=== PATIENT | female | born 1935 | race Caucasian/White ===

== ENCOUNTER 2018-06-03 18:38 | Emergency (ER) | payer OTHER ==
--- OUTSIDE RECORDS SUMMARY | 2018-06-03 18:40 | XMS REPORT ---
:1935 Author Organization [employer] Care Team Providers Name Role Phone De Leon, Na Provider Role Unavailable Allergies No Known Allergies Problems Problem Type Condition Code Onset Dates Condition Status Problem Chronic obstructive pulmonary J44.9 Active disease, unspecified COPD type Problem Pure hypercholesterolemia E78.00 Active Problem Overactive bladder N32.81 Active Problem Allergic rhinitis J30.9 Active Problem Vitamin D deficiency E55.9 Active Problem H/O: CVA (cerebrovascular accident) Z86.73 Active Problem Age-related osteoporosis without M81.0 Active current pathological fracture Problem Benign essential HTN I10 Active Problem Trochanteric bursitis M70.60 Active Medications No Known Medications Results No Known Results Summary Purpose eClinicalWorks Submission
--- OUTSIDE RECORDS SUMMARY | 2018-06-03 18:40 | XMS REPORT ---
:1935 Author Organization [employer] Care Team Providers Name Role Phone De Leon, Na Provider Role Unavailable Allergies, Adverse Reactions, Alerts Substance Reaction Event Type codeine Info Not Available Drug Allergy Problems Problem Type Condition Code Onset Dates Condition Status Assessment Benign essential HTN I10 Active Problem Chronic obstructive pulmonary J44.9 Active disease, unspecified COPD type Problem Pure hypercholesterolemia E78.00 Active Problem Overactive bladder N32.81 Active Problem Allergic rhinitis J30.9 Active Problem Vitamin D deficiency E55.9 Active Problem H/O: CVA (cerebrovascular accident) Z86.73 Active Problem Age-related osteoporosis without M81.0 Active current pathological fracture Problem Benign essential HTN I10 Active Problem Trochanteric bursitis M70.60 Active Assessment Vitamin D deficiency E55.9 Active Assessment Pure hypercholesterolemia E78.00 Active Assessment Chronic obstructive pulmonary J44.9 Active disease, unspecified COPD type Assessment Age-related osteoporosis without M81.0 Active current pathological fracture Medications Medication Code Code Instructions Start End Status Dosage System Date Singulair [facility] 03088895844 10 MG Orally Active 1 tablet Once a day in the evening Lasix [facility] 39939426289 40 MG Orally Active 1 tablet Once a day Losartan ND 86550524321 25 MG Orally Lucie Active 1 tablet Potassium Once a day [address] [facility] 93037358213 10 MG Orally Active 1 tablet Once a day Aspirin Adult [facility] 89026800362 81 MG Orally Active 1 tablet Low Dose Once a day Simvastatin ND 36239386547 20 MG Orally Active 1 tablet Once a day in the evening Coreg ND 95500865951 25 MG Orally Active 1 tablets twice a day Flonase ND 51512560161 50 MCG/ACT Active 2 spray in Nasally Once a each day nostril Alendronate ND 76387592513 70 MG Orally May 06, August 04, Inactive 1 tablet Sodium once weekly 2017 2017 Breo Ellipta ND 26847060417 100-25 MCG/INH May 01, Active 1 puff Inhalation Once [address] [facility] 02219749977 150 MG Orally July Active 1 tablet once a month [address] [facility] 21190837581 5 MG Orally Active 1 tablet Chloride Twice a day Results No Known Results Summary Purpose eClinicalWorks Submission
--- OUTSIDE RECORDS SUMMARY | 2018-06-03 18:40 | XMS REPORT ---
:1935 Author Organization [employer] Care Team Providers Name Role Phone De Leon, Na Provider Role Unavailable Allergies No Known Allergies Problems Problem Type Condition Code Onset Dates Condition Status Problem Age-related osteoporosis without M81.0 Active current pathological fracture Problem Trochanteric bursitis M70.60 Active Problem H/O: CVA (cerebrovascular accident) Z86.73 Active Problem Pure hypercholesterolemia E78.00 Active Problem Chronic obstructive pulmonary J44.9 Active disease, unspecified COPD type Problem Primary osteoarthritis of both hips M16.0 Active Problem Acute right hip pain M25.551 Active Problem Chronic bronchitis with productive J41.1 Active mucopurulent cough Problem Allergic rhinitis J30.9 Active Problem Benign essential HTN I10 Active Problem Vitamin D deficiency E55.9 Active Problem Overactive bladder N32.81 Active Medications No Known Medications Results No Known Results Summary Purpose eClinicalWorks Submission
--- OUTSIDE RECORDS SUMMARY | 2018-06-03 18:40 | XMS REPORT ---
[...] H/O: CVA (cerebrovascular accident) Z86.73 Active Problem Primary osteoarthritis of both hips M16.0 Active Assessment Skin lesion L98.9 Active Problem Acute right hip pain M25.551 Active Problem Chronic bronchitis with productive J41.1 Active mucopurulent cough Problem Allergic rhinitis J30.9 Active Problem Benign essential HTN I10 Active Problem Vitamin D deficiency E55.9 Active Problem Overactive bladder N32.81 Active Assessment Chronic obstructive pulmonary J44.9 Active disease, unspecified COPD type Assessment Chronic bronchitis with productive J41.1 Active mucopurulent cough Assessment Age-related osteoporosis without M81.0 Active current pathological fracture Assessment Pure hypercholesterolemia E78.00 Active Assessment Benign essential HTN I10 Active Assessment Primary osteoarthritis of both hips M16.0 Active Problem Pure hypercholesterolemia E78.00 Active Assessment Acute right hip pain M25.551 Active Problem Chronic obstructive pulmonary J44.9 Active disease, unspecified COPD type Medications Medication Code Code Instructions Start End Status Dosage System Date Date Coreg [facility] 16570475398 25 MG Orally Active 1 tablets twice a day Oxybutynin [facility] 56266870361 5 MG Orally Active 1 tablet Chloride Twice a day Flonase [facility] 65303816376 50 MCG/ACT Active 2 spray in Nasally Once a each day nostril Loratadine [facility] 11802593673 10 MG Orally Active 1 tablet Once a day Aspirin Adult [facility] 91284761413 81 MG Orally Active 1 tablet Low Dose Once a day Simvastatin [facility] 53513441415 20 MG Orally Active 1 tablet Once a day in the evening Singulair [facility] 42063020033 10 MG Orally Active 1 tablet Once a day in the evening Lasix [facility] 76860659160 40 MG Orally Active 1 tablet Once a day Breo Ellipta ND 42657119569 100-25 MCG/INH May 01, Active 1 puff Inhalation Once 2019 a day Losartan [facility] 53088942730 25 MG Orally Active 1 tablet Potassium Once a day Results No Known Results Summary Purpose eClinicalWorks Submission
--- OUTSIDE RECORDS SUMMARY | 2018-06-03 18:41 | XMS REPORT ---
:1935 Author Organization [employer] Care Team Providers Name Role Phone De Leon, Na Provider Role Unavailable Allergies, Adverse Reactions, Alerts Substance Reaction Event Type codeine Info Not Available Drug Allergy Problems Problem Type Condition Code Onset Dates Condition Status Problem Trochanteric bursitis M70.60 Active Problem Allergic rhinitis J30.9 Active Problem Benign essential HTN I10 Active Problem CKD (chronic kidney disease), stage N18.3 Active III Assessment Pure hypercholesterolemia E78.00 Active Problem Acute right hip pain M25.551 Active Assessment Age-related osteoporosis without M81.0 Active current pathological fracture Assessment Allergic rhinitis J30.9 Active Problem Acute right-sided low back pain M54.41 Active with right-sided sciatica Problem Vitamin D deficiency E55.9 Active Problem Overactive bladder N32.81 Active Problem Primary osteoarthritis of both hips M16.0 Active Problem Chronic bronchitis with productive J41.1 Active mucopurulent cough Assessment CKD (chronic kidney disease), stage N18.3 Active III Assessment Benign essential HTN I10 Active Assessment Chronic obstructive pulmonary J44.9 Active disease, unspecified COPD type Assessment Overactive bladder N32.81 Active Problem Pure hypercholesterolemia E78.00 Active Problem Chronic obstructive pulmonary J44.9 Active disease, unspecified COPD type Assessment Acute right-sided low back pain M54.41 Active with right-sided sciatica Problem Age-related osteoporosis without M81.0 Active current pathological fracture Problem H/O: CVA (cerebrovascular accident) Z86.73 Active Medications Medication Code Code Instructions Start End Status Dosage System Date Date Coreg [facility] 11409425711 25 MG Orally Active 1 tablets twice a day Lasix ND 34330443811 40 MG Orally Active 1 tablet Once a day Singulair [facility] 53635823536 10 MG Orally Active 1 tablet Once a day in the evening Flonase ND 02259510269 50 MCG/ACT Active 2 spray in Nasally Once a each day nostril Alendronate [facility] 01189281073 70 MG Orally Dec 30, Apr 29, Active 1 tablet Sodium once a week 2017 2018 Aspirin Adult [facility] 25521137877 81 MG Orally Active 1 tablet Low Dose Once a day Loratadine [facility] 02484651037 10 MG Orally Active 1 tablet Once a day Breo Ellipta [facility] 00054827796 100-25 MCG/INH May 01, Active 1 puff Inhalation Once 2019 a day Oxybutynin [facility] 74448160472 5 MG Orally Active 1 tablet Chloride Twice a day Losartan [facility] 49807393980 25 MG Orally Active 1 tablet Potassium Once a day Simvastatin [facility] 23148792677 20 MG Orally Active 1 tablet Once a day in the evening Results No Known Results Summary Purpose eClinicalWorks Submission
--- OUTSIDE RECORDS SUMMARY | 2018-06-03 18:41 | XMS REPORT ---
:1935 Author Organization [employer]Works Care Team Providers Name Role Phone De Leon, Na Provider Role Unavailable Allergies, Adverse Reactions, Alerts Substance Reaction Event Type codeine Info Not Available Drug Allergy Problems Problem Type Condition Code Onset Dates Condition Status Problem Benign essential HTN I10 Active Problem Overactive bladder N32.81 Active Problem Allergic rhinitis J30.9 Active Problem Acute right-sided low back pain M54.41 Active with right-sided sciatica Assessment Overactive bladder N32.81 Active Problem CKD (chronic kidney disease), stage N18.3 Active III Assessment Constipation, unspecified K59.00 Active constipation type Assessment CKD (chronic kidney disease), stage N18.3 Active III Problem Constipation, unspecified K59.00 Active constipation type Problem Chronic bronchitis with productive J41.1 Active mucopurulent cough Problem Vitamin D deficiency E55.9 Active Problem Acute right hip pain M25.551 Active Problem Primary osteoarthritis of both hips M16.0 Active Assessment Pure hypercholesterolemia E78.00 Active Assessment Benign essential HTN I10 Active Assessment Ingrown nail of great toe of right L60.0 Active foot Assessment Chronic obstructive pulmonary J44.9 Active disease, unspecified COPD type Problem Chronic obstructive pulmonary J44.9 Active disease, unspecified COPD type Problem Age-related osteoporosis without M81.0 Active current pathological fracture Problem H/O: CVA (cerebrovascular accident) Z86.73 Active Assessment Foul smelling urine R82.90 Active Problem Pure hypercholesterolemia E78.00 Active Problem Trochanteric bursitis M70.60 Active Medications Medication Code Code Instructions Start End Status Dosage System Date Date Losartan [facility] 53079409389 25 MG Orally Active 1 tablet Potassium Once a day Coreg [facility] 64039576177 25 MG Orally Active 1 tablets twice a day Simvastatin [facility] 39098294736 20 MG Orally Active 1 tablet Once a day in the evening Aspirin Adult [facility] 53567119312 81 MG Orally Active 1 tablet Low Dose Once a day Loratadine [facility] 52652166157 10 MG Orally Active 1 tablet Once a day Flonase [facility] 58521990944 50 MCG/ACT Active 2 spray in Nasally Once a each day nostril Lasix [facility] 90144331741 40 MG Orally Active 1 tablet Once a day Oxybutynin [facility] 02055131412 5 MG Orally Active 1 tablet Chloride Twice a day Breo Ellipta [facility] 47006211657 100-25 MCG/INH May 01, Active 1 puff Inhalation Once 2019 a day Singulair [facility] 76532889239 10 MG Orally Active 1 tablet Once a day in the evening Alendronate [facility] 40312048730 70 MG Orally Dec 30Apr 29, Active 1 tablet Sodium once a week 2017 2018 Results Name Result Date Reference Range Unit Abnormality Flag CULTURE, URINE, ROUTINE ----CULTURE, URINE, ROUTINE SEE NOTE [id number] Summary Purpose eClinicalWorks Submission
--- OUTSIDE RECORDS SUMMARY | 2018-06-03 18:41 | XMS REPORT ---
[...] pain M54.41 Active with right-sided sciatica Problem CKD (chronic kidney disease), stage N18.3 Active III Problem Constipation, unspecified K59.00 Active constipation type Problem Chronic bronchitis with productive J41.1 Active mucopurulent cough Problem Vitamin D deficiency E55.9 Active Problem Acute right hip pain M25.551 Active Problem Primary osteoarthritis of both hips M16.0 Active Problem Chronic obstructive pulmonary J44.9 Active disease, unspecified COPD type Problem Age-related osteoporosis without M81.0 Active current pathological fracture Problem H/O: CVA (cerebrovascular accident) Z86.73 Active Problem Pure hypercholesterolemia E78.00 Active Problem Trochanteric bursitis M70.60 Active Medications Medication Code System Code Instructions Start Date End Date Status Dosage Cipro [facility] [id number] 500 MG Orally May 02, May 09, Active 1 tablet every 12 hrs 2018 2018 Results No Known Results Summary Purpose eClinicalWorks Submission
[2018-06-03 19:03] LABS: Absolute Lymphocytes (CBC) 2.2 K/uL (0.7-4.9); Absolute Monocytes 0.6 K/uL (0.1-1.3); Absolute Neutrophil 6.1 K/uL (1.8-8.0); Basophils % 0.5 % (0-1.3); Eosinophils % 2.1 % (0-4.4); Hematocrit 36.5 % (36.0-45.0); Lymphocytes % 23.9 % (15.3-44.8); MPV 7.1 fL (7.6-11.3); RBC Red Blood Cell Count 3.95 M/uL (3.86-4.86)
[2018-06-03 19:06] LABS: Protime INR 0.96
[2018-06-03] MEDS ORDERED: ALTEPLASE 100 ML IV ONE (19:08)
--- NOTE | 2018-06-03 19:08 | ER ---
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 Code Stroke called from ambulance bay, pt taken straight to CT. Transition of care: patient was not received from another setting of care. An acute neurological deficit is present. The patients blood glucose was checked before arriving to the hospital and was found to be normal. 18:32 Method Of Arrival: EMS: [facility] iw 18:32 Onset of symptoms was June 03, 2018 at 17:50. Risk Assessment: Do you want to hurt iw yourself or someone else? Patient reports no desire to harm self or others. Initial Sepsis Screen: Does the patient meet any 2 criteria? No. Patient's initial sepsis screen is negative. Does the patient have a suspected source of infection? No. Patient's initial sepsis screen is negative. Care prior to arrival: IV initiated. 18 GA, in the left antecubital area, Glucose check: 92. 18:32 Acuity: KERRY 2 iw Triage Assessment: 18:35 The onset of the patients symptoms was June 03, 2018 at 17:50. iw Stroke Activation: Physician: Stroke Attending; Name: ; Notified At: ; Arrived At: Physician: Chief Stroke Resident; Name: ; Notified At: ; Arrived At: Physician: Stroke Resident; Name: ; Notified At: ; Arrived At: Physician: ED Attending; Name: Dr. Smith/MARISOL Cash; Notified At: 18:32; Arrived At: 18:32 Physician: ED Resident; Name: ; Notified At: ; Arrived At: Historical: - Allergies: 19:08 Codeine; iw - Immunization history:: Adult Immunizations. - Ebola Screening: : Patient negative for fever greater than or equal to 101.5 degrees Fahrenheit, and additional compatible Ebola Virus Disease symptoms Patient denies exposure to infectious person Patient denies travel to an Ebola-affected area in the 21 days before illness onset No symptoms or risks identified at this time. - Social history:: Smoking status: Patient/guardian denies using tobacco. Screenin:19 Abuse screen: Denies threats or abuse. Denies injuries from another. Nutritional bp screening: No deficits noted. Tuberculosis screening: No symptoms or risk factors identified. VAN Screening: Arm Drift: Severe drift. Visual Disturbance: No visual disturbance noted. Aphasia: No aphasia noted. Neglect: No neglect noted. Fall Risk No fall in past 12 months (0 pts). Secondary diagnosis (15 points) CVA, IV access (20 points). Ambulatory Aid- None/Bed Rest/Nurse Assist (0 pts). Gait- Impaired (20 pts.). Mental Status- Oriented to own ability (0 pts). Total Thompson Fall Scale indicates High Risk Score (45 or more points). Fall prevention measures have been instituted. Side Rails Up X 2 Placed Close to Nursing Station Frequent Obs/Assessments Occuring As available patient and family educated on Fall Prevention Program and Strategies. Assessment: 18:32 General: Appears in no apparent distress. well developed, Behavior is calm, iw cooperative. Pain: Denies pain. 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 Cardiovascular: Patient's skin is warm and dry. Respiratory: Respiratory effort is even, unlabored, Respiratory pattern is regular. Derm: Skin is intact. 19:00 VAN Scoring: Arm Drift: Minor drift Visual Disturbance: No visual disturbance noted. tl2 Aphasia: No aphasia noted. Neglect: No neglect noted. T-PA (Activase) Screening: Indications: Definite evidence of stroke, ischemic, embolic, or hypertensive: Yes. Treatment will start within 4.5 hours onset of symptoms: Yes. 19:02 The patient has not been NPO before screening. The patient is alert, and able to follow tl2 commands. The patient exhibits slurred or garbled speech. The patient is exhibiting difficulty speaking. The patient does not exhibit difficulty understanding words. The patient is able to swallow own secretions with no drooling or need for suction. The patient did not tolerate one teaspoon of water. Drooling, immediate coughing, gurgling, or clearing of the throat was noted. Bedside swallow screening discontinued. Patient kept NPO until cleared by Speech Therapy or Physician. The patient failed the bedside swallow screening. The patient will be kept NPO until cleared by Speech Therapy or Physician. Provider notified of bedside swallow screening results: Shailesh DAMON. 19:10 Reassessment: MARISOL Cash instructed to take pt to CT immediately after TPA bolus for head tl2 and neck angio. CT notified. Vital Signs: 18:58 Weight 54.43 kg; iw 18:58 BP 153 / 83; Pulse 57; Resp 16; Temp 97; Pulse Ox 96% ; bp 19:00 BP 147 / 66; Pulse 47; Resp 16; Pulse Ox 96% ; bp 19:30 BP 136 / 55; Pulse 53; Resp 18; Pulse Ox 96% ; tl2 19:39 BP 94 / 60; Pulse 51; Resp 18; Pulse Ox 96% on R/A; tl2 19:45 BP 120 / 62; Pulse 46; Resp 18; Pulse Ox 97% on R/A; tl2 20:15 BP 93 / 64; Pulse 53; Resp 18; Pulse Ox 95% on R/A; tl2 NIH Stroke Scale Scores: 18:55 NIHSS Score: 8 jr8 19:15 NIHSS Score: 4 tl2 19:19 NIHSS Score: 9 bp 19:50 NIHSS Score: 3 tl2 ED Course: 18:46 Patient arrived in ED. iw 18:46 Shailesh Rod[facility]guez [facility]. jr8 18:46 Milan Smith MD is Attending Physician. jr8 18:55 initiated a transfer with Olivia at the [facility] transfer center. eb 18:56 CT Stroke Brain w/o Contrast In Process Unspecified. EDMS 19:00 Inserted saline lock: 20 gauge in right antecubital area, using aseptic technique. bp Blood collected. Maintain EMS IV. Dressing intact. Good blood return noted. Site clean \T\ dry. Gauge \T\ site: 20 gauge L AC. 19:01 Triage completed. iw 19:05 Inserted saline lock: 20 gauge in right antecubital area, using aseptic technique. ea 19:11 X-ray completed. Portable x-ray completed in exam room. Patient tolerated procedure mh1 well. 19:13 Stroke CXR 1 View In Process Unspecified. EDMS 19:15 Arm band placed on right wrist. tl2 19:18 Shane Moon, RN is Primary Nurse. bp 19:19 Patient has correct armband on for positive identification. Placed in gown. Bed in low bp position. Call light in reach. Side rails up X2. 19:23 CT Head Angio In Process Unspecified. EDMS 19:23 Neck Angio In Process Unspecified. EDMS 20:45 No provider procedures requiring assistance completed. Patient transferred, IV remains tl2 in place. Administered Medications: 19:00 Drug: ACTIvase {Co-Signature: arturo (Jaylin Walsh RN).} Route: IV Thrombolytics; Rate: bp calculated rate; Infused Over: 60 mins; 20:07 Follow up: Response: No adverse reaction; Marked relief of symptoms tl2 20:07 Follow up: Response: No adverse reaction tl2 Point of Care Testing: Blood Glucose: 18:50 Blood Glucose: 97 mg/dL; iw 19:01 Blood Glucose: 104 mg/dL; tl2 Ranges: Outcome: 19:08 ER care complete, transfer ordered by jrRossy 20:45 Transferred by ground EMS to [facility], Transfer form completed. tl2 20:45 Condition: stable 20:45 Discharge instructions given to patient, family, Instructed on the need for transfer. 20:46 Patient left the ED. tl2 NIH Stroke Scale - NIH Stroke Score Date: 06/03/2018 Time: 18:55 Total Score = 8 1a. Level of Consciousness (LOC) - 0(Alert) 1b. Level of Consciousness (LOC) (Year \T\ Age) - 0(Both) 1c. LOC Commands (Open \T\ Closes Eyes/Fiber Optic Assembly Worker) - 0(Both) 2. Best Gaze (Lateral Gaze Paresis) - 0(Normal) 3. Visual Field Loss - 0(No visual loss) 4. Facial Palsy - 2(Partial paralysis) 5a. Left Arm: Motor (10-second hold) - 2(Drift, some effort against gravity) 5b. Right Arm: Motor (10-second hold) - 0(No drift) 6a. Left Leg: Motor (5-second hold - always test supine) - 1(Drift) 6b. Right Leg: Motor (5-second hold - always test supine) - 0(No drift) 7. Limb Ataxia (finger/nose \T\ heel/hinkle - test with eyes open) - 2(Present in two limbs) 8. Sensory Loss (pinprick arms/legs/face) - 0(Normal) 9. Best Language: Aphasia (description/naming/reading) - 0(No aphasia) 10. Dysarthria (speech clarity - read or repeat words) - 1(Mild to Moderate) 11. Extinction and Inattention (visual/tactile/auditory/spatial/personal) - 0(No abnormality) Initials: jr8 NIH Stroke Scale - NIH Stroke Score Date: 06/03/2018 Time: 19:15 Total Score = 4 1a. Level of Consciousness (LOC) - 0(Alert) 1b. Level of Consciousness (LOC) (Year \T\ Age) - 0(Both) 1c. LOC Commands (Open \T\ Closes Eyes/Fiber Optic Assembly Worker) - 0(Both) 2. Best Gaze (Lateral Gaze Paresis) - 0(Normal) 3. Visual Field Loss - 0(No visual loss) 4. Facial Palsy - 1(Minor Paralysis) 5a. Left Arm: Motor (10-second hold) - 1(Drift) 5b. Right Arm: Motor (10-second hold) - 0(No drift) 6a. Left Leg: Motor (5-second hold - always test supine) - 1(Drift) 6b. Right Leg: Motor (5-second hold - always test supine) - 0(No drift) 7. Limb Ataxia (finger/nose \T\ heel/hinkle - test with eyes open) - 0(Absent) 8. Sensory Loss (pinprick arms/legs/face) - 0(Normal) 9. Best Language: Aphasia (description/naming/reading) - 0(No aphasia) 10. Dysarthria (speech clarity - read or repeat words) - 1(Mild to Moderate) 11. Extinction and Inattention (visual/tactile/auditory/spatial/personal) - 0(No abnormality) Initials: tl2 NIH Stroke Scale - NIH Stroke Score Date: 06/03/2018 Time: 19:19 Total Score = 9 1a. Level of Consciousness (LOC) - 0(Alert) 1b. Level of Consciousness (LOC) (Year \T\ Age) - 0(Both) 1c. LOC Commands (Open \T\ Closes Eyes/Fiber Optic Assembly Worker) - 0(Both) 2. Best Gaze (Lateral Gaze Paresis) - 0(Normal) 3. Visual Field Loss - 0(No visual loss) 4. Facial Palsy - 2(Partial paralysis) 5a. Left Arm: Motor (10-second hold) - 2(Drift, some effort against gravity) 5b. Right Arm: Motor (10-second hold) - 0(No drift) 6a. Left Leg: Motor (5-second hold - always test supine) - 2(Drift, some effort against gravity) 6b. Right Leg: Motor (5-second hold - always test supine) - 0(No drift) 7. Limb Ataxia (finger/nose \T\ heel/hinkle - test with eyes open) - 2(Present in two limbs) 8. Sensory Loss (pinprick arms/legs/face) - 0(Normal) 9. Best Language: Aphasia (description/naming/reading) - 0(No aphasia) 10. Dysarthria (speech clarity - read or repeat words) - 1(Mild to Moderate) 11. Extinction and Inattention (visual/tactile/auditory/spatial/personal) - 0(No abnormality) Initials: bp NIH Stroke Scale - NIH Stroke Score Date: 06/03/2018 Time: 19:50 Total Score = 3 1a. Level of Consciousness (LOC) - 0(Alert) 1b. Level of Consciousness (LOC) (Year \T\ Age) - 0(Both) 1c. LOC Commands (Open \T\ Closes Eyes/Fiber Optic Assembly Worker) - 0(Both) 2. Best Gaze (Lateral Gaze Paresis) - 0(Normal) 3. Visual Field Loss - 0(No visual loss) 4. Facial Palsy - 1(Minor Paralysis) 5a. Left Arm: Motor (10-second hold) - 0(No drift) 5b. Right Arm: Motor (10-second hold) - 0(No drift) 6a. Left Leg: Motor (5-second hold - always test supine) - 1(Drift) 6b. Right Leg: Motor (5-second hold - always test supine) - 0(No drift) 7. Limb Ataxia (finger/nose \T\ heel/hinkle - test with eyes open) - 0(Absent) 8. Sensory Loss (pinprick arms/legs/face) - 0(Normal) 9. Best Language: Aphasia (description/naming/reading) - 0(No aphasia) 10. Dysarthria (speech clarity - read or repeat words) - 1(Mild to Moderate) 11. Extinction and Inattention (visual/tactile/auditory/spatial/personal) - 0(No abnormality) Initials: tl2 Signatures: Dispatcher [employer] EDNataly Arnold 1 Jenny Johnson RN RN Shailesh Rodríguez PA PA 8 Stacie Hidalgo RN RN tl2 Jaylin Walsh RN RN ea Peltier, Brian, RN RN bp Botello, Elizabeth eb Elena Antunez RN ea
--- NOTE | 2018-06-03 19:08 | EDPHYS ---
Physician Documentation [facility] Name: Shima Walters Age: 82 yrs Sex: Female : 1935 Arrival Date: 06/03/2018 Time: 18:46 Bed 7 Private MD: ED Physician Milan Smith HPI: 06/03 18:47 This 82 yrs old Female presents to ER via Unassigned with complaints of jr8 weakness . 18:47 The patient's problem is reported as a facial droop, on left, dysphasia, slurred jr8 speech, weakness, in the left upper extremity, in the left lower extremity, in the left side of face. Onset: The symptoms/episode began/occurred acutely, at 17:50. Duration: The episode is continuous. Context: occurred at home. The symptoms are alleviated by nothing. The symptoms are aggravated by standing, walking. Associated signs and symptoms: The patient has no apparent associated signs or symptoms. Severity of symptoms: At their worst the symptoms were moderate in the emergency department the symptoms are unchanged. The patient has not experienced similar symptoms in the past. The patient has not recently seen a physician. stated that had just got up from a nap. Walked to the bathroom and was fine. called for him to help her. Noticed that she was having trouble walking and could not move left side very well. Noted facial droop with slurred speech . Historical: - Allergies: 19:08 Codeine; iw - Immunization history:: Adult Immunizations. - Ebola Screening: : Patient negative for fever greater than or equal to 101.5 degrees Fahrenheit, and additional compatible Ebola Virus Disease symptoms Patient denies exposure to infectious person Patient denies travel to an Ebola-affected area in the 21 days before illness onset No symptoms or risks identified at this time. - Social history:: Smoking status: Patient/guardian denies using tobacco. ROS: 18:55 Eyes: Negative for injury, pain, redness, and discharge, ENT: Negative for injury, jr8 pain, and discharge, Neck: Negative for injury, pain, and swelling, Cardiovascular: Negative for chest pain, palpitations, and edema, Respiratory: Negative for shortness of breath, cough, wheezing, and pleuritic chest pain, Abdomen/GI: Negative for abdominal pain, nausea, vomiting, diarrhea, and constipation, Back: Negative for injury and pain, MS/Extremity: Negative for injury and deformity, Skin: Negative for injury, rash, and discoloration. 18:55 Neuro: Positive for speech changes, weakness. Exam: 18:53 Radiologist reports: Old infarct left side. No bleed, tumor, or other acute new jr8 findings 18:55 Eyes: Pupils equal round and reactive to light, extra-ocular motions intact. Lids and jr8 lashes normal. Conjunctiva and sclera are non-icteric and not injected. Cornea within normal limits. Periorbital areas with no swelling, redness, or edema. ENT: Nares patent. No nasal discharge, no septal abnormalities noted. Tympanic membranes are normal and external auditory canals are clear. Oropharynx with no redness, swelling, or masses, exudates, or evidence of obstruction, uvula midline. Mucous membranes moist. Neck: Trachea midline, no thyromegaly or masses palpated, and no cervical lymphadenopathy. Supple, full range of motion without nuchal rigidity, or vertebral point tenderness. No Meningismus. Cardiovascular: Regular rate and rhythm with a normal S1 and S2. No gallops, murmurs, or rubs. Normal PMI, no JVD. No pulse deficits. Respiratory: Lungs have equal breath sounds bilaterally, clear to auscultation and percussion. No rales, rhonchi or wheezes noted. No increased work of breathing, no retractions or nasal flaring. Abdomen/GI: Soft, non-tender, with normal bowel sounds. No distension or tympany. No guarding or rebound. No evidence of tenderness throughout. Back: No spinal tenderness. No costovertebral tenderness. Full range of motion. Skin: Warm, dry with normal turgor. Normal color with no rashes, no lesions, and no evidence of cellulitis. MS/ Extremity: Pulses equal, no cyanosis. Neurovascular intact. Full, normal range of motion. 18:55 Neuro: Orientation: to person, place, time, Mentation: able to follow commands, Memory: immediate memory is intact, remote memory is intact. recent memory is intact, Cranial nerves: CN I not tested, CN II- XII are normal as tested, visual cross are intact. extraocular movements are intact, facial droop noted on left, with forehead spared. Cerebellar function: dysmetria is noted on the left, the patient is unable to track left heel to right hinkle, Motor: moves all fours, Sensation: no obvious gross deficits, Gait: not tested. seizure activity, is not displayed by the patient, Abnormal movements: there are no abnormal movements. Vital Signs: 18:58 Weight 54.43 kg; iw 18:58 BP 153 / 83; Pulse 57; Resp 16; Temp 97; Pulse Ox 96% ; bp 19:00 BP 147 / 66; Pulse 47; Resp 16; Pulse Ox 96% ; bp 19:30 BP 136 / 55; Pulse 53; Resp 18; Pulse Ox 96% ; tl2 19:39 BP 94 / 60; Pulse 51; Resp 18; Pulse Ox 96% on R/A; tl2 19:45 BP 120 / 62; Pulse 46; Resp 18; Pulse Ox 97% on R/A; tl2 20:15 BP 93 / 64; Pulse 53; Resp 18; Pulse Ox 95% on R/A; tl2 NIH Stroke Scale Scores: 18:55 NIHSS Score: 8 jr8 19:15 NIHSS Score: 4 tl2 19:19 NIHSS Score: 9 bp 19:50 NIHSS Score: 3 tl2 MDM: 18:46 Patient medically screened. jr8 18:55 ED course: Dr. Atkinson excepted patient to neuro ICU for further care of ischemic CVA. [facility] Wants CT head/neck angio completed before leaving . ED course: Patient still with symptoms of ischemic CVA. Initiated tPA . 19:07 Data reviewed: vital signs, nurses notes, lab test result(s), EKG, radiologic studies, [facility] CT scan, plain films. Data interpreted: Pulse oximetry: on room air is 100 %. Interpretation: normal. Counseling: I had a detailed discussion with the patient and/or guardian regarding: the historical points, exam findings, and any diagnostic results supporting the discharge/admit diagnosis, lab results, radiology results, the need to transfer to another facility, for higher level of care, [facility] does not immediately have the required specialist. 20:20 ED course: Reexamined patient. Patient still with facial droop. Marked improvement to jr8 left arm . 06/03 18:47 Order name: Magnesium; Complete Time: 19:20 jr8 06/03 18:47 Order name: Troponin (emerg Dept Use Only); Complete Time: 19:20 jr8 06/03 18:47 Order name: Basic Metabolic Panel; Complete Time: 19:20 06/03 18:47 Order name: CBC with Diff; Complete Time: 19:09 06/03 18:47 Order name: Protime (+inr); Complete Time: 19:09 06/03 18:47 Order name: Ptt, Activated; Complete Time: 19:09 06/03 18:47 Order name: CT Stroke Brain w/o Contrast; Complete Time: 19:18 06/03 18:47 Order name: Stroke CXR 1 View; Complete Time: 19:29 06/03 18:47 Order name: EKG; Complete Time: 18:48 06/03 18:47 Order name: Accucheck; Complete Time: 19:10 06/03 18:47 Order name: Cardiac monitoring; Complete Time: 19:26 06/03 19:09 Order name: CT Head Angio; Complete Time: 19:44 8 06/03 19:11 Order name: Neck Angio; Complete Time: 19:42 EDMS 06/03 18:47 Order name: EKG - Nurse/Tech; Complete Time: 19:26 06/03 18:47 Order name: IV Saline Lock; Complete Time: 19:10 06/03 18:47 Order name: Labs collected and sent; Complete Time: 19:26 06/03 18:47 Order name: NPO; Complete Time: 19:10 06/03 18:47 Order name: O2 Per Protocol; Complete Time: 19:26 06/03 18:47 Order name: O2 Sat Monitoring; Complete Time: 19:10 06/03 18:47 Order name: Stroke Swallow Screen; Complete Time: 19:10 Administered Medications: 19:00 Drug: ACTIvase {Co-Signature: arturo (Jaylin Walsh RN).} Route: IV Thrombolytics; Rate: bp calculated rate; Infused Over: 60 mins; 20:07 Follow up: Response: No adverse reaction; Marked relief of symptoms tl2 20:07 Follow up: Response: No adverse reaction tl2 Point of Care Testing: Blood Glucose: 18:50 Blood Glucose: 97 mg/dL; iw 19:01 Blood Glucose: 104 mg/dL; tl2 Ranges: Critical Glucose Levels:Adult <50 mg/dl or >400 mg/dl <40 mg/dl or >180 mg/dl Disposition: 06/03/18 19:08 Transfer ordered to [facility]. Diagnosis is Cerebral infarction. - Reason for transfer: Higher level of care. - Accepting physician is Dr. Atkinson . - Condition is Fair. - Problem is new. - Symptoms are unchanged. NIH Stroke Scale - NIH Stroke Score Date: 06/03/2018 Time: 18:55 Total Score = 8 1a. Level of Consciousness (LOC) - 0(Alert) 1b. Level of Consciousness (LOC) (Year \T\ Age) - 0(Both) 1c. LOC Commands (Open \T\ Closes Eyes/Chief Human Resources Officer) - 0(Both) 2. Best Gaze (Lateral Gaze Paresis) - 0(Normal) 3. Visual Field Loss - 0(No visual loss) 4. Facial Palsy - 2(Partial paralysis) 5a. Left Arm: Motor (10-second hold) - 2(Drift, some effort against gravity) 5b. Right Arm: Motor (10-second hold) - 0(No drift) 6a. Left Leg: Motor (5-second hold - always test supine) - 1(Drift) 6b. Right Leg: Motor (5-second hold - always test supine) - 0(No drift) 7. Limb Ataxia (finger/nose \T\ heel/hinkle - test with eyes open) - 2(Present in two limbs) 8. Sensory Loss (pinprick arms/legs/face) - 0(Normal) 9. Best Language: Aphasia (description/naming/reading) - 0(No aphasia) 10. Dysarthria (speech clarity - read or repeat words) - 1(Mild to Moderate) 11. Extinction and Inattention (visual/tactile/auditory/spatial/personal) - 0(No abnormality) Initials: jr8 NIH Stroke Scale - NIH Stroke Score Date: 06/03/2018 Time: 19:15 Total Score = 4 1a. Level of Consciousness (LOC) - 0(Alert) 1b. Level of Consciousness (LOC) (Year \T\ Age) - 0(Both) 1c. LOC Commands (Open \T\ Closes Eyes/Chief Human Resources Officer) - 0(Both) 2. Best Gaze (Lateral Gaze Paresis) - 0(Normal) 3. Visual Field Loss - 0(No visual loss) 4. Facial Palsy - 1(Minor Paralysis) 5a. Left Arm: Motor (10-second hold) - 1(Drift) 5b. Right Arm: Motor (10-second hold) - 0(No drift) 6a. Left Leg: Motor (5-second hold - always test supine) - 1(Drift) 6b. Right Leg: Motor (5-second hold - always test supine) - 0(No drift) 7. Limb Ataxia (finger/nose \T\ heel/hinkle - test with eyes open) - 0(Absent) 8. Sensory Loss (pinprick arms/legs/face) - 0(Normal) 9. Best Language: Aphasia (description/naming/reading) - 0(No aphasia) 10. Dysarthria (speech clarity - read or repeat words) - 1(Mild to Moderate) 11. Extinction and Inattention (visual/tactile/auditory/spatial/personal) - 0(No abnormality) Initials: tl2 NIH Stroke Scale - NIH Stroke Score Date: 06/03/2018 Time: 19:19 Total Score = 9 1a. Level of Consciousness (LOC) - 0(Alert) 1b. Level of Consciousness (LOC) (Year \T\ Age) - 0(Both) 1c. LOC Commands (Open \T\ Closes Eyes/Chief Human Resources Officer) - 0(Both) 2. Best Gaze (Lateral Gaze Paresis) - 0(Normal) 3. Visual Field Loss - 0(No visual loss) 4. Facial Palsy - 2(Partial paralysis) 5a. Left Arm: Motor (10-second hold) - 2(Drift, some effort against gravity) 5b. Right Arm: Motor (10-second hold) - 0(No drift) 6a. Left Leg: Motor (5-second hold - always test supine) - 2(Drift, some effort against gravity) 6b. Right Leg: Motor (5-second hold - always test supine) - 0(No drift) 7. Limb Ataxia (finger/nose \T\ heel/hinkle - test with eyes open) - 2(Present in two limbs) 8. Sensory Loss (pinprick arms/legs/face) - 0(Normal) 9. Best Language: Aphasia (description/naming/reading) - 0(No aphasia) 10. Dysarthria (speech clarity - read or repeat words) - 1(Mild to Moderate) 11. Extinction and Inattention (visual/tactile/auditory/spatial/personal) - 0(No abnormality) Initials: bp NIH Stroke Scale - NIH Stroke Score Date: 06/03/2018 Time: 19:50 Total Score = 3 1a. Level of Consciousness (LOC) - 0(Alert) 1b. Level of Consciousness (LOC) (Year \T\ Age) - 0(Both) 1c. LOC Commands (Open \T\ Closes Eyes/Chief Human Resources Officer) - 0(Both) 2. Best Gaze (Lateral Gaze Paresis) - 0(Normal) 3. Visual Field Loss - 0(No visual loss) 4. Facial Palsy - 1(Minor Paralysis) 5a. Left Arm: Motor (10-second hold) - 0(No drift) 5b. Right Arm: Motor (10-second hold) - 0(No drift) 6a. Left Leg: Motor (5-second hold - always test supine) - 1(Drift) 6b. Right Leg: Motor (5-second hold - always test supine) - 0(No drift) 7. Limb Ataxia (finger/nose \T\ heel/hinkle - test with eyes open) - 0(Absent) 8. Sensory Loss (pinprick arms/legs/face) - 0(Normal) 9. Best Language: Aphasia (description/naming/reading) - 0(No aphasia) 10. Dysarthria (speech clarity - read or repeat words) - 1(Mild to Moderate) 11. Extinction and Inattention (visual/tactile/auditory/spatial/personal) - 0(No abnormality) Initials: tl2 Addendum: 06/08/2018 11:33 Co-signature as Attending Physician, Milan Smith MD I agree with the kdr assessment and plan of care. Signatures: Dispatcher [employer] EDMS Milan Smith MD MD [facility] Jenny Johnson RN RN Shailesh Rodríguez PA PA jr8 Stacie Hidalgo RN RN tl2 Shane Moon RN RN bp Jaylin Walsh RN, ea Corrections: (The following items were deleted from the chart) 06/03 20:46 19:08 06/03/2018 19:08 Transfer ordered to [facility]. tl2 Diagnosis is Cerebral infarction. Reason for transfer: Higher level of care. Accepting physician is Dr. Atkinson . Condition is Fair. Problem is new. Symptoms are unchanged. jr8
--- NOTE | 2018-06-03 19:11 | RAD REPORT ---
EXAM DESCRIPTION: CT - Ct Stroke Brain Wo Cont - 06/03/2018 6:55 pm CLINICAL HISTORY: APHASIA CVA symptomology COMPARISON: Head Brain Wo Cont dated 11/15/2015 TECHNIQUE: All CT scans are performed using dose optimization technique as appropriate and may inclu de automated exposure control or mA/KV adjustment according to patient size. FINDINGS: No intracranial hemorrhage, hydrocephalus or extra-axial fluid collection.10 mm area of di minished density seen left basal ganglia, unchangedMild generalized brain atrophy is present with mil d periventricular and deep white matter chronic microvascular ischemic changes. No midline shift. The paranasal sinuses and mastoids are clear. The calvarium is intact. IMPRESSION: No acute intracranial abnormality. If there is continued clinical concern for CVA, MR i maging of the brain would be recommended. The findings were discussed with MARISOL Bella in the ER on 06/03/2018 at 6:52 p.m. by telephone.
[2018-06-03 19:18] LABS: BUN Blood Urea Nitrogen 16 mg/dL (7-18); Bicarbonate 28 mmol/L (21-32); Glucose Level 104 mg/dL (74-106); Magnesium 2.2 mg/dL (1.8-2.4); Potassium 3.6 mmol/L (3.5-5.1); Sodium Level 142 mmol/L (136-145); Troponin (Emerg Dept Use Only) < 0.02 ng/mL (0.0-0.045)
--- NOTE | 2018-06-03 19:22 | RAD REPORT ---
EXAM DESCRIPTION: RAD - Chest Single View - 06/03/2018 7:15 pm CLINICAL HISTORY: cva Chest pain. COMPARISON: Chest Pa And Lat (2 Views) dated 12/15/2017; Chest Pa And Lat (2 Views) dated 10/11/2015; C HEST PA AND LAT 2 VIEW dated 04/02/2015; CHEST PA AND LAT 2 VIEW dated 05/02/2014 FINDINGS: Portable technique limits examination quality. The lungs are emphysematous but grossly clear. The heart is moderately enlarged in size. No displaced fractures.
[2018-06-03] MEDS ORDERED: NA CHLORIDE 0.9% 50 ML IV ONE (19:23)
--- NOTE | 2018-06-03 19:40 | RAD REPORT ---
EXAM DESCRIPTION: CT - Neck Angio - 06/03/2018 7:25 pm CLINICAL HISTORY: stroke CVA symptomology COMPARISON: <Comparisons> TECHNIQUE: CT angiography of the neck vessels was performed with MIPs. All CT scans are performed using dose optimization technique as appropriate and may include automated exposure control or mA/KV adjustment according to patient size. FINDINGS: A left aortic arch is identified with 4 vessel origin configuration of the great vessels. No significant flow abnormality is seen of the common carotid bilaterally. No significant stenosis is identified involving the cervical segments of both internal carotid arteri es. Mild atherosclerotic plaque is present in both carotid bulbs. Normal flow is seen within both vertebral arteries. The right vertebral artery appears dominant. IMPRESSION: No significant flow abnormality of the neck vessels is identified.
--- NOTE | 2018-06-03 19:42 | RAD REPORT ---
EXAM DESCRIPTION: CT - Head angio - 06/03/2018 7:23 pm CLINICAL HISTORY: CVA Weakness, CVA symptomology. COMPARISON: <Comparisons> TECHNIQUE: CT angiography of the head was performed with MIPs. All CT scans are performed using dose optimization technique as appropriate and may include automated exposure control or mA/KV adjustment according to patient size. FINDINGS: No evidence of aneurysm is detected. No flow-limiting stenosis or vascular malformation id entified. origin of the right posterior communicating artery noted, normal variant. Antegrade flow is seen in the vertebral arteries. The vertebral arteries are codominant. The visualized dural venous sinuses are patent. IMPRESSION: No significant flow abnormality is detected.
--- NOTE | 2018-06-05 10:14 | EKG ---
Test Date: 2018-06-03 Test Time: 18:57:02 Process Improvement Consultant: MEASUREMENT RESULTS: Intervals: Rate: 43 SC: QRSD: 104 QT: 518 QTc: 437 [place]: P: SC: QRS: 38 T: -61 INTERPRETIVE STATEMENTS: Junctional bradycardia Nonspecific ST and T wave abnormality Abnormal ECG Compared to ECG 09/07/2013 10:36:19 Sinus bradycardia no longer present ST (T wave) deviation still present Electronically Signed On 06-05-18 10:12:45 [employer] by Drew Sherman
== END 2018-06-03 20:46 | disposition short-term general hospital (02) ==
LOC: ER 18:38
DX: I63.9 Cerebral infarction, unspecified (principal); R29.708 NIHSS score 8; Z88.5 Allergy status to narcotic agent
CPT/HCPCS: 36415; 70450; 70496; 70498; 71045; 80048; 82962; 83735; 84484; 85025; 85610; 85730; 92977; 93005; 99285; J2997; Q9967

== ENCOUNTER 2019-10-22 14:12 | Emergency (ER) | payer OTHER ==
--- OUTSIDE RECORDS SUMMARY | 2019-10-22 14:14 | XMS REPORT | Clinical Summary ---
:1935 Author Organization [facility] Address [address] [place] [address] Care Team Providers Name Role Phone Stephy De Leon DO Primary Care Provider Allergies Active Allergy Reactions Severity Noted Date Comments Joya Other (See Comments) 06/03/2018 Chest p ain Medications Medication Sig Dispensed Refills Start Date End Date Status aspirin 81 MG chewable Take 1 tablet 90 tablet 3 06/08/2018 tablet (81 mg total) by mouth daily. atorvastatin (LIPITOR) Take 1 tablet 90 tablet 3 06/07/2018 40 MG tablet (40 mg total) by mouth nightly. carvedilol (COREG) Take 1 tablet 90 tablet 3 06/07/20182019 6.25 MG tablet (6.25 mg total) by mouth 2 (two) times daily. Active Problems Problem Noted Date Acute encephalopathy 06/05/2018 Acute ischemic stroke 06/04/2018 Received tissue plasminogen activator (t-PA) less than 24 hours prior to 06/04/2018 arrival Family History Medical History Relation Name Comments Diabetes Brother Heart disease Brother Diabetes Daughter Heart disease Mother Relation Name Status Comments Brother Daughter Mother Social History Tobacco Use Types Packs/Day Years Used Date Never Smoker Smokeless Tobacco: Never Used Alcohol Use Drinks/Week oz/Week Comments No Alcohol Habits Answer Date Recorded How often do you have a drink containing alcohol? Never 06/03/2018 How many drinks containing alcohol do you have on a typical Not asked day when you are drinking? How often do you have six or more drinks on one occasion? No t asked Sex Assigned at Date Recorded Not on file Job Start Date Occupation Industry Not on file Not on file Not on file Travel History Travel Start Travel End No recent travel history available. Last Filed Vital Signs Not on file Plan of Treatment Not on file Results Not on fileafter 10/21/2018 Insurance Payer Benefit Plan / Group Subscriber ID Type Phone A ddress [employer] ALL xxxxxxxxx Maps Contracted
--- OUTSIDE RECORDS SUMMARY | 2019-10-22 14:15 | XMS REPORT | Continuity of Care Document ---
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 [facility] of eye (disorder) Ne uro Congestive heart Active Problem 09/15/2019 Mi larisa failure (disorder) N euro Lumbar Active Problem 09/15/2019 [facility] radiculopathy Neuro (disorder) Neoplasm of Active Problem 09/15/2019 [facility] meninges Neuro (disorder) Medications Medication Details Route Status Patient Ordering Order Source Instructions Provider Date 24 HR mirabegron 0 Refill(s) Active Mis christopher 50 MG Extended 020 Neuro Release Tablet [Myrbetriq] atorvastatin 40 40 mg = 1 Active Mische r mg oral tablet tab, PO, 020 Neuro Bedtime, # 30 tab, 0 Refill(s) Hemocyte Plus 1 cap, PO, Active [facility] Daily, 0 020 Neuro Refill(s) Loratadine 10 MG 10 mg = 1 Active Misch er Oral Tablet tab, PO, 020 Neuro Daily, 0 Refill(s) meclizine 25 mg 25 mg = 1 Active Mische r oral tablet tab, PO, 020 Neuro BID, 0 Refill(s) montelukast 10 10 mg = 1 Active [facility]ischer mg oral tablet tab, PO, 020 Neuro Daily, 0 Refill(s) 24 HR mirabegron 25 mg = 1 Active Misch er 25 MG Extended tab, PO, 020 Neuro Release Tablet Daily, # 30 [Myrbetriq] tab, 5 Refill(s) tramadol 50 mg = 1 Active [facility] hydrochloride 50 tab, PO, 020 Neuro MG Oral Tablet Q6H, PRN Pain, # 40 tab, 0 Refill(s) Trelegy Ellipta = 1 Active [facility] inhalation inhalation, 020 Neuro powder PO, Daily, PRN COPD, # 1 ea, 0 Refill(s) montelukast Notes: (Same Inactive [facility] as as:Singulair [address] [place] [address] ) [place] Losartan Notes: (Same Inactive [facility] as: Cozaar) [address] [place] [address] pantoprazole Notes: Inactive [facility] Tablet 019 [facility] should not Center be chewed or crushed. (Same as: Protonix) pantoprazole 40 40 mg, PO, Active [place] mg oral enteric Daily, # 30 019 Medi jazmine coated tablet tab, 0 Center Refill(s) rivaroxaban 15 15 mg = 1 Active [place] MG Oral Tablet tab, PO, 019 Medical [Xarelto] QPM, # 30 Center tab, 3 Refill(s) sucralfate 1 g 1 gm = 1 Active [facility] oral tablet tab, PO, 019 Medical BID, # 28 Center tab, 0 Refill(s) tramadol 50 mg = 1 Active [place] hydrochloride 50 tab, PO, 019 Medica l MG Oral Tablet Q6H, PRN Center Pain Score 4-6, # 24 tab, 0 Refill(s) AMIODarone 200 200 mg = 1 Active [place] mg oral tablet tab, PO, 019 Medical BID, # 60 Center tab, 3 Refill(s) Xarelto Notes: (Same Inactive [facility] as: Xarelto) [address] [place] [address] Cefazolin Notes: (Same Inactive [facility] As: Ancef, [address] [place] [address] Kefzol) [place] MEDICATION WASTE Product Size: 1000 mg Product Wasted: ___ mg carvedilol Notes: Give No Longer [place] with food. Active 019 Medical (Same As: Center Coreg) Amiodarone Notes: (Same No Longer [place] as: Active [address] [place] [address] Cordarone) Center Hydromorphone Notes: Same No Longer [facility] [place] as Dilaudid Active [address] [place] [address] Tramadol Notes: Not No Longer [facility] to exceed Active [address] [place] [address] 400mg/day. Center (Same As: Ultram) oxybutynin Notes: (Same No Longer [place] as: Ditropan Active [address] [place] [address] XL) "Do Not Center Crush" Sucralfate Notes: May No Longer [place] interfere Active [address] [place] [address] w/enteral Center feeds - Take 1 hr before or 2 hr after antacids, dairy pdt, meals & minerals - On empty stomach. For patients unable to swallow tablet, dissolve in 10mL - 30mL of water or juice and stir before giving. (Same As: Carafate) glycopyrrolate Route: IV, Inactive [facility] (ANES) Drug form: 019 Medical INJ, ONCE, Center Stop date: 09/14/18 16:20:00 CDT neostigmine Route: IV, Inactive [facility] (ANES) Drug form: 019 Medical INJ, ONCE, Center Stop date: 09/14/18 16:20:00 CDT furosemide Route: IV, Inactive [facility] (ANES) Drug form: 019 Medical INJ, ONCE, Center Stop date: 09/14/18 16:08:00 CDT ondansetron Route: IV, Inactive [facility] (ANES) Drug form: 019 Medical INJ, ONCE, Center Stop date: 09/14/18 16:02:00 CDT Nitroglycerin Notes: (Same No Longer [place] as:Nitroquic Active [address] [place] [address] Nitrostat) "Do Not Crush" Sublingual tablet Sodium Chloride Route: IV, Inactive [place] 0.9% IV (ANES) Drug form: [facility] Medica l 95 mL + INJ, Start Center protamine (ANES) date: 50 mg 09/14/18 14:16:00 CDT, Stop date: 09/14/18 15:16:00 CDT Isuprel HCl Route: IV, Inactive [place] (ANES) 0.2 mg + Drug form: 019 Medic al INJ, Dosing Center Weight 55.9, kg, Start date: 09/14/18 14:04:00 CDT, Stop date: 09/14/18 15:04:00 CDT vancomycin Route: IV, Inactive [facility] (ANES) 1000 mg Drug form: 019 Medica l INJ, Start Center date: 09/14/18 13:47:00 CDT, Stop date: 09/14/18 14:47:00 CDT dexamethasone Route: IV, Inactive [place] (ANES) Drug form: 019 Medical INJ, ONCE, Center Stop date: 09/14/18 13:33:00 CDT norepinephrine Route: IV, Inactive [place] (ANES) Drug form: 019 Medical INJ, ONCE, Center Stop date: 09/14/18 13:18:00 CDT heparin (ANES) Route: IV, Inactive [place] Drug form: 019 Medical INJ, ONCE, Center Stop date: 09/14/18 12:57:00 CDT fentaNYL (ANES) Route: IV, Inactive [place] Drug form: 019 Medical INJ, ONCE, Center Stop date: 09/14/18 12:06:00 CDT rocuronium Route: IV, Inactive [place] (ANES) Drug form: 019 Medical INJ, ONCE, Center Stop date: 09/14/18 12:06:00 CDT propofol (ANES) Route: IV, Inactive [place] Drug form: 019 Medical INJ, ONCE, Center Stop date: 09/14/18 12:06:00 CDT lidocaine (ANES) Route: IV, Inactive [place] Drug form: 019 Medical INJ, ONCE, Center Stop date: 09/14/18 12:06:00 CDT Flumazenil Notes: (Same Inactive Thao curtis as: [address] [place] [address] [facility] [place] Naloxone Notes: Same Inactive [place] as Narcan [address] [place] [address] Ondansetron Notes: (Same Inactive [facility] as as: Zofran) 019 Medical Center MEDICATION WASTE Product Size: 4 mg Product Wasted: ___ mg Morphine Notes: (Same Inactive [facility] as:MORPhine [address] [place] [address] Sulfate) [place] Hydralazine Notes: (Same Inactive [facility] as as: [address] [place] [address] Apresoline) [place] Push over 5 minutes esmolol Notes: (Same Inactive [facility] as: [address] [place] [address] Brevibloc) [place] Labetalol 10 mg, 2 mL, Inactive [facility] Route: IVP, [address] [place] [address] Drug form: [place] INJ, Q5Min, Dosing Weight 55.909, kg, PRN Elevated BP, Start date: 09/14/18 11:53:00 CDT, Duration: 5 doses or times, Stop date: 09/15/18 12:08:00 CDT Sodium Chloride Route: IV, Inactive [place] 0.9% IV (ANES) Total [address] [place] [address] 1000 mL Volume: [place] 1,000, Start date: 09/14/18 11:20:00 CDT, Stop date: 09/14/18 12:20:00 CDT Fentanyl 25 Inactive [facility] microgram, 019 Medical Route: IV, Center ONCE, Dosing Weight 55.909, kg, Start date: 09/14/18 9:45:00 CDT, Stop date: 09/14/18 9:45:00 CDT Versed 3 mg, Route: Inactive [facility] IV, ONCE, 019 Medical Dosing Center Weight 55.909, kg, Start date: 09/14/18 9:45:00 CDT, Stop date: 09/14/18 9:45:00 CDT losartan 25 mg 25 mg = 1 [place] oral tablet tab, PO, [address] [place] [address] Daily, 0 [place] Refill(s) montelukast 10 mg, PO, Active [facility] Daily, 0 019 Medical Refill(s) [place] rivaroxaban 15 15 mg = 1 [place] Longer [place] MG Oral Tablet tab, PO, Active 019 Medical [Xarelto] QPM, 0 [place] Refill(s) oxybutynin 5 mg, PO, Active [facility] BID, 0 019 Medical Refill(s) Center carvedilol 12.5 mg, PO, Active [facility] BID, 0 019 Medical Refill(s) Center pantoprazole 40 mg, PO, No Longer [place] Daily, 0 Active 019 Medical Refill(s) Center NS 1,000 mL 1,000 mL, No Longer [facility] Rate: [address] [address] Medical ml/hr, Center Infuse over: 10 hr, Route: IV, Dosing Weight 55.909 kg, Total Volume: 1,000, Start date: 09/14/18 8:26:00 CDT, Duration: 30 day, Stop date: 10/14/18 8:25:00 CDT, 1.56, m2 Allergies, Adverse Reactions, Alerts Substance Category Reaction Severity Reaction Status Date Comments S ource type Reported codeine Assertion Vicodin Drug Active Mische r allergy Neuro Vicodin Assertion Drug Active Mische r allergy Neuro Immunizations No Data Provided for This Section Results Order Name Results Value Reference Date Interpretation Comments Kaitlyn rce Range HEMATOLOGY POC 179 09/[address] [facility] [address] [facility] Time HEMATOLOGY POC 363 09/[address] [facility] [address] [facility] Time HEMATOLOGY POC 291 09/[address] [facility] [address] [facility] Time BLOOD BANK ABO/Rh A POS 09/14 [facility] RESULTS /2018 [facility] BLOOD BANK Antibody Negative 09/14 [facility] RESULTS Scrn (09/14/18 8:30 AM) [facility] CHEM PANEL Phosphorus 2.9 2.5 - 4.5 09/14 [facility] CHEM PANEL Magnesium 2.1 1.8 - 2.4 09/14 [facility] Lvl /2018 [facility] ELECTROLYTES AGAP 10.6 10.0 - 09/14 [facility] 20.0 [facility] ELECTROLYTES eGFR 49 09/14 Result Comment: The Medical eGFR is Center calculated using the CKD-EPI formula. In most young, healthy individuals the eGFR will be >90 mL/min/1.73m2 . The eGFR declines with age. An eGFR of 60-89 may be normal in some populations, particularly the elderly, for whom the CKD-EPI formula has not been extensively validated. Use of the eGFR is not recommended in the following populations:< br/>
Trini viduals with unstable creatinine concentration s, including patients and those with serious co-morbid conditions.<b r/>
Patie nts with extremes in muscle mass or diet.

The data above are obtained from the National Kidney Disease Education Program (NKDEP) which additionally recommends that when the eGFR is used in patients with extremes of body mass index for purposes of drug dosing, the eGFR should be multiplied by the estimated BMI. ELECTROLYTES Glucose Lvl 105 70 - 99 09/14 [facility] ELECTROLYTES Creatinine 1.05 0.50 - 09/14 [facility] Lvl 1.40 [facility] ELECTROLYTES BUN 13 7 - 22 09/14 [facility]2018 [facility] ELECTROLYTES Potassium 3.6 3.5 - 5.1 09/14 [facility] Lvl [facility] ELECTROLYTES Sodium Lvl 143 135 - 145 09/14 [facility] ELECTROLYTES CO2 29 24 - 32 09/14 [facility]2018 [facility] ELECTROLYTES Chloride Lvl 107 95 - 109 09/14 [place] [facility] ELECTROLYTES Calcium Lvl 10.3 8.5 - 10.5 09/14 [place] [facility] HEMATOLOGY PTT 45.1 22.9 - 09/14 [place] 35.8 [facility] HEMATOLOGY PT 14.4 12.0 - 09/14 [facility] 14.7 [facility] HEMATOLOGY INR 1.14 0.85 - 09/14 [place] 1.17 [facility] HEMATOLOGY WBC 8.5 3.7 - 10.4 09/14 [facility] HEMATOLOGY RBC 4.05 4.20 - 09/14 [place] 5.40 [facility] HEMATOLOGY Hgb 12.4 12.0 - 09/14 [facility] 16.0 [facility] HEMATOLOGY MCHC 33.0 32.0 - 09/14 [place] 36.0 [facility] HEMATOLOGY RDW 14.3 11.5 - 09/14 [facility] 14.5 [facility] HEMATOLOGY Platelet 230 133 - 450 09/[address] HEMATOLOGY MPV 7.1 7.4 - 10.4 09/[address] HEMATOLOGY MCH 30.6 27.0 - 09/14 [place] 31.0 [facility] HEMATOLOGY Hct 37.5 36.0 - 09/14 [place] 48.0 /2018 [facility] HEMATOLOGY MCV 92.7 80.0 - 09/14 [facility] 98.0 [facility] HEMATOLOGY Neutrophils 6.1 1.5 - 8.1 09/14 [facility] # /2019 [facility] HEMATOLOGY Basophils 0.5 0.0 - 1.0 09/14 [place] /2018 [facility] HEMATOLOGY Lymphocytes 1.6 1.0 - 5.5 09/14 [facility] # /2019 [facility] HEMATOLOGY Monocytes # 0.6 0.0 - 0.8 09/14 [facility] /2019 [facility] HEMATOLOGY Eosinophils 0.2 0.0 - 0.5 09/14 [facility] # /2019 [facility] HEMATOLOGY Eosinophils 2.3 0.0 - 4.0 09/14 [facility] /2018 [facility] HEMATOLOGY Monocytes 7.5 2.0 - 12.0 09/14 /2018 [facility] HEMATOLOGY Segs 71.3 45.0 - 09/14 [facility] 75.0 [facility] HEMATOLOGY Lymphocytes 18.4 20.0 - 09/14 [facility] 40.0 [facility] Pathology Reports No Data Provided for This Section Diagnostic Reports Report Value Date Source Chest 1view DX EXAM: XR CHEST 1 VIEW 09/14/2018 [facility] edical DATE: 09/14/2018 4:59 PM CDT Cent er INDICATION: - s/p Pacemaker implant COMPARISON: Chest radiograph dated 07/13/2008 TECHNIQUE: AP chest one view FINDINGS: Interval placement of left dual lead cardiac pacemaker. Stable position of cardiac valve. Diffuse prominence in interstitial lung markings likely representing edema.Lungs are hyperinflated. Bilateral pleural effusions versus ple ural thickening.No definite pneumothorax allowing for limitations of supine exam. Cardiomediastinal silhouette is enlarged, unchan ged. Osseous structures are unchanged. IMPRESSION: 1. Interval placement of le ft dual lead cardiac pacemaker without obvious postprocedural complication allowing for limitations of supine exam. 2. Pulmonary vascular conge stion and small pleural effusions versus pleural thickening. 3. Lungs are hyperinflated, which may represent emphysema. Consultation Notes No Data Provided for This Section Discharge Summaries No Data Provided for This Section History and Physicals No Data Provided for This Section Vital Signs Vital Sign Value Date Comments Source Systolic (mm Hg) 135 09/12/2019 [facility] Micaela ro Diastolic (mm Hg) 74 09/12/2019 [facility] Ne uro Heart Rate 60 [facility] Resp[facility] Rate 16 09/12/2019 [facility] Height 152.4 cm 09/12/2019 [facility] Weight 54.545 09/12/2019 [facility] BMI Calculated 23.48 09/12/2019 [facility] Neuro Systolic (mm Hg) 136 06/27/2019 [facility] Micaela ro Diastolic (mm Hg) 70 06/27/2019 [facility] Ne uro Heart Rate 60 06/27/2019 [facility] Respitory Rate 16 06/27/2019 [facility] Neuro Height 149.86 cm 06/27/2019 [facility] Weight 54.091 06/27/2019 [facility] BMI Calculated 24.09 06/27/2019 [facility] Respitory Rate 17 09/15/2018 [facility] Respitory Rate 29 09/15/2018 [facility] Center Systolic (mm Hg) 118 09/15/2018 [facility] dical Center Diastolic (mm Hg) 56 09/15/2018 [facility] Temperature Oral (F) 97.2 F 09/15/2018 [facility] Respitory Rate 25 09/15/2018 [facility] Center Systolic (mm Hg) 99 09/15/2018 [facility] dical Center Diastolic (mm Hg) 61 [facility] Systolic (mm Hg) 108 09/15/2018 [facility] dical Center Diastolic (mm Hg) 57 09/15/2018 [facility] Temperature Oral (F) 98.7 F 09/15/2018 [facility] Temperature Oral (F) 97.2 F 09/14/2018 [facility] BMI Calculated 24.07 09/14/2018 [facility] Weight 55.909 09/14/2018 [facility] Height 152.4 cm 09/14/2018 [facility] Encounters Location Location Encounter Encounter Reason Attending ADM DC Stat us Source Details Type Number For Provider Date Date Visit [facility] [id number] Gerardo 09/14 09/15 [facility] [place] /2018 [facility] Outpatient [id number] Neil 06/26 [facility]2019 [place] [facility] [id number] Neil 06/26 06/27 [facility] [place] [facility]2019 [facility] [place] [facility] [id number] [facility]07 [facility] [place] [facility] [id number] Neil 08/07 08/07 [facility] [place] [facility]2019 [facility] [place] Out[facility] [id number] Neil 09/11 [facility] [place] [facility] [place] [facility] [id number] Neil 09/11 09/12 [facility] [place] [facility]2019 [facility] [place] Outpatient [id number] Neil 10/23 Active [facility] [place] /2020 [place] Out[facility] [id number] Neil 10/23 Active [facility] [place] /2020 [place] Procedures Procedure Code Date Perfomer Comments Source Mitral valvoplasty [id number] Lidia rice [facility] Assessment and Plan No Data Provided for This Section Plan of Care No Data Provided for This Section Social History Social History Date Source Social History TypeResponse 09/12/2019 [facility] o Smoking Status Never smoker; Exposure to Tobacco Smoke Unable to obtain; Cigarette Smoking Last 365 Days No; Reg Smoking Cessation Counseling No entered on: 09/12/19 Social History TypeResponse 09/14/2018 [facility] Smoking Status Never smoker; Exposure to Tobacco Smoke None; Cigarette Smoking Last 365 Days No; Reg Smoking Cessation Counseling No entered on: 09/14/18 Family History No Data Provided for This Section Advance Directives No Data Provided for This Section Functional Status No Data Provided for This Section
--- OUTSIDE RECORDS SUMMARY | 2019-10-22 14:16 | XMS REPORT | Summary of Care ---
:1935 Author Organization [facility] [place] Address [address] [place] [address]- Encounter HQ Sydney_erasto(FIN) [id number] Date(s): 09/12/19 - 09/12/19 [facility] [address] [place] [address]- [phone] Discharge Disposition: Home or Self Care Attending Physician: Neil Singer MD Referring Physician: Neil Singer MD Vital Signs Most recent to oldest [Reference Range]: 1 Height 152.4 cm (09/12/19 3:01 PM) Blood Pressure [90-140/60-90 mmHg] 135/74 mmHg (09/12/19 3:01 PM) Respiratory Rate [14-20 BRMIN] 16 BRMIN (09/12/19 3:01 PM) Peripheral Pulse Rate [60-100 bpm] 60 bpm (09/12/19 3:01 PM) Weight 54.545 kg (09/12/19 3:01 PM) Body Mass Index 23.48 m2 (09/12/19 3:01 PM) Problem List Condition Effective Dates Status Health Status Informant Pacemaker(Confirmed) Active CHF with unknown LVEF(Confirmed) Active Dizziness(Confirmed) Active Hyperlipemia(Confirmed) Active Lumbar radiculopathy(Confirmed) Active Ocular melanoma(Confirmed) Active Meningioma(Confirmed) Active Allergies, Adverse Reactions, Alerts Substance Reaction Severity Status codeine Vicodin Active Vicodin Active Medications No Known Medications Results No data available for this section Immunizations No data available for this section Procedures Procedure Date Related Diagnosis Body Site Status Mitral valvoplasty Completed Social History Social History Type Response Smoking Status Never smoker; Exposure to To bacco Smoke Unable to obtain; Cigarette Smoking Last 365 Days No; Reg Smoking Cessation Counseling No entered on: 09/12/19 Assessment and Plan No data available for this section
--- OUTSIDE RECORDS SUMMARY | 2019-10-22 14:18 | XMS REPORT ---
:1935 Author Organization [employer] Care Team Providers Name Role Phone De [place], Na Provider Role Unavailable Allergies No Known Allergies Problems Problem Type Condition Code Onset Dates Condition Statu s Problem Pure hypercholesterolemia E78.00 Ac tive Problem Chronic obstructive pulmonary J44.9 Active disease, unspecified COPD type Problem Age-related osteoporosis without M81.0 Active current pathological fracture Problem Trochanteric bursitis M70.60 Active Problem H/O: CVA (cerebrovascular accident) Z86.73 Active Problem Dyspnea on exertion R06.09 Active Problem Hospital discharge follow-up Z09 Active Problem Overactive bladder N32.81 Active Problem Cerebrovascular accident (CVA), I63.9 Active unspecified mechanism Problem PUD (peptic ulcer disease) K27.9 A ctive Problem Atrial fibrillation, unspecified I48.91 Active type Problem Unspecified urinary incontinence R32 Active Problem Unsteady gait R26.81 Active Problem Vitamin D deficiency E55.9 Active Problem Allergic rhinitis J30.9 Active Problem Stress incontinence (female) (male) N39.3 Active Problem Benign essential HTN I10 Active Problem History of cardiac pacemaker in Z95.0 Active situ Problem Mitral valve disease I05.9 Active Problem Recurrent falls while walking R29.6 Active Problem Anemia, unspecified type D64.9 Act harika Problem Primary osteoarthritis of both hips M16.0 Active Problem Acute right-sided low back pain M54.41 Active with right-sided sciatica Problem Acute right hip pain M25.551 Active Problem Chronic bronchitis with productive J41.1 Active mucopurulent cough Problem Status post placement of Z95.818 Act harika implantable loop recorder Problem Weakness R53.1 Active Problem CKD (chronic kidney disease), stage N18.3 Active III Problem Constipation, unspecified K59.00 Ac tive constipation type Medications No Known Medications Results No Known Results Summary Purpose [employer] Submission
--- OUTSIDE RECORDS SUMMARY | 2019-10-22 14:18 | XMS REPORT ---
:1935 Author Organization [employer] Care Team Providers Name Role Phone De Leon, Na Provider Role Unavailable Allergies, Adverse Reactions, Alerts Substance Reaction Event Type codeine Info Not Available Drug Allergy Problems Problem Type Condition Code Onset Dates Condition Statu s Assessment Anemia, unspecified type D64.9 Act harika Assessment Pure hypercholesterolemia E78.00 Ac tive Assessment Benign paroxysmal positional H81.10 Active vertigo, unspecified laterality Assessment Benign essential HTN I10 Active Problem Pure hypercholesterolemia E78.00 Ac tive Problem [...] E55.9 Active Problem Allergic rhinitis J30.9 Active Assessment Allergic rhinitis J30.9 Active Problem Stress incontinence (female) (male) N39.3 Active Problem Benign essential HTN I10 Active Assessment History of CVA (cerebrovascular Z86.73 Active accident) Problem History of cardiac pacemaker in Z95.0 Active situ Assessment History of cardiac pacemaker in Z95.0 Active situ Problem Mitral valve disease I05.9 Active Assessment Unsteady gait R26.81 Active Problem Recurrent falls while walking R29.6 Active Assessment Screening for colon cancer Z12.11 A ctive Problem Anemia, unspecified type D64.9 Act harika Assessment PUD (peptic ulcer disease) K27.9 A ctive Problem Primary osteoarthritis of both hips M16.0 Active Assessment Chronic obstructive pulmonary J44.9 Active disease, unspecified COPD type Problem Acute right-sided low back pain M54.41 Active with right-sided sciatica Assessment Overactive bladder N32.81 Active Problem Acute right hip pain M25.551 Active Assessment Atrial fibrillation, unspecified I48.91 Active type Problem Chronic bronchitis with productive J41.1 Active mucopurulent cough Assessment CKD (chronic kidney disease), stage N18.3 Active III Problem Status post placement of Z95.818 Act harika implantable loop recorder Assessment Prediabetes R73.03 Active Problem Weakness R53.1 Active Problem CKD (chronic kidney disease), stage N18.3 Active III Problem Constipation, unspecified K59.00 Ac tive constipation type Medications Medication Code Code Instructions Start End Status Dosage System Date Date Ferrous Sulfate [facility] 66123173804 325 (65 Fe) MG September 06, Acti ve 1 tablet Orally twice a 2019 day Xarelto [facility] 78023598075 15 MG Orally Active 1 table t Once a day with food Estradiol [facility] 05728197503 0.1 MG/GM Active 1/2 gm Vaginal twice weekly Meclizine HCl [facility] 96013208100 25 MG Orally Active 1 tablet twice a day prn as neede d dizziness Hemocyte Plus [facility] 96015365443 106-1 MG Orally Active 1 capsule Once a day Myrbetriq [facility] 01934769604 50 MG Orally Active 1 tab let Once a day Amiodarone HCl [facility] 92515006291 200 MG Orally Active 1 tablet Once a day Lasix ND 83236971029 40 MG Orally Active 1 table t Once a day Flonase [facility] 18344834473 50 MCG/ACT Active 2 spray i n Nasally Once a each day nostril Loratadine [facility] 47432311510 10 MG Orally Active 1 ta blet Once a day Myrbetriq [facility] 97219625433 25 MG Orally Active 1 tab let Once a day Pantoprazole ND 05816960376 40 MG Orally Active 1 tablet Sodium Once a day Atorvastatin ND 78676816754 40 MG Orally Active 1 tablet Calcium Once a day Losartan ND 63576187551 25 MG Orally Active 1 tabl et Potassium Once a day Sucralfate [facility] 24261287992 1 GM Active TAKE ONE TABLET BY MOUTH TWICE A DAY ON EMPTY STOMACH Singulair [facility] 13050308043 10 MG Orally Active 1 tab let Once a day in the evening Trelejune Ellipta [facility] 41922881801 100-62.5-25 Active 1 puff MCG/INH Inhalation Once a day Coreg [facility] 13091649827 12.5 MG Orally Active 1 tab lets twice a day Results No Known Results Summary Purpose [employer] Submission
--- OUTSIDE RECORDS SUMMARY | 2019-10-22 14:18 | XMS REPORT ---
:1935 Author Organization [employer] Care Team Providers Name Role Phone Tammie Quiroz Provider Role Unavailable Allergies, Adverse Reactions, Alerts Substance Reaction Event Type codeine Info Not Available Drug Allergy Problems Problem Type Condition Code Onset Dates Condition Statu s Assessment UTI (lower urinary tract infection) N39.0 Active Assessment Stress incontinence (female) (male) N39.3 Active Problem Pure hypercholesterolemia E78.00 Ac tive [...] Start End Status Dosage System Date Date Cefdinir [facility] 43881982824 300 MG Orally September 06September Active as d irected BID 2019 Lasix [facility] 39504161436 40 MG Orally Active 1 table t Once a day Amiodarone HCl [facility] 75701991821 200 MG Orally Active 1 tablet Once a day Sucralfate [facility] 94852424245 1 GM Active TAKE ONE TABLET BY MOUTH TWICE A DAY ON EMPTY STOMACH Myrbetriq [facility] 77326996898 25 MG Orally Active 1 tab let Once a day Trelegy Ellipta [facility] 39643685277 100-62.5-25 Active 1 puff MCG/INH Inhalation Once a day Meclizine HCl [facility] 45659956292 25 MG Orally Active 1 tablet as twice a day prn needed dizziness Xarelto [facility] 39078875491 15 MG Orally Active 1 table t Once a day with food Singulair [facility] 10098352876 10 MG Orally Active 1 tab let in Once a day the evening Myrbetriq [facility] 20021063592 50 MG Orally Active 1 tab let Once a day Loratadine [facility] 27963567299 10 MG Orally Active 1 ta blet Once a day Losartan [facility] 71134972091 25 MG Orally Active 1 tabl et Potassium Once a day Coreg [facility] 06675396909 12.5 MG Orally Active 1 tab lets twice a day Hemocyte Plus [facility] 67636765630 106-1 MG Orally Active 1 capsule Once a day Atorvastatin [facility] 35017047394 40 MG Orally Active 1 tablet Calcium Once a day Flonase [facility] 66536085295 50 MCG/ACT Active 2 spray i n Nasally Once a each day nostril Estradiol [facility] 39563447499 0.1 MG/GM Active 1/2 gm Vaginal twice weekly Pantoprazole [facility] 55589476205 40 MG Orally Active 1 tablet Sodium Once a day Results No Known Results Summary Purpose [employer]ClinicalWorks Submission
--- OUTSIDE RECORDS SUMMARY | 2019-10-22 14:18 | XMS REPORT | Continuity of Care Document ---
:1935 Author Organization [facility] t Address [address] [place] [address] Care Team Providers Name Role Phone Tameka De Leon DO Primary Care Physician Al Singer Attending Clinician Hematpour Attending Clinician JUSTIN ALVAREZ Attending Clinician Unavailable Hematpour Admitting Clinician JUSTIN ALVAREZ Admitting Clinician Unavailable Problems Condition Condition Condition Status Onset Resolution Last Treating Co mments Source Name Details Category Date Date Treatment Clinician Date I48.0 Diagnosis Active 2018-10-15 Mem oria 09-01 15:31:00 l I48.0 00:00: Frandy 00 Active 09/01/2018 [facility] CCL / EPS Diagnosis Active 2018-09-14 Memoria PVI 09-01 08:17:00 l ABLATION CCL / 00:00: Frandy W/ CARTO / EPS PVI 00 DUAL P ABLATION W/ CARTO / DUAL P Active 09/01/2018 [facility] Acute Acute Disease Active [facility] encephalop encephalop 3-03 Audrey kes - athy athy 00:00: Medical 00 Center Acute Acute Disease Active [facility] ischemic ischemic 3-02 [facility] - stroke stroke 00:00: Medical 00 [place] Received Received Disease Active [facility] tissue tissue [facility]-02 [facility] - plasminoge plasminoge 00:00: Me dical n n 00 Center activator activator (t-PA) (t-PA) less than less than 24 hours 24 hours prior to prior to arrival arrival Benign Benign Problem Active [facility] essential essential [facility] - HTN HTN Memoria l Outpati ent Clinics Chronic Chronic Problem Active [facility] obstructiv obstructiv Audrey kes - e e Memoria pulmonary pulmonary l disease, disease, Outpat i unspecifie unspecifie en t d 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 Audrey kes - sterolemia sterolemia Me moria l Outpati ent Clinics Overactive Overactive Problem Active [facility] bladder bladder [facility] Allergic Allergic Problem Active [facility] rhinitis rhinitis [facility] Vitamin D Vitamin D Problem Active [facility] deficiency deficiency Audrey kes - Memoria l [facility] Clinics H/O: CVA H/O: CVA Problem Active [facility] (cerebrova (cerebrova Audrey kes - scular scular Memoria accident) accident) l Outpati ent Clinics Age-relate Age-relate Problem Active [facility] d d [facility] - osteoporos osteoporos Me moria is without is without l current current [facility] pathologic pathologic en t al al Clinics fracture fracture Trochanter Trochanter Problem Active [facility] ic ic [facility] - bursitis bursitis Memori a l Outpati ent Clinics 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 l Outpati ent Clinics Acute Acute Problem Active [facility] right hip right hip Luke s - pain pain Memoria l Outpati ent Clinics Chronic Chronic Problem Active [facility] bronchitis bronchitis Audrey kes - with with Memoria productive productive l mucopurule mucopurule Ou tpati nt cough nt cough ent Clinics CKD CKD Problem Active [facility] (chronic (chronic [facility] - kidney kidney Memoria disease), disease), l stage III stage III Outp ati ent Clinics Acute Acute Problem Active [facility] right-side right-side Audrey kes - d low back d low back Me moria pain with pain with l right-side right-side Ou tpati d sciatica d sciatica en t Clinics Constipati Constipati Problem Active C [facility] on, on, [facility] - unspecifie unspecifie Me moria d d l constipati constipati Ou tpati on type on type ent Clinics Dyspnea on Dyspnea on Problem Active [facility] exertion exertion [facility] - [facility] Weakness Weakness Problem Active [facility] Status Status Problem Active [facility] post post [facility] - placement placement Mukul armando of of l implantabl implantabl Ou tpati e loop e loop ent recorder recorder Clinic [facility] Problem Active [facility] discharge discharge Luke s - follow-up follow-up Mukul armando l [facility] Cerebrovas Cerebrovas Problem Active [facility] cular cular [facility] - accident accident Memori a (CVA), (CVA), l unspecifie unspecifie Ou tpati d d ent mechanism mechanism Clin ics History of History of Problem Active [facility] cardiac cardiac [facility] - pacemaker pacemaker Mukul armando in situ in situ l [facility] Mitral Mitral Problem Active [facility] valve valve [facility] - disease disease Memoria [facility] Atrial Atrial Problem Active [facility] fibrillati fibrillati Audrey kes - on, on, Memoria unspecifie unspecifie l d type d type [facility] PUD PUD Problem Active [facility] (peptic (peptic [facility] - ulcer ulcer Memoria disease) disease) l [facility] Anemia, Anemia, Problem Active [facility] unspecifie unspecifie Audrey kes - d type d type Memoria [facility] ent [facility] Unsteady Unsteady Problem Active [facility] gait gait [facility] - [facility] l [facility] Recurrent Recurrent Problem Active [facility] falls falls [facility] - while while Memoria walking walking l [facility] Unspecifie Unspecifie Problem Active [facility] d urinary d urinary Luke s - incontinen incontinen Me moria ce ce l [facility] Stress Stress Problem Active [facility] incontinen incontinen Audrey kes - ce ce Memoria (female) (female) l (male) (male) [facility] Cardiac Problem Active 2019-09-15 Mukul armando pacemaker 00:57:04 l in situ Cardiac Manuel n (finding) pacemaker in situ (finding) Active Problem 09/15/2019 [facility] Dizziness Problem Active 2019-09-15 Me moria (finding) 00:57:04 l [place] Dizziness (finding) Active Problem 09/15/2019 [facility] Hyperlipid Problem Active 2019-09-15 M emoria emia 00:57:04 l (disorder) Manuel n Hyperlipid emia (disorder) Active Problem 09/15/2019 [facility] 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 09/15/2019 [facility] Congestive Problem Active 2019-09-15 M emoria heart 00:57:04 l failure [place] (disorder) Congestive heart failure (disorder) Active Problem 09/15/2019 [facility] Lumbar Problem Active 2019-09-15 Memor ia radiculopa 00:57:04 l thy Lumbar Frandy (disorder) radiculopa thy (disorder) Active Problem 09/15/2019 [facility] Neoplasm Problem Active 2019-09-15 Mem oria of 00:57:04 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) Active Problem 09/15/2019 [facility] Allergies, Adverse Reactions, Alerts Allergy Allergy Status Severity Reaction(s) Onset Inactive Treating Comm ents Source Name Type Date Date Clinician Codeine Drug Active Other (See Chest [facility] Allergy Comments) 06-03 pain [facility] codeine Adverse Active Info Not [facility] Reaction Available [facility] Clinics codeine codeine Active Azaliaoria blanche Wise Vicodin Vicodin Active Memoria l [place] Family History Family Member Diagnosis Comments Start Date Stop Date Source Natural brother Diabetes [facility] Natural brother Heart disease [facility] Natural daughter Diabetes [facility] Natural mother Heart disease [facility] Social History Social Habit Start Date Stop Date Quantity Comments Source History SDOH Alcohol [facility] Std Drinks [facility] History SDOH Alcohol [facility] Binge [facility] Sex Assigned At [facility] History SDOH Alcohol 2018-06-03 2018-06-03 1 [facility] - Frequency 00:00:00 00:00:00 Medical Center Smoking Status Start Date Stop Date Source [facility] Medic[facility] Ordered Filled Start Stop Current Ordering Indication Dosage Frequency Signature Comments Components Source Medication Medication Date Date Medication? Clinician (SIG) Name Name Cefdinir Cefdinir 2020- Yes Tammie as [facility] St 6- 06-07 [place] directed [facility] - 00:00: 00:00 Memoria 00 :00 l Outpati ent Clinics 24 HR 2019-0 Yes 0 Memoria mirabegron 3-24 Refill(s) l 50 MG 20:51: Frandy Extended 00 Release Tablet [Myrbetriq] atorvastati Yes 40 mg = 1 M emoria n 40 mg 3-24 tab, PO, l oral tablet 20:45: Bedtime, # Frandy 00 30 tab, 0 Refill(s) Hemocyte 0 Yes 1 cap, PO, Mem oria Plus 3-24 Daily, 0 l 20:45: Refill(s) [place] 00 Loratadine Yes 10 mg = 1 Me moria 10 MG Oral 3-24 tab, PO, l Tablet 20:45: Daily, 0 [place] 00 Refill(s) meclizine Yes 25 mg = 1 Mem oria 25 mg oral 3-24 tab, PO, l tablet 20:45: BID, 0 Frandy 00 Refill(s) montelukast Yes 10 mg = 1 M emoria 10 mg oral 3-24 tab, PO, l tablet 20:45: Daily, 0 Frandy 00 Refill(s) 24 HR 2019- Yes 25 mg = 1 Memoria mirabegron 3-24 tab, PO, l 25 MG 20:45: Daily, # [place] Extended 00 30 tab, 5 Release Refill(s) Tablet [Myrbetriq] tramadol Yes 50 mg = 1 Mukul armando hydrochlori 3-24 tab, PO, l de 50 MG 20:45: Q6H, PRN Dai nn Oral Tablet 00 Pain, # 40 tab, 0 Refill(s) Trelegy Yes = 1 Memoria Ellipta 3-24 inhalation l inhalation 20:45: , PO, Manuel n powder 00 Daily, PRN COPD, # 1 ea, 0 Refill(s) Meclizine Meclizine 2018-04 Yes Tammie [address] [facility] HCl HCl 1-05 [place] as needed [facility] - 00:00: Memoria 00 l Outpati ent Clinics Myrbetriq Myrbetriq 2018-04 2020- No Tammie [address] [facility] 1-05 05-03 Gabriella [facility] - 00:00: 00:00 Memoria 00 :00 l Outpati ent Clinics Amiodarone Amiodarone Yes Tammie [address] [facility] HCl HCl 7-10 Gabriella [facility] - 00:00: Memoria 00 l Outpati ent Clinics Hemocyte Hemocyte Yes Tammie [address] [facility] Plus Plus 7-10 Gabriella [facility] - 00:00: Memoria 00 l Outpati ent Clinics Pantoprazol Pantoprazol Yes Tammie [address] [facility] e Sodium e Sodium 7-10 [place] Alessia es - 00:00: Memoria 00 l Outpati ent Clinics Atorvastati Atorvastati Yes Tammie [address] [facility] n Calcium n Calcium 7-10 [place] L ukes - 00:00: Memoria 00 l Outpati ent Clinics Xarelto Xarelto Yes Tammie [address] 7-10 Gabriella with food [facility] - 00:00: Memoria l Outpati ent Clinics montelukast No Notes: Mukul armando 6-13 (Same l 14:00: as:Singula Frandy 00 ir) Losartan No Notes: Memoria 6-13 (Same as: l 14:00: Cozaar) [place] 00 pantoprazol No Notes: Mukul armando e 6-13 Tablet l 12:30: should not Frandy 00 be chewed or crushed. (Same as: Protonix) pantoprazol Yes 40 mg, PO, Memoria e 40 mg 6-13 Daily, # l oral 12:09: 30 tab, 0 [place] enteric 00 Refill(s) coated tablet rivaroxaban Yes 15 mg = 1 M emoria 15 MG Oral 6-13 tab, PO, l Tablet 12:09: QPM, # 30 Manuel n [Xarelto] 00 tab, 3 Refill(s) sucralfate Yes 1 gm = 1 Mem oria 1 g oral 6-13 tab, PO, l tablet 12:09: BID, # 28 Manuel n 00 tab, 0 Refill(s) tramadol Yes 50 mg = 1 Mukul armando hydrochlori 6-13 tab, PO, l de 50 MG 12:09: Q6H, PRN Dai nn Oral Tablet 00 Pain Score 4-6, # 24 tab, 0 Refill(s) AMIODarone Yes 200 mg = 1 M emoria 200 mg oral 6-13 tab, PO, l tablet 12:09: BID, # 60 Manuel n 00 tab, 3 Refill(s) Xarelto No Notes: Memoria 6-13 (Same as: l 12:08: Xarelto) Cefazolin No Notes: Memori a 6-13 (Same As: l 05:00: Ancef, Kefzol) MEDICATION WASTE Product Size: 1000 mg Product Wasted: ___ mg carvedilol No Notes: Memor ia 6-13 Give with l 02:00: food. (Same As: Coreg) Amiodarone No Notes: Memor ia - (Same as: l 02:00: Cordarone) Hydromorpho No Notes: Mukul armando ne - Same as l 22:23: Dilaudid Tramadol No Notes: Not Mem oria 6-12 to exceed l 22:23: 400mg/day. (Same As: Ultram) oxybutynin No Notes: Memor ia -12 (Same as: l 22:00: Ditropan XL) "Do Not Crush" Sucralfate No Notes: August emoria -12 interfere l 22:00: w/enteral feeds - Take 1 hr before or 2 hr after antacids, dairy pdt, meals & minerals - On empty stomach. For patients unable to swallow tablet, dissolve in 10mL - 30mL of water or juice and stir before giving. (Same As: Carafate) glycopyrrol No Route: IV, Memoria ate (ANES) 09-14 Drug form: l 21:20: INJ, ONCE, Stop date: 09/14/18 16:20:00 CDT neostigmine No Route: IV, Memoria (ANES) 12 Drug form: l 21:20: INJ, ONCE, Stop date: 09/14/18 16:20:00 CDT furosemide No Route: IV, M emoria (ANES) 09-14 Drug form: l 21:08: INJ, ONCE, Stop date: 09/14/18 16:08:00 CDT ondansetron No Route: IV, Memoria (ANES) 09-14 Drug form: l 21:02: INJ, ONCE, Stop date: 09/14/18 16:02:00 CDT Nitroglycer No Notes: Mukul armando in 09-14 (Same l 19:33: as:Nitroqu ick, Nitrostat) "Do Not Crush" Sublingual tablet Sodium No Route: IV, Memor ia Chloride 09-14 Drug form: l 0.9% IV 19:16: INJ, Start Herm geo (ANES) 95 00 date: mL + 09/14/18 protamine 14:16:00 (ANES) 50 CDT, Stop mg date: 09/14/18 15:16:00 CDT Isuprel HCl No Route: IV, Memoria (ANES) 0.2 09-14 Drug form: l mg + 19:04: INJ, Dosing Weight 55.9, kg, Start date: 09/14/18 14:04:00 CDT, Stop date: 09/14/18 15:04:00 CDT vancomycin No Route: IV, M emoria (ANES) 1000 09-14 Drug form: l mg 18:47: INJ, Start Frandy 00 date: 09/14/18 13:47:00 CDT, Stop date: 09/14/18 14:47:00 CDT dexamethaso No Route: IV, Memoria ne (ANES) 09-14 Drug form: l 18:33: INJ, ONCE, Stop date: 09/14/18 13:33:00 CDT norepinephr No Route: IV, Memoria ine (ANES) 09-14 Drug form: l 18:18: INJ, ONCE, Stop date: 09/14/18 13:18:00 CDT heparin No Route: IV, Mukul armando (ANES) 6-12 Drug form: l 17:57: INJ, ONCE, Stop date: 09/14/18 12:57:00 CDT fentaNYL 2019-0 No Route: IV, Mem oria (ANES) 6-12 Drug form: l 17:06: INJ, ONCE, [place] 00 Stop date: 09/14/18 12:06:00 CDT rocuronium 2018-0 No Route: IV, M emoria (ANES) 6-12 Drug form: l 17:06: INJ, ONCE, Stop date: 09/14/18 12:06:00 CDT propofol 2019-0 No Route: IV, Mem oria (ANES) 6-12 Drug form: l 17:06: INJ, ONCE, Stop date: 09/14/18 12:06:00 CDT lidocaine 2018-0 No Route: IV, Me moria (ANES) 6-12 Drug form: l 17:06: INJ, ONCE, Stop date: 09/14/18 12:06:00 CDT Flumazenil 2018-0 No Notes: Memor ia 6-12 (Same as: l 16:53: Romazicon) Naloxone 2018- No Notes: Memoria 6-12 Same as l 16:53: Narcan Ondansetron No Notes: Mukul armando 6-12 (Same as: l 16:53: Zofran) MEDICATION WASTE Product Size: 4 mg Product Wasted: ___ mg Morphine 2018- No Notes: Memoria 6-12 (Same l 16:53: as:MORPhin e Sulfate) Hydralazine No Notes: Mukul armando 6-12 (Same as: l 16:53: Apresoline ) Push over 5 minutes esmolol 2018- No Notes: Memoria 6-12 (Same as: l 16:53: Brevibloc) Labetalol No 10 mg, 2 Mukul armando 6-12 mL, Route: l 16:53: IVP, Drug form: INJ, Q5Min, Dosing Weight 55.909, kg, PRN Elevated BP, Start date: 09/14/18 11:53:00 CDT, Duration: 5 doses or times, Stop date: 09/15/18 12:08:00 CDT Sodium 2019-0 No Route: IV, Memor ia Chloride 6-12 Total l 0.9% IV 16:20: Volume: Frandy (ANES) 1000 00 1,000, mL Start date: 09/14/18 11:20:00 CDT, Stop date: 09/14/18 12:20:00 CDT Fentanyl 2019-0 No 25 Memoria 6-12 microgram, l 14:45: Route: IV, ONCE, Dosing Weight 55.909, kg, Start date: 09/14/18 9:45:00 CDT, Stop date: 09/14/18 9:45:00 CDT Versed 2019-0 No 3 mg, Memoria 6-12 Route: IV, l 14:45: ONCE, Dosing Weight 55.909, kg, Start date: 09/14/18 9:45:00 CDT, Stop date: 09/14/18 9:45:00 CDT losartan 25 2019-0 Yes 25 mg = 1 M emoria mg oral 6-12 tab, PO, l tablet 13:44: Daily, 0 Refill(s) montelukast 2019-0 Yes 10 mg, PO, Memoria 6-12 Daily, 0 l 13:44: Refill(s) rivaroxaban 2019-0 No 15 mg = 1 M emoria 15 MG Oral 6-12 tab, PO, l Tablet 13:44: QPM, 0 [Xarelto] 00 Refill(s) oxybutynin 2019-0 Yes 5 mg, PO, Me moria 6-12 BID, 0 l 13:44: Refill(s) carvedilol 2019-0 Yes 12.5 mg, Mem oria 6-12 PO, BID, 0 l 13:44: Refill(s) pantoprazol 2018-0 No 40 mg, PO, Memoria e 6-12 Daily, 0 l 13:44: Refill(s) NS 1,000 mL 2019-0 No 1,000 mL, M emoria 6-12 Rate: 100 l 13:26: ml/hr, Frandy 00 Infuse over: 10 hr, Route: IV, Dosing Weight 55.909 kg, Total Volume: 1,000, Start date: 09/14/18 8:26:00 CDT, Duration: 30 day, Stop date: 10/14/18 8:25:00 CDT, 1.56, m2 aspirin 81 2019- No 81mg QD Take [address] [facility] MG chewable 06-08-05 tablet (81 L ukes - tablet 00:00: 23:59 mg total) Medic al 00 :00 by mouth Center daily. atorvastati 2019- No 40mg QD Take [address] [facility] n (LIPITOR) 06-07-04 tablet (40 L ukes - 40 MG 00:00: 23:59 mg total) Medica l tablet 00 :00 by mouth Center nightly. carvedilol 2019- No 6.25mg Q.5D Take [address] (COREG) 3-04 tablet [facility] - 6.25 MG 00:00: 23:59 (6.25 mg Medic al tablet 00 :00 total) by Center mouth 2 (two) times daily. Trelegy Trelegy 2020- No Tammie [address] [facility] Ellipta Ellipta 2 05-03 Gabriella Luke s - 00:00: 00:00 Memoria 00 :00 l [facility] Lasix Lasix Yes Tammie [address] [facility] Gabriella [facility]oria l Outpat[facility] ent Clinics Flonase Flonase Yes Tammie [address] [facility] Gabriella each [facility] - nostril Memoria l [facility] Losartan Losartan Yes Tammie [address] Potassium Potassium Gabriella L ukes - Memoria l Outpati ent Clinics Singulair Singulair Yes Tammie [address] [facility] Gabriella in the [facility] - evening Memoria l [facility] Coreg Coreg Yes Tammie [address] [facility] [place] [facility] - [facility] Sucralfate Sucralfate Yes Tammie TAKE ONE [facility] [place] TABLET BY [facility]ukes - MOUTH Memoria TWICE A l DAY ON [facility] EMPTY ent STOMACH Clinics Myrbetriq Myrbetriq Yes Tammie [address] [facility] Gabriella [facility] Estradiol Estradiol Yes Tammie 1/2 gm [facility] Loratadine Loratadine Yes Tammie 1 tablet [facility] Vital Signs Vital Name Observation Time Observation Value Comments Source Systolic (mm Hg) 2019-09-12 20:01:00 Mukul rial [place] Diastolic (mm Hg) 2019-09-12 20:01:00 Mem orial [place] Heart Rate 2019-09-12 20:01:00 [facility] Frandy Respitory Rate 2019-09-12 20:01:00 Memori al [place] Height 2019-09-12 20:01:00 152.4 cm [facility] [place] Weight 2019-09-12 20:01:00 [facility] [place] BMI Calculated 2019-09-12 20:01:00 Memori al [place] Systolic (mm Hg) 2019-06-27 20:30:00 Mukul rial [place] Diastolic (mm Hg) 2019-06-27 20:30:00 Mem orial [place] Heart Rate 2019-06-27 20:30:00 Memorial [place] Respitory Rate 2019-06-27 20:30:00 Memori al [place] Height 2019-06-27 20:30:00 149.86 cm Memorial Frandy Weight 2019-06-27 20:30:00 [facility] [place] BMI Calculated 2019-06-27 20:30:00 Memori al [place] Respitory Rate 2018-09-15 13:00:00 Memori al [place] Respitory Rate 2018-09-15 11:30:00 Memori al [place] Systolic (mm Hg) 2018-09-15 11:30:00 Mukul rial [place] Diastolic (mm Hg) 2018-09-15 11:30:00 Mem orial [place] Temperature Oral (F) 2018-09-15 11:30:00 97.2 F [facility] [place] Respitory Rate 2018-09-15 09:43:00 Memori al [place] Systolic (mm Hg) 2018-09-15 09:15:00 Mukul rial [place] Diastolic (mm Hg) 2018-09-15 09:15:00 Mem orial [place] Systolic (mm Hg) 2018-09-15 06:30:00 Mukul rial [place] Diastolic (mm Hg) 2018-09-15 06:30:00 Mem orial [place] Temperature Oral (F) 2018-09-15 01:45:00 98.7 F [facility] [place] Temperature Oral (F) 2018-09-14 14:00:00 97.2 F [facility] [place]andy BMI Calculated 2018-09-14 13:25:00 Av salas [place] Weight 2018-09-14 13:25:00 [facility] Fr[place] Height 2018-09-14 13:25:00 152.4 cm [facility] Procedure Date / Time Performed Performing Clinician Sourc e Mitral valvoplasty [facility] Encounters Start End Encounter Admission Attending Care Care Encounter Source Date/Time Date/Time Type Type Clinicians Facility Department ID 2019-10-03 2019-10-03 [facility] [id number] [address] 08:13:00 08:13:[address] [employer] [facility] 2019-09-24 2019-09-24 [facility] [id number] 01:13:00 01:13:[address] [facility] 2019-09-12 2019-09-12 Outpatient BYRON SingerSCHKATLIN [id number] 14:45:00 23:59:59 Neil 02 Al 2019-09-07 2019-09-07 [facility] [id number] [address] 13:30:00 13:30:00 t Specialty/U Audrey kes - Specialty rology Memori a /Urology Clinic l Clinic Outpati ent Clinics 2019-09-07 2019-09-07 [facility] [id number] 10:20:00 10:20:[address] [address] [facility] Outpati ent Clinics 2019-08-08 2019-08-08 Outpatient BYRON SingerSCHKATLIN [id number] 15:00:00 15:00:00 Neil 01 Al 2019-07-07 2019-07-07 [facility] [id number] [address] 14:00:00 14:00:00 t Specialty/U Audrey kes - Specialty rology Memori a /Urology Clinic l Clinic Outpati ent Clinics 2019-06-27 2019-06-27 Outpatient [facility] [id number] 15:00:00 23:59:59 Neil 00 Al 2019-06-02 2019-06-02 [facility] [id number] 09:00:00 09:00:00 t Specialty/U Audrey kes - Specialty rology [facility] a /Urology Clinic l Clinic Outpati ent Clinics 2019-05-29 2019-05-29 [facility] [id number] 09:00:00 09:00:00 t [employer] [facility] Medicine l Medicine Outpati ent Clinics 2019-05-19 2019-05-19 [facility] [id number] 03:30:00 03:30:00 t [employer] [facility] l Medicine Outpati ent Clinics 2019-05-15 2019-05-15 [facility] [id number] [facility] 10:48:00 10:48:00 t [employer] [facility] l Medicine Outpati ent Clinics 2019-05-15 2019-05-15 [facility] [id number] 10:20:00 10:20:00 t [employer] [facility] l Medicine Outpati ent Clinics 2019-05-15 2019-05-15 [facility] [id number] 09:05:00 09:05:00 t [employer] [facility] l Medicine Outpati ent Clinics 2019-05-04 2019-05-04 [facility] [id number] 13:03:00 13:03:00 t [employer] [facility] Medicine Outpati ent Clinics 2019-05-02 2019-05-02 [facility] [id number] [facility] 14:40:00 14:40:00 t [employer] [facility] Medicine Outpati ent Clinics 2019-03-21 2019-03-21 [facility] [id number] 09:40:00 09:40:00 t [employer] [facility] l Medicine Outpati ent Clinics 2019-02-08 2019-02-08 [facility] [id number] 16:31:00 16:31:00 [address] [employer] [place] [address] [address] [address] Luke s - Drive [facility] Medicine Outpati ent Clinics 2019-02-07 2019-02-07 [facility] [id number] 15:00:00 15:00:00 [place] [address] Luke s - Drive [facility] Medicine Outpati ent Clinics 2018-10-17 2018-10-17 [facility] [id number] [address] 17:09:00 17:09:00 [place] [address] Luke s - Drive [facility] Medicine Outpati ent Clinics 2018-10-12 2018-10-12 [facility] [id number] 09:00:00 09:00:00 [place] [employer] LuSWYF s - Drive [facility] Medicine Outpati ent Clinics 2018-09-21 2018-09-21 [facility] [id number] 08:40:00 08:40:00 [place] [employer] LuSWYF s - Drive [facility] Medicine Outpati ent Clinics 2018-09-14 2018-09-15 Outpatient Hematpour, [facility] [id number] 08:05:00 09:20:00 Ezekielashdereckr 2018-09-14 2018-09-14 Outpatient [facility] [id number] [facility] 08:05:00 08:05:00 2018-06-22 2018-06-22 [facility] [id number] 11:00:00 11:00:00 [place] [employer] LuSWYF s - Drive [facility] Medicine Outpati ent Clinics 2018-06-02 2018-06-02 [facility] [id number] 15:15:00 15:15:00 [address] [place] [address] Luke s - Drive [facility] [facility] 2018-04-27 2018-04-27 [facility] [id number] [facility] [address] 16:21:00 16:21:00 [place] [address] LuSWYF s - Drive [facility] 2018-03-24 2018-03-24 [facility] [id number] 14:45:00 14:45:00 [place] [address] Luke s - Drive [facility] 2017-12-30 2017-12-30 [facility] [id number] 15:15:00 15:15:00 [place] [facility] Luke s - Drive [facility] 2017-12-16 2017-12-16 [facility] [id number] [address] 08:22:00 08:22:00 [place] [facility] Luke s - Drive [facility] 2017-09-21 2017-09-21 [facility] [id number] 14:45:00 14:45:00 [place] [employer] s - Drive [facility] 2017-08-10 2017-08-10 [facility] [id number] 15:46:00 15:46:00 t Narr8 s - Drive [facility] 2017-07-05 2017-07-05 [facility] [id number] 15:30:00 15:30:00 t Narr8 s - Drive [facility] Results Test Description Test Time Test Comments Results Result Comments Source HEMATOLOGY 2018-09-14 19:49:00 Test Item Value Reference Range Interpretation Comme nts POC Activated Clotting Time (test code = POC Activated Clotting Eliseo e) 179 s [id number] 18:16:00 Test Item Value Reference Range Interpretation Comments POC Activated Clotting Time (test code 363 s = POC Activated Clotting Time) [facility] [id number] 17:52:00 Test Item Value Reference Range Interpretation Comments POC Activated Clotting Time (test code 291 s = POC Activated Clotting Time) [facility] [employer]ricsBLOOD BANK [id number] 13:30:00Negative (09/14/18 8:30 AM) [facility] HermannCHEM [id number] 13:30:002.9[facility] HermannCHEM PANEL 2018-09-14 13:30:002.1[facility] AhjxdgxWCMUDAMLHIMR4613-02-13 13:30:0010.6 [facility] CichdapUAWCTQAKSFJF2496-69-53 13:30:0049[facility] HermannELECTROLYTES 2018-09-14 13:30:21487Ucsvnitj CkavziyCQEPCZHVCVHX4772-27-79 13:30:001.05 [facility] VyheijlZWQXYJLJCKNQ0656-17-47 13:30:0013[facility] HermannELECTROLYTES 2018-09-14 13:30:003.6[facility] KjlapuuWXQIRQUDKXVO3626-52-66 13:30:35592Ifhaslea GhcajwcAJLVONWOOMWK7479-83-62 13:30:0029[facility] GkovrufVYSRNIGPABVW4174-47-51 13:30:16606Kbwmqdeh RkquepbWDYPRAOZULMN4947-54-61 13:30:0010.3[facility] Frandy XUBFHLSRME6068-74-60 13:30:00 Test Item Value Reference Range Interpretation Comments PTT (test code = PTT) 45.1 s 22.9-35.8 [facility] HgjnphpBNTCAKSHFU7241-51-85 13:30:00 Test Item Value Reference Range Interpretation Comments PT (test code = PT) 14.4 s 12.0-14.7 [facility] SboipimELGBQOAVDJ9095-26-58 13:30:00 Test Item Value Reference Range Interpretation Comments INR (test code = INR) 1.14 1 0.85-1.17 [facility] KqbsvinFREORLKAKT1562-83-61 13:30:008.5[facility] HermannHEMATOLOGY 2018-09-14 13:30:004.05[facility] RkncidwCNEYZLVNIU9069-34-58 13:30:0012.4[facility] LrzldirVJGBIDHNMN2467-20-07 13:30:0033.0[facility] HossfvjMRUPMCNJMO7861-53-47 13:30:0014.3[facility] RihitloZQSNPXOMUG0636-11-12 13:30:49432Sriaypwq Frandy LPJQMGJTGO4417-45-11 13:30:007.1[facility] FtrrszyXCGFQGLIWV7887-23-40 13:30:00 Test Item Value Reference Range Interpretation Comments MCH (test code = MCH) 30.6 pg 27.0-31.0 [facility] XxlgreeXJOURGBXNN7420-95-25 13:30:0037.5[facility] HermannHEMATOLOGY 2018-09-14 13:30:0092.7[facility] SdzwnzaEZUJKKIPNA7913-95-26 13:30:006.1[facility] BebqyopMVVHYEPNLK6875-17-61 13:30:000.5[facility] NemdytmRGTICDIBZC1570-73-93 13:30:001.6[facility] OznsdqzLYGUWXPTOF4686-25-96 13:30:000.6[facility] Fr[facility] TRKFBZCDZQ4743-85-85 13:30:000.2[facility] VuslgrpJKNDLAPLCD0553-37-68 13:30:002.3 [facility] TtwbbvvGYBSOVDDUE7122-81-62 13:30:007.5[facility] HermannHEMATOLOGY 2018-09-14 13:30:0071.3[facility] BetilflMFBCUCOTIB1864-27-74 13:30:0018.4[facility] HermannBASIC METABOLIC [id number] 04:45:00 Test Item Value Reference Range Interpretation Comments SODIUM (BEAKER) 139 meq/L 136-145 (test code = 381) POTASSIUM (BEAKER) 4.3 meq/L 3.5-5.1 (test code = 379) CHLORIDE (BEAKER) 109 meq/L 98-107 H (test code = 382) CO2 (BEAKER) (test 24 meq/L 22-29 code = 355) BLOOD UREA NITROGEN 14 mg/dL 7-21 (BEAKER) (test code = 354) CREATININE (BEAKER) 0.69 mg/dL 0.57-1.25 (test code = 358) GLUCOSE RANDOM 103 mg/dL 70-105 (BEAKER) (test code = 652) CALCIUM (BEAKER) 9.7 mg/dL 8.4-10.2 (test code = 697) EGFR (BEAKER) (test 81 mL/min/1.73 ESTIMA JONNIE GFR IS code = 1092) sq m NOT ACCURATE CREATININE CLEARANCE IN PREDICTING GLOMERULAR FILTRATION RATE . ESTIMATED GFR I S NOT APPLICABLE FOR DIALYSIS PATIEN TS. CBC W/PLT COUNT & AUTO [id number] 04:20:00 Test Item Value Reference Range Interpretation Comments WHITE BLOOD CELL COUNT (BEAKER) 10.1 K/ L 3.5-10.5 (test code = 775) RED BLOOD CELL COUNT (BEAKER) 3.80 M/ L 3.93-5.22 L (test code = 761) HEMOGLOBIN (BEAKER) (test code = 11.7 GM/DL 11.2-15.7 410) HEMATOCRIT (BEAKER) (test code = 36.2 % 34.1-44.9 411) MEAN CORPUSCULAR VOLUME (BEAKER) 95.3 fL 79.4-94.8 H (test code = 753) MEAN CORPUSCULAR HEMOGLOBIN 30.8 pg 25.6-32.2 (BEAKER) (test code = 751) MEAN CORPUSCULAR HEMOGLOBIN CONC 32.3 GM/DL 32.2-35.5 (BEAKER) (test code = 752) RED CELL DISTRIBUTION WIDTH 13.5 % 11.7-14.4 (BEAKER) (test code = 412) PLATELET COUNT (BEAKER) (test 178 K/CU MM 150-450 code = 756) MEAN PLATELET VOLUME (BEAKER) 8.9 fL 9.4-12.3 L (test code = 754) NUCLEATED RED BLOOD CELLS 0 /100 WBC 0-0 (BEAKER) (test code = 413) NEUTROPHILS RELATIVE PERCENT 68 % (BEAKER) (test code = 429) LYMPHOCYTES RELATIVE PERCENT 21 % (BEAKER) (test code = 430) MONOCYTES RELATIVE PERCENT 8 % (BEAKER) (test code = 431) EOSINOPHILS RELATIVE PERCENT 2 % (BEAKER) (test code = 432) BASOPHILS RELATIVE PERCENT 0 % (BEAKER) (test code = 437) NEUTROPHILS ABSOLUTE COUNT 6.85 K/ L 1.56-6.13 H (BEAKER) (test code = 670) LYMPHOCYTES ABSOLUTE COUNT 2.09 K/ L 1.18-3.74 (BEAKER) (test code = 414) MONOCYTES ABSOLUTE COUNT (BEAKER) 0.83 K/ L 0.24-0.36 H (test code = 415) EOSINOPHILS ABSOLUTE COUNT 0.22 K/ L 0.04-0.36 (BEAKER) (test code = 416) BASOPHILS ABSOLUTE COUNT (BEAKER) 0.04 K/ L 0.01-0.08 (test code = 417) IMMATURE GRANULOCYTES-RELATIVE 0 % 0-1 PERCENT (BEAKER) (test code = 2801) BASIC METABOLIC [id number] 04:22:00 Test Item Value Reference Range Interpretation Comments SODIUM (BEAKER) 141 meq/L 136-145 (test code = 381) POTASSIUM (BEAKER) 4.0 meq/L 3.5-5.1 (test code = 379) CHLORIDE (BEAKER) 110 meq/L 98-107 H (test code = 382) CO2 (BEAKER) (test 25 meq/L 22-29 code = 355) BLOOD UREA NITROGEN 13 mg/dL 7-21 (BEAKER) (test code = 354) CREATININE (BEAKER) 0.78 mg/dL 0.57-1.25 (test code = 358) GLUCOSE RANDOM 105 mg/dL 70-105 (BEAKER) (test code = 652) CALCIUM (BEAKER) 9.8 mg/dL 8.4-10.2 (test code = 697) EGFR (BEAKER) (test 71 mL/min/1.73 ESTIMA JONNIE GFR IS code = 1092) sq m NOT ACCURATE CREATININE CLEARANCE IN PREDICTING GLOMERULAR FILTRATION RATE . ESTIMATED GFR I S NOT APPLICABLE FOR DIALYSIS PATIEN TS. CBC W/PLT COUNT & AUTO [id number] 04:04:00 Test Item Value Reference Range Interpretation Comments WHITE BLOOD CELL COUNT (BEAKER) 9.2 K/ L 3.5-10.5 (test code = 775) RED BLOOD CELL COUNT (BEAKER) 3.58 M/ L 3.93-5.22 L (test code = 761) HEMOGLOBIN (BEAKER) (test code = 11.1 GM/DL 11.2-15.7 L 410) HEMATOCRIT (BEAKER) (test code = 34.1 % 34.1-44.9 411) MEAN CORPUSCULAR VOLUME (BEAKER) 95.3 fL 79.4-94.8 H (test code = 753) MEAN CORPUSCULAR HEMOGLOBIN 31.0 pg 25.6-32.2 (BEAKER) (test code = 751) MEAN CORPUSCULAR HEMOGLOBIN CONC 32.6 GM/DL 32.2-35.5 (BEAKER) (test code = 752) RED CELL DISTRIBUTION WIDTH 13.5 % 11.7-14.4 (BEAKER) (test code = 412) PLATELET COUNT (BEAKER) (test 173 K/CU MM 150-450 code = 756) MEAN PLATELET VOLUME (BEAKER) 8.9 fL 9.4-12.3 L (test code = 754) NUCLEATED RED BLOOD CELLS 0 /100 WBC 0-0 (BEAKER) (test code = 413) NEUTROPHILS RELATIVE PERCENT 65 % (BEAKER) (test code = 429) LYMPHOCYTES RELATIVE PERCENT 24 % (BEAKER) (test code = 430) MONOCYTES RELATIVE PERCENT 8 % (BEAKER) (test code = 431) EOSINOPHILS RELATIVE PERCENT 2 % (BEAKER) (test code = 432) BASOPHILS RELATIVE PERCENT 1 % (BEAKER) (test code = 437) NEUTROPHILS ABSOLUTE COUNT 6.03 K/ L 1.56-6.13 (BEAKER) (test code = 670) LYMPHOCYTES ABSOLUTE COUNT 2.22 K/ L 1.18-3.74 (BEAKER) (test code = 414) MONOCYTES ABSOLUTE COUNT (BEAKER) 0.71 K/ L 0.24-0.36 H (test code = 415) EOSINOPHILS ABSOLUTE COUNT 0.18 K/ L 0.04-0.36 (BEAKER) (test code = 416) BASOPHILS ABSOLUTE COUNT (BEAKER) 0.05 K/ L 0.01-0.08 (test code = 417) IMMATURE GRANULOCYTES-RELATIVE 0 % 0-1 PERCENT (BEAKER) (test code = 2801) BASIC METABOLIC [id number] 05:13:00 Test Item Value Reference Range Interpretation Comments SODIUM (BEAKER) 140 meq/L 136-145 (test code = 381) POTASSIUM (BEAKER) 4.0 meq/L 3.5-5.1 (test code = 379) CHLORIDE (BEAKER) 111 meq/L 98-107 H (test code = 382) CO2 (BEAKER) (test 24 meq/L 22-29 code = 355) BLOOD UREA NITROGEN 12 mg/dL 7-21 (BEAKER) (test code = 354) CREATININE (BEAKER) 0.77 mg/dL 0.57-1.25 (test code = 358) GLUCOSE RANDOM 99 mg/dL 70-105 (BEAKER) (test code = 652) CALCIUM (BEAKER) 9.5 mg/dL 8.4-10.2 (test code = 697) EGFR (BEAKER) (test 72 mL/min/1.73 ESTIMA JONNIE GFR IS code = 1092) sq m NOT ACCURATE CREATININE CLEARANCE IN PREDICTING GLOMERULAR FILTRATION RATE . ESTIMATED GFR I S NOT APPLICABLE FOR DIALYSIS PATIEN TS. CBC W/PLT COUNT & AUTO [id number] 04:51:00 Test Item Value Reference Range Interpretation Comments WHITE BLOOD CELL COUNT (BEAKER) 9.1 K/ L 3.5-10.5 (test code = 775) RED BLOOD CELL COUNT (BEAKER) 3.71 M/ L 3.93-5.22 L (test code = 761) HEMOGLOBIN (BEAKER) (test code = 11.3 GM/DL 11.2-15.7 410) HEMATOCRIT (BEAKER) (test code = 35.7 % 34.1-44.9 411) MEAN CORPUSCULAR VOLUME (BEAKER) 96.2 fL 79.4-94.8 H (test code = 753) MEAN CORPUSCULAR HEMOGLOBIN 30.5 pg 25.6-32.2 (BEAKER) (test code = 751) MEAN CORPUSCULAR HEMOGLOBIN CONC 31.7 GM/DL 32.2-35.5 L (BEAKER) (test code = 752) RED CELL DISTRIBUTION WIDTH 13.6 % 11.7-14.4 (BEAKER) (test code = 412) PLATELET COUNT (BEAKER) (test 178 K/CU MM 150-450 code = 756) MEAN PLATELET VOLUME (BEAKER) 9.0 fL 9.4-12.3 L (test code = 754) NUCLEATED RED BLOOD CELLS 0 /100 WBC 0-0 (BEAKER) (test code = 413) NEUTROPHILS RELATIVE PERCENT 66 % (BEAKER) (test code = 429) LYMPHOCYTES RELATIVE PERCENT 24 % (BEAKER) (test code = 430) MONOCYTES RELATIVE PERCENT 8 % (BEAKER) (test code = 431) EOSINOPHILS RELATIVE PERCENT 2 % (BEAKER) (test code = 432) BASOPHILS RELATIVE PERCENT 1 % (BEAKER) (test code = 437) NEUTROPHILS ABSOLUTE COUNT 5.94 K/ L 1.56-6.13 (BEAKER) (test code = 670) LYMPHOCYTES ABSOLUTE COUNT 2.19 K/ L 1.18-3.74 (BEAKER) (test code = 414) MONOCYTES ABSOLUTE COUNT (BEAKER) 0.68 K/ L 0.24-0.36 H (test code = 415) EOSINOPHILS ABSOLUTE COUNT 0.17 K/ L 0.04-0.36 (BEAKER) (test code = 416) BASOPHILS ABSOLUTE COUNT (BEAKER) 0.05 K/ L 0.01-0.08 (test code = 417) IMMATURE GRANULOCYTES-RELATIVE 0 % 0-1 PERCENT (BEAKER) (test code = 2801) CT, BRAIN, WITHOUT [id number] 20:44:00FINAL REPORT CT, BRAIN, WITHOUT CONTRAST CLINICAL INDICATION: Focal neuro deficit, new, fixed or worsening, <6 hours COMPARISON: None TECHNIQUE: Noncontrast axial CT imagingof the brain and skull. DOSE REDUCTION: Dose modulation, iterative reconstruction, and/or weight-based adjustment of the mA/kV was utilized to reduce the radiation dose to as low as reasonably achievable. FINDINGS:No intracranial hemorrhage, midline shift or mass effect. Midline structures are normally developed. Mild chronic microvascular ischemic changes of the periventricular and subcortical white matter are present. No hydrocephalus. Orbits are within normal limits. Prior left lens surgery. Radi ally configurated hypoattenuating device along the left globe, possibly silicone implant, is noted. No obstructive paranasal sinus disease. Atherosclerotic calcification of the intracranial internal carotid and vertebral arteries. IMPRESSION: No intracranial hemorrhage status post TPA administrationat outside institution. No obvious large territorial ischemic insult by CT (although MRI would be better suited for this evaluation). Signed: Roney Rowley Verified Date/Time: 06/04/2018 20:44:09 Reading Location: [address] Neuro Reading Room RAD, CHEST, 1 VIEW, NON [id number] 17:27:00Reason for exam:->pre-MRIShould this be performed at the bedside?->YesFINAL REPORT Clinical History: Pre-MRI Comparison Study: None Findings: The cardiac silhouette is enlarged. There has been valve replacement. The pulmonary parenchyma demonstrates atelectasis or consolidation of the lung bases with costophrenic angle blunting. The pleural spaces are clear. No significant bony or soft tissue abnormalities are seen. Impression: Cardiomegaly. Bibasilar atelectasis or consolidation. Signed: Lester Santizo MDReport Verified Date/Time: 06/04/2018 17:27:33 Reading Location: [facility] B1 C013Y CT Body Reading Room HEMOGLOBIN [id number] 10:53:00 Test Item Value Reference Range Interpretation Comments HEMOGLOBIN A1C (BEAKER) (test code = 6.0 % 4.3-6.1 368) VITAMIN B12 AND [id number] 07:40:00 Test Item Value Reference Range Interpretation Comments VITAMIN B12 (BEAKER) (test code = 813 pg/mL 213-816 774) FOLATE (BEAKER) (test code = 362) 9.9 ng/mL >=7.0 [id number] 03:01:00 Test Item Value Reference Range Interpretation Comments POTASSIUM (BEAKER) (test code = 3.5 meq/L 3.5-5.1 379) Check Serum Potassium level 2 hours after oral potassium replacement completed or 30 min after intravenous potassium replacement.LIPID [id number] 03:01:00 Test Item Value Reference Range Interpretation Comments TRIGLYCERIDES (BEAKER) (test code = 103 mg/dL 540) CHOLESTEROL (BEAKER) (test code = 157 mg/dL 631) HDL CHOLESTEROL (BEAKER) (test code 43 mg/dL = 976) LDL CHOLESTEROL CALCULATED (BEAKER) 93 mg/dL (test code = 633) Triglyceride Reference Range: Low Risk <150 Borderline 150-199 High Risk 200-499 Very High Risk >=500Cholesterol Reference Range: Low Risk <200 Borderline 200-239 High Risk >240HDL Cholesterol Reference Range: Low Risk >=60 High Risk <40LDL Cholesterol Reference Range: Optimal <100 Near Optimal 100-129 Borderline 130-159 High 160-189 Very High >=190 Check Serum Potassium level 2 hours after oral potassium replacement completed or 30 min after intravenous potassium replacement.Check Serum Potassium level 2 hours after oral potassium replacement completed or 30 min after intravenous potassium replacement.Check Serum Potassium level 2 hours after oral potassium replacement completed or 30 min after intravenous potassium replacement.Check Serum Potassium level 2 hours after oral potassium replacement completed or 30 min after intravenous potassium replacement.Check Serum Potassium level 2 hours after oral potassium replacement completed or 30 min after intravenous potassium replacement.[id number] 03:01:00 Test Item Value Reference Range Interpretation Comments MAGNESIUM (BEAKER) (test code = 1.9 mg/dL 1.6-2.6 627) Check Serum Potassium level 2 hours after oral potassium replacement completed or 30 min after intravenous potassium replacement.COMPREHENSIVE METABOLIC PANEL 2018-06-04 03:01:00 Test Item Value Reference Range Interpretation Comments TOTAL PROTEIN 7.2 gm/dL 6.0-8.3 (BEAKER) (test code = 770) ALBUMIN (BEAKER) 3.6 g/dL 3.5-5.0 (test code = 1145) ALKALINE PHOSPHATASE 47 U/L 40-150 (BEAKER) (test code = 346) BILIRUBIN TOTAL 0.4 mg/dL 0.2-1.2 (BEAKER) (test code = 377) SODIUM (BEAKER) (test 139 meq/L 136-145 code = 381) POTASSIUM (BEAKER) 3.5 meq/L 3.5-5.1 (test code = 379) CHLORIDE (BEAKER) 105 meq/L 98-107 (test code = 382) CO2 (BEAKER) (test 24 meq/L 22-29 code = 355) BLOOD UREA NITROGEN 16 mg/dL 7-21 (BEAKER) (test code = 354) CREATININE (BEAKER) 0.96 mg/dL 0.57-1.25 (test code = 358) GLUCOSE RANDOM 118 mg/dL 70-105 H (BEAKER) (test code = 652) CALCIUM (BEAKER) 9.8 mg/dL 8.4-10.2 (test code = 697) AST (SGOT) (BEAKER) 25 U/L 5-34 (test code = 353) ALT (SGPT) (BEAKER) 23 U/L 6-55 (test code = 347) EGFR (BEAKER) (test 56 mL/min/1.73 ESTIMA JONNIE GFR IS code = 1092) sq m NOT ACCURATE CREATININE CLEARANCE IN PREDICTING GLOMERULAR FILTRATION RATE . ESTIMATED GFR I S NOT APPLICABLE FOR DIALYSIS PATIEN TS. Check Serum Potassium level 2 hours after oral potassium replacement completed or 30 min after intravenous potassium replacement.TSH/FREE T4 IF INDICATED 2018-06-04 00:57:00 Test Item Value Reference Range Interpretation Comments THYROID STIMULATING HORMONE 1.93 uIU/mL 0.35-4.94 (BEAKER) (test code = 772) CBC W/PLT COUNT & AUTO [id number] 00:10:00 Test Item Value Reference Range Interpretation Comments WHITE BLOOD CELL COUNT (BEAKER) 9.7 K/ L 3.5-10.5 (test code = 775) RED BLOOD CELL COUNT (BEAKER) 3.86 M/ L 3.93-5.22 L (test code = 761) HEMOGLOBIN (BEAKER) (test code = 11.9 GM/DL 11.2-15.7 410) HEMATOCRIT (BEAKER) (test code = 37.0 % 34.1-44.9 411) MEAN CORPUSCULAR VOLUME (BEAKER) 95.9 fL 79.4-94.8 H (test code = 753) MEAN CORPUSCULAR HEMOGLOBIN 30.8 pg 25.6-32.2 (BEAKER) (test code = 751) MEAN CORPUSCULAR HEMOGLOBIN CONC 32.2 GM/DL 32.2-35.5 (BEAKER) (test code = 752) RED CELL DISTRIBUTION WIDTH 13.4 % 11.7-14.4 (BEAKER) (test code = 412) PLATELET COUNT (BEAKER) (test 177 K/CU MM 150-450 code = 756) MEAN PLATELET VOLUME (BEAKER) 8.9 fL 9.4-12.3 L (test code = 754) NUCLEATED RED BLOOD CELLS 0 /100 WBC 0-0 (BEAKER) (test code = 413) NEUTROPHILS RELATIVE PERCENT 72 % (BEAKER) (test code = 429) LYMPHOCYTES RELATIVE PERCENT 19 % (BEAKER) (test code = 430) MONOCYTES RELATIVE PERCENT 7 % (BEAKER) (test code = 431) EOSINOPHILS RELATIVE PERCENT 1 % (BEAKER) (test code = 432) BASOPHILS RELATIVE PERCENT 0 % (BEAKER) (test code = 437) NEUTROPHILS ABSOLUTE COUNT 7.02 K/ L 1.56-6.13 H (BEAKER) (test code = 670) LYMPHOCYTES ABSOLUTE COUNT 1.84 K/ L 1.18-3.74 (BEAKER) (test code = 414) MONOCYTES ABSOLUTE COUNT (BEAKER) 0.66 K/ L 0.24-0.36 H (test code = 415) EOSINOPHILS ABSOLUTE COUNT 0.11 K/ L 0.04-0.36 (BEAKER) (test code = 416) BASOPHILS ABSOLUTE COUNT (BEAKER) 0.04 K/ L 0.01-0.08 (test code = 417) IMMATURE GRANULOCYTES-RELATIVE 0 % 0-1 PERCENT ([employer]) (test code = 2801)
[2019-10-22 15:24] LABS: Absolute Lymphocytes (CBC) 1.2 K/uL (0.7-4.9); Basophils % 0.9 % (0-1.3); Hematocrit 35.1 % (36.0-45.0); Lymphocytes % 20.3 % (15.3-44.8); MPV 7.2 fL (7.6-11.3); RBC Red Blood Cell Count 3.97 M/uL (3.86-4.86)
[2019-10-22] MEDS ORDERED: LIDOCAINE JELLY 2%- 5 ML TUBE ONE (15:25)
[2019-10-22] MEDS ORDERED: NA CHLORIDE 0.9% 500 ML ONE (15:25)
[2019-10-22 15:45] LABS: ALT/SGPT 20 U/L (12-78); AST/SGOT 18 U/L (15-37); Alkaline Phosphatase 56 U/L (45-117); BUN Blood Urea Nitrogen 16 mg/dL (7-18); Bicarbonate 26 mmol/L (21-32); Bilirubin Direct 0.1 mg/dL (0-0.2); Bilirubin Total 0.3 mg/dL (0.2-1.0); Glucose Level 124 mg/dL (74-106); Magnesium 2.2 mg/dL (1.8-2.4); NT PRO-BNP 708 pg/mL (<450); Potassium 4.1 mmol/L (3.5-5.1); Protein, Total 7.4 g/dL (6.4-8.2); Sodium Level 138 mmol/L (136-145); Troponin (Emerg Dept Use Only) < 0.02 ng/mL (0.0-0.045)
--- NOTE | 2019-10-22 16:29 | RAD REPORT ---
EXAM DESCRIPTION: - CP - 10/22/2019 4:20 pm CLINICAL HISTORY: multiple falls;Dizziness Headache, drowsiness COMPARISON: Neck Angio dated 06/03/2018 TECHNIQUE: Real-time sonographic evaluation of both carotid systems was performed. Doppler interroga tion was performed with waveform tracing bilaterally. FINDINGS: Normal high resistance waveforms are noted in both external carotid arteries. The common c arotid arteries and internal carotid arteries show normal low resistance waveforms. Mild hard plaque is seen in both carotid bulbs. Peak systolic and end diastolic velocity values and t he ICA/CCA ratios are in the non-hemodynamically significant range. Antegrade flow seen in both vertebral arteries. IMPRESSION: Mild hard plaquing seen in both carotid bulbs. No evidence of a hemodynamically significant stenosis.
--- NOTE | 2019-10-22 17:08 | RAD REPORT ---
EXAM DESCRIPTION: CT - Head C Spine Cap Janette Pruett - 10/22/2019 4:52 pm CLINICAL HISTORY: Trauma, head and neck injury. Chest, abdomen and pelvis pain. left awilda pain;Pain;Swelling COMPARISON: No comparisons TECHNIQUE: CT head without contrast. CT cervical spine without contrast with coronal and sagittal reformatted images. CT chest, abdomen and pelvis with IV contrast (approximately 100 mL nonionic IV contrast) with butler l and sagittal reformatted images of the spine. All CT scans are performed using dose optimization technique as appropriate and may include automated exposure control or mA/KV adjustment according to patient size. FINDINGS: CT HEAD WITHOUT CONTRAST: No intracranial hemorrhage, hydrocephalus or extra-axial fluid collection. Mild generalized brain atr ophy is present with mild periventricular and deep white matter chronic microvascular ischemic change s. No areas of brain edema or midline shift. The paranasal sinuses and mastoids are clear. The calvarium is intact. CT CERVICAL SPINE WITHOUT CONTRAST: No fracture or subluxation. 4 mm degenerative anterolisthesis of C2 on 3 is present. 3 mm degenerativ e retrolisthesis of C4 on 5. 4 mm degenerative anterolisthesis is seen of C7 on T1. Multilevel disc t hinning is present with posterior osteophyte. The prevertebral soft tissues are normal in thickness. CT CHEST, ABDOMEN, PELVIS WITH CONTRAST: Linear atelectasis is present in both posterior lung bases.No pneumothorax or pericardial/pleural flu id. No displaced rib fracture seen. Significant cardiomegaly is evident with pacer device present. No evidence of intra-abdominal visceral injury, free fluid or free air. No concerning pelvic findings. Moderate lumbar degenerative changes. IMPRESSION: Negative for acute traumatic findings. Multilevel cervical spine degenerative change.
[2019-10-22] MEDS ORDERED: MECLIZINE HCL 12.5 MG TAB ONE (17:09)
--- NOTE | 2019-10-22 17:37 | RAD REPORT ---
EXAM DESCRIPTION: RAD - Chest Single View - 10/22/2019 5:19 pm CLINICAL HISTORY: Pain;Blunt chest trauma Chest pain. COMPARISON: Chest Single View dated 06/03/2018; Chest Pa And Lat (2 Views) dated 12/15/2017; Chest Pa A nd Lat (2 Views) dated 10/11/2015; CHEST PA AND LAT 2 VIEW dated 04/02/2015 FINDINGS: Portable technique limits examination quality. Emphysematous changes are present throughout the lungs. The bones are diffusely osteopenic. The heart is moderately enlarged in size with multilead pacer device present. No displaced fractures.
--- NOTE | 2019-10-22 17:38 | ER ---
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 Coronavirus screen: Patient denies shortness of breath or difficulty breathing. Patient denies measured and/or subjective temperature greater than 100.4F prior to today's visit. Patient denies travel on a cruise ship or to a country the [facility] currently lists as an affected area. Patient denies contact with known and/or suspected case of COVID-19. Proceed with normal triage. Ebola Screen: No symptoms or risks identified at this time. Initial Sepsis Screen: Does the patient meet any 2 criteria? No. Patient's initial sepsis screen is negative. Does the patient have a suspected source of infection? No. Patient's initial sepsis screen is negative. Risk Assessment: Do you want to hurt yourself or someone else? Patient reports no desire to harm self or others. Onset of symptoms was October 22, 2019. 14:49 Method Of Arrival: Ambulatory ph 14:49 Acuity: KERRY 3 ph Historical: - Allergies: 14:53 Codeine; ph - Immunization history:: Last tetanus immunization: up to date. - Social history:: Smoking status: Patient denies any tobacco usage or history of. - Family history:: not pertinent. Screenin:22 Abuse screen: Denies threats or abuse. Nutritional screening: No deficits noted. ll1 Tuberculosis screening: No symptoms or risk factors identified. Fall Risk Fall in past 12 months (25 points). IV access (20 points). Ambulatory Aid- None/Bed Rest/Nurse Assist (0 pts). Gait- Impaired (20 pts.). Total Thompson Fall Scale indicates High Risk Score (45 or more points). Fall prevention measures have been instituted. Side Rails Up X 2 Frequent Obs/Assessments Occuring As available patient and family educated on Fall Prevention Program and Strategies. Assessment: 15:15 Reassessment: Patient appears in no apparent distress at this time. No changes from ll1 previously documented assessment. Patient and/or family updated on plan of care and expected duration. Pain level reassessed. Patient is alert, oriented x 3, equal unlabored respirations, skin warm/dry/pink. 16:21 General: Appears in no apparent distress. Behavior is calm, cooperative. Pain: ll1 Complains of pain in right arm Quality of pain is described as burning, Pain began 2 hours ago. Neuro: No deficits noted. Cardiovascular: No deficits noted. Respiratory: No deficits noted. Musculoskeletal: Reports pain in bilateral wrists and shoulders. Injury Description: Bruise 2 falls. 17:20 Reassessment: Patient appears in no apparent distress at this time. No changes from ll1 previously documented assessment. Patient and/or family updated on plan of care and expected duration. Pain level reassessed. Patient is alert, oriented x 3, equal unlabored respirations, skin warm/dry/pink. 18:07 Reassessment: Patient appears in no apparent distress at this time. No changes from ll1 previously documented assessment. Patient and/or family updated on plan of care and expected duration. Pain level reassessed. Patient is alert, oriented x 3, equal unlabored respirations, skin warm/dry/pink. Vital Signs: 14:49 BP 146 / 67; Pulse 60; Resp 18; Temp 97.9; Pulse Ox 99% on R/A; Weight 51.71 kg; Height ph 5 ft. 4 in. (162.56 cm); Pain 10/10; 15:45 BP 126 / 79; Pulse 60; Resp 21; Pulse Ox 98% on R/A; vc 16:45 BP 143 / 66; Pulse 60; Resp 18; Pulse Ox 100% ; ll1 17:59 BP 145 / 71; Pulse 60; Resp 17; Pulse Ox 99% ; Pain 0/10; ll1 14:49 Body Mass Index 19.57 (51.71 kg, 162.56 cm) ph ED Course: 14:15 Patient arrived in ED. bp1 14:45 Pop Issa MD is Attending Physician. [place] 14:53 Triage completed. ph 14:55 Kristan Woodard, RN is Primary Nurse. ll1 15:15 Inserted saline lock: 22 gauge in left antecubital area, using aseptic technique. Blood ll1 collected. 16:18 Wound care: to skin tear R FA located on right arm was cleaned with Hibiclens, dressed ll1 with Kerlix, non stick dressing, Patient tolerated well. 16:20 US Carotid Artery Bilateral In Process Unspecified. EDMS 16:22 Patient has correct armband on for positive identification. Bed in low position. Call ll1 light in reach. Side rails up X 1. 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 Pulse ox on. NIBP on. 16:53 CT Traumagram (Head C Spine CAP W Con) In Process Unspecified. EDMS 17:19 XRAY Chest (1 view) In Process Unspecified. EDMS 17:32 Shoulder Left (2 View) XRAY In Process Unspecified. EDMS 17:36 Rashaad Polk MD is Referral Physician. [place] 17:36 Drew Sherman MD is Referral Physician. [place] 17:58 IV discontinued, intact, bleeding controlled, No redness/swelling at site. Pressure ll1 dressing applied. 18:07 No provider procedures requiring assistance completed. ll1 18:07 Arm band placed on. ll1 Administered Medications: 15:18 Drug: NS 0.9% 1000 ml Route: IV; Rate: 125 ml/hr; Site: left antecubital; ll1 17:56 Follow up: Response: No adverse reaction; RASS: Alert and Calm (0); IV Status: ll1 Completed infusion; IV Intake: 300ml 16:56 Drug: Neosporin Ointment 1 application Route: Topical; Site: right forearm; ll1 17:57 Follow up: Response: No adverse reaction; RASS: Alert and Calm (0) ll1 17:24 Drug: Meclizine 25 mg Route: PO; ll1 17:57 Follow up: Response: No adverse reaction; RASS: Alert and Calm (0) ll1 17:45 Drug: Rocephin 1 grams Route: IV; Rate: per protocol; Site: left antecubital; ll1 17:57 Follow up: Response: No adverse reaction; RASS: Alert and Calm (0); IV Status: ll1 Completed infusion; IV Intake: 20ml Intake: 17:56 IV: 300ml; Total: 300ml. ll1 17:57 IV: 20ml; Total: 320ml. ll1 Outcome: 17:38 Discharge ordered by . [place] 18:06 Patient left the ED. [facility] 18:08 Discharged to home ambulatory. [facility] 18:08 Condition: stable 18:08 Discharge instructions given to patient, Instructed on discharge instructions, follow up and referral plans. medication usage, Demonstrated understanding of instructions, follow-up care, medications, Prescriptions given X 2. Signatures: Dispatcher [employer] EDPop Sarmiento MD MD cha Hall, Patricia, RN RN Rachel Tatum RN RN vc Lewis, Lynsay, RN RN 1 Ondina Anaya
--- NOTE | 2019-10-22 17:38 | EDPHYS ---
Physician Documentation [facility] Name: Shima Walters Age: 84 yrs Sex: Female : 1935 Arrival Date: 10/22/2019 Time: 14:15 Bed 16 Private MD: ED Physician Pop Issa HPI: 10/21 15:04 This 84 yrs old Female presents to ER via Ambulatory with complaints of Arm [place] Injury, Fall Injury, Fell as well. 15:04 This 84 yrs old Female presents to ER via Ambulatory with complaints of Arm [place] Injury, Fall Injury, Fell as well. 15:04 The patient or guardian complains of decreased range of motion, pain, that is acute. [place] The complaints affect the dorsal aspect of right forearm and palmar aspect of right forearm. Historical: - Allergies: 14:53 Codeine; ph - Immunization history:: Last tetanus immunization: up to date. - Social history:: Smoking status: Patient denies any tobacco usage or history of. - Family history:: not pertinent. ROS: 15:04 Constitutional: Negative for fever, chills, and weight loss, Eyes: Negative for injury, [place] pain, redness, and discharge, ENT: Negative for injury, pain, and discharge, Neck: Negative for injury, pain, and swelling, Cardiovascular: Negative for chest pain, palpitations, and edema, Respiratory: Negative for shortness of breath, cough, wheezing, and pleuritic chest pain, Abdomen/GI: Negative for abdominal pain, nausea, vomiting, diarrhea, and constipation, Back: Negative for injury and pain, : Negative for injury, bleeding, discharge, and swelling, Skin: Negative for injury, rash, and discoloration, Neuro: Negative for headache, weakness, numbness, tingling, and seizure, Psych: Negative for depression, anxiety, suicide ideation, homicidal ideation, and hallucinations, Allergy/Immunology: Negative for hives, rash, and allergies, Endocrine: Negative for neck swelling, polydipsia, polyuria, polyphagia, and marked weight changes, Hematologic/Lymphatic: Negative for swollen nodes, abnormal bleeding, and unusual bruising. 15:04 MS/extremity: Positive for contusion, decreased range of motion, pain, of the dorsal aspect of right forearm and palmar aspect of right forearm. Exam: 15:05 Constitutional: This is a well developed, well nourished patient who is awake, alert, [place] and in no acute distress. Head/Face: Normocephalic, atraumatic. Eyes: Pupils equal round and reactive to light, extra-ocular motions intact. Lids and lashes normal. Conjunctiva and sclera are non-icteric and not injected. Cornea within normal limits. Periorbital areas with no swelling, redness, or edema. ENT: Nares patent. No nasal discharge, no septal abnormalities noted. Tympanic membranes are normal and external auditory canals are clear. Oropharynx with no redness, swelling, or masses, exudates, or evidence of obstruction, uvula midline. Mucous membranes moist. Neck: Trachea midline, no thyromegaly or masses palpated, and no cervical lymphadenopathy. Supple, full range of motion without nuchal rigidity, or vertebral point tenderness. No Meningismus. Chest/axilla: Normal chest wall appearance and motion. Nontender with no deformity. No lesions are appreciated. Cardiovascular: Regular rate and rhythm with a normal S1 and S2. No gallops, murmurs, or rubs. Normal PMI, no JVD. No pulse deficits. Respiratory: Lungs have equal breath sounds bilaterally, clear to auscultation and percussion. No rales, rhonchi or wheezes noted. No increased work of breathing, no retractions or nasal flaring. Abdomen/GI: Soft, non-tender, with normal bowel sounds. No distension or tympany. No guarding or rebound. No evidence of tenderness throughout. Back: No spinal tenderness. No costovertebral tenderness. Full range of motion. Female : Normal external genitalia. Skin: Warm, dry with normal turgor. Normal color with no rashes, no lesions, and no evidence of cellulitis. Neuro: Awake and alert, GCS 15, oriented to person, place, time, and situation. Cranial nerves II-XII grossly intact. Motor strength 5/5 in all extremities. Sensory grossly intact. Cerebellar exam normal. Normal gait. Psych: Awake, alert, with orientation to person, place and time. Behavior, mood, and affect are within normal limits. 15:05 Chest/axilla: Inspection: normal, no acute changes, Palpation: tenderness, that is mild, of the anterior aspect of left upper chest, left lateral posterior chest, left lateral anterior chest and left breast, Axilla: are normal, Breasts: are normal, symmetrical shape, no mass(es), no nipple discharge, no rash. 15:05 Musculoskeletal/extremity: Extremities: noted in the dorsal aspect of right forearm and palmar aspect of right forearm: decreased ROM, pain. 16:51 ECG was reviewed by the Attending Physician. [facility] Vital Signs: 14:49 BP 146 / 67; Pulse 60; Resp 18; Temp 97.9; Pulse Ox 99% on R/A; Weight 51.71 kg; Height ph 5 ft. 4 in. (162.56 cm); Pain 10/10; 15:45 BP 126 / 79; Pulse 60; Resp 21; Pulse Ox 98% on R/A; vc 16:45 BP 143 / 66; Pulse 60; Resp 18; Pulse Ox 100% ; ll1 17:59 BP 145 / 71; Pulse 60; Resp 17; Pulse Ox 99% ; Pain 0/10; ll1 14:49 Body Mass Index 19.57 (51.71 kg, 162.56 cm) ph MDM: 14:45 Patient medically screened. [facility] 15:07 Data reviewed: vital signs, nurses notes, lab test result(s), EKG, radiologic studies, [facility] CT scan, doppler, plain films. Data interpreted: gambling monitor: rate is 60 beats/min, Pulse oximetry: on room air is 99 %. Test interpretation: by ED physician or midlevel provider: ECG, plain radiologic studies. Counseling: I had a detailed discussion with the patient and/or guardian regarding: the historical points, exam findings, and any diagnostic results supporting the discharge/admit diagnosis, the presence of at least one elevated blood pressure reading (>120/80) during this emergency department visit, lab results, radiology results, the need for outpatient follow up. 10/21 15:03 Order name: Basic Metabolic Panel; Complete Time: 16:42 [facility] 10/21 15:03 Order name: CBC with Diff; Complete Time: 16:42 [facility] 10/21 15:03 Order name: LFT's; Complete Time: 16:42 [facility] 10/21 15:03 Order name: Magnesium; Complete Time: 16:42 [facility] 10/21 15:03 Order name: NT PRO-BNP; Complete Time: 16:42 [facility] 10/21 15:03 Order name: Troponin (emerg Dept Use Only); Complete Time: 16:42 [facility] 10/21 15:03 Order name: XRAY Chest (1 view) [facility] 10/21 15:03 Order name: CT Traumagram (Head C Spine CAP W Con); Complete Time: 17:18 [facility] 10/21 15:03 Order name: US Carotid Artery Bilateral; Complete Time: 16:42 [facility] 10/21 17:17 Order name: Shoulder Left (2 View) XRAY [facility] 10/21 17:33 Order name: Urine Dipstick--Ancillary (enter results) or 10/21 17:35 Order name: Urine Culture [facility] 10/21 15:03 Order name: EKG; Complete Time: 15:04 [facility] 10/21 15:03 Order name: Cardiac monitoring; Complete Time: 15:53 [facility] 10/21 15:03 Order name: EKG - Nurse/Tech; Complete Time: 15:53 [facility] 10/21 15:03 Order name: IV Saline Lock; Complete Time: 15:19 [facility] 10/21 15:03 Order name: Labs collected and sent; Complete Time: 15:18 [facility] 10/21 15:03 Order name: O2 Per Protocol; Complete Time: 15:18 [facility] 10/21 15:03 Order name: O2 Sat Monitoring; Complete Time: 15:18 [facility] 10/21 15:03 Order name: Urine Dipstick-Ancillary (obtain specimen); Complete Time: 17:57 [facility] EC:51 Rate is 60 beats/min. Rhythm is regular. QRS Jachin is Normal. CO interval is normal. QRS [place] interval is normal. QT interval is normal. No Q waves. T waves are Normal. No ST changes noted. Administered Medications: 15:18 Drug: NS 0.9% 1000 ml Route: IV; Rate: 125 ml/hr; Site: left antecubital; 1 17:56 Follow up: Response: No adverse reaction; RASS: Alert and Calm (0); IV Status: ll1 Completed infusion; IV Intake: 300ml 16:56 Drug: Neosporin Ointment 1 application Route: Topical; Site: right forearm; 1 17:57 Follow up: Response: No adverse reaction; RASS: Alert and Calm (0) 1 17:24 Drug: Meclizine 25 mg Route: PO; ll1 17:57 Follow up: Response: No adverse reaction; RASS: Alert and Calm (0) ll1 17:45 Drug: Rocephin 1 grams Route: IV; Rate: per protocol; Site: left antecubital; ll1 17:57 Follow up: Response: No adverse reaction; RASS: Alert and Calm (0); IV Status: ll1 Completed infusion; IV Intake: 20ml Disposition: 10/22/19 17:38 Discharged to Home. Impression: Repeated falls, Contusion of right forearm - small skin tear, Contusion of front wall of thorax, Contusion of left back wall of thorax, Dizziness and giddiness, Vertiginous syndromes in diseases classified elsewhere, unspecified ear, Urinary tract infection, site not specified. - Condition is Stable. - Discharge Instructions: Benign Positional Vertigo, Dizziness, Fall Prevention in the Home, Urinary Tract Infection, Adult, Vertigo, Urinary Tract Infection, Adult, Zcir-yt-Fccw, Fall Prevention in the Home, Mpdc-[id number], Vertigo, Beel-wg-Zacv, Dizziness, Sxsw-sg-Oagy. - Prescriptions for Meclizine 25 mg Oral Tablet - take 1 tablet by ORAL route every 8 hours As needed; 30 tablet. cefdinir 300 mg Oral capsule - take 1 capsule by ORAL route every 12 hours; 14 capsule. - Medication Reconciliation Form, Thank You Letter, Antibiotic Education, Prescription Opioid Use form. - Follow up: Private Physician; When: 2 - 3 days; Reason: Recheck today's complaints, Continuance of care, Re-evaluation by your physician. Follow up: Rashaad Polk MD; When: 2 - 3 days; Reason: Recheck today's complaints, Continuance of care, Re-evaluation by your physician. Follow up: Drew Sherman MD; When: 2 - 3 days; Reason: Recheck today's complaints, Re-evaluation by your physician. - Problem is new. - Symptoms have improved. Signatures: Dispatcher [employer] EDIL Pop Issa MD MD cha Hall, Patricia RN RN Kristan Woodard RN RN ll1 Corrections: (The following items were deleted from the chart) 17:19 15:04 Forearm Right+RAD.RAD.BRZ ordered. [facility] 17:38 17:38 10/22/2019 17:38 Discharged to Home. Impression: Repeated falls; Contusion of [place] right forearm - small skin tear; Contusion of front wall of thorax; Contusion of left back wall of thorax; Dizziness and giddiness; Vertiginous syndromes in diseases classified elsewhere, unspecified ear. Condition is Stable. Discharge Instructions: Benign Positional Vertigo, Dizziness, Fall Prevention in the Home, Vertigo, Fall Prevention in the Home, Bzrs-cd-Fhmf, Vertigo, Kxqw-zb-Ouvg, Dizziness, Eidv-gt-Tuph. Prescriptions for Meclizine 25 mg Oral Tablet - take 1 tablet by ORAL route every 8 hours As needed; 30 tablet. and Forms are Medication Reconciliation Form, Thank You Letter, Antibiotic Education, Prescription Opioid Use. Follow up: Private Physician; When: 2 - 3 days; Reason: Recheck today's complaints, Continuance of care, Re-evaluation by your physician. Follow up: Rashaad Polk; When: 2 - 3 days; Reason: Recheck today's complaints, Continuance of care, Re-evaluation by your physician. Follow up: Drew Sherman; When: 2 - 3 days; Reason: Recheck today's complaints, Re-evaluation by your physician. Problem is new. Symptoms have improved. [facility] 18:06 17:38 10/22/2019 17:38 Discharged to Home. Impression: Repeated falls; Contusion of ll1 right forearm - small skin tear; Contusion of front wall of thorax; Contusion of left back wall of thorax; Dizziness and giddiness; Vertiginous syndromes in diseases classified elsewhere, unspecified ear; Urinary tract infection, site not specified. Condition is Stable. Discharge Instructions: Benign Positional Vertigo, Dizziness, Fall Prevention in the Home, Vertigo, Fall Prevention in the Home, Qzvc-kn-Ftat, Vertigo, Shyu-cw-Avyn, Dizziness, Ncha-ex-Lngg. Prescriptions for Meclizine 25 mg Oral Tablet - take 1 tablet by ORAL route every 8 hours As needed; 30 tablet. and Forms are Medication Reconciliation Form, Thank You Letter, Antibiotic Education, Prescription Opioid Use. Follow up: Private Physician; When: 2 - 3 days; Reason: Recheck today's complaints, Continuance of care, Re-evaluation by your physician. Follow up: Rashaad Polk; When: 2 - 3 days; Reason: Recheck today's complaints, Continuance of care, Re-evaluation by your physician. Follow up: Drew Sherman; When: 2 - 3 days; Reason: Recheck today's complaints, Re-evaluation by your physician. Problem is new. Symptoms have improved. [place]
--- NOTE | 2019-10-22 17:39 | RAD REPORT ---
EXAM DESCRIPTION: RAD - Shoulder Left 2 View - 10/22/2019 5:32 pm CLINICAL HISTORY: PAIN Fall, pain COMPARISON: No comparisons FINDINGS: Diffuse osteopenia is seen. Mild AC joint degenerative changes are evident. No displaced f racture seen.
[2019-10-22 17:41] LABS: Urine Blood NEGATIVE (NEG); Urine Glucose NEGATIVE (NEG); Urine Protein NEGATIVE (NEG); Urine Specific Gravity 1.015 (1.005-1.030); Urine pH 6.5 (5.0-7.0)
[2019-10-22] MEDS ORDERED: CEFTRIAXONE/SWI 1gm 1 GM/10 ML SYR ONE (17:53)
[2019-10-22 18:48] VITALS: TEMP 97.9
[2019-10-22 18:52] VITALS: BP 145/71; O2SAT 99
== END 2019-10-22 18:06 | disposition home or self-care (01) ==
LOC: ER 14:12
DX: S51.811A Laceration without foreign body of right forearm, initial encounter (principal); S20.212A Contusion of left front wall of thorax, initial encounter; S20.222A Contusion of left back wall of thorax, initial encounter; N39.0 Urinary tract infection, site not specified; R29.6 Repeated falls; R42 Dizziness and giddiness; H82.9 Vertiginous syndromes in diseases classified elsewhere, unspecified ear; Z88.5 Allergy status to narcotic agent
CPT/HCPCS: 96361; 93005; 87088; 85025; 87086; 80048; 36415; 83735; 80076; 81003; 84484; 83880; 70450; 72125; 71260; 74177; 71045; 73030; 93880; 96374; 99285; Q9967; J8597; J0696; J7040

== ENCOUNTER 2020-09-26 14:04 | Observation (INO) | payer OTHER ==
--- OUTSIDE RECORDS SUMMARY | 2020-09-26 14:08 | XMS REPORT | Continuity of Care Document ---
:1935 Author Organization [facility] t Address [address] [place] [address] Care Team Providers Name Role Phone Tameka [...] l I48.0 00:00: Frandy 00 Active 09/01/2018 [facility] CCL / EPS Diagnosis Active 2018-09-14 Memoria PVI 09-01 08:17:00 l ABLATION CCL / 00:00: Frandy W/ CARTO / EPS PVI 00 DUAL P ABLATION W/ CARTO / DUAL P Active 09/01/2018 [facility] Acute Acute Disease Active [facility] encephal[facility] encephalop 3-03 Audrey kes - athy athy 00:00: Medical 00 Phil Campbell Acute Acute Disease Active [facility] ischemic ischemic [facility]-02 [facility] stroke stroke 00:00: Medical 00 Phil Campbell Received Received Disease [facility] plasminoge plasminoge 00:00: Me dical n n 00 Center activator activator (t-PA) (t-PA) less than less than 24 hours 24 hours prior to prior to arrival arrival Cardiac Problem Active 2019-12-30 Mukul armando 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 Cardiac Manuel n (finding) pacemaker in situ (finding) Active Problem 12/30/2019 [facility] Dizziness Problem Active 2019-12-30 Me moria (finding) 21:16:57 l [place] Dizziness (finding) Active Problem 12/30/2019 [facility] Hyperlipid Problem Active 2019-12-30 M emoria emia 21:16:57 l (disorder) Manuel n Hyperlipid emia (disorder) Active Problem 12/30/2019 [facility] Malignant Problem Active 2019-12-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:16: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 Fr[place] (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/2019 [facility] Congestive Problem Active 2019-12-30 M emoria heart 21:16:57 l failure [place] (disorder) Congestive heart failure (disorder) Active Problem 12/30/2019 [facility] Lumbar Problem Active 2019-12-30 Memor ia radiculopa 21:16:57 l thy Lumbar [place]andy (disorder) radiculopa thy (disorder) Active Problem 12/30/2019 [facility] 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) Active Problem 12/30/2019 [facility] Syncope Problem Active 2019-12-30 Mukul armando (disorder) 21:16:57 l Syncope [place] (disorder) Active Problem 12/30/2019 [facility] Allergies, Adverse Reactions, Alerts Allergy Allergy Status Severity Reaction(s) Onset Inactive Treating Comm ents Source Name Type Date Date Clinician Codeine Drug Active Other (See 2019-0 Chest [facility] Center codeine codeine Active [facility]oria [facility] [place] Vicodin Vicodin Active [facility] [place] codeine Adverse Active Info Not [facility] Reaction Available [facility] Family History Family Member Diagnosis Comments Start Date Stop Date Source Natural brother [facility] Natural brother [facility] Natural daughter Diabetes [facility] Natural mother Heart disease [facility] Social History Social Habit Start Date Stop Date Quantity Comments Source History [facility] Alcohol Std Drinks [facility] B[facility] Medical Dianna ter Sex Assigned At [facility] History SDOH 2018-06-03 2018-06-03 1 [facility] - Alcohol Frequency 00:00:00 00:00:00 [facility] Tobacco use and 2018-06-03 2018-06-03 Never used [facility] - exposure 00:00:00 00:00:00 [facility] Alcohol intake 2018-06-03 2018-06-03 Current [facility] es - 00:00:00 00:00:00 non-drinker of Medical Ce nter alcohol (finding) Smoking Status Start Date Stop Date Source Never smoker [facility] Medications Ordered Filled Start Stop Current Ordering Indication Dosage Frequency Signature Comments Components Source Medication Medication Date Date Medication? Clinician (SIG) Name Name Cetirizine Cetirizine 2019-0 Yes Na De Leon 1 tablet [facility] HCl HCl 9-04 [facility]: [facility] 00 l Outpat[facility] ent Clinics 24 HR 2020-0 Yes 0 Memoria mirabegron 3-24 Refill(s) l 50 MG 20:51: Frandy Extended 00 Release Tablet [Myrbetriq] atorvastati 2019-0 Yes 40 mg = 1 M emoria n 40 mg 3-24 tab, PO, l oral tablet 20:45: Bedtime, # Frandy 00 30 tab, 0 Refill(s) Hemocyte 2020-0 Yes 1 cap, PO, Mem oria Plus 3-24 Daily, 0 l 20:45: Refill(s) [place] 00 Loratadine 2020-0 Yes 10 mg = 1 Me moria 10 MG Oral 3-24 tab, PO, l Tablet 20:45: Daily, 0 [place] 00 Refill(s) meclizine 2020-0 Yes 25 mg = 1 Mem oria 25 mg oral 3-24 tab, PO, l tablet 20:45: BID, 0 [place] 00 Refill(s) montelukast 2020-0 Yes 10 mg = 1 M emoria 10 mg oral 3-24 tab, PO, l tablet 20:45: Daily, 0 [place] 00 Refill(s) 24 HR Yes 25 mg = 1 Memoria mirabegron 3-24 tab, PO, l 25 MG 20:45: Daily, # Frandy Extended 00 30 tab, 5 Release Refill(s) [...] PRN COPD, # 1 ea, 0 Refill(s) Xarelto Xarelto Yes Na De Leon [address] [facility] 7-10 with food [facility] - 00:00: [facility]oria 00 l Outpati [facility] No Notes: Mukul armando 6-13 (Same l 14:00: as:Singula [place] 00 ir) Losartan No Notes: Memoria 6-13 (Same as: l 14:00: Cozaar) [place] 00 pantoprazol No Notes: Mukul armando e 6-13 Tablet l 12:30: should not Frandy 00 be chewed or crushed. (Same as: Protonix) pantoprazol Yes 40 mg, PO, Memoria e 40 mg 6-13 Daily, # l oral 12:09: 30 tab, 0 Frandy enteric 00 Refill(s) coated tablet rivaroxaban Yes [...] As: Coreg) Amiodarone No Notes: Memor ia 6- (Same as: l 02:00: Cordarone) Hydromorpho No Notes: Mukul armando ne - Same as l 22:23: Dilaudid Tramadol No Notes: Not Mem oria - to exceed l 22:23: 400mg/day. (Same As: Ultram) oxybutynin No Notes: Memor ia 6-12 (Same as: l 22:00: Ditropan XL) "Do [...] Drug form: l mg 18:47: INJ, Start date: 09/14/18 13:47:00 CDT, Stop date: 09/14/18 14:47:00 CDT dexamethaso No Route: IV, Memoria ne (ANES) 09-14 Drug form: l 18:33: INJ, ONCE, Stop date: 09/14/18 13:33:00 CDT norepinephr No Route: IV, Memoria ine (ANES) 09-14 Drug form: l 18:18: INJ, ONCE, Stop date: 09/14/18 13:18:00 CDT heparin No Route: IV, Mukul armando (ANES) 09-14 Drug form: l 17:57: INJ, ONCE, Stop date: 09/14/18 12:57:00 CDT fentaNYL 2019-0 No Route: IV, Mem oria (ANES) 6-12 Drug form: l 17:06: INJ, ONCE, Stop date: 09/14/18 12:06:00 CDT rocuronium 2018-0 [...] 6-12 (Same as: l 16:53: Brevibloc) Labetalol 0 No 10 mg, 2 Mukul armando 6-12 [...] CDT, Stop date: 09/14/18 9:45:00 CDT Versed 2018-0 No 3 mg, Memoria 6-12 Route: IV, [...] PO, BID, 0 l 13:44: Refill(s) pantoprazol 2019-0 No 40 mg, PO, Memoria e 6-12 Daily, 0 l 13:44: Refill(s) NS 1,000 mL 2019-0 No 1,000 mL, M emoria 6-12 Rate: 100 l 13:26: ml/hr, Infuse over: 10 hr, Route: IV, Dosing Weight 55.909 kg, Total Volume: 1,000, Start date: 09/14/18 8:26:00 CDT, Duration: 30 day, Stop date: 10/14/18 8:25:00 CDT, 1.56, m2 Loratadine Loratadine Yes Na De Leon [address] [facility] Atorvastati Atorvastati Yes Na De Leon [address] [facility] n Calcium n Calcium [facility] Meclizine Meclizine Yes Na De Leon [address] [facility] HCl HCl as needed [facility] Losartan Losartan Yes Na De Leon [address] [facility] Potassium Potassium [facility] Estradiol Estradiol Yes Na De Loen 1/[address] [facility] Myrbetriq Myrbetriq Yes Na De Leon [address] [facility] Ferrous Ferrous Yes Na De Leon [address] Sulfate Sulfate [facility] Singulair Singulair Yes Na De Leon [address] [facility] in the [facility] evening [facility] Amiodarone Amiodarone Yes Na De Leon [address] [facility] HCl HCl [facility] Coreg Coreg Yes Na De Leon 1 tablets [facility] Trelegy Trelegy Yes Na De Leon [address] [facility] Ellipta Ellipta [facility] Hemocyte Hemocyte Yes Na De Leon [address] [facility] Plus Plus [facility] Lasix Lasix Yes Na De Leon [address] [facility] Sucralfate Sucralfate Yes Na De Leon TAKE ONE [facility] TABLET BY [facility] - MOUTH Memoria TWICE A l DAY [facility] Myrbetriq Myrbetriq Yes Na De Leon [address] [facility] Flonase Flonase Yes Na De Leon [address] [facility] each [facility] Pantoprazol Pantoprazol Yes Na De Leon [address] [facility] [facility] e Sodium e Sodium [facility] Vital Signs Vital Name Observation Time Observation Value Comments Source Systolic (mm Hg) 2019-11-16 14:27:00 Mukul rial [place] Diastolic (mm Hg) 2019-11-16 14:27:00 Mem orial [place] Heart Rate 2019-11-16 14:27:00 [facility] [place] Respitory Rate 2019-11-16 14:27:00 Memori al [place] Height 2019-11-16 14:27:00 152.4 cm [facility] [place] Weight 2019-11-16 14:27:00 [facility] [place] BMI Calculated 2019-11-16 14:27:00 Memori al [place] Systolic (mm Hg) 2019-09-12 20:01:00 Mukul rial [place] Diastolic (mm Hg) 2019-09-12 20:01:00 Mem orial [place] Heart Rate 2019-09-12 20:01:00 [facility] [place] Respitory Rate 2019-09-12 20:01:00 Memori al [place] Height 2019-09-12 20:01:00 152.4 cm [facility] [place] Weight 2019-09-12 20:01:00 [facility] [place] BMI Calculated 2019-09-12 20:01:00 Memori al [place] Systolic (mm Hg) 2019-06-27 20:30:00 Mukul rial [place] Diastolic (mm Hg) 2019-06-27 20:30:00 Mem orial [place] Heart Rate 2019-06-27 20:30:00 [facility] [place] Respitory Rate 2019-06-27 20:30:00 Memori al [place] Height 2019-06-27 20:30:00 149.86 cm [facility] [place] Weight 2019-06-27 20:30:00 [facility] [place] BMI Calculated 2019-06-27 20:30:00 Memori al [place] Respitory Rate 2018-09-15 13:00:00 Memori al [place] Respitory Rate 2018-09-15 11:30:00 Memori al [place] Systolic (mm Hg) 2018-09-15 11:30:00 Mukul rial [place] Diastolic (mm Hg) 2018-09-15 11:30:00 Mem orial [place] Temperature Oral (F) 2018-09-15 11:30:00 97.2 F [facility] [place] Respitory Rate 2018-09-15 09:43:00 Memori al [place] Systolic (mm Hg) 2018-09-15 09:15:00 Mukul rial [place] Diastolic (mm Hg) 2018-09-15 09:15:00 Mem orial [place] Systolic (mm Hg) 2018-09-15 06:30:00 Mukul rial [place] Diastolic (mm Hg) 2018-09-15 06:30:00 Mem orial [place] Temperature Oral (F) 2018-09-15 01:45:00 98.7 F [facility] [place] Temperature Oral (F) 2018-09-14 14:00:00 97.2 F [facility] BMI Calculated 2018-09-14 13:25:[facility] [place] Weight 2018-09-14 13:25:00 [facility] Height 2018-09-14 13:25:00 152.4 cm [facility] Procedures Procedure Date / Time Performed Performing Clinician Sour e Mitral valvoplasty [facility] Plan of Care Planned Activity Planned Date Details Comments Source Future Scheduled 2020-12-[address] [facility] 00:00:00 (Season Ended) [code = Medic al Center INFLUENZA VACCINE (Season Ended)] Future Scheduled 2020-04-[address] [facility] Test 00:00:00 (12+) [code = Medical Center DEPRESSION SCREENING (12+)] Future Scheduled 2019-04-[address] [facility] 00:00:00 WELLNESS (YEAR 2 or Medical Center FIRST YEAR if no IPPE) [code = MEDICARE ANNUAL WELLNESS (YEAR 2 or FIRST YEAR if no IPPE)] Future Scheduled 2000-06-23 PNEUMOCOCCAL 65+ YRS [facility] 00:00:00 (1 of 1 - Medical Center [id number] PCV13) [code = PNEUMOCOCCAL 65+ YRS (1 of 1 - [id number] PCV13)] Future Scheduled 1985-06-23 SHINGLES VACCINES ([address] [facility] Test 00:00:00 of 2) [code = SHINGLES Medic al Center VACCINES (1 of 2)] Future Scheduled 1954-06-23 DTAP/TDAP/TD [facility]ACCINES [facility]:00 (1 - Tdap) [code = Medical C enter DTAP/TDAP/TD VACCINES (1 - Tdap)] Future Scheduled 1947 COVID-19 VACCINE (1) [facility] Test 00:[facility]:00 [code = COVID-[address] VACCINE (1)] Encounters Start End Encounter Admission Attending Care Care Encounter Source Date/Time Date/Time Type Type Clinicians Facility Department ID 2020-09-23 2020-09-23 Outpatient [facility] [id number] [facility] 2020-09-18 2020-09-18 [facility] [id number] [facility] 2020-07-30 2020-07-30 [facility] [id number] [facility] 2020-04-30 2020-04-30 Out[facility] [id number] [facility] 2020-04-12 2020-04-12 Out[facility] [id number] [facility] 2020-01-29 2020-01-29 Out[facility] [id number] [facility] 2020-01-01 2020-01-01 Out[facility] [id number] [facility] 2019-12-28 2019-12-28 [id number] 09:15:00 09:15:00 Neil Melendez 2019-12-08 2019-12-08 [facility] [id number] [facility] 10:40:00 10:40:00 [employer] - [employer] [facility] Medicine Outpati ent Clinics 2019-12-07 2019-12-07 [facility] [id number] [facility] 17:09:00 17:09:00 t [employer] [facility] Medicine Outpati ent Clinics 2019-11-24 2019-11-24 Outpatient Lucrecia RUFUSMISCHER MISCHER [id number] 13:00:00 23:59:59 Neil 07 Al 2019-11-16 2019-11-16 Outpatient Nellliu NIYAHSCHER MISCHER [id number] 09:15:00 23:59:59 Neil 05 Al 2019-11-09 2019-11-10 Outpatient MHMISCHER MHMISCHER [id number] 14:37:54 23:59:59 2019-11-03 2019-11-03 [facility] [id number] 11:20:00 11:20:00 t [employer] [facility] Outpati ent [facility] 2019-10-24 2019-10-24 Outpatient NIYAH SingerSCHER MISCHER [id number] 14:30:00 14:30:00 Neil 04 [facility] 2019-10-24 2019-10-24 Outpatient NIYAH SingerSCHER MISCHER [id number] 14:30:00 14:30:00 Neil 03 [facility] 2019-10-03 2019-10-03 [facility] [id number] 08:13:00 08:13:00 t [employer] [facility] Outpat[facility] ent Clinics 2019-09-24 2019-09-24 [facility] [id number] [facility] 01:13:00 01:13:00 t [employer] [facility] Outpati ent [facility] 2019-09-12 2019-09-12 Outpatient NIYAH SingerSCHKATLIN MISCHER [id number] 14:45:00 23:59:59 Neil 02 [facility] 2019-09-07 2019-09-07 [facility] [id number] 13:30:00 13:30:00 t Specialty/U Audrey kes - Specialty rology [facility] a /Urology Clinic l Clinic Outpati ent Clinics 2019-09-07 2019-09-07 [facility] [id number] 10:20:00 10:20:00 t [employer] [facility] Outpati ent Clinics 2019-08-08 2019-08-08 Outpatient NIYAH SingerSCHKATLIN MISCHER [id number] 15:00:00 15:00:00 Neil 01 Al 2019-07-07 2019-07-07 [facility] [id number] 14:00:00 14:00:00 t Specialty/U Audrey kes - Specialty rology Memori a /Urology Clinic l Clinic Outpati ent Clinics 2019-06-27 2019-06-27 Outpatient [facility]ATLIN MISCHER [id number] 15:00:00 23:59:59 Neil Al 2019-06-02 2019-06-02 [facility] [id number] 09:00:00 09:00:00 t Specialty/U Audrey kes - [facility] Outpat[facility] ent Clinics 2019-05-29 2019-05-29 [facility] [id number] [facility] 09:00:00 09:00:00 t [employer] [facility] l Medicine Outpati ent Clinics 2019-05-19 2019-05-19 [facility] [id number] 03:30:00 03:30:00 t [employer] s - [employer] [facility] l Medicine Outpati ent Clinics 2019-05-15 2019-05-15 [facility] [id number] 10:48:00 10:48:00 t [employer] s - [employer] [facility] l Medicine Outpati ent Clinics 2019-05-15 2019-05-15 [facility] [id number] 10:20:00 10:20:00 t [employer] s - [employer] [facility] l Medicine Outpati ent Clinics 2019-05-15 2019-05-15 [facility] [id number] [facility] 09:05:00 09:05:00 t [employer] s - [employer] [facility] l Medicine Outpati ent Clinics 2019-05-04 2019-05-04 [facility] [id number] 13:03:00 13:03:00 t [employer] s - [employer] [facility] Medicine l Medicine Outpati ent Clinics 2019-05-02 2019-05-02 [facility] [id number] 14:40:00 14:40:[address] Luke s - Drive [facility] Medicine Outpati ent Clinics 2019-03-21 2019-03-21 [facility] [id number] 09:40:00 09:40:[address] Luke s - Drive [facility] Medicine Outpati ent Clinics 2019-02-08 2019-02-08 [facility] [id number] [facility] 16:31:00 16:31:00 t Gypsy [employer]psy [employer] Luke s - Drive [facility] Medicine Outpati ent Clinics 2019-02-07 2019-02-07 [facility] [id number] [facility] 15:00:00 15:00:00 t Gypsy Gypsy [employer] s - Drive [facility] Medicine Outpati ent Clinics 2018-10-17 2018-10-17 [facility] [id number] [facility] 17:09:00 17:09:00 t Gypsy Gypsy [employer] LuBiOxyDyn s - Drive [facility] Medicine Outpati ent Clinics 2018-10-12 2018-10-12 [facility] [id number] 09:00:00 09:00:00 t Gypsy Gypsy [employer] LuBiOxyDyn s - Drive [facility] Medicine Outpati ent Clinics 2018-09-21 2018-09-21 [facility] [id number] 08:40:00 08:40:00 t Gypsy Gypsy [employer] LuBiOxyDyn s - Drive [facility] Medicine Outpati ent Clinics 2018-09-14 2018-09-15 Outpatient Hematpour, [facility] [id number] 08:05:00 09:20:00 Khashayar 2018-09-14 2018-09-14 Outpatient [facility] CAR [id number] [facility] 08:05:00 08:05:00 2018-06-22 2018-06-22 [facility] [id number] [facility] 11:00:00 11:00:00 t Gypsy Gypsy [employer] LuBiOxyDyn s - Drive [facility] Medicine Outpati ent Clinics 2018-06-02 2018-06-02 [facility] [id number] 15:15:00 15:15:00 t Gypsy HEMINGWAY s - Drive [facility] Medicine Outpati ent Clinics 2018-04-27 2018-04-27 [facility] [id number] [facility] 16:21:00 16:21:00 t Gypsy HEMINGWAY s - Drive [facility] Medicine Outpati ent Clinics 2018-03-24 2018-03-24 [facility] [id number] [facility] 14:45:00 14:45:00 t Gypsy HEMINGWAY s - Drive [facility] Medicine Outpati ent Clinics 2017-12-30 2017-12-30 [facility] [id number] [facility] 15:15:00 15:15:00 t Gypsy HEMINGWAY s - [employer] [facility] Medicine Outpati ent Clinics 2017-12-16 2017-12-16 [facility] [id number] 08:22:00 08:22:00 t [employer] s - [employer] [facility] Medicine Outpati ent Clinics 2017-09-21 2017-09-21 [facility] [id number] [facility] 14:45:00 14:45:00 t [employer] s - [employer] [facility] Medicine Outpati ent Clinics 2017-08-10 2017-08-10 [facility] [id number] 15:46:00 15:46:00 t [employer] s - [employer] [facility] Medicine Outpati ent Clinics 2017-07-05 2017-07-05 [facility] [id number] [facility] 15:30:00 15:30:00 t [employer] s - Drive [facility] Medicine Outpati ent Clinics Results Test Description Test Time Test Comments Results Result Comments Source HEMATOLOGY 2018-09-14 19:49:00 Test Item Value Reference Range Interpretation Comme nts POC Activated Clotting Time (test code = POC Activated Clotting Eliseo e) 179 s [id number] 18:16:00 Test Item Value Reference Range Interpretation Comments POC Activated Clotting Time (test code 363 s = POC Activated Clotting Time) [facility]eville[facility]rihciaCPXNJTYDMX9929-49-80 17:52:00 Test Item Value Reference Range Interpretation Comments POC Activated Clotting Time (test code 291 s = POC Activated Clotting Time) [facility] YjrhossDCVTFDXWDCYS1411-81-63 13:30:63896Xcabnmdd HermannELECTROLYTES 2018-09-14 13:30:001.05[facility] VxolaasUWSHUKTBYOBS3077-37-08 13:30:0013[facility] ZdeovikGHEWHJRCLJXC4936-35-53 13:30:003.6[facility] EacvovjHPNBFUDVKEIX6880-37-85 13:30:49169Zoedryam VzdwiepJVKQVPBEMVIN5967-40-73 13:30:0029[facility] [place] [id number] 13:30:42375Xmlfcjyn RckwwflYIAQZOIBNSLA8935-58-51 13:30:0010.3[facility] [id number] 13:30:00 Test Item Value Reference Range Interpretation Comments PTT (test code = PTT) 45.1 s 22.9-35.8 [facility] [id number] 13:30:00 Test Item Value Reference Range Interpretation Comments PT (test code = PT) 14.4 s 12.0-14.7 [facility] OutebibGLZPRABSVM5497-23-92 13:30:00 Test Item Value Reference Range Interpretation Comments INR (test code = INR) 1.14 1 0.85-1.17 [facility] VsvudgdWJEJXOONAH3210-54-12 13:30:008.5[facility] HermannHEMATOLOGY 2018-09-14 13:30:004.05[facility] EodvipzWYPAUECZPF2049-76-22 13:30:0012.4[facility] UknthesXJBECKEYEX8132-63-38 13:30:0033.0[facility] AvhulnwQYIPLTOMUU8262-63-73 13:30:0014.3[facility] XhvtqogKDMRRGIQMC4764-91-16 13:30:22882Azdbkjgg [place] IFPLGWYIQY1490-46-86 13:30:007.1[facility] QgdqmicCLDBSBSEPA4897-80-21 13:30:00 Test Item Value Reference Range Interpretation Comments MCH (test code = MCH) 30.6 pg 27.0-31.0 [facility] NfufctmXHKSSFHPXB8581-18-98 13:30:0037.5[facility] HermannHEMATOLOGY 2018-09-14 13:30:0092.7[facility] WswtkltALWEJBFSIE4121-42-10 13:30:006.1[facility] TmgtfqqMQTZUEZFBA5288-13-47 13:30:000.5[facility] HilprbtWJATQVIDOR5912-93-22 13:30:001.6[facility] VzxvireJYMHGWSRXH8716-20-77 13:30:000.6[facility] [place] OYVSQWEOSC2030-55-70 13:30:000.2[facility] GlfemnoGOAIOORQTV9852-02-47 13:30:002.3 [facility] KuguehyJUILDCBUZG8804-38-21 13:30:007.5[facility] HermannHEMATOLOGY 2018-09-14 13:30:0071.3[facility] FaupmnzZAGVFOWJNR4430-49-63 13:30:0018.4[facility] HermannBLOOD BANK [id number] 13:30:00Negative (09/14/18 8:30 AM)[facility] HermannCHEM [id number] 13:30:002.9[facility] HermannCHEM [id number] 13:30:002.1[facility] FoowmwiTFRHIBOTOHRS2784-18-81 13:30:0010.6[facility]andy [id number] 13:30:0049[facility] HermannBASIC METABOLIC [id number] 04:45:00 Test Item Value Reference Range Interpretation [...] PATIEN TS. CBC W/PLT COUNT & AUTO [id number] 04:20:00 Test Item Value Reference Range Interpretation [...] (BEAKER) (test code = 2801) BASIC METABOLIC [id number] 04:22:00 Test Item Value Reference Range Interpretation [...] PATIEN TS. CBC W/PLT COUNT & AUTO [id number] 04:04:00 Test Item Value Reference Range Interpretation [...] (BEAKER) (test code = 2801) BASIC METABOLIC [id number] 05:13:00 Test Item Value Reference Range Interpretation [...] PATIEN TS. CBC W/PLT COUNT & AUTO [id number] 04:51:00 Test Item Value Reference Range Interpretation [...] (test code = 2801) CT, BRAIN, WITHOUT [id number] 20:44:00FINAL REPORT CT, BRAIN, WITHOUT CONTRAST CLINICAL [...] suited for this evaluation). Signed: Roney Rowley MDReport Verified Date/Time: 06/04/2018 20:44:09 Reading Location: [address] Neuro Reading Room RAD, CHEST, 1 VIEW, NON [id number] 17:27:00Reason for exam:->pre-MRIShould this be performed at [...] MDReport Verified Date/Time: 06/04/2018 17:27:33 Reading Location: [facility] C013Y CT Body Reading Room HEMOGLOBIN [id number] 10:53:00 Test Item Value Reference Range Interpretation Comments HEMOGLOBIN A1C (BEAKER) (test code = 6.0 % 4.3-6.1 368) VITAMIN B12 AND [id number] 07:40:00 Test Item Value Reference Range Interpretation Comments VITAMIN B12 (BEAKER) (test code = 813 pg/mL 213-816 774) FOLATE (BEAKER) (test code = 362) 9.9 ng/mL >=7.0 COMPREHENSIVE METABOLIC [id number] 03:01:00 Test Item Value Reference Range Interpretation [...] completed or 30 min after intravenous potassium replacement.[id number] 03:01:00 Test Item Value Reference Range Interpretation Comments POTASSIUM (BEAKER) (test code = 3.5 meq/L 3.5-5.1 379) Check Serum Potassium level 2 hours after oral potassium replacement completed or 30 min after intravenous potassium replacement.LIPID [id number] 03:01:00 Test Item Value Reference Range Interpretation [...] completed or 30 min after intravenous potassium replacement.[id number] 03:01:00 Test Item Value Reference Range Interpretation Comments MAGNESIUM (BEAKER) (test code = 1.9 mg/dL 1.6-2.6 627) Check Serum Potassium level 2 hours after oral potassium replacement completed or 30 min after intravenous potassium replacement.TSH/FREE T4 IF INDICATED 2018-06-04 00:57:00 Test Item Value Reference Range Interpretation Comments THYROID STIMULATING HORMONE 1.93 uIU/mL 0.35-4.94 (BEAKER) (test code = 772) CBC W/PLT COUNT & AUTO [id number] 00:10:00 Test Item Value Reference Range Interpretation [...] % 0-1 PERCENT (BEAKER) (test code = 4187)
[2020-09-26 14:43] LABS: Absolute Lymphocytes (CBC) 1.7 K/uL (0.7-4.9); Basophils % 0.9 % (0-1.3); Hematocrit 35.1 % (36.0-45.0); Lymphocytes % 23.3 % (15.3-44.8); MPV 7.7 fL (7.6-11.3); RBC Red Blood Cell Count 3.95 M/uL (3.86-4.86)
[2020-09-26 14:47] LABS: Protime INR 1.83
--- NOTE | 2020-09-26 14:50 | RAD REPORT ---
EXAM DESCRIPTION: CT - Ct Stroke Brain Wo Cont - 09/26/2020 2:38 pm CLINICAL HISTORY: MENTAL STATUS CHANGE COMPARISON: Head Brain W/Wo Con dated 08/17/2019 TECHNIQUE: Axial 5 millimeter thick images of the head were obtained without IV contrast. All CT scans are performed using dose optimization technique as appropriate and may include automated exposure control or mA/KV adjustment according to patient size. FINDINGS: No intracranial hemorrhage, mass, or cerebral edema. No acute cortical based infarction co nfirmed. Patient has mild to moderate atrophy changes are present with ventricles in proportion. [employer] [place] ischemic changes are present in each cerebral hemisphere most prominent in the left basal ganglia and frontal horn periventricular white matter region. Findings are not clearly different from compar sera. Dense arterial tree and physiologic calcifications are present. Rounded calcifications are pres ent in the anterior aspect third ventricle. Development of a colloid cyst is possible but this is not seen as an acute finding. No extra-axial fluid collections. Cisse matter-white matter differentiatio n is preserved. No globe or orbital content abnormality. Small sub centimeter calcification along the inner table of the right frontal bone could be a small calcified meningioma. This is not a clinically significant fi nding and show no change. Visualized portions of the mastoid air cells, paranasal sinuses, and orbits are unremarkable. Findings telephoned to Shailesh Rodríguez 1445 hours. IMPRESSION: No hemorrhage or acute intracranial finding identifiable. Above detailed findings are not significantly different from August 2019.
[2020-09-26 15:00] LABS: BUN Blood Urea Nitrogen 10 mg/dL (7-18); Bicarbonate 26 mmol/L (21-32); Glucose Level 79 mg/dL (74-106); Magnesium 2.3 mg/dL (1.8-2.4); Potassium 3.7 mmol/L (3.5-5.1); Sodium Level 142 mmol/L (136-145); Troponin (Emerg Dept Use Only) < 0.02 ng/mL (0.0-0.045)
[2020-09-26] MEDS ORDERED: ASPIRIN 81 MG CHEWABLE TABLET ONE (15:19)
[2020-09-26] MEDS ORDERED: FOLIC ACID 5 MG/ML VIAL ONE (15:19)
--- NOTE | 2020-09-26 16:05 | EDPHYS ---
Physician Documentation [facility] Name: Shima Walters Age: 85 yrs Sex: Female : 1935 Arrival Date: 09/26/2020 Time: 14:05 Bed 2 Private MD: ED Physician Luz Lezama HPI: 09/26 14:03 This 85 yrs old Female presents to ER via EMS with complaints of Slurred jr8 Speech, S/S of Possible Stroke. 14:03 The patient presents to the emergency department with a speech or higher order brain jr8 function problem, aphasia, that is moderate. Onset: The symptoms/episode began/occurred acutely, today, 30 minutes prior to arrival. Associated signs and symptoms: Pertinent positives: paresthesias, left arm. Severity of symptoms: At their worst the symptoms were moderate in the emergency department the symptoms have improved mildly. Patient's baseline: Neuro: alert and fully oriented, Motor: no deficits, Ambulation: walks without assistance, Speech: normal. Current symptoms: dysphasia. The patient has not experienced similar symptoms in the past. The patient has not recently seen a physician. 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 Stated that she had sudden onset of tingling in left arm followed shortly after by expressive aphasia. Family called EMS at that time to have patient evaluated. Patient no longer with arm complaints but still presenting with aphasia . Historical: - Allergies: 14:18 Codeine; sv - PMHx: 14:18 CVA; sv - Immunization history:: Adult Immunizations up to date. - Social history:: Smoking status: Patient denies any tobacco usage or history of. ROS: 14:03 Eyes: Negative for injury, pain, redness, and discharge, ENT: Negative for injury, jr8 pain, and discharge, Neck: Negative for injury, pain, and swelling, Cardiovascular: Negative for chest pain, palpitations, and edema, Respiratory: Negative for shortness of breath, cough, wheezing, and pleuritic chest pain, Abdomen/GI: Negative for abdominal pain, nausea, vomiting, diarrhea, and constipation, Back: Negative for injury and pain, MS/Extremity: Negative for injury and deformity, Skin: Negative for injury, rash, and discoloration. 14:03 Neuro: Positive for speech changes, tingling. Exam: 14:03 Constitutional: This is a well developed, well nourished patient who is awake, alert, jr8 and in no acute distress. Eyes: Pupils equal round and reactive to light, extra-ocular motions intact. Lids and lashes normal. Conjunctiva and sclera are non-icteric and not injected. Cornea within normal limits. Periorbital areas with no swelling, redness, or edema. ENT: Nares patent. No nasal discharge, no septal abnormalities noted. Tympanic membranes are normal and external auditory canals are clear. Oropharynx with no redness, swelling, or masses, exudates, or evidence of obstruction, uvula midline. Mucous membranes moist. Neck: Trachea midline, no thyromegaly or masses palpated, and no cervical lymphadenopathy. Supple, full range of motion without nuchal rigidity, or vertebral point tenderness. No Meningismus. Cardiovascular: Regular rate and rhythm with a normal S1 and S2. No gallops, murmurs, or rubs. Normal PMI, no JVD. No pulse deficits. Respiratory: Lungs have equal breath sounds bilaterally, clear to auscultation and percussion. No rales, rhonchi or wheezes noted. No increased work of breathing, no retractions or nasal flaring. Abdomen/GI: Soft, non-tender, with normal bowel sounds. No distension or tympany. No guarding or rebound. No evidence of tenderness throughout. Back: No spinal tenderness. No costovertebral tenderness. Full range of motion. Skin: Warm, dry with normal turgor. Normal color with no rashes, no lesions, and no evidence of cellulitis. MS/ Extremity: Pulses equal, no cyanosis. Neurovascular intact. Full, normal range of motion. 14:03 Neuro: Orientation: to person, place, time \T\ situation. Mentation: is normal, Memory: is normal, immediate memory is intact, recent memory is intact, remote memory is intact, Cranial nerves: CN I not tested, CN II- XII are normal as tested, visual cross are intact. extraocular movements are intact, Facial palsy and sensory deficits are absent. Nystagmus is absent. Speech is dysarthric, Tongue strength is normal, Cerebellar function: normal finger to nose testing, heel to hinkle testing is normal, Motor: moves all fours, Sensation: no obvious gross deficits, seizure activity, is not displayed by the patient, Abnormal movements: there are no abnormal movements. Vital Signs: 14:36 BP 127 / 112; Pulse 109; Resp 15; Temp 97.5; Pulse Ox 98% ; Pain 0/10; sv 15:00 BP 118 / 83; Pulse 106; Resp 24; Pulse Ox 100% ; sv 15:42 BP 118 / 83; Pulse 105; Resp 17; Pulse Ox 98% on R/A; hb 16:30 BP 127 / 88; Pulse 102; Resp 17; Pulse Ox 98% ; sv 18:22 BP 130 / 89; Pulse 103; Resp 22; Pulse Ox 100% ; hb NIH Stroke Scale Scores: 14:03 NIHSS Score: 1 jr8 14:06 NIHSS Score: 1 sv MDM: 14:07 Patient medically screened. 8 16:01 Data reviewed: vital signs, nurses notes, lab test result(s), EKG, radiologic studies, jr8 CT scan, plain films. Data interpreted: Pulse oximetry: on room air is 98 %. Interpretation: normal. Counseling: I had a detailed discussion with the patient and/or guardian regarding: the historical points, exam findings, and any diagnostic results supporting the discharge/admit diagnosis, lab results, radiology results, the need for further work-up and treatment in the hospital. ED course: Patient on xarelto and with improvement of symptoms. tPA Not indicated with Dr. Singer agrees with. Will admit patient to hospital for TIA work up as now patient has complete resolution of symptoms . 09/26 14:21 Order name: Troponin (emerg Dept Use Only); Complete Time: 16:05 09/26 14:21 Order name: Magnesium; Complete Time: 16:05 hb 09/26 14:21 Order name: Basic Metabolic Panel; Complete Time: 16:05 hb 09/26 14:21 Order name: CBC with Diff; Complete Time: 14:51 hb 09/26 14:21 Order name: Protime (+inr); Complete Time: 14:51 hb 09/26 14:21 Order name: Ptt, Activated; Complete Time: 14:51 hb 09/26 14:21 Order name: CT Stroke Brain w/o Contrast; Complete Time: 14:56 hb 09/26 14:21 Order name: Stroke CXR 1 View; Complete Time: 16:38 hb 09/26 14:21 Order name: EKG; Complete Time: 14:21 hb 09/26 14:42 Order name: Glucose, Ancillary Testing; Complete Time: 14:48 EDMS 09/26 16:47 Order name: CONS Physician Consult EDMS 09/26 17:45 Order name: Diet Regular; Complete Time: 17:45 sv 09/26 14:21 Order name: Accucheck; Complete Time: 14:33 hb 09/26 14:21 Order name: Cardiac monitoring; Complete Time: 14:33 hb 09/26 14:21 Order name: EKG - Nurse/Tech; Complete Time: 16:52 hb 09/26 14:21 Order name: IV Saline Lock; Complete Time: 14:33 hb 09/26 14:21 Order name: Labs collected and sent; Complete Time: 14:33 hb 09/26 14:21 Order name: NPO; Complete Time: 14:33 hb 09/26 14:21 Order name: O2 Per Protocol; Complete Time: 14:33 hb 09/26 14:21 Order name: O2 Sat Monitoring; Complete Time: 14:33 hb 09/26 14:21 Order name: Stroke Swallow Screen; Complete Time: 15:04 hb Administered Medications: 15:06 Drug: Aspirin 81 mg Route: PO; hb 16:52 Follow up: Response: No adverse reaction hb 15:06 Drug: foLIC Acid 1 mg Route: IVPB; Site: left antecubital; hb 15:07 Follow up: Response: No adverse reaction; IV Status: Completed infusion; IV Intake: sv 0.4ml 16:52 Follow up: Response: No adverse reaction hb Disposition: 09/26/20 16:04 Hospitalization ordered by Tushar López for Observation. Preliminary diagnosis is Transient cerebral ischemic attack, unspecified. - Bed requested for Telemetry/MedSurg (observation). - Status is Observation. sv - Condition is Stable. - Problem is new. - Symptoms are resolved. NIH Stroke Scale - NIH Stroke Score Date: 09/26/2020 Time: 14:03 Total Score = 1 1a. Level of Consciousness (LOC) - 0(Alert) 1b. Level of Consciousness (LOC) (Year \T\ Age) - 0(Both) 1c. LOC Commands (Open \T\ Closes Eyes/Operations Systems Specialist) - 0(Both) 2. Best Gaze (Lateral Gaze Paresis) - 0(Normal) 3. Visual Field Loss - 0(No visual loss) 4. Facial Palsy - 0(Normal) 5a. Left Arm: Motor (10-second hold) - 0(No drift) 5b. Right Arm: Motor (10-second hold) - 0(No drift) 6a. Left Leg: Motor (5-second hold - always test supine) - 0(No drift) 6b. Right Leg: Motor (5-second hold - always test supine) - 0(No drift) 7. Limb Ataxia (finger/nose \T\ heel/hinkle - test with eyes open) - 0(Absent) 8. Sensory Loss (pinprick arms/legs/face) - 0(Normal) 9. Best Language: Aphasia (description/naming/reading) - 1(Mild to moderate aphasia) 10. Dysarthria (speech clarity - read or repeat words) - 0(Normal) 11. Extinction and Inattention (visual/tactile/auditory/spatial/personal) - 0(No abnormality) Initials: jr8 NIH Stroke Scale - NIH Stroke Score Date: 09/26/2020 Time: 14:06 Total Score = 1 1a. Level of Consciousness (LOC) - 0(Alert) 1b. Level of Consciousness (LOC) (Year \T\ Age) - 0(Both) 1c. LOC Commands (Open \T\ Closes Eyes/Operations Systems Specialist) - 0(Both) 2. Best Gaze (Lateral Gaze Paresis) - 0(Normal) 3. Visual Field Loss - 0(No visual loss) 4. Facial Palsy - 0(Normal) 5a. Left Arm: Motor (10-second hold) - 0(No drift) 5b. Right Arm: Motor (10-second hold) - 0(No drift) 6a. Left Leg: Motor (5-second hold - always test supine) - 0(No drift) 6b. Right Leg: Motor (5-second hold - always test supine) - 0(No drift) 7. Limb Ataxia (finger/nose \T\ heel/hinkle - test with eyes open) - 0(Absent) 8. Sensory Loss (pinprick arms/legs/face) - 0(Normal) 9. Best Language: Aphasia (description/naming/reading) - 1(Mild to moderate aphasia) 10. Dysarthria (speech clarity - read or repeat words) - 0(Normal) 11. Extinction and Inattention (visual/tactile/auditory/spatial/personal) - 0(No abnormality) Initials: sv Signatures: Dispatcher [employer] Veda Dodd RN RN sv Roszak, Josh, PA PA jr8 Juju Quiñonez RN RN Sheela Zhao Corrections: (The following items were deleted from the chart) 17:58 16:04 Hospitalization Ordered by Tushar López MD for Observation. Preliminary eb diagnosis is Transient cerebral ischemic attack, unspecified. Bed requested for Telemetry/MedSurg (observation). Status is Observation. Condition is Stable. Problem is new. Symptoms are resolved. jr8 18:53 17:58 09/26/2020 16:04 Hospitalization Ordered by Tushar López MD for sv Observation. Preliminary diagnosis is Transient cerebral ischemic attack, unspecified. Bed requested for Telemetry/MedSurg (observation). Status is Observation. Condition is Stable. Problem is new. Symptoms are resolved. eb
--- NOTE | 2020-09-26 16:05 | ER ---
Nurse's Notes [facility] Name: Shima Walters Age: 85 yrs Sex: Female : 1935 Arrival Date: 09/26/2020 Time: 14:05 Bed 2 Private MD: Diagnosis: Transient cerebral ischemic attack, unspecified Presentation: 09/26 14:03 Chief complaint: EMS states: pt called for generalized weakness and slurred speech that sv started 30 mins ago. Pt was getting ready to go to the store. EMS reports that her speech improved en route. Vitals WNL [id number]. Coronavirus screen: Client denies travel out of the [place] in the last 14 days. At this time, the client does not indicate any symptoms associated with coronavirus-19. Ebola Screen: No symptoms or risks identified at this time. Risk Assessment: Do you want to hurt yourself or someone else? Patient reports no desire to harm self or others. Onset of symptoms was September 26, 2020 at 13:30. 14:03 Method Of Arrival: EMS: [facility] sv 14:06 Acuity: KERRY 2 sv 14:36 Initial Sepsis Screen: Does the patient meet any 2 criteria? HR > 90 bpm. No. Patient's sv initial sepsis screen is negative. Does the patient have a suspected source of infection? No. Patient's initial sepsis screen is negative. Triage Assessment: 14:03 General: Appears in no apparent distress. comfortable, slender, well groomed, well sv developed, well nourished, Behavior is calm, cooperative, appropriate for age. Pain: Denies pain. Neuro: Level of Consciousness is awake, alert, obeys commands, Oriented to person, place, time, situation, Criminal Defense Lawyer are equal bilaterally Moves all extremities. Full function Speech is slurred, with expressive aphasia noted, Facial symmetry appears normal, Facial symmetry: tongue is midline, Denies weakness blurred vision dizziness, paresthesias numbness headache. Cardiovascular: Patient's skin is warm and dry. Rhythm is atrial pacer Chest pain is denied. Respiratory: Airway is patent Respiratory effort is even, unlabored, Respiratory pattern is regular, symmetrical. Derm: Skin is intact, Skin is pink, warm \T\ dry. Musculoskeletal: Range of motion: intact in all extremities. Historical: - Allergies: 14:18 Codeine; sv - PMHx: 14:18 CVA; sv - Immunization history:: Adult Immunizations up to date. - Social history:: Smoking status: Patient denies any tobacco usage or history of. Screenin:06 VAN Screening: Arm Drift: Patient shows no arm weakness. Patient is VAN negative. sv 14:18 Abuse screen: Denies threats or abuse. Denies injuries from another. Nutritional sv screening: No deficits noted. Tuberculosis screening: No symptoms or risk factors identified. Fall Risk None identified. Assessment: 15:03 Reassessment: Patient appears in no apparent distress at this time. No changes from sv previously documented assessment. Patient and/or family updated on plan of care and expected duration. Pain level reassessed. Patient is alert, oriented x 3, equal unlabored respirations, skin warm/dry/pink. 15:42 Reassessment: Patient appears in no apparent distress at this time. Patient and/or hb family updated on plan of care and expected duration. Pain level reassessed. Patient is alert, oriented x 3, equal unlabored respirations, skin warm/dry/pink. 17:00 Reassessment: Patient appears in no apparent distress at this time. Patient and/or sv family updated on plan of care and expected duration. Pain level reassessed. Patient is alert, oriented x 3, equal unlabored respirations, skin warm/dry/pink. 17:47 Reassessment: Patient appears in no apparent distress at this time. Patient and/or sv family updated on plan of care and expected duration. Pain level reassessed. Patient is alert, oriented x 3, equal unlabored respirations, skin warm/dry/pink. 18:22 Reassessment: Patient appears in no apparent distress at this time. Patient and/or hb family updated on plan of care and expected duration. Pain level reassessed. Patient is alert, oriented x 3, equal unlabored respirations, skin warm/dry/pink. Vital Signs: 14:36 BP 127 / 112; Pulse 109; Resp 15; Temp 97.5; Pulse Ox 98% ; Pain 0/10; sv 15:00 BP 118 / 83; Pulse 106; Resp 24; Pulse Ox 100% ; sv 15:42 BP 118 / 83; Pulse 105; Resp 17; Pulse Ox 98% on R/A; hb 16:30 BP 127 / 88; Pulse 102; Resp 17; Pulse Ox 98% ; sv 18:22 BP 130 / 89; Pulse 103; Resp 22; Pulse Ox 100% ; hb NIH Stroke Scale Scores: 14:03 NIHSS Score: 1 jr8 14:06 NIHSS Score: 1 sv ED Course: 14:05 Patient arrived in ED. sv 14:05 Veda Willson RN is Primary Nurse. sv 14:06 Triage completed. sv 14:06 Arm band placed on. sv 14:06 Patient has correct armband on for positive identification. Bed in low position. Call sv light in reach. Side rails up X2. laboratory monitor on. Pulse ox on. NIBP on. Door closed. Head of bed elevated. 14:07 Shailesh Rodríguez PA is PHCP. jr8 14:07 Luz Lezama MD is Attending Physician. jr8 14:[address] via stretcher. sv 14:25 Inserted saline lock: 20 gauge in right wrist, using aseptic technique. Blood sv collected. Flushed right with 5 ml normal saline. 14:39 CT Stroke Brain w/o Contrast In Process Unspecified. EDMS 15:01 X-ray(s) taken. sv 15:32 Stroke CXR 1 View In Process Unspecified. EDMS 16:03 Tushar López MD is Hospitalizing Provider. jr8 17:10 Awaiting bed assignment. sv 18:39 No provider procedures requiring assistance completed. Patient admitted, IV remains in sv place. intact. Administered Medications: 15:06 Drug: Aspirin 81 mg Route: PO; hb 16:52 Follow up: Response: No adverse reaction hb 15:06 Drug: foLIC Acid 1 mg Route: IVPB; Site: left antecubital; hb 15:07 Follow up: Response: No adverse reaction; IV Status: Completed infusion; IV Intake: sv 0.4ml 16:52 Follow up: Response: No adverse reaction hb Intake: 15:07 IV: 0ml; Total: 0ml. sv Outcome: 16:04 Decision to Hospitalize by Provider. jr8 18:39 Admitted to Tele family with patient, via wheelchair, room 208, with chart, Report sv called to Aldo SUNG 18:39 Condition: stable 18:39 Condition: improved 18:39 Instructed on the need for admit. 18:53 Patient left the ED. sv NIH Stroke Scale - NIH Stroke Score Date: 09/26/2020 Time: 14:03 Total Score = 1 1a. Level of Consciousness (LOC) - 0(Alert) 1b. Level of Consciousness (LOC) (Year \T\ Age) - 0(Both) 1c. LOC Commands (Open \T\ Closes Eyes/Vp Transportation) - 0(Both) 2. Best Gaze (Lateral Gaze Paresis) - 0(Normal) 3. Visual Field Loss - 0(No visual loss) 4. Facial Palsy - 0(Normal) 5a. Left Arm: Motor (10-second hold) - 0(No drift) 5b. Right Arm: Motor (10-second hold) - 0(No drift) 6a. Left Leg: Motor (5-second hold - always test supine) - 0(No drift) 6b. Right Leg: Motor (5-second hold - always test supine) - 0(No drift) 7. Limb Ataxia (finger/nose \T\ heel/hinkle - test with eyes open) - 0(Absent) 8. Sensory Loss (pinprick arms/legs/face) - 0(Normal) 9. Best Language: Aphasia (description/naming/reading) - 1(Mild to moderate aphasia) 10. Dysarthria (speech clarity - read or repeat words) - 0(Normal) 11. Extinction and Inattention (visual/tactile/auditory/spatial/personal) - 0(No abnormality) Initials: jr8 NIH Stroke Scale - NIH Stroke Score Date: 09/26/2020 Time: 14:06 Total Score = 1 1a. Level of Consciousness (LOC) - 0(Alert) 1b. Level of Consciousness (LOC) (Year \T\ Age) - 0(Both) 1c. LOC Commands (Open \T\ Closes Eyes/Vp Transportation) - 0(Both) 2. Best Gaze (Lateral Gaze Paresis) - 0(Normal) 3. Visual Field Loss - 0(No visual loss) 4. Facial Palsy - 0(Normal) 5a. Left Arm: Motor (10-second hold) - 0(No drift) 5b. Right Arm: Motor (10-second hold) - 0(No drift) 6a. Left Leg: Motor (5-second hold - always test supine) - 0(No drift) 6b. Right Leg: Motor (5-second hold - always test supine) - 0(No drift) 7. Limb Ataxia (finger/nose \T\ heel/hinkle - test with eyes open) - 0(Absent) 8. Sensory Loss (pinprick arms/legs/face) - 0(Normal) 9. Best Language: Aphasia (description/naming/reading) - 1(Mild to moderate aphasia) 10. Dysarthria (speech clarity - read or repeat words) - 0(Normal) 11. Extinction and Inattention (visual/tactile/auditory/spatial/personal) - 0(No abnormality) Initials: sv Signatures: Dispatcher [employer] Veda Dodd, RN RN Shailesh Sherwood PA PA jr8 Juju Quiñonez RN RN
--- NOTE | 2020-09-26 16:32 | RAD REPORT ---
EXAM DESCRIPTION: RAD - Chest Single View - 09/26/2020 3:32 pm CLINICAL HISTORY: cvano weakness slurred speech, Stroke protocol chest film COMPARISON: Portable October 2019 TECHNIQUE: AP portable chest image was obtained 09/26/2020 3:32 pm . FINDINGS: No peripheral mass consolidation. Interstitial pattern is prominent but matches comparison . Significant cardiomegaly is present without matching vascular engorgement. Pacemaker is in place. N o measurable pleural effusion and no pneumothorax. No acute bony abnormality seen. No acute aortic fi ndings suspected. IMPRESSION: Cardiomegaly without other findings of significant failure or volume overload. Chronic interstitial lung pattern matching comparison.
--- NOTE | 2020-09-26 16:51 | P.HP ---
Certification for Inpatient Patient admitted to: Observation With expected LOS: <2 Midnights Practitioner: I am a practitioner with admitting privileges, knowledge of patient current condition, hospital course, and medical plan of care. 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 Presents to ED due to stroke like symptoms that began ~1 hour prior to arrival. Patient was walking when she developed R arm numbness/weakness, then subsequently developed expressive aphasia. Arm paresthesia/weakness resolved on arrival to ED and aphasia resolved ~30min-1hour after arrival. Patient was on xarelto and did not receive tPA. CT brain was negative for acute process. BP was WNL and stable, HR: 90-105. Patient denies any recent illness, no chest pain, no SOB, no abd pain, no change in bowel/bladder habits, no palpitations. She did report ~1 week of "wavy squigglies" in her R eye. She has seen "2 eye doctors" in the last week due to this, and is scheduled to see someone in [place]. Otherwise has been in her usual state of health. Bloodwork was otherwise unremarkable. ED provider discussed the case with her neurologist, Dr. Singer. Patient to be observed overnight. 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 moist/pink, EOMI, Sclerae nonicteric Neck: Supple, 2+ carotid pulse no bruit Respiratory: Clear to auscultation bilaterally, Normal air movement Cardiovascular: No edema, Regular rate/rhythm, Normal S1 S2 Gastrointestinal: Soft and benign, Non-distended, No tenderness Musculoskeletal: No erythema, No tenderness Integumentary: No rashes, No breakdown Neurological: Normal speech, Normal strength at 5/5 x4 extr, Cranial nerves 3-12 intact (L eye blindness), Normal affect - Studies Laboratory Data (last 24 hrs) 09/26/20 14:30: PT 21.2 H, INR 1.83, APTT 37.0 H 09/26/20 14:30: WBC 7.30, Hgb 11.8 L, Hct 35.1 L, Plt Count 203 09/26/20 14:30: Sodium 142, Potassium 3.7, BUN 10, Creatinine 0.76, Glucose 79, Magnesium 2.3 Assessment and Plan - Advance Directives Does patient have a Living Will: No Does patient have a Durable POA for Healthcare: No Physician Review Additional Text: Problem List TIA - expressive aphasia, right arm numbness/weakness AFib on Xarelto History of multiple TIAs 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 Singer was consulted, recommended continuing home xarelto tonight -patient's to being observed, will tend to have an MRI obtained -echocardiogram ordered -patient reports having recent workup a few months ago, will review records -monitor vitals, neuro checks -PT consulted VTE: home xarelto Code: full Dispo: anticipate dc home tomorrow Time Spent Managing Pts Care (In Minutes): 60
[2020-09-26] MEDS ORDERED: NA CHLORIDE 0.9% 100 ML ONE (18:41)
[2020-09-26] MEDS ORDERED: CEFTRIAXONE/SWI 1gm 2 GM/20 ML SYR ONE (18:41)
[2020-09-26] MEDS ORDERED: NA CHLORIDE 0.9% 1,000 ML IV SCH (19:17)
[2020-09-26 20:13] VITALS: O2SAT 96
[2020-09-26] MEDS ORDERED: RIVAROXABAN 20 MG TABLET PO SCH (20:30)
[2020-09-26 20:49] VITALS: BMI 20.4
[2020-09-26] MEDS ORDERED: ATORVASTATIN 20 MG TAB PO SCH (21:00)
[2020-09-26 21:40] LABS: T4,Total 7.8 ug/dL (4.8-13.9); Thyroid Stimulating Hormone 1.96 uIU/mL (0.360-3.740)
[2020-09-27 06:47] LABS: Absolute Lymphocytes (CBC) 1.5 K/uL (0.7-4.9); Basophils % 0.7 % (0-1.3); Lymphocytes % 22.6 % (15.3-44.8); MPV 7.5 fL (7.6-11.3); RBC Red Blood Cell Count 3.59 M/uL (3.86-4.86)
[2020-09-27 06:59] LABS: Albumin 2.9 g/dL (3.4-5.0); Bilirubin Total 0.4 mg/dL (0.2-1.0); Phosphorus 3.2 mg/dL (2.5-4.9); Potassium 3.8 mmol/L (3.5-5.1); Protein, Total 6.4 g/dL (6.4-8.2)
[2020-09-27] MEDS ORDERED: RIVAROXABAN 20 MG TABLET PO SCH (08:00)
[2020-09-27] MEDS ORDERED: ASPIRIN 81 MG CHEWABLE TABLET PO SCH (09:00)
[2020-09-27] MEDS ORDERED: POTASSIUM CL SA 10 MEQ TAB PO ONE (09:00)
[2020-09-27] MEDS ORDERED: ATORVASTATIN 20 MG TAB PO SCH (09:00)
[2020-09-27 15:06] LABS: Urine Appearance CLEAR (Clear); Urine Bilirubin NEGATIVE (Negative); Urine Blood NEGATIVE (Negative); Urine Color YELLOW (Yellow); Urine Glucose NEGATIVE (Negative); Urine Protein NEGATIVE (Negative); Urine Urobilinogen 0.2 mg/dL (0.2-1.0)
[2020-09-27 15:31] LABS: Urine Microscopic Reflex ORDER UMIC
[2020-09-27 15:36] LABS: Urine Bacteria <20 /HPF (<20); Urine RBC NONE SEEN /HPF (NONE SEEN)
--- NOTE | 2020-09-27 15:58 | EKG ---
Test Date: 2020-09-26 Test Time: 18:25:38 Telephone Recorder: RENE MEASUREMENT RESULTS: Intervals: Rate: 103 IN: QRSD: 172 QT: 416 QTc: 544 [place]: P: IN: QRS: -80 T: 88 INTERPRETIVE STATEMENTS: Electronic ventricular pacemaker Compared to ECG 10/22/2019 15:38:12 Atrial-paced complex(es) or rhythm no longer present Intraventricular conduction delay no longer present ST (T wave) deviation no longer present Electronically Signed On 09-27-20 15:56:07 CDT by Drew Sherman
[2020-09-27 18:36] VITALS: BP 143/87; TEMP 98.7
--- NOTE | 2020-09-27 19:35 | P.DS ---
Admission Date: 09/26/20 Discharge Date: 09/27/20 Disposition: ROUTINE DISCHARGE Discharge Condition: GOOD Reason for Admission: TIA Consultations: Neurology Dr. Singer Procedures: Chest x-ray FINDINGS: No peripheral mass consolidation. Interstitial pattern is prominent but matches comparison. Significant cardiomegaly is present without matching vascular engorgement. Pacemaker is in place. No measurable pleural effusion and no pneumothorax. No acute bony abnormality seen. No acute aortic findings suspected. IMPRESSION: Cardiomegaly without other findings of significant failure or volume overload. Chronic interstitial lung pattern matching comparison. CT brain without FINDINGS: No intracranial hemorrhage, mass, or cerebral edema. No acute cortical based infarction confirmed. Patient has mild to moderate atrophy changes are present with ventricles in proportion. Chronic ischemic changes are present in each cerebral hemisphere most prominent in the left basal ganglia and frontal horn periventricular white matter region. Findings are not clearly different from comparison. Dense arterial tree and physiologic calcifications are present. Rounded calcifications are present in the anterior aspect third ventricle. Development of a colloid cyst is possible but this is not seen as an acute finding. No extra-axial fluid collections. Cisse matter-white matter differentiation is preserved. No globe or orbital content abnormality. Small sub centimeter calcification along the inner table of the right frontal bone could be a small calcified meningioma. This is not a clinically significant finding and show no change. Visualized portions of the mastoid air cells, paranasal sinuses, and orbits are unremarkable. Findings telephoned to Shailesh Rodríguez 1445 hours. IMPRESSION: No hemorrhage or acute intracranial finding identifiable. Above detailed findings are not significantly different from August 2019. 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 Presents to ED due to stroke like symptoms that began ~1 hour prior to arrival. Patient was walking when she developed R arm numbness/weakness, then subsequently developed expressive aphasia. Arm paresthesia/weakness resolved on arrival to ED and aphasia resolved ~30min-1hour after arrival. Patient was on xarelto and did not receive tPA. CT brain was negative for acute process. BP was WNL and stable, HR: 90-105. Patient denies any recent illness, no chest pain, no SOB, no abd pain, no change in bowel/bladder habits, no palpitations. She did report ~1 week of "wavy squigglies" in her R eye. She has seen "2 eye doctors" in the last week due to this, and is scheduled to see someone in [place]. Otherwise has been in her usual state of health. Bloodwork was otherwise unremarkable. ED provider discussed the case with her neurologist, Dr. Singer. Patient to be observed overnight. Hospital Course: Patient was admitted under observation and monitor closely. Patient's symptoms had resolved prior to arrival and have not returned, patient neurological intact at this time. Unable to obtain MRI due to pacemaker status. CT brain without any acute findings, labs unremarkable, vital signs stable. Patient was seen by neurology, recommend continuing Xarelto, statin therapy with addition of folic acid and aspirin. Patient need to follow up with neurology on outpatient basis. Vital Signs/Physical Exam: Temp Pulse Resp BP Pulse Ox 98.7 F 106 H 18 143/87 H 97 09/27/20 16:00 09/27/20 16:00 09/27/20 16:00 09/27/20 16:00 09/27/20 16:00 General: Alert, In no apparent distress, Oriented x3 HEENT: Atraumatic, PERRLA, EOMI Neck: Supple, JVD not distended Respiratory: Clear to auscultation bilaterally, Normal air movement Cardiovascular: Regular rate/rhythm, Normal S1 S2 Gastrointestinal: Normal bowel sounds, No tenderness Musculoskeletal: No tenderness Integumentary: No rashes Neurological: Normal speech, Normal tone, Normal affect Lymphatics: No axilla or inguinal lymphadenopathy Laboratory Data at Discharge: WBC 6.50 K/uL (4.3-10.9) 09/27/20 06:25 Hgb 10.9 g/dL (12.0-15.0) L 09/27/20 06:25 Hct 32.0 % (36.0-45.0) L 09/27/20 06:25 Plt Count 196 K/uL (152-406) 09/27/20 06:25 PT 21.2 SECONDS (9.5-12.5) H 09/26/20 14:30 INR 1.83 09/26/20 14:30 APTT 37.0 SECONDS (24.3-36.9) H 09/26/20 14:30 Sodium 142 mmol/L (136-145) 09/27/20 06:25 Potassium 3.8 mmol/L (3.5-5.1) 09/27/20 06:25 BUN 11 mg/dL (7-18) 09/27/20 06:25 Creatinine 0.66 mg/dL (0.55-1.3) 09/27/20 06:25 Glucose 97 mg/dL (74-106) 09/27/20 06:25 Phosphorus 3.2 mg/dL (2.5-4.9) 09/27/20 06:25 Magnesium 2.0 mg/dL (1.8-2.4) 09/27/20 06:25 Total Bilirubin 0.4 mg/dL (0.2-1.0) 09/27/20 06:25 AST 17 U/L (15-37) 09/27/20 06:25 ALT 21 U/L (12-78) 09/27/20 06:25 Alkaline Phosphatase 54 U/L (45-117) 09/27/20 06:25 Triglycerides 56 mg/dL (<150) 09/27/20 06:25 Cholesterol 103 mg/dL (<200) 09/27/20 06:25 HDL Cholesterol 50 mg/dL (40-60) 09/27/20 06:25 Cholesterol/HDL Ratio 2.06 09/27/20 06:25 Home Medications: Atorvastatin Calcium 1 tab PO BREAKFAST 09/26/20 Rivaroxaban [Xarelto] 1 tab PO BREAKFAST 09/26/20 Aspirin 81 mg PO DAILY 30 Days #30 tab.chew 09/27/20 Folic Acid 1 mg PO DAILY 30 Days #30 tablet 09/27/20 New Medications: Aspirin 81 mg PO DAILY 30 Days #30 tab.chew Folic Acid 1 mg PO DAILY 30 Days #30 tablet Physician Discharge Instructions: You were diagnosed with a TIA, we were not able to perform an MRI due to the fact that she has a pacemaker. Your seen by neurology who recommend the addition of folic acid and aspirin in addition to Xarelto and statin. You need to follow up with her primary care doctor and neurology on outpatient basis, return to the emergency department with new or worsening symptoms. Diet: Regular Activity: Ad álvaro Followup: Drew Sherman MD [ACTIVE - CAN ADMIT] - 1-2 Weeks Neil Singer MD [ACTIVE - CAN ADMIT] - 1-2 Weeks OOT,OOT [Primary Care Provider] - Time spent managing pt's care (in minutes): 30
--- NOTE | 2020-09-27 22:22 | CON ---
Date of Consultation: 09/27/2020 Reason: TIA. History: An 85-year-old lady whom I have not actually seen in about 9 months. We saw her last year when she had a TIA like episode involving the left arm. 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 Because they gave her a shot in the eye, they did not stop the Xarelto. She has a scleral blood to confirm the shot in the eye story and they said she had to see another doctor in [place] to be che re that she does not have melanoma in the right eye and if she does, she is going to have real proble ms because that eye will need to be enucleated and she is actually fairly independent. 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 She noted right arm paresthesias and clumsiness and she dropped her purse and she could not pick it back up. She could n ot hold it. She went to the office in the apartment complex where she lives and then she was unable to speak properly. She was taken to the Emergency Department and after about a half an hour in the E R, the entire episode began to clear up. Not a tPA candidate because she is chronically on Xarelto. Given aspirin. CT scan of the brain, no hemorrhage. She has a known meningioma, right frontal; jeanette e round calcifications in the anterior part of the third ventricle, not really related to this proble m; chronic ischemic change; atrophy; atherosclerosis intracranially. She had an echo today, but the results are pending. Laboratory Data: LDL 42. She is on intensive statin therapy chronically. Hemoglobin 10.9. Creatin ine 0.66. She is back to baseline currently. Consultation was requested. Past Medical History: Atrial fibrillation on Xarelto, pacemaker placement, ocular melanoma, prior TI As, prior mitral valve replacement. Allergies: CODEINE. Social History: She lives alone, still drives and is independent with activities of daily living. Family History: Noncontributory. Review of Systems: As alluded to. Thirteen point system review was otherwise normal/unremarkable. Physical Examination: Vital Signs: On exam, 98.7, 106, 18, 143/87. General: Pleasant lady, sitting in bed, in no distress. Awake, alert, oriented to time, person, zaina ce, and situation. HEENT: Pupils reactive. Ocular motion full. Small full. Facial strength and sensation normal. T ongue protrudes evenly. Soft palate elevates symmetrically bilaterally. Neurologic: Extremity strength full. Sensation intact. Reflexes 1/4, symmetric. Toes are downgoin g. Cerebellar exam demonstrates no ataxia. Gait is normal. Impression: Transient ischemic attack. Stroke score currently 0. Plan: She wants to go home. I do not know that waiting on the echo report is going to change the pl an. She is on systemic anticoagulation. Likewise, she had a carotid checked in 2019, no stenosis an d again has no bruit on exam. We can obtain that as an outpatient. 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 Perhaps changing th e Xa inhibitor to Pradaxa might be a prudent plan. I informed the patient to notify the ophthalmolog ist of the addition of aspirin if they plan to do any additional invasive ocular procedures. She can follow up with me in the office in 1-2 weeks. Thank you for the consult. DEBBIE/JAVON Voice ID: [id number] Report ID: [id number]
[2020-09-28] MEDS ORDERED: ASPIRIN EC 81 MG TAB PO SCH (09:00)
--- NOTE | 2020-09-30 09:13 | ECHO ---
HEIGHT: 5 ft 1 in WEIGHT: 108 lb 1 oz DATE OF STUDY: 09/27/[address]: Tushar López MD 2-DIMENSIONAL: YES M.MODE: YES DOPPLER: YES COLOR FLOW: YES TDS: NO PORTABLE: NO DEFINITY: NO BUBBLE STUDY: NO DIAGNOSIS: TRANSIENT ISCHEMIC ATTACK, HISTORY OF MITRAL VALVE REPLACEMENT CARDIAC HISTORY: CATHERIZATION: YES SURGERY: YES PROSTHETIC VALVE: YES PACEMAKER: YES MEASUREMENTS (cm) DIASTOLIC (NORMALS) SYSTOLIC (NORMALS) IVSd 1.0 (0.6-1.2) LA Diam 4.1 (1.9-4.0) LVEF 30% LVIDd 5.3 (3.5-5.7) LVIDs 4.6 (2.0-3.5) %FS 14% LVPWd 1.0 (0.6-1.2) Ao Diam 3.2 (2.0-3.7) 2 DIMENSIONAL ASSESSMENT: RIGHT ATRIUM: NORMAL LEFT ATRIUM: DILATED RIGHT VENTRICLE: NORMAL LEFT VENTRICLE: NORMAL SIZE TRICUSPID VALVE: NORMAL MITRAL VALVE: MITRAL STENOSIS PULMONIC VALVE: NORMAL AORTIC VALVE: AORTIC STENOSIS PERICARDIAL EFFUSION: NONE AORTIC ROOT: NORMAL LEFT VENTRICULAR WALL MOTION: SEVERE GLOBAL HYPOKINESIS. DOPPLER/COLOR FLOW: MILD AORTIC STENOSIS. AORTIC VALVE AREA 2.0 CENTIMETERS SQUARED. MILD TRICUSPID REGURGITATION. MILD MITRAL STENOSIS. MITRAL VALVE AREA 2.0 CENTIMETERS SQUARED. COMMENTS: MILD AORTIC STENOSIS. MILD MITRAL STENOSIS. SEVERE GLOBAL HYPOKINESIS. MILD TRICUSPID REGURGITATION. NO EFFUSION. TECHNOLOGIST: Caden GALVAN
== END 2020-09-27 21:06 | disposition home or self-care (01) ==
LOC: ER 14:04 → ERHOLD 16:47 → 2ND 18:39
PROVIDERS: ADMIT Hospitalist; ATTEND Hospitalist
DX: G45.9 Transient cerebral ischemic attack, unspecified (principal); Z79.01 Long term (current) use of anticoagulants; D32.0 Benign neoplasm of cerebral meninges; I48.91 Unspecified atrial fibrillation; Z95.0 Presence of cardiac pacemaker; Z86.73 Personal history of transient ischemic attack (TIA), and cerebral infarction without residual deficits; Z95.2 Presence of prosthetic heart valve; Z85.840 Personal history of malignant neoplasm of eye; H54.62 Unqualified visual loss, left eye, normal vision right eye
CPT/HCPCS: 93005; 93306; 87088; 85025 ×2; 87086; 80048; 36415; 83735 ×2; 84100; 85610; 80061; 82947; 85730; 84436; 84443; 84484; 80053; 70450; 71045; 97161; 94760 ×2; J0696; J7030; 70544; 70549; 81003; 81015; A9577; G0378

== ENCOUNTER 2020-10-21 07:39 | Observation (INO) | payer OTHER ==
--- OUTSIDE RECORDS SUMMARY | 2020-10-21 07:42 | XMS REPORT | Continuity of Care Document ---
:1935 Author Organization [facility] t Address [address] [place] [address] Care Team Providers Name Role Phone [phone] Primary Care Physician Unavailable SYSTEM, NOT IN Attending Clinician Unavailable Al Singer Attending Clinician Hematpour Attending Clinician JUSTIN ALVAREZ Attending Clinician Unavailable Hematpour Admitting Clinician JUSTIN ALVAREZ Admitting Clinician Unavailable Problems Condition Condition Condition Status Onset Resolution Last Treating Co mments Source Name Details Category Date Date Treatment Clinician Date I48.0 Diagnosis Active 2018-10-15 Mem oria 09-01 15:31:00 l I48.0 00:00: [place] 00 Active 09/01/2018 [facility] CCL / EPS Diagnosis Active 2018-09-14 Memoria PVI 09-01 08:17:00 l ABLATION CCL / 00:00: [place] W/ CARTO / EPS PVI 00 DUAL P ABLATION W/ CARTO / DUAL P Active 09/01/2018 [facility] Acute Acute Disease Active [facility] encephalop encephalop 3-03 Audrey kes - athy athy 00:00: Medical 00 [place] Acute Acute Disease Active [facility] ischemic ischemic 3-02 [facility] stroke stroke 00:00: Medical 00 [place] Received Received Disease [facility] tissue [facility]02 [facility] plasminoge plasminoge 00:00: Me dical n n 00 Center activator activator (t-PA) (t-PA) less than less than 24 hours 24 hours prior to prior to arrival arrival Cardiac Problem Active 2020-10-04 Mukul armando 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 Cardiac Manuel n (finding) pacemaker in situ (finding) Active Problem 10/04/2020 [facility] Congestive Problem Active 2020-10-04 M emoria heart 01:56:57 l failure Frandy (disorder) Congestive heart failure (disorder) Active Problem 10/04/2020 [facility] Dizziness Problem Active 2020-10-04 Me moria (finding) 01:56:57 l [place] Dizziness (finding) Active Problem 10/04/2020 [facility] Hyperlipid Problem Active 2020-10-04 M emoria emia 01:56:57 l (disorder) Manuel n Hyperlipid emia (disorder) Active Problem 10/04/2020 [facility] Lumbar Problem Active 2020-10-04 Memor ia radiculopa 01:56:57 l thy Lumbar [place] (disorder) radiculopa thy (disorder) Active Problem 10/04/2020 [facility] 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 Frandy (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 Problem 10/04/2020 [facility] 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) Active Problem 10/04/2020 [facility] Syncope Problem Active 2020-10-04 Mukul armando (disorder) 01:56:57 l Syncope [place]andy (disorder) Active Problem 10/04/2020 [facility] Allergies, Adverse Reactions, Alerts Allergy Allergy Status Severity Reaction(s) Onset Inactive Treating Comm ents Source Name Type Date Date Clinician Codeine Drug Active Other (See 2019-0 Chest [facility]03 [facility] Center codeine codeine Active Memoria l [place] Vicodin Vicodin Active Memoria l [place] codeine Adverse Active Info Not [facility] Reaction Available [facility] Family History Family Member Diagnosis Comments Start Date Stop Date Source Natural brother Diabetes [facility] Natural brother Heart disease [facility] Natural daughter Diabetes [facility] Natural mother Heart disease [facility] Social History Social Habit Start Date Stop Date Quantity Comments Source [facility] Binge Medical Dianna ter Sex Assigned At [facility] History SDOH 2018-06-03 2018-06-03 1 [facility] [place] - Alcohol Frequency 00:00:00 [facility]00 [facility] Tobacco use and 2018-06-03 2018-06-03 Never used [facility] - exposure 00:00:00 00:[facility]:00 [facility] Alcohol intake 2018-06-03 2018-06-03 Current [facility] - 00:00:00 00:00:00 non-drinker of Medical Ce nter alcohol (finding) Smoking Status Start Date Stop Date Source Social History [facility] Medications Ordered Filled Start Stop Current Ordering Indication Dosage Frequency Signature Comments Components Source Medication Medication Date Date Medication? Clinician (SIG) Name Name Cetirizine Cetirizine 2019-0 Yes Na De Leon 1 [facility] HCl HCl 9-04 [facility] Clinics 24 HR 2019-0 [...] Plus 3-24 Daily, 0 l 20:45: Refill(s) [place] 00 Loratadine 2020-0 Yes 10 mg = 1 Me moria 10 MG Oral 3-24 tab, PO, l Tablet 20:45: Daily, 0 [place] 00 Refill(s) meclizine 2020-0 Yes 25 mg = 1 Mem oria 25 mg oral 3-24 tab, PO, l tablet 20:45: BID, 0 [place] 00 Refill(s) montelukast 2020-0 Yes 10 mg = 1 M emoria 10 mg oral 3-24 tab, PO, l tablet 20:45: Daily, 0 [place] 00 Refill(s) 24 HR Yes 25 mg = 1 Memoria mirabegron 3-24 tab, PO, l 25 MG 20:45: Daily, # [place] Extended 00 30 tab, 5 Release Refill(s) [...] food [facility] - 00:[facility]: [facility] l [facility] No Notes: Mukul armando 6-13 (Same l 14:00: as:Singula [place] 00 ir) Losartan No Notes: Memoria 6-13 (Same as: l 14:00: Cozaar) [place] 00 pantoprazol No Notes: Mukul armando e [...] Not Crush" Sucralfate No Notes: August emoria 6-12 interfere l 22:00: w/enteral feeds - Take [...] 6-12 Drug form: l 17:06: INJ, ONCE, [place] 00 Stop date: 09/14/18 12:06:00 CDT rocuronium 2018-0 No Route: IV, M emoria (ANES) 6-12 Drug form: l 17:06: INJ, ONCE, Stop date: 09/14/18 12:06:00 CDT propofol 2018-0 No Route: IV, Mem oria (ANES) 6-12 Drug form: l 17:06: INJ, ONCE, Stop date: 09/14/18 12:06:00 CDT lidocaine 2018-0 No Route: IV, Me moria (ANES) 612 Drug form: l 17:06: INJ, ONCE, Stop date: 09/14/18 12:06:00 CDT Flumazenil 2018- No Notes: Memor ia 6-12 (Same as: l 16:53: Romazicon) Naloxone No Notes: Memoria 6-12 Same as l 16:53: Narcan Ondansetron No Notes: Mukul armando 6-12 (Same as: l 16:53: Zofran) MEDICATION WASTE Product Size: 4 mg Product Wasted: ___ mg Morphine No Notes: Memoria 6-12 (Same l 16:53: as:MORPhin e Sulfate) Hydralazine No Notes: Mukul armando 6-12 (Same as: l 16:53: Apresoline ) Push over 5 minutes esmolol No Notes: Memoria 6-12 (Same as: l [...] 6-12 BID, 0 l 13:44: Refill(s) carvedilol 2018-0 Yes 12.5 mg, Mem oria 6-12 PO, [...] Stop date: 10/14/18 8:25:00 CDT, 1.56, m2 Pantoprazol Pantoprazol Yes Na De Leon [address] [facility] Sodium e Sodium [facility] Loratadine Loratadine Yes Na De Leon [address] [facility] Atorvastati Atorvastati Yes Na De Leon [address] [facility] n Calcium n Calcium [facility] Meclizine Meclizine Yes Na De Leon [address] [facility] HCl HCl as needed [facility] Losartan Losartan Yes Na De Leon [address] [facility] Potassium Potassium [facility] Estradiol Estradiol Yes Na De Leon 1/[address] Myrbetriq Myrbetriq Yes Na De Leon [address] [facility] Ferrous Ferrous Yes Na De Leon [address] [facility] Sulfate Sulfate [facility] Singulair Singulair Yes Na De Leon [address] [facility] in the [facility] Amiodarone Amiodarone Yes Na De Leon [address] [facility] HCl HCl [facility] Coreg Coreg Yes Na De Leon 1 [facility] Trelegy Trelegy Yes Na De Leon [address] [facility] Ellipta Ellipta [facility] Hemocyte Hemocyte Yes Na De Leon [address] [facility] Plus Plus [facility] Lasix Lasix Yes Na De Leon [address] [facility] Sucralfate Sucralfate Yes Na De Leon TAKE ONE [facility] TABLET BY [facility] - MOUTH Memoria TWICE A l DAY [facility] ST[facility] Clinics Myrbetriq Myrbetriq Yes Na De Leon [address] [facility] Flonase Flonase Yes Na De Leon [address] [facility] each [facility] nostril [facility] Vital Signs Vital Name Observation Time Observation Value Comments Source Systolic (mm Hg) 2019-11-16 14:27:00 Mukul rial [place] Diastolic (mm Hg) 2019-11-16 14:27:00 Mem orial [place] Heart Rate 2019-11-16 14:27:00 [facility] [place] Respitory Rate 2019-11-16 14:27:00 Memori al [place] Height 2019-11-16 14:27:00 152.4 cm [facility] [place] Weight 2019-11-16 14:27:00 [facility] [place] BMI Calculated 2019-11-16 14:27:00 Memori al [place] Systolic (mm Hg) 2019-09-12 20:01:00 Mukul rial [place] Diastolic (mm Hg) 2019-09-12 20:01:00 Mem orial [place] Heart Rate 2019-09-12 20:01:00 [facility] [place] Respitory Rate 2019-09-12 20:01:00 Memori al [place] Height 2019-09-12 20:01:00 152.4 cm [facility] [place] Weight 2019-09-12 20:01:00 [facility] [place] BMI Calculated 2019-09-12 20:01:00 Memori al [place] Systolic (mm Hg) 2019-06-27 20:30:00 Mukul rial [place] Diastolic (mm Hg) 2019-06-27 20:30:00 Mem orial [place] Heart Rate 2019-06-27 20:30:00 [facility] [place] Respitory Rate 2019-06-27 20:30:00 Memori al [place] Height 2019-06-27 20:30:00 149.86 cm [facility] [place] Weight 2019-06-27 20:30:00 [facility] [place] BMI Calculated 2019-06-27 20:30:00 Memori al [place] Respitory Rate 2018-09-15 13:00:00 Memori al [place] Respitory Rate 2018-09-15 11:30:00 Memori al [place] Systolic (mm Hg) 2018-09-15 11:30:00 Mukul rial [place] Diastolic (mm Hg) 2018-09-15 11:30:00 Mem orial [place] Temperature Oral (F) 2018-09-15 11:30:00 97.2 F [facility] [place] Respitory Rate 2018-09-15 09:43:00 Memori al [place] Systolic (mm Hg) 2018-09-15 09:15:00 Mukul rial [place] Diastolic (mm Hg) 2018-09-15 09:15:00 Mem orial [place] Systolic (mm Hg) 2018-09-15 06:30:00 Mukul rial [place] Diastolic (mm Hg) 2018-09-15 06:30:00 Mem orial [place] Temperature Oral (F) 2018-09-15 01:45:00 98.7 F [facility] [place] Temperature Oral (F) 2018-09-14 14:00:00 97.2 F [facility] [place] BMI Calculated 2018-09-14 13:25:00 Memonfore al [place] Weight 2018-09-14 13:25:00 [facility] [place] Height 2018-09-14 13:25:00 152.4 cm [facility] Procedures Procedure Date / Time Performed Performing Clinician Sourc e Mitral valvoplasty [facility] Herm geo Plan of Care Planned Activity Planned Date [...] 00:00:00 (1 of 1 - [facility] [id number] PCV13) [code = PNEUMOCOCCAL 65+ YRS (1 of 1 - [id number] PCV13)] Future Scheduled 1985-06-23 SHINGLES VACCINES (1 [...] Date/Time Type Type Clinicians Facility Department ID 2020-10-[address] [id number] 14:10:15 [facility] 2020-10-11 2020-10-11 Outpatient [facility] [id number] [facility] 2020-10-02 2020-10-02 Outpatient [facility] [id number] [facility] 2020-09-30 2020-10-01 Outpatient MHMISCHER MHMISCHER [id number] 17:31:13 23:59:59 01 2020-09-23 2020-09-23 Outpatient [facility] [id number] [facility] 2020-09-18 2020-09-18 Outpatient [facility] [id number] [facility] 2020-07-30 2020-07-30 Outpatient [facility] [id number] [facility] 2020-04-30 2020-04-30 Outpatient [facility] [id number] [facility] 2020-04-12 2020-04-12 Outpatient STLMLC [facility] [id number] [facility] 2020-01-29 2020-01-29 Outpatient STLMLC STLMLC [id number] [facility] 2020-01-01 2020-01-01 Outpatient [facility]LMLC [facility] [id number] [facility]00 [facility] Outpat[facility] ent Clinics 2019-12-28 2019-12-28 Outpatient Lucrecia MHMISCHER MHMISCHER [id number] 09:15:00 09:15:00 Neil 06 [facility] 2019-12-08 2019-12-08 [facility] [id number] [facility] 10:40:00 10:40:00 [place] [facility] 2019-12-07 2019-12-07 [facility] [id number] [facility] 17:09:00 17:09:00 [place] [facility] 2019-11-24 2019-11-24 Outpatient Lucrecia MHMISCHER MHMISCHER [id number] 13:00:00 23:59:59 Neil 07 [facility] 2019-11-16 2019-11-16 Outpatient Lucrecia MHMISCHER MHMISCHER [id number] 09:15:00 23:59:59 Neil 05 [facility] 2019-11-09 2019-11-10 Outpatient MHMISCHER MHMISCHER [id number] 14:37:54 23:59:59 00 2019-11-03 2019-11-03 [facility] [id number] [facility] 11:20:00 11:20:00 [place] [facility] 2019-10-24 2019-10-24 Outpatient Lucrecia MHMISCHER MHMISCHER [id number] 14:30:00 14:30:00 Neil 04 [facility] 2019-10-24 2019-10-24 Outpatient Lucrecia, MHMISCHER MHMISCHER [id number] 14:30:00 14:30:00 Neil 03 [facility] 2019-10-03 2019-10-03 [facility] [id number] [facility] 08:13:00 08:13:00 [place] [facility] 2019-09-24 2019-09-24 [facility] [id number] [facility] 01:13:00 01:13:00 [place] [facility] 2019-09-12 2019-09-12 Outpatient Lucrecia WANDASCHKATLIN MISCHER [id number] 14:45:00 23:59:59 Neil 02 [facility] 2019-09-07 2019-09-07 [facility] [id number] [facility] 13:30:00 13:30:00 t Specialty/U Audrey kes - Specialty rology Memori a /Urology Clinic l Clinic Outpati ent Clinics 2019-09-07 2019-09-07 [facility] [id number] [address] 10:20:00 10:20:00 [place] [facility] Clin[facility] 2019-08-08 2019-08-08 Outpatient NIYAH SingerSCHER MISCHER [id number] 15:00:00 15:00:00 Neil 01 [facility] 2019-07-07 2019-07-07 [facility] [id number] [facility] 14:00:00 14:00:00 t Specialty/U Audrey kes - Specialty rology Memori a /Urology Clinic l Clinic Outpati ent Clinics 2019-06-27 2019-06-27 [facility] [id number] 15:00:00 23:59:59 Neil 00 [facility] 2019-06-02 2019-06-02 [facility] [id number] [facility] 09:00:00 09:00:00 t Specialty/U Audrey kes - Specialty rology Memori a /Urology Clinic l Clinic Outpati ent Clinics 2019-05-29 2019-05-29 [facility] [id number] [facility] 09:00:00 09:00:00 [place] [facility] Out[facility] Clinics 2019-05-19 2019-05-19 [facility] [id number] [facility] 03:30:00 03:30:00 [place] [facility] Outpati ent Clinics 2019-05-15 2019-05-15 [facility] [id number] [facility] 10:48:00 10:48:00 [place] - [facility] l Medicine Outpati ent Clinics 2019-05-15 2019-05-15 [facility] [id number] 10:20:00 10:20:00 [place] - [facility] Medicine l Medicine Outpati ent Clinics 2019-05-15 2019-05-15 [facility] [id number] 09:05:00 09:05:00 [place] - Drive [facility] l Medicine Outpati ent Clinics 2019-05-04 2019-05-04 [facility] [id number] [facility] 13:03:00 13:03:00 [place] - [facility] Medicine l Medicine Outpati ent Clinics 2019-05-02 2019-05-02 [facility] [id number] 14:40:00 14:40:00 [place] - [facility] Medicine l Medicine Outpati ent Clinics 2019-03-21 2019-03-21 [facility] [id number] 09:40:00 09:40:00 [place] - [facility] Medicine l Medicine Outpati ent Clinics 2019-02-08 2019-02-08 [facility] [id number] [facility] 16:31:00 16:31:00 [place] - [facility] l Medicine Outpati ent Clinics 2019-02-07 2019-02-07 [facility] [id number] [facility] 15:00:00 15:00:00 [place] [facility] Medicine Outpati ent Clinics 2018-10-17 2018-10-17 [facility] [id number] [facility] 17:09:00 17:09:00 [place] - [facility] Medicine l Medicine Outpati ent Clinics 2018-10-12 2018-10-12 [facility] [id number] [address] 09:00:00 09:00:00 [place] - [facility] Medicine l Medicine Outpati ent Clinics 2018-09-21 2018-09-21 [facility] [id number] [facility] 08:40:00 08:40:00 [place] [facility] Medicine Outpati ent Clinics 2018-09-14 2018-09-15 Outpatient Hematpour, [facility] [id number] 08:05:00 09:20:00 Gerardo 2018-09-14 2018-09-[address] [id number] 08:05:00 08:05:00 2018-06-22 2018-06-22 [facility] [id number] [address] 11:00:00 11:00:00 [place] [facility] Medicine Outpati ent Clinics 2018-06-02 2018-06-02 [facility] [id number] 15:15:00 15:15:00 [place] [facility] Medicine Outpati ent Clinics 2018-04-27 2018-04-27 [facility] [id number] [address] 16:21:00 16:21:00 [place] [facility] Medicine Outpati ent Clinics 2018-03-24 2018-03-24 [facility] [id number] 14:45:00 14:45:00 [place] [facility] Medicine Outpati ent Clinics 2017-12-30 2017-12-30 [facility] [id number] 15:15:00 15:15:00 [place] [facility] Medicine Outpati ent Clinics 2017-12-16 2017-12-16 [facility] [id number] 08:22:00 08:22:00 [place] [facility] Medicine Outpati ent Clinics 2017-09-21 2017-09-21 [facility] [id number] [address] 14:45:00 14:45:00 [place] [facility] Medicine Outpati ent Clinics 2017-08-10 2017-08-10 [facility] [id number] [facility] 15:46:00 15:46:00 [place] [address] [facility] Medicine Outpati ent Clinics 2017-07-05 2017-07-05 [facility] [id number] 15:30:00 15:30:00 [place] [facility] Results Test Description Test Time Test Comments Results Result Comments Source HEMATOLOGY 2018-09-14 19:49:00 Test Item Value Reference Range Interpretation Comme nts POC Activated Clotting Time (test code = POC Activated Clotting Eliseo e) 179 s [facility]NtniqvlCSSFXVQKBD1750-75-01 18:16:00 Test Item Value Reference Range Interpretation Comments POC Activated Clotting Time (test code 363 s = POC Activated Clotting Time) [facility] ArlingtonVodqyybJSASREBATB1788-03-67 17:52:00 Test Item Value Reference Range Interpretation Comments POC Activated Clotting Time (test code 291 s = POC Activated Clotting Time) [facility] ArlingtonOrmpeqeUCNHRKLQRWRF0972-13-04 13:30:0049[facility]ann[facility]LECTROLYTES 2018-09-14 13:30:83101Dgrlkvuq OvybyqjUDEJESDUSKDN0026-48-60 13:30:001.05 [facility] PqmezdgMQSVOSNZQTZW8317-54-23 13:30:0013[facility] HermannELECTROLYTES 2018-09-14 13:30:003.6[facility] KpmtpkeXLOWDBQKLXTG2221-34-23 13:30:50626Vvynkxpg AnecahfHZKJSVOOTEWH2080-22-14 13:30:0029[facility] ZwtkjczDBKYQYFGJZEV7295-29-60 13:30:26296Ttvvcnvi KenienrTCKRZZIAZJNN4142-27-50 13:30:0010.3[facility] [place] KUBNJBIYBC6062-00-16 13:30:00 Test Item Value Reference Range Interpretation Comments PTT (test code = PTT) 45.1 s 22.9-35.8 [facility] ArlingtonUsxnocuKYVRHEXVBY7466-71-28 13:30:00 Test Item Value Reference Range Interpretation Comments PT (test code = PT) 14.4 s 12.0-14.7 [facility] ArlingtonLgfrpznQWBLNPOELL0929-33-44 13:30:00 Test Item Value Reference Range Interpretation Comments INR (test code = INR) 1.14 1 0.85-1.17 [facility] ArlingtonPwdxwpdSOWQFAJQIQ9067-58-80 13:30:008.5[facility]annHEMATOLOGY 2018-09-14 13:30:004.05[facility] FruihnoDPLXGVVRDK5943-87-99 13:30:0012.4[facility] PgotkbyPQDCGHBDTC2830-14-25 13:30:0033.0[facility] YkeantbVRDXDNUMEC9801-99-84 13:30:0014.3[facility] YpyaeqzVEJANCUZQL5034-95-29 13:30:12217Jfcjviqs [place] EVKOKVUCZX6495-63-88 13:30:007.1[facility] FosqssiQQJQHAFMMX1198-67-36 13:30:00 Test Item Value Reference Range Interpretation Comments MCH (test code = MCH) 30.6 pg 27.0-31.0 Memorial TcdsjgtDRXKOGQFFV4889-32-50 13:30:0037.5[facility] HermannHEMATOLOGY 2018-09-14 13:30:0092.7[facility] UhpjqwxIUBQEZCIIZ7594-43-69 13:30:006.1[facility] NjsauczCPHMBDLQKJ4825-57-92 13:30:000.5[facility] HopdmbxNEXKIWAENE0020-08-13 13:30:001.6[facility] NsgjkjcPKYJNZRCZE1317-76-04 13:30:000.6[facility] [place] GTTPDKKWAX6475-64-53 13:30:000.2[facility] XrbwabbQFOIOMRCPX5818-26-04 13:30:002.3 [facility] NyrwgfvWYTFGROXSV8186-93-21 13:30:007.5[facility] HermannHEMATOLOGY 2018-09-14 13:30:0071.3[facility] GxrnninQNDWGTQBML3276-41-09 13:30:0018.4[facility] HermannBLOOD BANK KUZTHVK8475-85-35 13:30:00Negative (09/14/18 8:30 AM)[facility] HermannCHEM YBBHX1493-30-10 13:30:002.9[facility] HermannCHEM OAUUX7144-70-54 13:30:002.1[facility] CuthnmdDYNBXCIKVFJS2033-09-12 13:30:0010.6[facility] [place] BASIC METABOLIC [id number] 04:45:00 Test Item Value Reference Range Interpretation [...] PATIEN TS. CBC W/PLT COUNT & AUTO [id number] 04:20:00 Test Item Value Reference Range Interpretation [...] (BEAKER) (test code = 2801) BASIC METABOLIC [id number] 04:22:00 Test Item Value Reference Range Interpretation [...] PATIEN TS. CBC W/PLT COUNT & AUTO [id number] 04:04:00 Test Item Value Reference Range Interpretation [...] (BEAKER) (test code = 2801) BASIC METABOLIC [id number] 05:13:00 Test Item Value Reference Range Interpretation [...] PATIEN TS. CBC W/PLT COUNT & AUTO [id number] 04:51:00 Test Item Value Reference Range Interpretation [...] (test code = 2801) CT, BRAIN, WITHOUT [id number] 20:44:00FINAL REPORT CT, BRAIN, WITHOUT CONTRAST CLINICAL [...] better suited for this evaluation). Signed: Roney Rowleyort Verified Date/Time: 06/04/2018 20:44:09 Reading Location: [facility] C013V Neuro Reading Room RAD, CHEST, 1 VIEW, NON [id number] 17:27:00Reason for exam:->pre-MRIShould this be performed at [...] Cardiomegaly. Bibasilar atelectasis or consolidation. Signed: Lester Santizoort Verified Date/Time: 06/04/2018 17:27:33 Reading Location: [facility] C013Y CT Body Reading Room HEMOGLOBIN [id number] 10:53:00 Test Item Value Reference Range Interpretation Comments HEMOGLOBIN A1C (BEAKER) (test code = 6.0 % 4.3-6.1 368) VITAMIN B12 AND [id number] 07:40:00 Test Item Value Reference Range Interpretation Comments VITAMIN B12 (BEAKER) (test code = 813 pg/mL 213-816 774) FOLATE (BEAKER) (test code = 362) 9.9 ng/mL >=7.0 COMPREHENSIVE METABOLIC [id number] 03:01:00 Test Item Value Reference Range Interpretation [...] completed or 30 min after intravenous potassium replacement.[id number] 03:01:00 Test Item Value Reference Range Interpretation Comments POTASSIUM (BEAKER) (test code = 3.5 meq/L 3.5-5.1 379) Check Serum Potassium level 2 hours after oral potassium replacement completed or 30 min after intravenous potassium replacement.LIPID [id number] 03:01:00 Test Item Value Reference Range Interpretation [...] completed or 30 min after intravenous potassium replacement.[id number] 03:01:00 Test Item Value Reference Range Interpretation Comments MAGNESIUM (BEAKER) (test code = 1.9 mg/dL 1.6-2.6 627) Check Serum Potassium level 2 hours after oral potassium replacement completed or 30 min after intravenous potassium replacement.TSH/FREE T4 IF INDICATED 2018-06-04 00:57:00 Test Item Value Reference Range Interpretation Comments THYROID STIMULATING HORMONE 1.93 uIU/mL 0.35-4.94 (BEAKER) (test code = 772) CBC W/PLT COUNT & AUTO [id number] 00:10:00 Test Item Value Reference Range Interpretation [...] % 0-1 PERCENT (BEAKER) (test code = 1227)
[2020-10-21 08:19] LABS: Absolute Lymphocytes (CBC) 1.2 K/uL (0.7-4.9); Basophils % 0.8 % (0-1.3); Hematocrit 29.6 % (36.0-45.0); Lymphocytes % 15.3 % (15.3-44.8); MPV 7.4 fL (7.6-11.3); RBC Red Blood Cell Count 3.38 M/uL (3.86-4.86)
[2020-10-21 08:30] LABS: Protime INR 1.15
--- NOTE | 2020-10-21 08:33 | RAD REPORT ---
EXAM DESCRIPTION: RAD - Chest Single View - 10/21/2020 8:19 am CLINICAL HISTORY: SOB COMPARISON: Chest Single View dated 09/26/2020; Chest Single View dated 10/22/2019; Chest Single View dated 06/03/2018; Chest Pa And Lat (2 Views) dated 12/15/2017 FINDINGS: No evidence of edema or pneumonia. Cardiomegaly. Pacemaker.No acute osseous abnormality. N o significant pleural effusions or pneumothorax. IMPRESSION: No acute cardiopulmonary disease.
[2020-10-21 08:41] LABS: Albumin 3.1 g/dL (3.4-5.0); Bilirubin Direct 0.2 mg/dL (0-0.2); Bilirubin Total 0.5 mg/dL (0.2-1.0); Potassium 3.7 mmol/L (3.5-5.1); Protein, Total 7.2 g/dL (6.4-8.2); Troponin (Emerg Dept Use Only) 0.02 ng/mL (0.0-0.045)
--- NOTE | 2020-10-21 09:34 | RAD REPORT ---
EXAM DESCRIPTION: CT - Chest For Pe Angio - 10/21/2020 9:25 am CLINICAL HISTORY: Cough;SOB COMPARISON: No comparisons FINDINGS: Chest Wall: Left upper chest wall pacemaker. No axillary lymphadenopathy. Lungs: Interlobular septal thickening bilateral ground-glass opacities. There are some more ill-defin ed consolidative opacities in the lower lungs, right greater than left. Pleura: Small bilateral effusions. Mediastinum/matt: No pathologic lymphadenopathy. Pulmonary arteries/Aorta: No filling defect identified. No aortic aneurysm. Marked enlargement of the main pulmonary artery. Heart: No significant pericardial effusion. Cardiomegaly. Coronary artery calcifications. Mitral robin lar calcifications. Upper abdomen: Reflux of contrast into the hepatic veins. Partially imaged diverticulosis. Bones: No acute abnormality. IMPRESSION: Negative for pulmonary embolism. Pulmonary edema as well as findings suggesting right he art failure. Difficult to entirely exclude pneumonia/ pneumonitis at the lung bases, particularly on the right side.
--- NOTE | 2020-10-21 10:12 | EDPHYS ---
Physician Documentation [facility] Name: Shima Walters Age: 85 yrs Sex: Female : 1935 Arrival Date: 10/21/2020 Time: 07:47 Bed 2 Private MD: Stephy De Leon ED Physician Milan Smith HPI: 10/21 08:15 This 85 yrs old Female presents to ER via EMS with complaints of Shortness Of kdr Breath. 08:15 The patient has shortness of breath at rest, with light activity, while talking. Onset: kdr The symptoms/episode began/occurred gradually, 2 week(s) ago. Duration: The symptoms are continuous, and are steadily getting worse. The patient's shortness of breath is aggravated by exertion, supine position. Associated signs and symptoms: The patient has no apparent associated signs or symptoms. Severity of symptoms: At their worst the symptoms were mild moderate just prior to arrival, in the emergency department the symptoms are unchanged. The patient has not experienced similar symptoms in the past. 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 States she gets extremely SOB. Historical: - Allergies: 07:50 Codeine; jl7 - Home Meds: 10:11 atorvastatin 40 mg oral tab [Active]; Xarelto 15 mg oral tab [Active]; aspirin 81 mg jl7 oral TbEC [Active]; losartan 25 mg oral tab [Active]; - PMHx: 07:50 CVA; jl7 - PSHx: 07:50 mitral valve repair; jl7 - Immunization history:: Adult Immunizations up to date, Client reports receiving the 2nd dose of the Covid vaccine. - Social history:: Smoking status: Patient denies any tobacco usage or history of. ROS: 08:15 Constitutional: Negative for fever, chills, and weight loss, Eyes: Negative for injury, kdr pain, redness, and discharge, ENT: Negative for injury, pain, and discharge, Neck: Negative for injury, pain, and swelling, Cardiovascular: Negative for chest pain, palpitations, and edema, Abdomen/GI: Negative for abdominal pain, nausea, vomiting, diarrhea, and constipation, Back: Negative for injury and pain, : Negative for injury, bleeding, discharge, and swelling, MS/Extremity: Negative for injury and deformity, Skin: Negative for injury, rash, and discoloration, Neuro: Negative for headache, weakness, numbness, tingling, and seizure activity. Psych: Negative for depression, anxiety, suicide ideation, homicidal ideation, and hallucinations, Allergy/Immunology: Negative for hives, rash, and allergies, Endocrine: Negative for neck swelling, polydipsia, polyuria, polyphagia, and marked weight changes, Hematologic/Lymphatic: Negative for swollen nodes, abnormal bleeding, and unusual bruising. 08:15 Respiratory: Positive for cough, with no reported sputum, dyspnea on exertion, shortness of breath, at rest. Negative for hemoptysis, orthopnea, pleurisy, wheezing. Exam: 08:15 Constitutional: This is a well developed, well nourished patient who is awake, alert, kdr and in no acute distress. Head/Face: Normocephalic, atraumatic. Eyes: Pupils equal round and reactive to light, extra-ocular motions intact. Lids and lashes normal. Conjunctiva and sclera are non-icteric and not injected. Cornea within normal limits. Periorbital areas with no swelling, redness, or edema. Neck: Trachea midline, no thyromegaly or masses palpated, and no cervical lymphadenopathy. Supple, full range of motion without nuchal rigidity, or vertebral point tenderness. No Meningismus. Chest/axilla: Normal chest wall appearance and motion. Nontender with no deformity. No lesions are appreciated. Cardiovascular: Regular rate and rhythm with a normal S1 and S2. No gallops, murmurs, or rubs. Normal PMI, no JVD. No pulse deficits. Abdomen/GI: Soft, non-tender, with normal bowel sounds. No distension or tympany. No guarding or rebound. No evidence of tenderness throughout. Back: No spinal tenderness. No costovertebral tenderness. Full range of motion. Skin: Warm, dry with normal turgor. Normal color with no rashes, no lesions, and no evidence of cellulitis. MS/ Extremity: Pulses equal, no cyanosis. Neurovascular intact. Full, normal range of motion. Neuro: Awake and alert, GCS 15, oriented to person, place, time, and situation. Cranial nerves II-XII grossly intact. Motor strength 5/5 in all extremities. Sensory grossly intact. Cerebellar exam normal. Normal gait. Psych: Awake, alert, with orientation to person, place and time. Behavior, mood, and affect are within normal limits. 08:15 Respiratory: the patient does not display signs of respiratory distress, Respirations: normal, Breath sounds: rales, that are mild, are located in both bases, rhonchi, that are mild, are scattered, stridor, is not appreciated. 10:18 ECG was reviewed by the Attending Physician. kdr Vital Signs: 07:50 BP 142 / 93; Pulse 107; Resp 22; Temp 97.3; Pulse Ox 97% on R/A; Weight 53.52 kg (R); jl7 Height 5 ft. 1 in. (154.94 cm); Pain 0/10; 08:11 BP 139 / 73; Pulse 108; Resp 23; Pulse Ox 97% ; 7 09:00 BP 115 / 88; Pulse 105; Resp 19; Pulse Ox 95% ; 7 10:00 BP 128 / 97; Pulse 92; Resp 19; Pulse Ox 97% ; jl7 11:00 BP 121 / 91; Pulse 95; Resp 21; Pulse Ox 96% ; 7 13:26 BP 111 / 88; Pulse 97; Resp 19; Pulse Ox 98% ; 7 07:50 Body Mass Index 22.30 (53.52 kg, 154.94 cm) 7 MDM: 10:11 Patient medically screened. kdr 10:12 Data reviewed: vital signs, nurses notes, lab test result(s), radiologic studies. kdr Counseling: I had a detailed discussion with the patient and/or guardian regarding: the historical points, exam findings, and any diagnostic results supporting the discharge/admit diagnosis, lab results, radiology results, the need for further work-up and treatment in the hospital. 10/21 07:52 Order name: Basic Metabolic Panel; Complete Time: 08:49 kdr 10/21 07:52 Order name: CBC with Diff; Complete Time: 08:49 kdr 10/21 07:52 Order name: LFT's; Complete Time: 08:49 kdr 10/21 07:52 Order name: Magnesium; Complete Time: 08:49 kdr 10/21 07:52 Order name: NT PRO-BNP; Complete Time: 08:49 [facility] 10/21 07:52 Order name: PT-INR; Complete Time: 08:49 [facility] 10/21 07:52 Order name: Troponin (emerg Dept Use Only); Complete Time: 08:49 [facility] 10/21 07:52 Order name: XRAY Chest (1 view); Complete Time: 08:49 [facility] 10/21 08:14 Order name: D-Dimer; Complete Time: 10:02 [facility] 10/21 08:37 Order name: COVID-19 : Document "Date of Symptom Onset" if Symptomatic. jd3 10/21 08:50 Order name: CT Chest For PE Angio; Complete Time: 09:41 kdr 10/21 10:30 Order name: SARS-COV-2 RT PCR EDMS 10/21 07:52 Order name: EKG; Complete Time: 07:53 kdr 10/21 07:52 Order name: Cardiac monitoring; Complete Time: 08:10 [facility] 10/21 07:52 Order name: EKG - Nurse/Tech; Complete Time: 08:10 [facility] 10/21 07:52 Order name: IV Saline Lock; Complete Time: 08:10 [facility] 10/21 07:52 Order name: Labs collected and sent; Complete Time: 08:10 [facility] 10/21 07:52 Order name: O2 Per Protocol; Complete Time: 08:10 [facility] 10/21 07:52 Order name: O2 Sat Monitoring; Complete Time: 08:10 [facility] 10/21 12:35 Order name: Diet Heart Healthy; Complete Time: 12:35 mh5 EC:18 Rate is 106 beats/min. Rhythm is regular, Sinus tachycardia with No ectopy. QRS [place] is kdr Normal. CT interval is normal. QRS interval is normal. QT interval is normal. Clinical impression: NSR w/ Non-specific ST/T Changes and Sinus tachycardia. Administered Medications: 09:55 Drug: Lasix (furosemide) 40 mg Route: IVP; Site: right forearm; jl7 13:26 Follow up: Response: No adverse reaction jl7 13:03 Drug: Losartan 25 mg Route: PO; jl7 13:26 Follow up: Response: No adverse reaction jl7 13:04 Drug: Atorvastatin 40 mg Route: PO; jl7 13:26 Follow up: Response: No adverse reaction jl7 13:04 Drug: Xarelto (rivaroxaban) 15 mg Route: PO; jl7 13:26 Follow up: Response: No adverse reaction jl7 Disposition Summary: 10/21/20 10:11 Hospitalization Ordered Hospitalization Status: Observation kdr Provider: Enrrique Beth Location: Telemetry/MedSurg (observation) kdr Condition: Fair kdr Problem: an ongoing problem kdr Symptoms: are unchanged kdr Bed/Room Type: Standard kdr Room Assignment: 205(10/21/20 13:05) dw Diagnosis - Congestive heart failure kdr Forms: - Medication Reconciliation Form kdr - SBAR form kdr Signatures: Dispatcher [employer] Shy Dobbins RN RN dw Milan Smith MD MD kdr Gisel Cuenca RN RN jl7 Corrections: (The following items were deleted from the chart) 07:52 07:50 PSHx: mitral stuart repair; jl7 jl7 10:11 07:50 Home Meds: atorvastatin oral; jl7 jl7 10:11 07:50 Home Meds: Xarelto oral; jl7 jl7 10:11 07:50 Home Meds: Aspirin Oral; jl7 jl7 10:11 07:50 Home Meds: losartan oral; jl7 jl7 13:05 10:11 kdr dw
--- NOTE | 2020-10-21 10:12 | ER ---
Nurse's Notes [facility] Name: Shima Walters Age: 85 yrs Sex: Female : 1935 Arrival Date: 10/21/2020 Time: 07:47 Bed 2 Private MD: Stephy De Leon Diagnosis: Congestive heart failure Presentation: 10/21 07:47 Chief complaint: EMS states: Toned out for shortness of breath x 2 weeks, pt had a CVA jl7 2 weeks ago and since then when she lays down she feels like she can't breathe. Coronavirus screen: Client denies travel out of the [place] in the last 14 days. shortness of breath, Client presents with at least one sign or symptom that may indicate coronavirus-19. Standard/surgical mask placed on the client. Provider contacted for isolation considerations. Ebola Screen: No symptoms or risks identified at this time. Initial Sepsis Screen: Does the patient meet any 2 criteria? No. Patient's initial sepsis screen is negative. Does the patient have a suspected source of infection? No. Patient's initial sepsis screen is negative. Risk Assessment: Do you want to hurt yourself or someone else? Patient reports no desire to harm self or others. Onset of symptoms was October 07, 2020. Care prior to arrival: None. Transition of care: patient was not received from another setting of care. 07:47 Method Of Arrival: EMS: [facility] jl7 07:47 Acuity: KERRY 3 jl7 Triage Assessment: 07:50 General: Appears in no apparent distress. uncomfortable, Behavior is calm, cooperative, jl7 appropriate for age. Pain: Denies pain. Neuro: Level of Consciousness is awake, alert, obeys commands, Oriented to person, place, time, situation. Cardiovascular: Denies chest pain, diaphoresis, Patient's skin is warm and dry. Chest pain is denied. Respiratory: Reports shortness of breath at rest Airway is patent Respiratory effort is even, unlabored, Respiratory pattern is symmetrical, tachypnea Onset: The symptoms/episode began/occurred x 2 weeks, the patient has mild shortness of breath. Derm: Skin is pink, warm \\T\\ dry. Historical: - Allergies: 07:50 Codeine; jl7 - Home Meds: 10:11 atorvastatin 40 mg oral tab [Active]; Xarelto 15 mg oral tab [Active]; aspirin 81 mg jl7 oral TbEC [Active]; losartan 25 mg oral tab [Active]; - PMHx: 07:50 CVA; jl7 - PSHx: 07:50 mitral valve repair; jl7 - Immunization history:: Adult Immunizations up to date, Client reports receiving the 2nd dose of the Covid vaccine. - Social history:: Smoking status: Patient denies any tobacco usage or history of. Screenin:55 Abuse screen: Denies threats or abuse. Denies injuries from another. Nutritional jl7 screening: No deficits noted. Tuberculosis screening: No symptoms or risk factors identified. Fall Risk IV access (20 points). Total Thompson Fall Scale indicates No Risk (0-24 pts). Assessment: 07:55 Reassessment: Family at bedside. jl7 08:10 Reassessment: Bracelets removed and given to [id number], Afshan Cartwright. jl7 08:11 Reassessment: Dr. Smith at bedside. General:. jl7 09:00 Reassessment: Patient appears in no apparent distress at this time. No changes from jl7 previously documented assessment. Patient and/or family updated on plan of care and expected duration. Pain level reassessed. Patient is alert, oriented x 3, equal unlabored respirations, skin warm/dry/pink. 10:00 Reassessment: Patient appears in no apparent distress at this time. No changes from jl7 previously documented assessment. Patient and/or family updated on plan of care and expected duration. Pain level reassessed. Patient is alert, oriented x 3, equal unlabored respirations, skin warm/dry/pink. 11:00 Reassessment: Patient appears in no apparent distress at this time. No changes from jl7 previously documented assessment. Patient and/or family updated on plan of care and expected duration. Pain level reassessed. Patient is alert, oriented x 3, equal unlabored respirations, skin warm/dry/pink. 13:00 Reassessment: Patient appears in no apparent distress at this time. No changes from jl7 previously documented assessment. Patient and/or family updated on plan of care and expected duration. Pain level reassessed. Patient is alert, oriented x 3, equal unlabored respirations, skin warm/dry/pink. Vital Signs: 07:50 BP 142 / 93; Pulse 107; Resp 22; Temp 97.3; Pulse Ox 97% on R/A; Weight 53.52 kg (R); jl7 Height 5 ft. 1 in. (154.94 cm); Pain 0/10; 08:11 BP 139 / 73; Pulse 108; Resp 23; Pulse Ox 97% ; jl7 09:00 BP 115 / 88; Pulse 105; Resp 19; Pulse Ox 95% ; jl7 10:00 BP 128 / 97; Pulse 92; Resp 19; Pulse Ox 97% ; jl7 11:00 BP 121 / 91; Pulse 95; Resp 21; Pulse Ox 96% ; jl7 13:26 BP 111 / 88; Pulse 97; Resp 19; Pulse Ox 98% ; jl7 07:50 Body Mass Index 22.30 (53.52 kg, 154.94 cm) jl7 ED Course: 07:47 Patient arrived in ED. jl7 07:50 Milan Smith MD is Attending Physician. kdr 07:50 Triage completed. jl7 07:50 Arm band placed on right wrist. jl7 07:55 Patient has correct armband on for positive identification. Placed in gown. Bed in low jl7 position. Call light in reach. Side rails up X 1. metal bonding assembler on. Pulse ox on. NIBP on. Warm blanket given. 08:10 Gisel Cuenca, PINEDA is Primary Nurse. jl7 08:11 Initial lab(s) drawn, by me, sent to lab. EKG done, by ED staff, reviewed by Milan Smith MD. Inserted saline lock: 20 gauge in right forearm, using aseptic technique. Blood collected. 08:19 XRAY Chest (1 view) In Process Unspecified. EDMS 08:33 Stephy De Leon MD is Private Physician. am2 09:19 COVID-19 : Document "Date of Symptom Onset" if Symptomatic. Sent. 5 09:19 COVID swab sent to lab. mh5 09:25 CT Chest For PE Angio In Process Unspecified. EDMS 10:07 Enrrique Beth is Hospitalizing Provider. kdr 13:26 No provider procedures requiring assistance completed. Patient admitted, IV remains in jl7 place. intact, No redness/swelling at site. Administered Medications: 09:55 Drug: Lasix (furosemide) 40 mg Route: IVP; Site: right forearm; jl7 13:26 Follow up: Response: No adverse reaction jl7 13:03 Drug: Losartan 25 mg Route: PO; jl7 13:26 Follow up: Response: No adverse reaction jl7 13:04 Drug: Atorvastatin 40 mg Route: PO; jl7 13: Follow up: Response: No adverse reaction jl7 13:04 Drug: Xarelto (rivaroxaban) 15 mg Route: PO; jl7 13:26 Follow up: Response: No adverse reaction jl7 Outcome: 10:11 Decision to Hospitalize by Provider. kdr 13:36 Admitted to Tele accompanied by tech, via wheelchair, room 205, with chart, Report jl7 called to PINEDA Griffin 13:36 Condition: stable 13:36 Discharge instructions given to patient, Instructed on the need for admit, Demonstrated understanding of instructions. 13:58 Patient left the ED. jl7 Signatures: Dispatcher [employer] EDMS Milan Smith MD MD kdr Martinez, Maria Gisel Juan RN RN [email or web address] Alvina Bird 2 Corrections: (The following items were deleted from the chart) 07:52 07:50 PSHx: mitral stuart repair; jl7 jl7 10:11 07:50 Home Meds: atorvastatin oral; jl7 jl7 10:11 07:50 Home Meds: Xarelto oral; jl7 jl7 10:11 07:50 Home Meds: Aspirin Oral; jl7 jl7 10:11 07:50 Home Meds: losartan oral; jl7 jl7
[2020-10-21] MEDS ORDERED: FUROSEMIDE 40 MG/4 ML VIAL ONE (10:16)
[2020-10-21] MEDS ORDERED: LOSARTAN POTASSIUM 50 MG TABLET PO ONE (11:00)
[2020-10-21] MEDS ORDERED: RIVAROXABAN 15 MG TABLET PO ONE (11:00)
[2020-10-21] MEDS ORDERED: ATORVASTATIN 40 MG TAB PO ONE (11:00)
--- NOTE | 2020-10-21 12:29 | P.HP ---
Certification for Inpatient Patient admitted to: Observation With expected LOS: <2 Midnights Patient will require the following post-hospital care: None Practitioner: I am a practitioner with admitting privileges, knowledge of patient current condition, hospital course, and medical plan of care. Services: Services provided to patient in accordance with Admission requirements found in Title 42 Section 412.3 of the Code of Federal Regulations Patient History Date of Service: 10/21/20 Primary Care Provider: Dr. 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 She states that she has been experiencing worsening shortness of breath ever since her last hospitalization 2 weeks ago. SOB is worse with lying down and with activity. Denies any chest pain, leg swelling, fever, chills, nausea. She reports she does not take any diuretics. Negative troponin BNP 5465 CXR: No evidence of edema or pneumonia. Cardiomegaly. Pacemaker.No acute osseous abnormality. No significant pleural effusions or pneumothorax. IMPRESSION: No acute cardiopulmonary disease. CTA: IMPRESSION: Negative for pulmonary embolism. Pulmonary edema as well as findings suggesting right heart failure. Difficult to entirely exclude pneumonia/ pneumonitis at the lung bases, particularly on the right side. 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 moist/pink, EOMI Neck: Supple Respiratory: Crackles/rales (bilateral) Cardiovascular: No edema, Normal S1 S2 Capillary refill: <2 Seconds Gastrointestinal: Normal bowel sounds, No tenderness, No masses, No guarding Musculoskeletal: No clubbing, No swelling Integumentary: No breakdown, No erythema Neurological: Normal speech, Normal tone, Normal affect Lymphatics: No axilla or inguinal lymphadenopathy - Studies Laboratory Data (last 24 hrs) 10/21/20 08:08: PT 13.2 H, INR 1.15 10/21/20 08:08: WBC 7.80, Hgb 10.0 L, Hct 29.6 L, Plt Count 231 10/21/20 08:08: Sodium 137, Potassium 3.7, BUN 12, Creatinine 0.67, Glucose 121 H, Magnesium 2.0, Total Bilirubin 0.5, AST 21, ALT 26, Alkaline Phosphatase 66 Assessment and Plan - Plan impression: dypsnea likely secondary to acute CHF exacerbation h/o multiple TIAs afib, on xarelto plan: -continue IV lasix 40 mg BID -echo on 09/27/20 shows EF 30% -fluid restriction -monitor intake and outtake -daily weights -hemoglobin has been trending down, will work up anemia -iron, ferritin, TIBC, vit B12 ordered -CT could not exclude pneumonia/pneumonitis. Will continue to monitor VTE: xarelto code: full dispo: anticipate d/c home in 24h Discharge Plan: Home Plan to discharge in: 24 Hours - Advance Directives Does patient have a Living Will: No Does patient have a Durable POA for Healthcare: No - Code Status/Comfort Care Code Status Assessed: Yes (full) Time Spent Managing Pts Care (In Minutes): 55
[2020-10-21] MEDS ORDERED: ONDANSETRON 4 MG/2 ML VIAL IV PRN (13:29)
[2020-10-21] MEDS ORDERED: ACETAMINOPHEN 500 MG TAB PO PRN (13:29)
[2020-10-21 14:08] VITALS: BMI 20.8
[2020-10-21 16:23] LABS: Urine Appearance CLEAR (Clear); Urine Bilirubin NEGATIVE (Negative); Urine Blood NEGATIVE (Negative); Urine Color YELLOW (Yellow); Urine Glucose NEGATIVE (Negative); Urine Protein NEGATIVE (Negative); Urine Urobilinogen 0.2 mg/dL (0.2-1.0)
[2020-10-21 16:26] LABS: Urine Microscopic Reflex ORDER UMIC
[2020-10-21 17:01] LABS: Urine Bacteria <20 /HPF (<20); Urine RBC <5 /HPF (NONE SEEN)
[2020-10-21] MEDS: FUROSEMIDE 40 MG/4 ML VIAL IV SCH (20:59)
[2020-10-21] MEDS ORDERED: POTASSIUM CL SA 10 MEQ TAB PO ONE (21:00)
[2020-10-22 04:29] LABS: Absolute Lymphocytes (CBC) 1.5 K/uL (0.7-4.9); Basophils % 0.7 % (0-1.3); Hematocrit 33.3 % (36.0-45.0); Lymphocytes % 19.2 % (15.3-44.8); MPV 7.2 fL (7.6-11.3); RBC Red Blood Cell Count 3.79 M/uL (3.86-4.86)
[2020-10-22 05:01] LABS: Ferritin 27.2 ng/mL (8-388); Potassium 3.4 mmol/L (3.5-5.1)
[2020-10-22] MEDS ORDERED: POTASSIUM CL SA 10 MEQ TAB PO ONE (06:00)
--- NOTE | 2020-10-22 07:29 | EKG ---
Test Date: 2020-10-21 Test Time: 08:04:05 Exhibits Curator: MARTA MEASUREMENT RESULTS: Intervals: Rate: 106 VA: 208 QRSD: 114 QT: 352 QTc: 467 Secor: P: VA: 208 QRS: 50 T: -43 INTERPRETIVE STATEMENTS: Sinus tachycardia ST & T wave abnormality, consider inferolateral ischemia Abnormal ECG Compared to ECG 09/26/2020 18:25:38 ST (T wave) deviation now present Possible ischemia now present Ventricular-paced complex(es) or rhythm no longer present Electronically Signed On 10-22-20 07:27:55 CDT by Drew Sherman
[2020-10-22] MEDS: FUROSEMIDE 40 MG/4 ML VIAL IV SCH (08:15)
[2020-10-22 08:24] VITALS: BP 117/67; TEMP 97.1
[2020-10-22 09:30] VITALS: O2SAT 95
--- NOTE | 2020-10-22 09:53 | P.DS ---
Admission Date: 10/21/20 Discharge Date: 10/22/20 Primary Care Provider: Dr. De Leon Disposition: ROUTINE DISCHARGE Discharge Condition: GOOD Reason for Admission: shortness of breath Procedures: CXR (10/21): No acute cardiopulmonary disease. Cardiomegaly noted. Pacemaker noted. CTA chest (10/21): Negative for PE. Pulmonary edema as well as finding suggesting right heart failure. Marked enlargement of the main pulmonary artery. Small bilateral pleural effusions. 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 Associated with orthopnea and dyspnea on exertion. Denies any chest pain, leg swelling, fever, chills, nausea. She reports she does not take any diuretics. Denies any CHF history. Hospital Course: Review of her echocardiogram obtained approximately 2 weeks ago revealed EF of 30%, global hypokinesis. Patient had significant improvement of her symptoms with IV diuresis. She was discharged home with 20 mg p.o. Lasix daily. She was advised to follow-up with PCP in 3 to 5 days Follow-up with her computer network and systems engineer in ~2 weeks. Vital Signs/Physical Exam: Temp Pulse Resp BP Pulse Ox 97.1 F 101 H 18 117/67 95 10/22/20 08:00 10/22/20 08:00 10/22/20 08:00 10/22/20 08:00 10/22/20 08:00 General: Alert, In no apparent distress, Oriented x3 HEENT: Sclerae nonicteric Neck: Supple Respiratory: Clear to auscultation bilaterally, Diminished Cardiovascular: No edema, Regular rate/rhythm, Normal S1 S2 Gastrointestinal: Soft and benign, Non-distended, No tenderness Musculoskeletal: No erythema, No tenderness Integumentary: No rashes Neurological: Normal speech, Normal affect Laboratory Data at Discharge: WBC 8.10 K/uL (4.3-10.9) 10/22/20 03:42 Hgb 11.3 g/dL (12.0-15.0) L 10/22/20 03:42 Hct 33.3 % (36.0-45.0) L 10/22/20 03:42 Plt Count 265 K/uL (152-406) 10/22/20 03:42 PT 13.2 SECONDS (9.5-12.5) H 10/21/20 08:08 INR 1.15 10/21/20 08:08 Sodium 138 mmol/L (136-145) 10/22/20 03:42 Potassium 3.4 mmol/L (3.5-5.1) L 10/22/20 03:42 BUN 13 mg/dL (7-18) 10/22/20 03:42 Creatinine 0.78 mg/dL (0.55-1.3) 10/22/20 03:42 Glucose 121 mg/dL (74-106) H 10/22/20 03:42 Magnesium 2.0 mg/dL (1.8-2.4) 10/21/20 08:08 Total Bilirubin 0.5 mg/dL (0.2-1.0) 10/21/20 08:08 AST 21 U/L (15-37) 10/21/20 08:08 ALT 26 U/L (12-78) 10/21/20 08:08 Alkaline Phosphatase 66 U/L (45-117) 10/21/20 08:08 Home Medications: Atorvastatin Calcium 1 tab PO BREAKFAST 09/26/20 Rivaroxaban [Xarelto] 1 tab PO BREAKFAST 09/26/20 Aspirin 81 mg PO DAILY 30 Days #30 tab.chew 09/27/20 Folic Acid 1 mg PO DAILY 30 Days #30 tablet 09/27/20 Losartan Potassium [Cozaar] 25 mg PO DAILY 10/21/20 Furosemide [Lasix] 20 mg PO DAILY 30 Days #30 tablet 10/22/20 New Medications: Furosemide [Lasix] 20 mg PO DAILY 30 Days #30 tablet Physician Discharge Instructions: You were found to have acute congestive heart failure. Your ejection fraction was noted to be 30% on your echocardiogram last week. Resume home medications as previously scheduled. Furosemide 20mg daily has been added to your medications to help keep the fluid off. Follow up with Dr. Sherman in 1-2 weeks. Follow up with your PCP in 3-5 days. Diet: AHA Activity: Ad álvaro Followup: Drew Sherman MD [ACTIVE - CAN ADMIT] - Stephy De Leon DO [Primary Care Provider] - Time spent managing pt's care (in minutes): 40
--- NOTE | 2020-10-22 11:48 | EKG ---
Test Date: 2020-10-21 Test Time: 13:31:28 Pulley Worker: MARTA MEASUREMENT RESULTS: Intervals: Rate: 99 MD: 224 QRSD: 172 QT: 436 QTc: 559 [place]: P: MD: 224 QRS: -82 T: 91 INTERPRETIVE STATEMENTS: Electronic ventricular pacemaker Compared to ECG 10/21/2020 08:04:05 Sinus tachycardia no longer present ST (T wave) deviation no longer present Possible ischemia no longer present Electronically Signed On 10-22-20 11:47:09 CDT by Drew Sherman
--- NOTE | 2020-10-22 11:48 | EKG ---
Test Date: 2020-10-21 Test Time: 13:32:02 Log Check Scaler: MARTA MEASUREMENT RESULTS: Intervals: Rate: 99 [place]: QRSD: 168 QT: 438 QTc: 562 [place]: P: [place]: QRS: -79 T: 91 INTERPRETIVE STATEMENTS: Electronic ventricular pacemaker Compared to ECG 10/21/2020 13:31:28 No significant changes Electronically Signed On 10-22-20 11:47:06 CDT by Drew Sherman
== END 2020-10-22 10:55 | disposition home or self-care (01) ==
LOC: ER 07:39 → ERHOLD 11:39 → 2ND 13:37
PROVIDERS: ADMIT Internal Medicine; ATTEND Hospitalist
DX: I50.9 Heart failure, unspecified (principal); R09.02 Hypoxemia; H54.62 Unqualified visual loss, left eye, normal vision right eye; Z95.2 Presence of prosthetic heart valve; Z79.01 Long term (current) use of anticoagulants; Z79.82 Long term (current) use of aspirin; Z95.0 Presence of cardiac pacemaker; Z86.73 Personal history of transient ischemic attack (TIA), and cerebral infarction without residual deficits; Z85.820 Personal history of malignant melanoma of skin; Z20.822 Contact with and (suspected) exposure to COVID-19; Z82.49 Family history of ischemic heart disease and other diseases of the circulatory system
CPT/HCPCS: 93005 ×3; 85025 ×2; 80048 ×2; 36415; 83735; 85610; 85379; 80076; 84484; 82728; 82607; 83540; 83880; 84466; 71275; 71045; 96374; 99285; U0003; Q9967; J1940 ×3; G0378 ×3; 81003; 81015

== ENCOUNTER 2020-12-01 13:58 | Emergency (ER) | payer OTHER ==
--- OUTSIDE RECORDS SUMMARY | 2020-12-01 14:02 | XMS REPORT | Continuity of Care Document ---
:1935 Author Organization [facility] t Address [address] [place] [address] Care Team Providers Name Role Phone [phone] Primary Care Physician Unavailable SYSTEM, NOT IN Attending Clinician Unavailable Al Singer Attending Clinician Hematpour Attending Clinician JUSTIN ALVAREZ Attending Clinician Unavailable Hematpour Admitting Clinician JUSTIN ALVAREZ Admitting Clinician Unavailable Problems Condition Condition Condition Status Onset Resolution Last Treating Co mments Source Name Details Category Date Date Treatment Clinician Date I48.0 Diagnosis Active 2018-10-15 Mem oria 09-01 15:31:00 l I48.0 00:00: Hathorne 00 Active 09/01/2018 [facility] CCL / EPS Diagnosis Active 2018-09-14 Memoria PVI 09-01 08:17:00 l ABLATION CCL / 00:00: Frandy W/ CARTO / EPS PVI 00 DUAL P ABLATION W/ CARTO / DUAL P Active 09/01/2018 [facility] Acute Acute Disease Active [facility] encephalop encephalop 3-03 Audrey kes - athy athy 00:00: Medical 00 [facility] Acute Acute Disease Active [facility] ischemic ischemic 3-02 [facility] stroke stroke 00:00: Medical 00 [facility] Received Received Disease [facility] tissue [facility]02 [facility] plasminoge plasminoge 00:00: Me dical n n 00 Center activator activator (t-PA) (t-PA) less than less than 24 hours 24 hours prior to prior to arrival arrival Cardiac Problem Active 2020-11-17 Mukul armando 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:28:06 l in situ Cardiac Manuel n (finding) pacemaker in situ (finding) Active Problem 11/17/2020 [facility] Congestive Problem Active 2020-11-17 M emoria heart 21:28:06 l failure Hathorne (disorder) Congestive heart failure (disorder) Active Problem 11/17/2020 [facility] Dizziness Problem Active 2020-11-17 Me moria (finding) 21:28:06 l [place] Dizziness (finding) Active Problem 11/17/2020 [facility] Hyperlipid Problem Active 2020-11-17 M emoria emia 21:28:06 l (disorder) Manuel n Hyperlipid emia (disorder) Active Problem 11/17/2020 [facility] Lumbar Problem Active 2020-11-17 Memor ia radiculopa 21:28:06 l thy Lumbar Frandy (disorder) radiculopa thy (disorder) Active Problem 11/17/2020 [facility] 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 Problem 11/17/2020 [facility] 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) Active Problem 11/17/2020 [facility] Syncope Problem Active 2020-11-17 Mukul armando (disorder) 21:28:06 l Syncope Hathorne (disorder) Active Problem 11/17/2020 [facility] Allergies, Adverse Reactions, Alerts Allergy Allergy Status Severity Reaction(s) Onset Inactive Treating Comm ents Source Name Type Date Date Clinician Codeine Drug Active Other (See 2019-0 Chest [facility]03 [facility] Center codeine codeine Active Memoria l [place] Vicodin Vicodin Active Memoria l [place] codeine Adverse Active Info Not [facility] Reaction Available [facility] Family History Family Member Diagnosis Comments Start Date Stop Date Source Natural brother Diabetes [facility] Natural brother Heart disease [facility] Natural daughter [facility] Natural mother Heart disease [facility] Social History Social Habit Start Date Stop Date Quantity Comments Source [facility] Dian[facility] Sex Assigned At [facility] Tobacco use and 2018-06-03 2018-06-03 Never used [facility] - exposure 00:00:00 00:00:00 [facility] Alcohol intake 2018-06-03 2018-06-03 [facility]00 non-drinker of Medical Ce nter alcohol (finding) History [facility] 2018-06-03 2018-06-03 1 [facility]meet - Alcohol Frequency 00:00:00 00:00:00 [facility] Smoking Status Start Date Stop Date Source Social History [facility] Medications Ordered Filled Start Stop Current Ordering Indication Dosage Frequency Signature Comments Components Source Medication Medication Date Date Medication? Clinician (SIG) Name Name Cetirizine Cetirizine 2019-0 Yes Na De Leon 1 tablet [facility] HCl HCl 9-04 [facility] - 00:00: Memoria [...] tab, PO, l Tablet 20:45: Daily, 0 Frandy 00 Refill(s) meclizine 2020-0 Yes 25 mg = 1 Mem oria 25 mg oral 3-24 tab, PO, l tablet 20:45: BID, 0 Frandy 00 Refill(s) montelukast 2020-0 Yes 10 mg = 1 M emoria 10 mg oral 3-24 tab, PO, l tablet 20:45: Daily, 0 [place] 00 Refill(s) 24 HR Yes 25 mg = 1 Memoria mirabegron 3-24 tab, PO, l 25 MG 20:45: Daily, # [place] Extended 00 30 tab, 5 Release Refill(s) [...] food [facility]: [facility] No Notes: Mukul armando 6-13 (Same l 14:00: as:Singula Frandy 00 ir) Losartan No Notes: Memoria 6-13 (Same as: l 14:00: Cozaar) Frandy 00 pantoprazol No Notes: Mukul armando e 6-13 Tablet l 12:30: should not [place] 00 be chewed or crushed. (Same as: Protonix) pantoprazol Yes 40 mg, PO, Memoria e 40 mg 6-13 Daily, # l oral 12:09: 30 tab, 0 [place]orne enteric 00 Refill(s) coated tablet rivaroxaban Yes [...] 6-12 Drug form: l 17:06: INJ, ONCE, Frandy 00 Stop date: 09/14/18 12:06:00 CDT rocuronium [...] emoria 6-12 Rate: 100 l 13:26: ml/hr, [place]athorne 00 Infuse over: 10 hr, Route: IV, Dosing Weight 55.909 kg, Total Volume: 1,000, Start date: 09/14/18 8:26:00 CDT, Duration: 30 day, Stop date: 10/14/18 8:25:00 CDT, 1.56, m2 Pantoprazol Pantoprazol Yes Na De Leon [address] [facility] Sodium e Sodium [facility] Loratadine Loratadine Yes Na De Leon [address] [facility] Atorvastati Atorvastati Yes Na De Leon [address] [facility] n Calcium n Calcium [facility] Meclizine Meclizine Yes Na De Leon [address] [facility] HCl HCl as needed [facility] Losartan Losartan Yes Na De Leon [address] [facility] Potassium Potassium [facility] Estradiol Estradiol Yes Na De Leon 1/[address] [facility] Myrbetriq Myrbetriq Yes Na De Leon [address] [facility] Ferrous Ferrous Yes Na De Leon [address] Sulfate Sulfate [facility] Singulair Singulair Yes Na De Leon [address] [facility] in the [facility] Amiodarone Amiodarone Yes Na De Leon [address] [facility] HCl HCl [facility] Coreg Coreg Yes Na De Leon 1 tablets [facility] Trelegy Trelegy Yes Na De Leon [address] [facility] Ellipta Ellipta [facility] Hemocyte Hemocyte Yes Na De Leon [address] [facility] Plus Plus [facility] Lasix Lasix Yes Na De Leon [address] [facility] Sucralfate Sucralfate Yes Na De Leon TAKE ONE [facility] TABLET BY [facility] - MOUTH Memoria TWICE A l DAY [facility] Myrbetriq Myrbetriq Yes Na De Leon [address] [facility] [facility] Flonase Flonase Yes Na De Leon [address] [facility] each [facility] nostril [facility] Vital Signs Vital Name Observation Time Observation Value Comments Source Systolic (mm Hg) 2019-11-16 14:27:00 Mukul rial [place] Diastolic (mm Hg) 2019-11-16 14:27:00 Mem orial Frandy Heart Rate 2019-11-16 14:27:00 Memorial Frandy Respitory Rate 2019-11-16 14:27:00 Memori al [place] Height 2019-11-16 14:27:00 152.4 cm [facility] [place] Weight 2019-11-16 14:27:00 Memorial Frandy BMI Calculated 2019-11-16 14:27:00 Memori al Frandy Systolic (mm Hg) 2019-09-12 20:01:00 Mukul rial [place] Diastolic (mm Hg) 2019-09-12 20:01:00 Mem orial [place] Heart Rate 2019-09-12 20:01:00 Memorial [place] Respitory Rate 2019-09-12 20:01:00 Memori al Frandy Height 2019-09-12 20:01:00 152.4 cm [facility] [place] Weight 2019-09-12 20:01:00 [facility] [place] BMI Calculated 2019-09-12 20:01:00 Memori al Frandy Systolic (mm Hg) 2019-06-27 20:30:00 Mukul rial Frandy Diastolic (mm Hg) 2019-06-27 20:30:00 Mem orial [place] Heart Rate 2019-06-27 20:30:00 Memorial Frandy Respitory Rate 2019-06-27 20:30:00 Memori al [place] Height 2019-06-27 20:30:00 149.86 cm Memorial [place] Weight 2019-06-27 20:30:00 Memorial [place] BMI Calculated 2019-06-27 20:30:00 Memori al Frandy Respitory Rate 2018-09-15 13:00:00 Memori al Frandy Respitory Rate 2018-09-15 11:30:00 Memori al [place]orne Systolic (mm Hg) 2018-09-15 11:30:00 Mukul rial Frandy Diastolic (mm Hg) 2018-09-15 11:30:00 Mem orial [place] Temperature Oral (F) 2018-09-15 11:30:00 97.2 F [facility] [place] Respitory Rate 2018-09-15 09:43:00 Memori al Frandy Systolic (mm Hg) 2018-09-15 09:15:00 Mukul rial Frandy Diastolic (mm Hg) 2018-09-15 09:15:00 Mem orial Frandy Systolic (mm Hg) 2018-09-15 06:30:00 Mukul rial Hathorne Diastolic (mm Hg) 2018-09-15 06:30:00 Mem orial [place] Temperature Oral (F) 2018-09-15 01:45:00 98.7 F Memorial [place] Temperature Oral (F) 2018-09-14 14:00:00 97.2 F Memorial Frandy BMI Calculated 2018-09-14 13:25:00 Memonofre al [place] Weight 2018-09-14 13:25:00 Memorial Frandy Height 2018-09-14 13:25:00 152.4 cm [facility] Procedures Procedure Date / Time Performed Performing Clinician Sourc e Mitral valvoplasty [facility] Herm geo Plan of Care Planned [...] 00:00:00 (1 of 1 - Medical Center [id number] PCV13) [code = PNEUMOCOCCAL 65+ YRS (1 of 1 - [id number] PCV13)] Future Scheduled 1985-06-23 SHINGLES VACCINES (1 [...] Clinicians Facility Department ID 2020-10-16 Outpatient SYSTEM, [facility] SARAH [id number] 14:10:15 PROVIDER Parish o n 2020-11-22 2020-11-22 Outpatient [facility] [id number] [facility] 2020-11-20 2020-11-20 Out[facility] [id number] [facility] 2020-11-20 2020-11-20 Out[facility] [id number] [facility] 2020-11-15 2020-11-15 Ambulatory nullFlavo MNA [id number] Memoria 14:45:00 14:45:00 Pre-Reg r Neurology 08 l Kennethbrian Borjasann 2020-11-15 2020-11-15 Outpatient MHIE RUFUSIE [id number] Memoria 09:45:00 09:45:00 08 l Frandy 2020-11-15 2020-11-15 Outpatient BYRON SingerMISCHKATLIN [id number] 09:45:00 09:45:00 Neil Melendez 2020-10-29 2020-10-29 Outpatient [facility] [id number] [facility] 2020-10-28 2020-10-28 Outpatient [facility] [id number] [facility] 2020-10-23 2020-10-23 Outpatient [facility] [id number] [facility] 2020-10-11 2020-10-11 Outpatient [facility] [id number] [facility] 2020-09-30 2020-10-02 Outside nullFlavo MNA [id number] Memoria 22:31:13 04:59:59 Medical r Neurology 01 l Records Lui Wise 2020-10-02 2020-10-02 Outpatient [facility] [id number] [facility] 2020-09-30 2020-10-01 Outpatient MHMISCHER MHMISCHER [id number] 17:31:13 23:59:59 01 2020-09-23 2020-09-23 Outpatient [facility] [id number] [facility] 2020-09-18 2020-09-18 Outpatient [facility] [id number] [facility] 2020-07-30 2020-07-30 Outpatient [facility] [id number] [facility] 2020-04-30 2020-04-30 Outpatient [facility] [id number] [facility] 2020-04-12 2020-04-12 Outpatient [facility] [id number] [facility] 2020-01-29 2020-01-29 Outpatient [facility] [id number] [facility] 2020-01-01 2020-01-01 Outpatient [facility] [id number] [facility] 2019-12-28 2019-12-28 Ambulatory nullFlavo MNA [id number] Memoria 14:15:00 14:15:00 Pre-Reg r Neurology 06 l Kenneth Frandy 2019-12-28 2019-12-28 Outpatient MHIE MHIE [id number] Memoria 09:15:00 09:15:00 06 l Hathorne 2019-12-28 2019-12-28 Outpatient BYRON Singer MISCHER [id number] 09:15:00 09:15:00 Neil 06 Al 2019-12-08 2019-12-08 [facility] [id number] [facility] 10:40:00 10:40:[address] [facility] 2019-12-07 2019-12-07 [facility] [id number] [facility] 17:09:00 17:09:[address] [facility] 2019-11-24 2019-11-25 Outpatient nullFlavo MNA [id number] Memoria 18:00:00 04:59:59 r Neurology 07 l Kenneth Hathorne 2019-11-24 2019-11-24 Outpatient BYRON Singer MISCHER [id number] 13:00:00 23:59:59 Neil 07 Al 2019-11-24 2019-11-24 Outpatient MHIE MHIE [id number] Memoria 13:00:00 13:00:00 07 l Frandy 2019-11-16 2019-11-17 Outpatient nullFlavo MNA [id number] [facility] 14:15:00 04:59:59 r Neurology 05 l Lui Frandy 2019-11-16 2019-11-16 Outpatient BYRON Singer MISCHER [id number] 09:15:00 23:59:59 Neil 05 Al 2019-11-16 2019-11-16 Outpatient MHIE MHIE [id number] Memoria 09:15:00 09:15:00 05 l Hathorne 2019-11-09 2019-11-11 Outside nullFlavo MNA [id number] Memoria 19:37:54 04:59:59 Medical r Neurology 00 l Records Kennethbrian Borjasann 2019-11-09 2019-11-10 Outpatient MHMISCHER MHMISCHER [id number] 14:37:54 23:59:59 2019-11-03 2019-11-03 [facility] [id number] [facility] 11:20:00 11:20:00 [employer] [facility] 2019-10-24 2019-10-24 Ambulatory nullFlavo MNA [id number] Memoria 19:30:00 19:30:00 Pre-Reg r Neurology 03 l Lui Hathorne 2019-10-24 2019-10-24 Ambulatory nullFlavo MNA [id number] Mem[facility] 19:30:00 19:30:00 Pre-Reg r Neurology 04 l Lui Hathorne 2019-10-24 2019-10-24 Outpatient MHIE MHIE [id number] Memoria 14:30:00 14:30:00 04 l Hathorne 2019-10-24 2019-10-24 Outpatient MHIE MHIE [id number] Memoria 14:30:00 14:30:00 03 blanche Hathorne 2019-10-24 2019-10-24 Outpatient Lucrecia MHMISCHER MHMISCHER [id number] 14:30:00 14:30:00 Neil 04 [facility] 2019-10-24 2019-10-24 Outpatient Lucrecia MHMISCHER MHMISCHER [id number] 14:30:00 14:30:00 Neil 03 [facility] 2019-10-03 2019-10-03 [facility] [id number] [facility] 08:13:00 08:13:00 [employer] [facility] 2019-09-24 2019-09-24 [facility] [id number] [facility] 01:13:00 01:13:00 [facility] [employer] [facility] 2019-09-12 2019-09-13 Outpatient nullFlavo MNA [id number] Memoria 19:45:00 04:59:59 r Neurology 02 l Lui Hathorne 2019-09-12 2019-09-12 Outpatient Lucrecia MHMISCHER MHMISCHER [id number] 14:45:00 23:59:59 Neil 02 [facility] 2019-09-12 2019-09-12 Outpatient MHIE MHIE [id number] Memoria 14:45:00 14:45:00 02 l [place]athorne 2019-09-07 2019-09-07 [facility] [id number] [facility] 13:30:00 13:30:00 t Specialty/U Audrey kes - Specialty rology Memori a /Urology Clinic l Clinic Outpati ent Clinics 2019-09-07 2019-09-07 [facility] [id number] [facility] 10:20:00 10:20:00 t [employer] [facility] Outpati ent [facility] 2019-08-08 2019-08-08 Ambulatory nullFlavo MNA [id number] Memoria 20:00:00 20:00:00 [facility]Reg [facility] 2019-08-[facility] 2019-08-08 Outpatient MHIE MHIE [id number] Memoria 15:00:00 15:00:00 01 l Hathorne 2019-08-08 2019-08-08 Outpatient RUFUS SingerMISCHER MHMISCHER [id number] 15:00:00 15:00:00 Neil 01 Al 2019-07-07 2019-07-07 [facility] [id number] 14:00:00 14:00:00 t Specialty/U Audrey kes - Specialty rology Memori a /Urology Clinic l Clinic Outpati ent Clinics 2019-06-27 2019-06-28 Outpatient nullFlavo MNA [id number] Memoria 20:00:00 04:59:59 r Neurology 00 l Kenneth Hathorne 2019-06-27 2019-06-27 Outpatient RUFUS SingerMISCHER MHMISCHER [id number] 15:00:00 23:59:59 Neil 00 [facility] 2019-06-27 2019-06-27 Outpatient MHIE MHIE [id number] Memoria 15:00:00 15:00:00 00 l Hathorne 2019-06-02 2019-06-02 [facility] [id number] [facility] 09:00:00 09:00:00 t Specialty/U Audrey kes - Specialty rology Memori a /Urology Clinic l Clinic Outpati ent Clinics 2019-05-29 2019-05-29 [facility] [id number] 09:00:00 09:00:00 t [employer] [facility] Medicine Outpati ent Clinics 2019-05-19 2019-05-19 [facility] [id number] 03:30:00 03:30:00 t Wideman Swank s - [employer] [facility] Medicine l Medicine Outpati ent Clinics 2019-05-15 2019-05-15 [facility] [id number] 10:48:00 10:48:00 t Wideman Swank s [employer] [facility] Medicine l Medicine Outpati ent Clinics 2019-05-15 2019-05-15 [facility] [id number] 10:20:00 10:20:00 t Wideman Swank s [employer] [facility] Medicine l Medicine Outpati ent Clinics 2019-05-15 2019-05-15 [facility] [id number] [address] 09:05:00 09:05:00 t Wideman Swank s [employer] [facility] Medicine l Medicine Outpati ent Clinics 2019-05-04 2019-05-04 [facility] [id number] 13:03:00 13:03:00 t Wideman Swank s [employer] [facility] Medicine l Medicine Outpati ent Clinics 2019-05-02 2019-05-02 [facility] [id number] [facility] 14:40:00 14:40:00 t [employer] [facility] Medicine l Medicine Outpati ent Clinics 2019-03-21 2019-03-21 [facility] [id number] 09:40:00 09:40:00 t [employer] [facility] Medicine l Medicine Outpati ent Clinics 2019-02-08 2019-02-08 [facility] [id number] 16:31:00 16:31:00 t Wideman Swank s [employer] [facility] Medicine l Medicine Outpati ent Clinics 2019-02-07 2019-02-07 [facility] [id number] 15:00:00 15:00:00 t Wideman Swank s [employer] [facility] Medicine l Medicine Outpati ent Clinics 2018-10-17 2018-10-17 [facility] [id number] 17:09:00 17:09:00 t Wideman Swank s [employer] [facility] Medicine Outpati ent Clinics 2018-10-12 2018-10-12 [facility] [id number] 09:00:00 09:00:00 t Wideman Wideman [employer] Luke s - Drive [facility] Medicine Outpati ent Clinics 2018-09-21 2018-09-21 [facility] [id number] 08:40:00 08:40:00 t Wideman Swank s - Drive [facility] Medicine Outpati ent Clinics 2018-09-14 2018-09-15 Bedded [facility] [id number] [facility] 13:05:00 14:20:[address] 2018-09-14 2018-09-15 Outpatient Hematpour, [facility] [id number] 08:05:00 09:20:00 Ezekielashayakrystal 2018-09-14 2018-09-14 Outpatient [facility] CAR [id number] [facility] 08:05:00 08:05:00 2018-06-22 2018-06-22 [facility] [id number] 11:00:00 11:00:00 t Wideman Swank s - Drive [facility] Medicine Outpati ent Clinics 2018-06-02 2018-06-02 [facility] [id number] 15:15:00 15:15:00 t Wideman Swank s - Drive [facility] Medicine Outpati ent Clinics 2018-04-27 2018-04-27 [facility] [id number] 16:21:00 16:21:00 t Wideman [employer] s - Drive [facility] Medicine Outpati ent Clinics 2018-03-24 2018-03-24 [facility] [id number] 14:45:00 14:45:00 t Wideman [employer] s - Drive [facility] Medicine Outpati ent Clinics 2017-12-30 2017-12-30 [facility] [id number] [facility] 15:15:00 15:15:00 t Wideman Wideman [employer] s - Drive [facility] Medicine Outpati ent Clinics 2017-12-16 2017-12-16 [facility] [id number] 08:22:00 08:22:00 t [employer] [facility] Outpati ent Clinics 2017-09-21 2017-09-21 [facility] [id number] [facility] 14:45:00 14:45:00 t [employer] [facility] Outpati ent Clinics 2017-08-10 2017-08-10 [facility] [id number] 15:46:00 15:46:00 t [employer] s [facility] Outpati ent Clinics 2017-07-05 2017-07-05 [facility] [id number] [facility] 15:30:00 15:30:00 t [employer] [facility] Results Test Description Test Time Test Comments Results Result Comments Source HEMATOLOGY 2018-09-14 19:49:00 Test Item Value Reference Range Interpretation Comme nts POC Activated Clotting Time (test code = POC Activated Clotting Eliseo e) 179 s [id number] 18:16:00 Test Item Value Reference Range Interpretation Comments POC Activated Clotting Time (test code 363 s = POC Activated Clotting Time) [facility] [id number] 17:52:00 Test Item Value Reference Range Interpretation Comments POC Activated Clotting Time (test code 291 s = POC Activated Clotting Time) [facility] ResourcesannCHEM [id number] 13:30:002.1[facility] HermannELECTROLYTES 2018-09-14 13:30:0010.6[facility] [id number] 13:30:0049[facility] TsywznuMTHSEHSHZBJR1951-21-02 13:30:02916Rdxvpiqy ZvvooqyICIJLXASJZPL5941-97-32 13:30:001.05[facility] [id number] 13:30:0013[facility] Frandy [id number] 13:30:003.6[facility]orial XwgvpzlKGYTRXYRRJLV1044-71-58 13:30:83096Kxqyxetg EarlhtcIQEKIUWCGTAH4796-00-17 13:30:0029[facility] Hathorne [id number] 13:30:79936Bjyjxili ZohadxlKVTEUZFHLKLA2214-29-66 13:30:0010.3[facility] [id number] 13:30:00 Test Item Value Reference Range Interpretation Comments PTT (test code = PTT) 45.1 s 22.9-35.8 [facility] [id number] 13:30:00 Test Item Value Reference Range Interpretation Comments PT (test code = PT) 14.4 s 12.0-14.7 Memorial [id number] 13:30:00 Test Item Value Reference Range Interpretation Comments INR (test code = INR) 1.14 1 0.85-1.17 [facility] MvbpktcCFPYRRHJMU2834-00-54 13:30:008.5[facility] HermannHEMATOLOGY 2018-09-14 13:30:004.05[facility] [id number] 13:30:0012.4[facility] OotmwqdHFNJHTBMFM1850-30-81 13:30:0033.0[facility] DlofgllNFAGQXOGJQ0328-74-18 13:30:0014.3[facility] CzcjqebXHZPQNLJHK0034-68-07 13:30:67132Yzbajdbk Frandy LQNFCHZZWH1601-21-16 13:30:007.1[facility] [id number] 13:30:00 Test Item Value Reference Range Interpretation Comments MCH (test code = MCH) 30.6 pg 27.0-31.0 Memorial IblgnniHYGOQPKGYR3704-26-43 13:30:0037.5[facility] HermannHEMATOLOGY 2018-09-14 13:30:0092.7[facility] [id number] 13:30:006.1[facility] [id number] 13:30:000.5[facility] QhhyjhhTVZXYJKJNH7109-07-06 13:30:001.6[facility] TznxajqXHCHWZVJIN7039-28-16 13:30:000.6[facility] Frandy [id number] 13:30:000.2[facility] [id number] 13:30:002.3 [facility] [id number] 13:30:007.5[facility] HermannHEMATOLOGY 2018-09-14 13:30:0071.3[facility] [id number] 13:30:[address] HospitalBLO[facility] [id number] 13:30:00Negative (09/14/18 8:30 AM)[facility] HermannCHEM [id number] 13:30:002.9[facility] CenterBASIC METABOLIC PANEL 2018-06-07 04:45:00 Test Item Value Reference Range Interpretation [...] PATIEN TS. CBC W/PLT COUNT & AUTO [id number] 04:20:00 Test Item Value Reference Range Interpretation [...] (BEAKER) (test code = 2801) BASIC METABOLIC [id number] 04:22:00 Test Item Value Reference Range Interpretation [...] PATIEN TS. CBC W/PLT COUNT & AUTO [id number] 04:04:00 Test Item Value Reference Range Interpretation [...] (BEAKER) (test code = 2801) BASIC METABOLIC [id number] 05:13:00 Test Item Value Reference Range Interpretation [...] PATIEN TS. CBC W/PLT COUNT & AUTO [id number] 04:51:00 Test Item Value Reference Range Interpretation [...] (test code = 2801) CT, BRAIN, WITHOUT [id number] 20:44:00FINAL REPORT CT, BRAIN, WITHOUT CONTRAST CLINICAL [...] Rowley Verified Date/Time: 06/04/2018 20:44:09 Reading Location: [address] Neuro Reading Room RAD, CHEST, 1 VIEW, NON [id number] 17:27:00Reason for exam:->pre-MRIShould this be performed at [...] Santizoort Verified Date/Time: 06/04/2018 17:27:33 Reading Location: [address] Body Reading Room HEMOGLOBIN [id number] 10:53:00 Test Item Value Reference Range Interpretation Comments HEMOGLOBIN A1C (BEAKER) (test code = 6.0 % 4.3-6.1 368) VITAMIN B12 AND [id number] 07:40:00 Test Item Value Reference Range Interpretation Comments VITAMIN B12 (BEAKER) (test code = 813 pg/mL 213-816 774) FOLATE (BEAKER) (test code = 362) 9.9 ng/mL >=7.0 COMPREHENSIVE METABOLIC [id number] 03:01:00 Test Item Value Reference Range Interpretation [...] completed or 30 min after intravenous potassium replacement.[id number] 03:01:00 Test Item Value Reference Range Interpretation Comments POTASSIUM (BEAKER) (test code = 3.5 meq/L 3.5-5.1 379) Check Serum Potassium level 2 hours after oral potassium replacement completed or 30 min after intravenous potassium replacement.LIPID [id number] 03:01:00 Test Item Value Reference Range Interpretation [...] completed or 30 min after intravenous potassium replacement.[id number] 03:01:00 Test Item Value Reference Range Interpretation Comments MAGNESIUM (BEAKER) (test code = 1.9 mg/dL 1.6-2.6 627) Check Serum Potassium level 2 hours after oral potassium replacement completed or 30 min after intravenous potassium replacement.TSH/FREE T4 IF INDICATED 2018-06-04 00:57:00 Test Item Value Reference Range Interpretation Comments THYROID STIMULATING HORMONE 1.93 uIU/mL 0.35-4.94 (BEAKER) (test code = 772) CBC W/PLT COUNT & AUTO [id number] 00:10:00 Test Item Value Reference Range Interpretation [...]
[2020-12-01 14:45] LABS: Protime INR 2.28
[2020-12-01 14:46] LABS: Absolute Lymphocytes (CBC) 1.4 K/uL (0.7-4.9); Basophils % 0.7 % (0-1.3); Hematocrit 31.7 % (36.0-45.0); Lymphocytes % 20.4 % (15.3-44.8); MPV 7.6 fL (7.6-11.3); RBC Red Blood Cell Count 3.62 M/uL (3.86-4.86)
[2020-12-01 14:58] LABS: Urine Blood Trace-intact (Negative); Urine Glucose Negative (Negative); Urine Protein Negative (Negative)
[2020-12-01] MEDS ORDERED: FUROSEMIDE 40 MG/4 ML VIAL ONE (15:07)
[2020-12-01 15:14] LABS: ALT/SGPT 28 U/L (12-78); AST/SGOT 23 U/L (15-37); Albumin 3.1 g/dL (3.4-5.0); Alkaline Phosphatase 68 U/L (45-117); BUN Blood Urea Nitrogen 17 mg/dL (7-18); Bicarbonate 29 mmol/L (21-32); Bilirubin Direct 0.2 mg/dL (0-0.2); Bilirubin Total 0.4 mg/dL (0.2-1.0); Glucose Level 153 mg/dL (74-106); NT PRO-BNP 4536 pg/mL (<450); Potassium 3.2 mmol/L (3.5-5.1); Protein, Total 7.6 g/dL (6.4-8.2); Sodium Level 140 mmol/L (136-145); Troponin (Emerg Dept Use Only) < 0.02 ng/mL (0.0-0.045)
--- NOTE | 2020-12-01 15:25 | RAD REPORT ---
EXAM DESCRIPTION: Alessandro Single View12/01/2020 3:13 pm CLINICAL HISTORY: Chest pain COMPARISON: October 2020 FINDINGS: Mild bilateral pulmonary opacities. Heart is moderately have markedly enlarged. Pacemaker leads in place. Small pleural effusions IMPRESSION: Mild CHF
[2020-12-01] MEDS ORDERED: POTASSIUM CL SA 10 MEQ TAB PO ONE (16:02)
[2020-12-01] MEDS ORDERED: METOPROLOL TARTRATE 5 MG/5 ML INJ IV ONE (16:02)
--- NOTE | 2020-12-01 16:15 | ER ---
Nurse's Notes [facility] Name: Shima Walters Age: 85 yrs Sex: Female : 1935 Arrival Date: 12/01/2020 Time: 13:59 Bed 16 Private MD: Diagnosis: Acute pulmonary edema;Acute on chronic combined systolic (congestive) and diastolic (congestive) heart failure Presentation: 12/01 13:59 Chief complaint: EMS states: pt called EMS for weakness and SOB. pt seems to be in no tr6 distress. Per EMS pt "has underlying paced rhythym". Coronavirus screen: At this time, unable to obtain information related to travel outside the [place] Ebola Screen: No symptoms or risks identified at this time. Initial Sepsis Screen: Does the patient meet any 2 criteria? No. Patient's initial sepsis screen is negative. Does the patient have a suspected source of infection? No. Patient's initial sepsis screen is negative. Risk Assessment: Do you want to hurt yourself or someone else? Patient reports no desire to harm self or others. Onset of symptoms is unknown. 13:59 Method Of Arrival: EMS: [facility] tr6 13:59 Acuity: KERRY 3 tr6 Triage Assessment: 13:59 General: Appears in no apparent distress. Behavior is calm, cooperative, appropriate tr6 for age. Pain: Denies pain. EENT: No deficits noted. Neuro: No deficits noted. Cardiovascular: Parent/caregiver reports patient has had since Pacemaker. Respiratory: Reports shortness of breath. GI: No deficits noted. : No deficits noted. Derm: No deficits noted. Musculoskeletal: No deficits noted. 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 - Social history:: Smoking status: unknown . - Family history:: not pertinent. Screenin:21 Abuse screen: Denies threats or abuse. Nutritional screening: No deficits noted. vg1 Tuberculosis screening: No symptoms or risk factors identified. Fall Risk No fall in past 12 months (0 pts). No secondary diagnosis (0 pts). IV access (20 points). Ambulatory Aid- None/Bed Rest/Nurse Assist (0 pts). Gait- Normal/Bed Rest/Wheelchair (0 pts) Mental Status- Oriented to own ability (0 pts). Total Thompson Fall Scale indicates No Risk (0-24 pts). Assessment: 14:18 General: Appears in no apparent distress. comfortable, Behavior is calm, cooperative. vg1 Pain: Denies pain. Neuro: Level of Consciousness is awake, alert, obeys commands, Oriented to person, place, time, situation. Cardiovascular: Patient's skin is warm and dry. Rhythm is A-V sequential pacer. Respiratory:. Respiratory: Reports shortness of breath at rest on exertion Airway is patent Respiratory effort is even, unlabored, Breath sounds are coarse in right posterior lower lobe. GI: No signs and/or symptoms were reported involving the gastrointestinal system. : No signs and/or symptoms were reported regarding the genitourinary system. EENT: No signs and/or symptoms were reported regarding the EENT system. Derm: Skin is pink, warm \\T\\ dry. Musculoskeletal: Circulation, motion, and sensation intact. 15:17 Reassessment: Patient appears in no apparent distress at this time. No changes from vg1 previously documented assessment. Patient and/or family updated on plan of care and expected duration. Pain level reassessed. Patient is alert, oriented x 3, equal unlabored respirations, skin warm/dry/pink. 15:40 Reassessment: Patient appears in no apparent distress at this time. Patient is alert, vg1 oriented x 3, equal unlabored respirations, skin warm/dry/pink. received VO from Dr Lezama to administer 10 mEq of Potassium chloride PO x1. 16:30 Reassessment: Patient appears in no apparent distress at this time. Patient and/or vg1 family updated on plan of care and expected duration. Pain level reassessed. Patient is alert, oriented x 3, equal unlabored respirations, skin warm/dry/pink. Patient denies pain at this time. 16:56 Reassessment: Received VO from Dr Larry to administer 0.5 of Digoxin IVP x1. vg1 17:30 Reassessment: Patient appears in no apparent distress at this time. Patient and/or vg1 family updated on plan of care and expected duration. Pain level reassessed. Patient is alert, oriented x 3, equal unlabored respirations, skin warm/dry/pink. 18:45 Reassessment: Patient appears in no apparent distress at this time. Patient and/or vg1 family updated on plan of care and expected duration. Pain level reassessed. Patient is alert, oriented x 3, equal unlabored respirations, skin warm/dry/pink. Patient denies pain at this time. Vital Signs: 13:59 BP 122 / 78; Pulse 119; Resp 20; Temp 98.5(O); Pulse Ox 96% on R/A; tr6 15:10 BP 111 / 77; Pulse 118; Resp 26; Pulse Ox 99% on 2 lpm NC; vg1 15:55 BP 107 / 82; Pulse 110; Resp 22; Pulse Ox 100% ; vg1 16:00 BP 114 / 89; Pulse 110; Resp 22; Pulse Ox 100% on 2 lpm NC; vg1 16:26 Weight 48.99 kg; Height 5 ft. 0 in. (152.40 cm); vg1 16:30 BP 111 / 95; Pulse 110; Resp 22; Pulse Ox 99% on 2 lpm NC; vg1 17:00 BP 102 / 76; Pulse 112; Resp 28; Pulse Ox 98% on R/A; vg1 17:06 Pulse 113; vg1 17:30 BP 110 / 80; Pulse 109; Resp 26; Pulse Ox 98% on R/A; vg1 18:00 BP 118 / 80; Pulse 104; Resp 22; Pulse Ox 97% on R/A; vg1 18:40 BP 120 / 82; Pulse 104; Resp 22; Pulse Ox 98% on R/A; vg1 19:00 BP 120 / 82; Pulse 100; Resp 18; Pulse Ox 100% on R/A; lh3 21:00 BP 101 / 83; Pulse 107; Resp 18; Pulse Ox 96% on R/A; lh3 23:17 BP 104 / 79; Pulse 107; Resp 18; Pulse Ox 94% on R/A; lh3 16:26 Body Mass Index 21.09 (48.99 kg, 152.40 cm) 1 ED Course: 13:59 Patient arrived in ED. ds1 13:59 Erin Laird, RN is Primary Nurse. tr6 14:00 EKG done, by ED staff, reviewed by Luz Lezama MD. 3 14:03 Primary Nurse role handed off by Erin Laird, PINEDA vg1 14:03 Naima Alvarenga, RN is Primary Nurse. vg1 14:06 Triage completed. tr6 14:08 Luz Lezama MD is Attending Physician. ma2 14:21 Patient has correct armband on for positive identification. Bed in low position. Call vg1 light in reach. Side rails up X2. 14:21 Arm band placed on. vg1 14:22 Initial lab(s) drawn, by md, sent to lab. Inserted saline lock: 20 gauge in left 3 antecubital area, using aseptic technique. Blood collected. 14:38 COVID swab sent to lab. vg1 15:12 XRAY Chest (1 view) In Process Unspecified. EDMS 16:14 Luz Larry MD is Hospitalizing Provider. ma2 20:58 Urine Dipstick-Ancillary Sent. lh3 23:15 IV discontinued, bleeding controlled. lh3 Administered Medications: 14:55 Drug: Lasix (furosemide) 40 mg Route: IVP; Site: left antecubital; vg1 17:06 Follow up: Response: No adverse reaction vg1 15:42 Drug: Potassium Chloride 10 mEq Route: PO; vg1 17:06 Follow up: Response: No adverse reaction vg1 15:45 Drug: Metoprolol 5 mg Route: IVP; Site: left antecubital; vg1 17:06 Follow up: Pulse 113 bpm; Response: No adverse reaction vg1 17:11 Drug: Digoxin 0.5 mg Route: IVP; Site: left antecubital; vg1 18:43 Follow up: Response: No adverse reaction vg1 17:30 Drug: Potassium Effervescent Tablet 50 mEq Route: PO; vg1 18:44 Follow up: Response: No adverse reaction vg1 18:43 Drug: Lasix (furosemide) 20 mg Route: IVP; Site: left antecubital; vg1 20:58 Follow up: Response: No adverse reaction 3 Outcome: 16:14 Decision to Hospitalize by Provider. ma2 23:01 Discharged to home Patient discharged to home by Dr Larry. [facility] with instructions given to patient. Prescriptions sent electronically to pharmacy. [employer] called to transport patient home. 23:15 Condition: stable 3 23:15 Discharge instructions given to patient, family, Instructed on discharge instructions, follow up and referral plans. medication usage, Demonstrated understanding of instructions, follow-up care, medications, Prescriptions given X 2. 23:19 Patient left the ED. 3 Signatures: Dispatcher [employer] EDMS Nataly Rose RN RN Niki Dwyer 1 Annalee Bennett 3 Luz Lezama MD MD ma2 Naima Alvarenga RN RN vg1 Erin Laird RN RN tr6 Pat Chavis RN RN 3 Corrections: (The following items were deleted from the chart) 17:39 15:40 Reassessment: received VO from Dr Lezama to administer 10 mEq of Potassium vg1 chloride PO x1 vg1
--- NOTE | 2020-12-01 16:15 | EDPHYS ---
Physician Documentation [facility] Name: Shima Walters Age: 85 yrs Sex: Female : 1935 Arrival Date: 12/01/2020 Time: 13:59 Bed 16 Private MD: ED Physician Luz Lezama HPI: 12/01 16:11 This 85 yrs old Female presents to ER via EMS with complaints of Shortness Of ma2 Breath. 16:11 The patient has shortness of breath at rest. Onset: The symptoms/episode began/occurred ma2 gradually, 1 day(s) ago. Associated signs and symptoms: Pertinent positives: non-productive cough, shortness of breath, Pertinent negatives: diaphoresis, hemoptysis. Severity of symptoms: At their worst the symptoms were mild in the emergency department the symptoms are unchanged. The patient has experienced a previous episode. 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 - Social history:: Smoking status: unknown . - Family history:: not pertinent. ROS: 16:11 Constitutional: Negative for fever, chills, and weight loss. ma2 16:11 All other systems are negative. Exam: 16:11 Constitutional: This is a well developed, well nourished patient who is awake, alert, ma2 and in no acute distress. Head/Face: Normocephalic, atraumatic. Eyes: Pupils equal round and reactive to light, extra-ocular motions intact. Lids and lashes normal. Conjunctiva and sclera are non-icteric and not injected. Cornea within normal limits. Periorbital areas with no swelling, redness, or edema. ENT: Nares patent. No nasal discharge, no septal abnormalities noted. Tympanic membranes are normal and external auditory canals are clear. Oropharynx with no redness, swelling, or masses, exudates, or evidence of obstruction, uvula midline. Mucous membranes moist. Neck: Trachea midline, no thyromegaly or masses palpated, and no cervical lymphadenopathy. Supple, full range of motion without nuchal rigidity, or vertebral point tenderness. No Meningismus. Chest/axilla: Normal chest wall appearance and motion. Nontender with no deformity. No lesions are appreciated. Cardiovascular: tachycardia and Regular rhythm with a normal S1 and S2. No gallops, murmurs, or rubs. Normal PMI, no JVD. No pulse deficits. Abdomen/GI: Soft, non-tender, with normal bowel sounds. No distension or tympany. No guarding or rebound. No evidence of tenderness throughout. Back: No spinal tenderness. No costovertebral tenderness. Full range of motion. Skin: Warm, dry with normal turgor. Normal color with no rashes, no lesions, and no evidence of cellulitis. MS/ Extremity: Pulses equal, no cyanosis. Neurovascular intact. Full, normal range of motion. Neuro: Awake and alert, GCS 15, oriented to person, place, time, and situation. Cranial nerves II-XII grossly intact. Motor strength 5/5 in all extremities. Sensory grossly intact. Cerebellar exam normal. Normal gait. 16:11 Respiratory: moderate respiratory distress is noted, Respirations: labored breathing, Breath sounds: rales, that are moderate, are heard in the left upper lobe and left lower lobe, Respiratory rate: 25 Vital Signs: 13:59 BP 122 / 78; Pulse 119; Resp 20; Temp 98.5(O); Pulse Ox 96% on R/A; tr6 15:10 BP 111 / 77; Pulse 118; Resp 26; Pulse Ox 99% on 2 lpm NC; vg1 15:55 BP 107 / 82; Pulse 110; Resp 22; Pulse Ox 100% ; vg1 16:00 BP 114 / 89; Pulse 110; Resp 22; Pulse Ox 100% on 2 lpm NC; vg1 16:26 Weight 48.99 kg; Height 5 ft. 0 in. (152.40 cm); vg1 16:30 BP 111 / 95; Pulse 110; Resp 22; Pulse Ox 99% on 2 lpm NC; vg1 17:00 BP 102 / 76; Pulse 112; Resp 28; Pulse Ox 98% on R/A; vg1 17:06 Pulse 113; vg1 17:30 BP 110 / 80; Pulse 109; Resp 26; Pulse Ox 98% on R/A; vg1 18:00 BP 118 / 80; Pulse 104; Resp 22; Pulse Ox 97% on R/A; vg1 18:40 BP 120 / 82; Pulse 104; Resp 22; Pulse Ox 98% on R/A; vg1 19:00 BP 120 / 82; Pulse 100; Resp 18; Pulse Ox 100% on R/A; lh3 21:00 BP 101 / 83; Pulse 107; Resp 18; Pulse Ox 96% on R/A; lh3 23:17 BP 104 / 79; Pulse 107; Resp 18; Pulse Ox 94% on R/A; lh3 16:26 Body Mass Index 21.09 (48.99 kg, 152.40 cm) vg1 MDM: 14:08 Patient medically screened. ma2 16:11 Differential diagnosis: Anemia Bronchitis CHF exacerbation, pneumonia, reactive airway ma2 disease. Data reviewed: vital signs, nurses notes. Counseling: I had a detailed discussion with the patient and/or guardian regarding: the historical points, exam findings, and any diagnostic results supporting the discharge/admit diagnosis, the presence of at least one elevated blood pressure reading (>120/80) during this emergency department visit, the need for outpatient follow up. Response to treatment: the patient's symptoms have markedly improved after treatment. 12/01 14:05 Order name: Basic Metabolic Panel; Complete Time: 15:28 ss 12/01 14:05 Order name: CBC with Diff; Complete Time: 15:12/01 14:05 Order name: LFT's; Complete Time: 15:12/01 14:05 Order name: Magnesium; Complete Time: 15:28 12/01 14:05 Order name: NT PRO-BNP; Complete Time: 15:28 ss 12/01 14:05 Order name: PT-INR; Complete Time: 15:28 12/01 14:05 Order name: Troponin (emerg Dept Use Only); Complete Time: 15:28 12/01 14:05 Order name: XRAY Chest (1 view); Complete Time: 15:28 ss 12/01 14:59 Order name: Urine Dipstick-Ancillary; Complete Time: 15:28 EDMS 12/01 15:12 Order name: Urine Dipstick-Ancillary EDMS 12/01 16:08 Order name: SARS-COV-2 RT PCR; Complete Time: 16:10 EDMS 12/01 14:05 Order name: EKG; Complete Time: 14:06 ss 12/01 14:05 Order name: Cardiac monitoring; Complete Time: 14:22 ss 12/01 14:05 Order name: EKG - Nurse/Tech; Complete Time: 14:12 ss 12/01 14:05 Order name: IV Saline Lock; Complete Time: 14:22 ss 12/01 14:05 Order name: Labs collected and sent; Complete Time: 14:22 ss 12/01 14:05 Order name: O2 Per Protocol; Complete Time: 14:22 ss 12/01 14:05 Order name: O2 Sat Monitoring; Complete Time: 14:22 ss 12/01 14:09 Order name: Urine Dipstick-Ancillary (obtain specimen); Complete Time: 14:55 ma2 Administered Medications: 14:55 Drug: Lasix (furosemide) 40 mg Route: IVP; Site: left antecubital; vg1 17:06 Follow up: Response: No adverse reaction vg1 15:42 Drug: Potassium Chloride 10 mEq Route: PO; vg1 17:06 Follow up: Response: No adverse reaction vg1 15:45 Drug: Metoprolol 5 mg Route: IVP; Site: left antecubital; vg1 17:06 Follow up: Pulse 113 bpm; Response: No adverse reaction vg1 17:11 Drug: Digoxin 0.5 mg Route: IVP; Site: left antecubital; vg1 18:43 Follow up: Response: No adverse reaction vg1 17:30 Drug: Potassium Effervescent Tablet 50 mEq Route: PO; vg1 18:44 Follow up: Response: No adverse reaction vg1 18:43 Drug: Lasix (furosemide) 20 mg Route: IVP; Site: left antecubital; vg1 20:58 Follow up: Response: No adverse reaction lh3 Disposition Summary: 12/01/20 16:14 Hospitalization Ordered Hospitalization Status: Observation ma2 Provider: Luz Larry Location: Telemetry/MedSurg (Inpatient) ma2 Condition: Stable ma2 Problem: new ma2 Symptoms: are unchanged ma2 Bed/Room Type: Standard fl2 Room Assignment: ma2 Diagnosis - Acute pulmonary edema ma2 - Acute on chronic combined systolic (congestive) and diastolic (congestive) heart ma2 failure Forms: - Medication Reconciliation Form ma2 - SBAR form ma2 Signatures: Dispatcher [employer] EDJenna Mejia RN RN ss Luz Lezama MD MD ma2 Naima Alvarenga RN RN 1 Erin Laird RN RN tr6 Pat Chavis RN 3 Corrections: (The following items were deleted from the chart) 15:12 14:09 CORONAVIRUS+[email or web address].BRZ ordered. EDMS EDMS
[2020-12-01] MEDS ORDERED: DIGOXIN 0.25 MG/ML AMP IV ONE (16:22)
[2020-12-01] MEDS ORDERED: DIGOXIN 0.25 MG/ML AMP ONE (17:25)
[2020-12-01] MEDS ORDERED: POTASSIUM 25 MEQ EFFERV TAB ONE (17:46)
[2020-12-01] MEDS ORDERED: FUROSEMIDE 20 MG/ 2ML VIAL ONE (18:51)
[2020-12-01 22:29] VITALS: BP 130/80; TEMP 98
--- NOTE | 2020-12-01 22:29 | P.SSS ---
Patient History Date of Service: 12/01/20 Reason for admission: Shortness of breath History of Present Illness: Patient is an 85-year-old female who came to the hospital with a little shortness of breath. Patient was found have acute CHF exacerbation. Patient has some mild pulmonary edema and was given diuretics. She was able to urinate quite a bit. She clinically is feeling better. She is satting 100% on room air. She is not really short of breath on ambulation. Her heart rate was e levated and we wellness coach some medication to get her heart rate down. Will also start her on Aldactone along with her Lasix. She will need to follow-up with Dr. Sherman. Will go ahead and Consult him, and we will arrange for discharge today with outpatient follow-up. 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 -: s/p Mitral valve replacement (~>20yrs ago) -: multiple TIAs -: CHF with cardiomyopathy-EF=30% -: Mitral valve replacement Psychosocial/ Personal History: lives at home by herself - Family History Father -: Heart disease Mother -: Heart disease - Social History Smoking Status: Former smoker Alcohol use: No CD- Drugs: No Caffeine use: No Review of Systems 10-point ROS is otherwise unremarkable Physical Examination - Vital Signs Temperature: 98 F Blood Pressure: 130/80 Pulse: 88 Respirations: 18 Pulse Ox (%): 96 - Physical Exam General: Alert, In no apparent distress HEENT: Atraumatic, PERRLA, Mucous membr. moist/pink, EOMI, Sclerae nonicteric Neck: Supple, 2+ carotid pulse no bruit, No LAD, Without JVD or thyroid abnormality Respiratory: Clear to auscultation bilaterally, Normal air movement Cardiovascular: Regular rate/rhythm, Normal S1 S2, Systolic murmur Gastrointestinal: Normal bowel sounds, Soft and benign, Non-distended, No tenderness Musculoskeletal: No clubbing, No swelling, No tenderness Integumentary: No rashes Neurological: Normal gait, Normal speech, Normal strength at 5/5 x4 extr, Normal tone, Normal affect Lymphatics: No axilla or inguinal lymphadenopathy - Studies Laboratory Data (last 24 hrs) 12/01/20 14:22: PT 26.4 H, INR 2.28 12/01/20 14:22: WBC 6.80, Hgb 10.4 L, Hct 31.7 L, Plt Count 217 12/01/20 14:22: Sodium 140, Potassium 3.2 L, BUN 17, Creatinine 0.99, Glucose 153 H, Magnesium 2.0, Total Bilirubin 0.4, AST 23, ALT 28, Alkaline Phosphatase 68 - Diagnosis (Problem(s)) (1) Acute CHF (congestive heart failure) Status: Acute (2) Cardiomyopathy Status: Acute (3) Cardiac LV ejection fraction 30-35% Status: Acute (4) Tachycardia Status: Acute Treatment Summary: Patient was given beta-guillermo therapy along with digoxin and diuretics. Patient had his potassium replaced. At this time, patient stable for discharge home. - Disposition Disposition: ROUTINE DISCHARGE Condition: GOOD Prescriptions: Spironolactone [Aldactone] 25 mg PO DAILY #30 tab carvediloL [Coreg] 6.25 mg PO BID #60 tab Followup: OOT,OOT [Primary Care Provider] - Diet: Low sodium (Heart healthy) Activity: Fall precautions Critical Care: No Time Spent Managing Pts Care (In Minutes): 45
[2020-12-01 23:41] VITALS: O2SAT 94
== END 2020-12-01 22:21 | disposition home or self-care (01) ==
LOC: ER 13:58
DX: I50.21 Acute systolic (congestive) heart failure (principal); R00.0 Tachycardia, unspecified; I42.9 Cardiomyopathy, unspecified; J81.0 Acute pulmonary edema; I48.91 Unspecified atrial fibrillation; Z79.01 Long term (current) use of anticoagulants; Z79.82 Long term (current) use of aspirin; Z88.5 Allergy status to narcotic agent; Z86.73 Personal history of transient ischemic attack (TIA), and cerebral infarction without residual deficits; Z82.49 Family history of ischemic heart disease and other diseases of the circulatory system; Z95.2 Presence of prosthetic heart valve; Z20.822 Contact with and (suspected) exposure to COVID-19
CPT/HCPCS: 93005; 85025; 80048; 36415; 83735; 85610; 80076; 81003; 84484; 83880; 71045; 96375; 96374; 99285; U0003; J1940 ×2; J1160

== ENCOUNTER 2021-01-17 11:11 | Emergency (ER) | payer OTHER ==
--- NOTE | 2021-01-17 12:14 | RAD REPORT ---
EXAM DESCRIPTION: CT - Ct Stroke Brain Wo Cont - 01/17/2021 12:03 pm CLINICAL HISTORY: TIA COMPARISON: September 2020 TECHNIQUE: Computed axial tomography of the head was obtained. All CT scans are performed using dose optimization technique as appropriate and may include automated exposure control or mA/KV adjustment according to patient size. FINDINGS: An intracranial bleed is not seen . The ventricles are normal in caliber. No extra-axial fluid collection is noted. . Small old thalamus lacunar infarct suspected Extra-axial lesions along the right cerebral convexity are unchanged. Calcification is noted. These m ay represent meningiomas. No surrounding edema Fluid within the sinuses/ mastoids is not seen. Chronic sphenoid sinusitis IMPRESSION: No acute intracranial abnormality is seen. If patient's symptoms persist MRI of the bra in would be recommended. Yasmine of the emergency room was notified at 12:07 p.m. January 17, 2021
[2021-01-17 12:21] LABS: Absolute Lymphocytes (CBC) 1.4 K/uL (0.7-4.9); Basophils % 0.7 % (0-1.3); Hematocrit 36.9 % (36.0-45.0); Lymphocytes % 21.3 % (15.3-44.8); MPV 8.3 fL (7.6-11.3); RBC Red Blood Cell Count 4.27 M/uL (3.86-4.86)
[2021-01-17 12:24] LABS: Protime INR 1.19
[2021-01-17 12:36] LABS: Potassium 2.7 mmol/L (3.5-5.1)
--- NOTE | 2021-01-17 13:56 | RAD REPORT ---
EXAM DESCRIPTION: RAD - Chest Single View - 01/17/2021 1:37 pm CLINICAL HISTORY: PAIN COMPARISON: Chest Single View dated 12/01/2020; Chest Single View dated 10/21/2020; Chest Single View dated 09/26/2020; Chest Single View dated 10/22/2019 FINDINGS: Lines: None. Lungs: No evidence of edema or pneumonia. Pleural: No significant pleural effusions or pneumothorax. Cardiac: Cardiomegaly. Pacemaker. Bones: No acute fractures. Other: IMPRESSION: No acute cardiopulmonary disease.
[2021-01-17] MEDS ORDERED: POTASSIUM CL SA 10 MEQ TAB PO ONE (14:30)
[2021-01-17] MEDS ORDERED: KCL 20 MEQ/100 mL IVPB 20 MEQ/100 ML BAG IV ONE (14:31)
[2021-01-17] MEDS ORDERED: NA CHLORIDE 0.9% 100 ML ONE (14:31)
--- NOTE | 2021-01-17 15:07 | ER ---
Nurse's Notes [facility] Name: Shima Walters Age: 85 yrs Sex: Female : 1935 Arrival Date: 01/17/2021 Time: 11:14 Bed 15 Private MD: Diagnosis: Hypokalemia;Weakness Presentation: 01/17 11:28 Chief complaint: EMS states: left arm and left hand numbness, rule out TIA. ns 200c oh givne, bp low on scene. 20G to left AC. Pt states numbness disappear after a min. thinks her BP was low as she feels much better. Coronavirus screen: Vaccine status: Patient reports receiving the 2nd dose of the covid vaccine. Ebola Screen: No symptoms or risks identified at this time. Initial Sepsis Screen: Does the patient meet any 2 criteria? No. Patient's initial sepsis screen is negative. Does the patient have a suspected source of infection? No. Patient's initial sepsis screen is negative. Risk Assessment: Do you want to hurt yourself or someone else? Patient reports no desire to harm self or others. Onset of symptoms was January 17, 2021 at 11:00. 11:28 Method Of Arrival: EMS: [facility] oh 11:28 Acuity: KERRY 2 oh Triage Assessment: 11:34 Neuro: Reports numbness in left arm since around 11, lasting around 1 min EMS also oh reports low BP at scene. Historical: - Allergies: 11:33 Codeine; oh - PMHx: 11:33 CVA; oh - PSHx: 11:33 mitral valve repair; oh - Immunization history:: Adult Immunizations up to date. - Social history:: Smoking status: unknown. Screenin:36 Abuse screen: Denies threats or abuse. Nutritional screening: No deficits noted. oh Tuberculosis screening: No symptoms or risk factors identified. Fall Risk None identified. Assessment: 11:35 Neuro: Reports numbness to left arm, resolve within a min, thinks her bp was low. pt oh showing no symptoms now. requesting to leave. advice pt she has to be seen by MD first. Vital Signs: 11:28 BP 108 / 52; Pulse 72; Resp 18; Temp 98.1(O); Pulse Ox 97% on R/A; Weight 53.52 kg; oh Height 5 ft. 0 in. (152.40 cm); 15:17 BP 125 / 86; Pulse 60; Resp 16; Pulse Ox 98% on R/A; mt 11:28 Body Mass Index 23.05 (53.52 kg, 152.40 cm) oh NIH Stroke Scale Scores: 17:47 NIHSS Score: 0 kb ED Course: 11:14 Patient arrived in ED. eb 11:28 Lucien Isabel, RN is Primary Nurse. oh 11:32 Triage completed. oh 11:35 Arm band placed on right wrist. oh 11:38 Bed in low position. Call light in reach. Side rails up X2. oh 11:40 Yasmine Forman FNP-C is [facility]. kb 11:40 Milan Smith MD is Attending Physician. kb 12:03 CT Stroke Brain w/o Contrast In Process Unspecified. EDMS 12:30 EKG done, by ED staff, reviewed by Yasmine MATTHEWS. em1 12:36 Notified Nurse Practitioner and/or Physician Ore Smelter of a critical lab result(s), oh potassium 2.7 as per lab. 13:36 Stroke CXR 1 View In Process Unspecified. EDMS 15:50 IV discontinued, bleeding controlled, Pressure dressing applied. oh Administered Medications: 14:05 Drug: Potassium Chloride 40 mEq Route: PO; oh 14:28 Drug: Potassium Chloride 20 mEq Route: IV; Rate: calculated rate; Site: left oh antecubital; Outcome: 15:07 Discharge ordered by MD. kb 15:50 Discharged to home oh 15:50 Condition: stable 15:50 Discharge instructions given to patient. 15:51 Patient left the ED. oh NIH Stroke Scale - NIH Stroke Score Date: 01/17/2021 Time: 17:47 Total Score = 0 1a. Level of Consciousness (LOC) - 0(Alert) 1b. Level of Consciousness (LOC) (Month \T\ Age) - 0(Both) 1c. LOC Commands (Open \T\ Closes Eyes/Motor Vehicle Assembler) - 0(Both) 2. Best Gaze (Lateral Gaze Paresis) - 0(Normal) 3. Visual Field Loss - 0(No visual loss) 4. Facial Palsy - 0(Normal) 5a. Left Arm: Motor (10-second hold) - 0(No drift) 5b. Right Arm: Motor (10-second hold) - 0(No drift) 6a. Left Leg: Motor (5-second hold - always test supine) - 0(No drift) 6b. Right Leg: Motor (5-second hold - always test supine) - 0(No drift) 7. Limb Ataxia (finger/nose \T\ heel/hinkle - test with eyes open) - 0(Absent) 8. Sensory Loss (pinprick arms/legs/face) - 0(Normal) 9. Best Language: Aphasia (description/naming/reading) - 0(No aphasia) 10. Dysarthria (speech clarity - read or repeat words) - 0(Normal) 11. Extinction and Inattention (visual/tactile/auditory/spatial/personal) - 0(No abnormality) Initials: kb Signatures: Dispatcher [employer] Yasmine Squires, BUY BOAT OPERATOR-C BUY BOAT OPERATOR-Jerry Hinojosa Moriah mt Botello, Elizabeth eb Harriott, Lucien, RN RN oh
--- NOTE | 2021-01-17 15:07 | EDPHYS ---
Physician Documentation [facility] Name: Shima Walters Age: 85 yrs Sex: Female : 1935 Arrival Date: 01/17/2021 Time: 11:14 Bed 15 Private MD: ED Physician Milan Smith HPI: 01/17 17:47 This 85 yrs old Female presents to ER via EMS with complaints of left arm kb numbness. 17:47 The patient presents to the emergency department with paresthesias of the left upper kb extremity, that is moderate. Onset: The symptoms/episode began/occurred just prior to arrival. Context: occurred at a parking lot, occurred while the patient was walking. Associated signs and symptoms: Pertinent positives: paresthesias, Pertinent negatives: altered mental status, chills, dizziness, fever, headache, nausea, neck stiffness, seizure, syncope, near-syncope, blurred vision, double vision, visual field changes, loss of vision, weakness. Severity of symptoms: At their worst the symptoms were moderate in the emergency department the symptoms have resolved. Patient's baseline: Neuro: alert and fully oriented, Motor: no deficits, Ambulation: walks without assistance, Speech: normal, The patient has a previous history of TIA. Current symptoms: Currently, the patient is not experiencing any symptoms, the patient feels back to baseline, no decreased level of consciousness, no confusion, no dysphasia, no headache, no paralysis, no visual changes. The patient has experienced similar episodes in the past. The patient has not recently seen a physician. Pt reports she was walking to the car at [facility] and her left arm went numb and was tingling. States someone called 911 and they brought her in. Reports symptom resolved prior to arrival. Denies any other symptoms. States "I can just go home now.". Historical: - Allergies: 11:33 Codeine; oh - PMHx: 11:33 CVA; oh - PSHx: 11:33 mitral valve repair; oh - Immunization history:: Adult Immunizations up to date. - Social history:: Smoking status: unknown. ROS: 17:47 Constitutional: Negative for fever, chills, and weight loss. kb 17:47 Neuro: Positive for numbness, tingling, of the left arm. 17:47 All other systems are negative. Exam: 17:47 Constitutional: This is a well developed, well nourished patient who is awake, alert, kb and in no acute distress. Head/Face: Normocephalic, atraumatic. ENT: Moist Mucous membranes Chest/axilla: Normal chest wall appearance and motion. Cardiovascular: Regular rate and rhythm with a normal S1 and S2. No gallops, murmurs, or rubs. No pulse deficits. Respiratory: Respirations even and unlabored. No increased work of breathing, no retractions or nasal flaring. Abdomen/GI: Soft, non-tender. No distention Skin: Warm, dry with normal turgor. Normal color. MS/ Extremity: Pulses equal, no cyanosis. Neurovascular intact. Full, normal range of motion. Neuro: Awake and alert, GCS 15, oriented to person, place, time, and situation. Moves all extremities. Normal gait. Psych: Awake, alert, with orientation to person, place and time. Behavior, mood, and affect are within normal limits. Vital Signs: 11:28 BP 108 / 52; Pulse 72; Resp 18; Temp 98.1(O); Pulse Ox 97% on R/A; Weight 53.52 kg; oh Height 5 ft. 0 in. (152.40 cm); 15:17 BP 125 / 86; Pulse 60; Resp 16; Pulse Ox 98% on R/A; mt 11:28 Body Mass Index 23.05 (53.52 kg, 152.40 cm) oh NIH Stroke Scale Scores: 17:47 NIHSS Score: 0 kb MDM: 11:40 Patient medically screened. kb 17:49 Data reviewed: vital signs, nurses notes. Data interpreted: Pulse oximetry: on room air kb is 98 %. Interpretation: normal. Counseling: I had a detailed discussion with the patient and/or guardian regarding: the historical points, exam findings, and any diagnostic results supporting the discharge/admit diagnosis, lab results, radiology results, the need for outpatient follow up, a family practitioner, to return to the emergency department if symptoms worsen or persist or if there are any questions or concerns that arise at home. ED course: Pt wants to go home. Discussed importance of follow up with neurologist. .Verbal understanding received. Dr Smith consulted on case and agrees with outpatient follow up. Pt still asymptomatic at this time. . 01/17 11:42 Order name: Basic Metabolic Panel kb 01/17 11:42 Order name: CBC with Diff kb 01/17 11:42 Order name: Protime (+inr) kb 01/17 11:42 Order name: Ptt, Activated kb 01/17 11:43 Order name: Basic Metabolic Panel; Complete Time: 12:39 EDMS 01/17 11:43 Order name: CBC with Automated Diff; Complete Time: 12:39 EDMS 01/17 11:42 Order name: CT Stroke Brain w/o Contrast; Complete Time: 12:14 kb 01/17 11:42 Order name: Stroke CXR 1 View; Complete Time: 14:01 kb 01/17 11:43 Order name: Protime (+INR); Complete Time: 12:40 EDMS 01/17 11:43 Order name: PTT, Activated Partial Thromb; Complete Time: 12:40 EDMS 01/17 12:20 Order name: Glucose, Ancillary Testing; Complete Time: 12:23 EDMS 01/17 11:42 Order name: EKG; Complete Time: 11:43 kb 01/17 11:42 Order name: Accucheck; Complete Time: 12:10 kb 01/17 11:42 Order name: Cardiac monitoring; Complete Time: 12:10 kb 01/17 11:42 Order name: EKG - Nurse/Tech; Complete Time: 12:29 kb 01/17 11:42 Order name: IV Saline Lock; Complete Time: 12:11 kb 01/17 11:42 Order name: Labs collected and sent; Complete Time: 12:11 kb 01/17 11:42 Order name: NPO; Complete Time: 12:11 kb 01/17 11:42 Order name: O2 Per Protocol; Complete Time: 12:11 kb 01/17 11:42 Order name: O2 Sat Monitoring; Complete Time: 12:11 kb 01/17 11:42 Order name: Stroke Swallow Screen; Complete Time: 12:11 kb Administered Medications: 14:05 Drug: Potassium Chloride 40 mEq Route: PO; oh 14:28 Drug: Potassium Chloride 20 mEq Route: IV; Rate: calculated rate; Site: left oh antecubital; Disposition: 01/18 12:54 Co-signature as Attending Physician, Milan Smith MD I agree with the assessment and kdr plan of care. Disposition Summary: 01/17/21 15:07 Discharge Ordered Location: Home kb Condition: Stable kb Diagnosis - Hypokalemia kb - Weakness kb Followup: kb - With: Emergency Department - When: As needed - Reason: Worsening of condition Followup: kb - With: Private Physician - When: 2 - 3 days - Reason: Recheck today's complaints, Continuance of care, Re-evaluation by your physician Discharge Instructions: - Discharge Summary Sheet kb - Transient Ischemic Attack, [id number] kb - Hypokalemia kb Forms: - Medication Reconciliation Form kb - Thank You Letter kb - Antibiotic Education kb - Prescription Opioid Use kb NIH Stroke Scale - NIH Stroke Score Date: 01/17/2021 Time: 17:47 Total Score = 0 1a. Level of Consciousness (LOC) - 0(Alert) 1b. Level of Consciousness (LOC) (Month \\T\\ Age) - 0(Both) 1c. LOC Commands (Open \\T\\ Closes Eyes/Honing Machine Try Out Setter) - 0(Both) 2. Best Gaze (Lateral Gaze Paresis) - 0(Normal) 3. Visual Field Loss - 0(No visual loss) 4. Facial Palsy - 0(Normal) 5a. Left Arm: Motor (10-second hold) - 0(No drift) 5b. Right Arm: Motor (10-second hold) - 0(No drift) 6a. Left Leg: Motor (5-second hold - always test supine) - 0(No drift) 6b. Right Leg: Motor (5-second hold - always test supine) - 0(No drift) 7. Limb Ataxia (finger/nose \\T\\ heel/hinkle - test with eyes open) - 0(Absent) 8. Sensory Loss (pinprick arms/legs/face) - 0(Normal) 9. Best Language: Aphasia (description/naming/reading) - 0(No aphasia) 10. Dysarthria (speech clarity - read or repeat words) - 0(Normal) 11. Extinction and Inattention (visual/tactile/auditory/spatial/personal) - 0(No abnormality) Initials: kb Signatures: Dispatcher [employer] EDYasmine Pichardo, REYMUNDO-C LOCATION DIRECTOR-Milan Greenfield MD MD kdr Harriott, Oneka, RN RN oh Corrections: (The following items were deleted from the chart) 01/17 12:54 11:58 Brain Wo Cont+MRI.RAD.BRZ ordered. EDMS EDMS
[2021-01-17] MEDS ORDERED: NA CHLORIDE 0.9% 250 ML ONE (15:18)
[2021-01-17 16:00] VITALS: TEMP 98.1
[2021-01-17 16:01] VITALS: BP 125/86; O2SAT 98
--- NOTE | 2021-01-18 11:45 | EKG ---
Test Date: 2021-01-17 Test Time: 12:26:37 Mining Support Worker: GRISELDA MEASUREMENT RESULTS: Intervals: Rate: 69 OR: QRSD: 150 QT: 440 QTc: 471 [place]: P: OR: QRS: 133 T: 0 INTERPRETIVE STATEMENTS: Demand pacemaker, interpretation is based on intrinsic rhythm Wide QRS rhythm with premature ventricular complexes or fusion complexes Right bundle branch block Lateral infarct, age undetermined T wave abnormality, consider inferior ischemia Abnormal ECG Compared to ECG 12/01/2020 13:57:09 Uncertain supraventricular rhythm now present Fusion complex(es) now present Right bundle-branch block now present Myocardial infarct finding now present T-wave abnormality now present Possible ischemia now present Electronically Signed On 01-18-21 11:44:20 CDT by Drew Sherman
== END 2021-01-17 15:51 | disposition home or self-care (01) ==
LOC: ER 11:11
DX: E87.6 Hypokalemia (principal); R53.1 Weakness; Z86.73 Personal history of transient ischemic attack (TIA), and cerebral infarction without residual deficits; Z88.5 Allergy status to narcotic agent
CPT/HCPCS: 93005; 85025; 80048; 36415; 85610; 82947; 85730; 70450; 71045; 96374; 99284; J3480; J7050

== ENCOUNTER 2021-01-20 09:31 | Observation (INO) | payer OTHER ==
[2021-01-20 10:58] LABS: Protime INR 1.29
[2021-01-20 10:59] LABS: Absolute Lymphocytes (CBC) 1.2 K/uL (0.7-4.9); Basophils % 0.5 % (0-1.3); Hematocrit 36.9 % (36.0-45.0); Lymphocytes % 19.1 % (15.3-44.8); MPV 8.2 fL (7.6-11.3); RBC Red Blood Cell Count 4.27 M/uL (3.86-4.86)
[2021-01-20 11:04] LABS: Albumin 2.8 g/dL (3.4-5.0); Bilirubin Direct 0.2 mg/dL (0-0.2); Bilirubin Total 0.6 mg/dL (0.2-1.0); Magnesium 1.7 mg/dL (1.8-2.4); Troponin (Emerg Dept Use Only) 0.02 ng/mL (0.0-0.045)
[2021-01-20 11:07] LABS: Potassium 2.8 mmol/L (3.5-5.1)
--- NOTE | 2021-01-20 11:29 | RAD REPORT ---
EXAM DESCRIPTION: CT - Head Brain Wo Cont - 01/20/2021 10:35 am CLINICAL HISTORY: CONFUSED COMPARISON: Ct Stroke Brain Wo Cont dated 01/17/2021; Ct Stroke Brain Wo Cont dated 09/26/2020 TECHNIQUE: All CT scans are performed using dose optimization technique as appropriate and may inclu de automated exposure control or mA/KV adjustment according to patient size. FINDINGS: New acute infarct in the left parietal lobe. Remote cerebellar infarcts. No acute intracra nial hemorrhage. Chronic small vessel ischemic changes. Remote left basal ganglia lacunar infarct. No mass effect or midline shift. No hydrocephalus. Air-fluid level in the sphenoid sinuses. No mastoid effusion. The calvarium is intact. IMPRESSION: Acute left parietal lobe infarct that is new from 01/17/2021.
--- NOTE | 2021-01-20 11:37 | RAD REPORT ---
EXAM DESCRIPTION: RAD - Chest Single View - 01/20/2021 10:52 am CLINICAL HISTORY: DYSPNEA COMPARISON: Chest Single View dated 01/17/2021; Chest Single View dated 12/01/2020; Chest Single View dated 10/21/2020; Chest Single View dated 09/26/2020; Chest For Pe Angio dated 10/21/2020 FINDINGS: Lines: Pacemaker. Lungs: No evidence of edema or pneumonia. Pleural: No significant pleural effusions or pneumothorax. Cardiac: Cardiomegaly. Mitral annuloplasty. Bones: No acute fractures. Other: IMPRESSION: No acute cardiopulmonary disease.
--- NOTE | 2021-01-20 11:42 | EDPHYS ---
Physician Documentation [facility] Name: Shima Walters Age: 85 yrs Sex: Female : 1935 Arrival Date: 01/20/2021 Time: 09:39 Bed 19 Private MD: ED Physician María Wilkerson HPI: 01/20 11:43 This 85 yrs old Female presents to ER via EMS with complaints of S/S of jr8 Possible Stroke. 11:43 The patient's problem is reported as dysphasia, expressive aphasia. Onset: The jr8 symptoms/episode began/occurred acutely, yesterday. Duration: This was a single incident. Context: occurred at home. The symptoms are alleviated by nothing. The symptoms are aggravated by nothing. Associated signs and symptoms: Pertinent positives: Tremor. Severity of symptoms: At their worst the symptoms were moderate in the emergency department the symptoms are unchanged. It is unknown whether or not the patient has had similar symptoms in the past. The patient has been recently seen by a physician:. This is an 85-year-old female who presented to the emergency room via EMS after her brother called EMS because she had a resting tremor. Patient arrived to the emergency room alert and oriented to person place time and event. Patient complains of tremor. Historical: - Immunization history:: Adult Immunizations up to date, Client reports receiving the 2nd dose of the Covid vaccine. - Social history:: Smoking status: Patient denies any tobacco usage or history of. ROS: 11:43 Eyes: Negative for injury, pain, redness, and discharge, ENT: Negative for injury, jr8 pain, and discharge, Neck: Negative for injury, pain, and swelling, Cardiovascular: Negative for chest pain, palpitations, and edema, Respiratory: Negative for shortness of breath, cough, wheezing, and pleuritic chest pain, Abdomen/GI: Negative for abdominal pain, nausea, vomiting, diarrhea, and constipation, Back: Negative for injury and pain, MS/Extremity: Negative for injury and deformity, Skin: Negative for injury, rash, and discoloration. 11:43 Neuro: Positive for tremor. Exam: 11:43 Radiologist reports: Acute parietal infarction jr8 11:43 Eyes: Pupils equal round and reactive to light, extra-ocular motions intact. Lids and lashes normal. Conjunctiva and sclera are non-icteric and not injected. Cornea within normal limits. Periorbital areas with no swelling, redness, or edema. ENT: Nares patent. No nasal discharge, no septal abnormalities noted. Tympanic membranes are normal and external auditory canals are clear. Oropharynx with no redness, swelling, or masses, exudates, or evidence of obstruction, uvula midline. Mucous membranes moist. Neck: Trachea midline, no thyromegaly or masses palpated, and no cervical lymphadenopathy. Supple, full range of motion without nuchal rigidity, or vertebral point tenderness. No Meningismus. Cardiovascular: Regular rate and rhythm with a normal S1 and S2. No gallops, murmurs, or rubs. Normal PMI, no JVD. No pulse deficits. Respiratory: Lungs have equal breath sounds bilaterally, clear to auscultation and percussion. No rales, rhonchi or wheezes noted. No increased work of breathing, no retractions or nasal flaring. Abdomen/GI: Soft, non-tender, with normal bowel sounds. No distension or tympany. No guarding or rebound. No evidence of tenderness throughout. Back: No spinal tenderness. No costovertebral tenderness. Full range of motion. Skin: Warm, dry with normal turgor. Normal color with no rashes, no lesions, and no evidence of cellulitis. MS/ Extremity: Pulses equal, no cyanosis. Neurovascular intact. Full, normal range of motion. 11:43 Neuro: Orientation: to person, place, time \T\ situation. Mentation: is normal, Memory: is normal, immediate memory is intact, recent memory is intact, remote memory is intact, Cranial nerves: CN I not tested, CN II- XII are normal as tested, visual cross are intact. extraocular movements are intact, Facial palsy and sensory deficits are absent. Nystagmus is absent. Speech is clear and appropriate. Tongue strength is normal, Cerebellar function: dysmetria is noted on the right, Motor: moves all fours, Sensation: no obvious gross deficits, seizure activity, is not displayed by the patient, Abnormal movements: resting tremor, is located in the right arm. Vital Signs: 09:44 BP 115 / 69; Pulse 68; Resp 15; Temp 98.3(T); Pulse Ox 98% ; Weight 49.9 kg; Height 5 ch5 ft. (152.40 cm); Pain 0/10; 09:52 BP 117 / 72; Pulse 70; Resp 18; Pulse Ox 97% on R/A; Pain 0/10; ch5 12:07 BP 145 / 79; Pulse 71; Resp 18; Pulse Ox 99% ; Pain 0/10; ch5 14:43 BP 127 / 74; Pulse 61; Resp 20; Pulse Ox 97% on R/A; ch5 09:44 Body Mass Index 21.48 (49.90 kg, 152.40 cm) ch5 NIH Stroke Scale Scores: 11:00 NIHSS Score: 0 ch5 11:43 NIHSS Score: 2 jr8 14:43 NIHSS Score: 0 ch5 MDM: 09:43 Patient medically screened. jr8 11:43 Data reviewed: vital signs, nurses notes, lab test result(s), EKG, radiologic studies, [facility] CT scan, plain films. Data interpreted: Pulse oximetry: on room air is 97 %. Interpretation: normal. Counseling: I had a detailed discussion with the patient and/or guardian regarding: the historical points, exam findings, and any diagnostic results supporting the discharge/admit diagnosis, lab results, radiology results, the need for further work-up and treatment in the hospital. 01/20 09:49 Order name: Basic Metabolic Panel [facility] 01/20 09:49 Order name: CBC with Diff; Complete Time: 11:03 [facility] 01/20 09:49 Order name: LFT's; Complete Time: 11:09 [facility] 01/20 09:49 Order name: Magnesium; Complete Time: 11:09 [facility] 01/20 09:49 Order name: NT PRO-BNP; Complete Time: 11:09 [facility] 01/20 09:49 Order name: PT-INR; Complete Time: 11:09 [facility] 01/20 09:49 Order name: Troponin (emerg Dept Use Only); Complete Time: 11:09 [facility] 01/20 09:49 Order name: Basic Metabolic Panel; Complete Time: 11:09 [facility] 01/20 11:42 Order name: Urine Microscopic Only [facility] 01/20 12:20 Order name: Basic Metabolic Panel [facility] 01/20 12:20 Order name: Basic Metabolic Panel [facility] 01/20 12:20 Order name: Comprehensive Metabolic Panel [facility] 01/20 12:20 Order name: Comprehensive Metabolic Panel [facility] 01/20 12:20 Order name: Lipid Profile EDMS 01/20 12:20 Order name: Lipid Profile EDMS 01/20 12:20 Order name: Magnesium EDMS 01/20 12:20 Order name: Magnesium EDMS 01/20 12:20 Order name: Phosphorus EDMS 01/20 12:20 Order name: Phosphorus EDMS 01/20 12:21 Order name: Protime (+INR) EDMS 01/20 12:21 Order name: Protime (+INR) EDMS 01/20 12:21 Order name: Protime (+INR) EDMS 01/20 12:21 Order name: Protime (+INR) EDMS 01/20 12:21 Order name: Protime (+INR) EDMS 01/20 12:21 Order name: Protime (+INR) EDMS 01/20 12:21 Order name: PTT, Activated Partial Thromb EDMS 01/20 12:21 Order name: PTT, Activated Partial Thromb EDMS 01/20 12:21 Order name: PTT, Activated Partial Thromb EDMS 01/20 12:21 Order name: PTT, Activated Partial Thromb EDMS 01/20 09:49 Order name: XRAY Chest (1 view); Complete Time: 11:42 01/20 09:49 Order name: EKG; Complete Time: 09:50 01/20 09:49 Order name: Cardiac monitoring; Complete Time: 10:13 01/20 09:49 Order name: EKG - Nurse/Tech; Complete Time: 11:43 01/20 09:49 Order name: IV Saline Lock; Complete Time: 10:13 01/20 09:49 Order name: Labs collected and sent; Complete Time: 10:13 01/20 09:49 Order name: O2 Per Protocol; Complete Time: 10:13 01/20 10:09 Order name: CT Head Brain wo Cont; Complete Time: 11:42 01/20 12:20 Order name: NPO EDMS 01/20 12:21 Order name: Physical Therapy Consult EDMS 01/20 12:21 Order name: NPO EDMS 01/20 12:21 Order name: NPO EDMS 01/20 12:21 Order name: Echo with Doppler EDMS 01/20 12:21 Order name: EKG Electrocardiogram EDMS 01/20 12:21 Order name: PTT, Activated Partial Thromb EDMS 01/20 12:21 Order name: PTT, Activated Partial Thromb EDMS 01/20 12:21 Order name: T4,Total EDMS 01/20 12:21 Order name: T4,Total EDMS 01/20 12:21 Order name: Thyroid Stimulating Hormone EDMS 01/20 12:21 Order name: Thyroid Stimulating Hormone EDMS 01/20 12:21 Order name: Speech Therapy Consult EDMS 01/20 12:21 Order name: Stroke Protocol EDMS 01/20 12:28 Order name: SARS-COV-2 RT PCR; Complete Time: 13:33 EDMS 01/20 12:57 Order name: Diet Regular; Complete Time: 12:57 ch5 01/20 15:25 Order name: Urine Dipstick-Ancillary EDMS 01/20 09:49 Order name: O2 Sat Monitoring; Complete Time: 10:13 jr8 01/20 11:42 Order name: Urine Dipstick-Ancillary (obtain specimen); Complete Time: 15:25 jr8 Administered Medications: 11:42 Drug: Potassium Chloride 40 mEq Route: PO; ch5 13:27 Follow up: Response: No adverse reaction ch5 12:05 Drug: Aspirin Chewable Tablet 81 mg Route: PO; ch5 13:25 Follow up: Response: No adverse reaction ch5 12:05 Drug: PlaVIX (clopidogrel) 75 mg Route: PO; ch5 13:27 Follow up: Response: No adverse reaction ch5 12:05 Drug: Atorvastatin 40 mg Route: PO; ch5 13:27 Follow up: Response: No adverse reaction ch5 12:06 Drug: Potassium Chloride 20 mEq Route: IV; Rate: calculated rate; Site: right ch5 antecubital; 15:24 Follow up: IV Status: Completed infusion ch5 12:06 Drug: Magnesium Sulfate 2 grams Route: IVPB; Infused Over: 2 hrs; Site: right ch5 antecubital; 13:25 Follow up: IV Status: Completed infusion ch5 15:00 Drug: foLIC Acid 1 mg Route: IVPB; Site: right antecubital; ch5 15:10 Follow up: IV Status: Completed infusion ch5 Disposition: 01/21 14:27 Co-signature as Attending Physician, María Wilkerson MD I agree with the assessment and sp3 plan of care. Disposition Summary: 01/20/21 11:41 Hospitalization Ordered Hospitalization Status: Inpatient Admission jr8 Provider: Luz Larry Location: Telemetry/MedSurg (Inpatient) jr8 Condition: Stable jr8 Problem: new jr8 Symptoms: are unchanged jr8 Bed/Room Type: Standard jr8 Room Assignment: 422(01/20/21 13:51) bd Diagnosis - Altered mental status, unspecified jr8 - Hypokalemia jr8 - Cerebral infarction, unspecified jr8 Forms: - Medication Reconciliation Form jr8 - SBAR form jr8 NIH Stroke Scale - NIH Stroke Score Date: 01/20/2021 Time: 11:00 Total Score = 0 1a. Level of Consciousness (LOC) - 0(Alert) 1b. Level of Consciousness (LOC) (Month \T\ Age) - 0(Both) 1c. LOC Commands (Open \T\ Closes Eyes/Apple Sorter) - 0(Both) 2. Best Gaze (Lateral Gaze Paresis) - 0(Normal) 3. Visual Field Loss - 0(No visual loss) 4. Facial Palsy - 0(Normal) 5a. Left Arm: Motor (10-second hold) - 0(No drift) 5b. Right Arm: Motor (10-second hold) - 0(No drift) 6a. Left Leg: Motor (5-second hold - always test supine) - 0(No drift) 6b. Right Leg: Motor (5-second hold - always test supine) - 0(No drift) 7. Limb Ataxia (finger/nose \T\ heel/hinkle - test with eyes open) - 0(Absent) 8. Sensory Loss (pinprick arms/legs/face) - 0(Normal) 9. Best Language: Aphasia (description/naming/reading) - 0(No aphasia) 10. Dysarthria (speech clarity - read or repeat words) - 0(Normal) 11. Extinction and Inattention (visual/tactile/auditory/spatial/personal) - 0(No abnormality) Initials: ch5 NIH Stroke Scale - NIH Stroke Score Date: 01/20/2021 Time: 11:43 Total Score = 2 1a. Level of Consciousness (LOC) - 0(Alert) 1b. Level of Consciousness (LOC) (Month \T\ Age) - 1(One) 1c. LOC Commands (Open \T\ Closes Eyes/Apple Sorter) - 0(Both) 2. Best Gaze (Lateral Gaze Paresis) - 0(Normal) 3. Visual Field Loss - 0(No visual loss) 4. Facial Palsy - 0(Normal) 5a. Left Arm: Motor (10-second hold) - 0(No drift) 5b. Right Arm: Motor (10-second hold) - 0(No drift) 6a. Left Leg: Motor (5-second hold - always test supine) - 0(No drift) 6b. Right Leg: Motor (5-second hold - always test supine) - 0(No drift) 7. Limb Ataxia (finger/nose \T\ heel/hinkle - test with eyes open) - 1(Present in one limb) 8. Sensory Loss (pinprick arms/legs/face) - 0(Normal) 9. Best Language: Aphasia (description/naming/reading) - 0(No aphasia) 10. Dysarthria (speech clarity - read or repeat words) - 0(Normal) 11. Extinction and Inattention (visual/tactile/auditory/spatial/personal) - 0(No abnormality) Initials: jr8 NIH Stroke Scale - NIH Stroke Score Date: 01/20/2021 Time: 14:43 Total Score = 0 1a. Level of Consciousness (LOC) - 0(Alert) 1b. Level of Consciousness (LOC) (Month \T\ Age) - 0(Both) 1c. LOC Commands (Open \T\ Closes Eyes/Apple Sorter) - 0(Both) 2. Best Gaze (Lateral Gaze Paresis) - 0(Normal) 3. Visual Field Loss - 0(No visual loss) 4. Facial Palsy - 0(Normal) 5a. Left Arm: Motor (10-second hold) - 0(No drift) 5b. Right Arm: Motor (10-second hold) - 0(No drift) 6a. Left Leg: Motor (5-second hold - always test supine) - 0(No drift) 6b. Right Leg: Motor (5-second hold - always test supine) - 0(No drift) 7. Limb Ataxia (finger/nose \T\ heel/hinkle - test with eyes open) - 0(Absent) 8. Sensory Loss (pinprick arms/legs/face) - 0(Normal) 9. Best Language: Aphasia (description/naming/reading) - 0(No aphasia) 10. Dysarthria (speech clarity - read or repeat words) - 0(Normal) 11. Extinction and Inattention (visual/tactile/auditory/spatial/personal) - 0(No abnormality) Initials: 5 Signatures: Dispatcher [employer] EDMS Venecia Ramos Josh, PA PA jr8 María Wilkerson MD MD sp3 Franklin Nava RN RN 5 Corrections: (The following items were deleted from the chart) 01/20 09:53 09:52 PMHx: CVA; [place] [id number] 09:53 09:52 PSHx: mitral valve repair; [place] [id number] 12:29 11:21 CORONAVIRUS+[email or web address] ordered. EDMS EDMS 13:51 11:41 jr8 laurie
--- NOTE | 2021-01-20 11:42 | ER ---
Nurse's Notes [facility] [place] Name: Shima Walters Age: 85 yrs Sex: Female : 1935 Arrival Date: 01/20/2021 Time: 09:39 Bed 19 Private MD: Diagnosis: Altered mental status, unspecified;Hypokalemia;Cerebral infarction, unspecified Presentation: 01/20 09:44 Chief complaint: EMS states: Sudden onset of tremors in hand. Seen here for confusion 2 ch5 days ago. Coronavirus screen: Vaccine status: Patient reports receiving the 2nd dose of the covid vaccine. Client denies travel out of the [place] in the last 14 days. Ebola Screen: Patient negative for fever greater than or equal to 101.5 degrees Fahrenheit, and additional compatible Ebola Virus Disease symptoms Patient denies exposure to infectious person. Patient denies travel to an Ebola-affected area in the 21 days before illness onset. Risk Assessment: Do you want to hurt yourself or someone else? Patient reports no desire to harm self or others. Onset of symptoms was January 20, 2021 at 08:30. 09:44 Method Of Arrival: EMS: [facility] 5 09:44 Acuity: KERRY 2 ch5 Historical: - Immunization history:: Adult Immunizations up to date, Client reports receiving the 2nd dose of the Covid vaccine. - Social history:: Smoking status: Patient denies any tobacco usage or history of. Screenin:52 Abuse screen: Denies threats or abuse. Denies injuries from another. Nutritional ch5 screening: No deficits noted. Tuberculosis screening: No symptoms or risk factors identified. Fall Risk None identified. Assessment: 09:48 VAN Scoring: Arm Drift: Patients demonstrates NO arm weakness. Patient is VAN Negative. ch5 Visual Disturbance: No visual disturbance noted. Aphasia: Neglect: No neglect noted. Pain: Denies pain. 14:26 Patient has been NPO before screening. The patient is alert, and able to follow ch5 commands. The patient does not exhibit slurred or garbled speech. The patient is not exhibiting difficulty speaking. The patient does not exhibit difficulty understanding words. The patient is able to swallow own secretions with no drooling or need for suction. Patient tolerated one teaspoon of water. No drooling, immediate coughing, gurgling, or clearing of the throat was noted. The patient tolerated 90mL of water. No drooling, immediate coughing, gurgling, or clearing of the throat was noted. The patient passed the bedside swallow screening. Oral medications may be given as ordered. Contact Physician for further diet orders. 14:32 Reassessment: " I feel weak" but No deficits noted.. 5 Vital Signs: 09:44 BP 115 / 69; Pulse 68; Resp 15; Temp 98.3(T); Pulse Ox 98% ; Weight 49.9 kg; Height 5 ch5 ft. (152.40 cm); Pain 0/10; 09:52 BP 117 / 72; Pulse 70; Resp 18; Pulse Ox 97% on R/A; Pain 0/10; ch5 12:07 BP 145 / 79; Pulse 71; Resp 18; Pulse Ox 99% ; Pain 0/10; ch5 14:43 BP 127 / 74; Pulse 61; Resp 20; Pulse Ox 97% on R/A; ch5 09:44 Body Mass Index 21.48 (49.90 kg, 152.40 cm) 5 Vitals: 14:43 Cardiac Rhythm Assessment Regular Paced Other at 60 b/min. 5 NIH Stroke Scale Scores: 11:00 NIHSS Score: 0 ch5 11:43 NIHSS Score: 2 jr8 14:43 NIHSS Score: 0 5 ED Course: 09:39 Patient arrived in ED. ds1 09:42 Shailesh Rodríguez PA is PHCP. jr8 09:42 María Wilkerson MD is Attending Physician. jr8 09:44 Franklin Nava, PINEDA is Primary Nurse. ch5 09:48 Triage completed. ch5 09:52 Patient has correct armband on for positive identification. Bed in low position. Call [facility] light in reach. Side rails up X2. 10:13 Basic Metabolic Panel Sent. ch5 10:13 Troponin (emerg Dept Use Only) Sent. ch5 10:13 PT-INR Sent. ch5 10:13 NT PRO-BNP Sent. ch5 10:14 Magnesium Sent. ch5 10:14 LFT's Sent. ch5 10:14 CBC with Diff Sent. ch5 10:34 CT Head Brain wo Cont In Process Unspecified. EDMS 10:52 XRAY Chest (1 view) In Process Unspecified. EDMS 11:41 Luz Larry MD is Hospitalizing Provider. jr8 Administered Medications: 11:42 Drug: Potassium Chloride 40 mEq Route: PO; ch5 13:27 Follow up: Response: No adverse reaction ch5 12:05 Drug: Aspirin Chewable Tablet 81 mg Route: PO; ch5 13:25 Follow up: Response: No adverse reaction ch5 12:05 Drug: PlaVIX (clopidogrel) 75 mg Route: PO; ch5 13:27 Follow up: Response: No adverse reaction ch5 12:05 Drug: Atorvastatin 40 mg Route: PO; ch5 13:27 Follow up: Response: No adverse reaction ch5 12:06 Drug: Potassium Chloride 20 mEq Route: IV; Rate: calculated rate; Site: right ch5 antecubital; 15:24 Follow up: IV Status: Completed infusion ch5 12:06 Drug: Magnesium Sulfate 2 grams Route: IVPB; Infused Over: 2 hrs; Site: right ch5 antecubital; 13:25 Follow up: IV Status: Completed infusion ch5 15:00 Drug: foLIC Acid 1 mg Route: IVPB; Site: right antecubital; ch5 15:10 Follow up: IV Status: Completed infusion ch5 Outcome: 11:41 Decision to Hospitalize by Provider. jr8 15:23 Admitted to Med/surg 5 15:23 Condition: stable 15:23 Instructed on the need for admit. 15:25 Patient left the ED. 5 NIH Stroke Scale - NIH Stroke Score Date: 01/20/2021 Time: 11:00 Total Score = 0 1a. Level of Consciousness (LOC) - 0(Alert) 1b. Level of Consciousness (LOC) (Month \\T\\ Age) - 0(Both) 1c. LOC Commands (Open \\T\\ Closes Eyes/Computer Lab Aide) - 0(Both) 2. Best Gaze (Lateral Gaze Paresis) - 0(Normal) 3. Visual Field Loss - 0(No visual loss) 4. Facial Palsy - 0(Normal) 5a. Left Arm: Motor (10-second hold) - 0(No drift) 5b. Right Arm: Motor (10-second hold) - 0(No drift) 6a. Left Leg: Motor (5-second hold - always test supine) - 0(No drift) 6b. Right Leg: Motor (5-second hold - always test supine) - 0(No drift) 7. Limb Ataxia (finger/nose \\T\\ heel/hinkle - test with eyes open) - 0(Absent) 8. Sensory Loss (pinprick arms/legs/face) - 0(Normal) 9. Best Language: Aphasia (description/naming/reading) - 0(No aphasia) 10. Dysarthria (speech clarity - read or repeat words) - 0(Normal) 11. Extinction and Inattention (visual/tactile/auditory/spatial/personal) - 0(No abnormality) Initials: ch5 NIH Stroke Scale - NIH Stroke Score Date: 01/20/2021 Time: 11:43 Total Score = 2 1a. Level of Consciousness (LOC) - 0(Alert) 1b. Level of Consciousness (LOC) (Month \\T\\ Age) - 1(One) 1c. LOC Commands (Open \\T\\ Closes Eyes/Computer Lab Aide) - 0(Both) 2. Best Gaze (Lateral Gaze Paresis) - 0(Normal) 3. Visual Field Loss - 0(No visual loss) 4. Facial Palsy - 0(Normal) 5a. Left Arm: Motor (10-second hold) - 0(No drift) 5b. Right Arm: Motor (10-second hold) - 0(No drift) 6a. Left Leg: Motor (5-second hold - always test supine) - 0(No drift) 6b. Right Leg: Motor (5-second hold - always test supine) - 0(No drift) 7. Limb Ataxia (finger/nose \\T\\ heel/hinkle - test with eyes open) - 1(Present in one limb) 8. Sensory Loss (pinprick arms/legs/face) - 0(Normal) 9. Best Language: Aphasia (description/naming/reading) - 0(No aphasia) 10. Dysarthria (speech clarity - read or repeat words) - 0(Normal) 11. Extinction and Inattention (visual/tactile/auditory/spatial/personal) - 0(No abnormality) Initials: jr8 NIH Stroke Scale - NIH Stroke Score Date: 01/20/2021 Time: 14:43 Total Score = 0 1a. Level of Consciousness (LOC) - 0(Alert) 1b. Level of Consciousness (LOC) (Month \\T\\ Age) - 0(Both) 1c. LOC Commands (Open \\T\\ Closes Eyes/Computer Lab Aide) - 0(Both) 2. Best Gaze (Lateral Gaze Paresis) - 0(Normal) 3. Visual Field Loss - 0(No visual loss) 4. Facial Palsy - 0(Normal) 5a. Left Arm: Motor (10-second hold) - 0(No drift) 5b. Right Arm: Motor (10-second hold) - 0(No drift) 6a. Left Leg: Motor (5-second hold - always test supine) - 0(No drift) 6b. Right Leg: Motor (5-second hold - always test supine) - 0(No drift) 7. Limb Ataxia (finger/nose \\T\\ heel/hinkle - test with eyes open) - 0(Absent) 8. Sensory Loss (pinprick arms/legs/face) - 0(Normal) 9. Best Language: Aphasia (description/naming/reading) - 0(No aphasia) 10. Dysarthria (speech clarity - read or repeat words) - 0(Normal) 11. Extinction and Inattention (visual/tactile/auditory/spatial/personal) - 0(No abnormality) Initials: [facility] Signatures: Dispatcher [employer] EDAR Niki Dwyer ds1 Shailesh Rodríguez PA PA jr8 Franklin Nava RN RN [facility] Corrections: (The following items were deleted from the chart) 09:53 09:52 PMHx: CVA; [place] [address] 09:53 09:52 PSHx: mitral valve repair; [place] [address] 12:06 12:04 foLIC Acid 1 mg IVPB in left antecubital [place] [address] 12:06 12:05 Magnesium Sulfate 2 grams IVPB in right antecubital over 2 hrs [place] [address] 12:29 11:44 CORONAVIRUS+MR.LAB.ANIL drawn and sent. [address]
[2021-01-20] MEDS ORDERED: POTASSIUM CL SA 10 MEQ TAB PO ONE ×2 (11:55→20:51)
[2021-01-20] MEDS ORDERED: Magnesium Sulfate 2gm IVPB 2 G/50 ML BAG IV ONE (11:55)
[2021-01-20] MEDS ORDERED: KCL 20 MEQ/100 mL IVPB 20 MEQ/100 ML BAG IV ONE (11:55)
[2021-01-20] MEDS ORDERED: ACETAMINOPHEN 500 MG TAB PO PRN (12:13)
[2021-01-20] MEDS ORDERED: ONDANSETRON 4 MG/2 ML VIAL IV PRN (12:13)
[2021-01-20] MEDS ORDERED: ATORVASTATIN 20 MG TAB ONE (12:14)
[2021-01-20] MEDS ORDERED: CLOPIDOGREL 75 MG TABLET ONE (12:14)
[2021-01-20] MEDS ORDERED: ASPIRIN 81 MG CHEWABLE TABLET ONE (12:14)
[2021-01-20] MEDS ORDERED: FOLIC ACID 5 MG/ML VIAL ONE (12:15)
[2021-01-20] MEDS ORDERED: NA CHLORIDE 0.9% 50 ML ONE (12:17)
[2021-01-20] MEDS: NA CHLORIDE 0.9% 1,000 ML IV SCH ×2 (13:00→17:43)
[2021-01-20 15:24] LABS: Urine Blood Trace-intact (Negative); Urine Glucose Negative (Negative); Urine Protein Negative (Negative)
[2021-01-20 16:00] LABS: Urine Bacteria <20 /HPF (<20); Urine RBC <5 /HPF (NONE SEEN)
[2021-01-20 16:21] VITALS: BMI 21.4
[2021-01-20] MEDS ORDERED: PNEUMOCOCCAL VACCINE 0.5 ML IMVAC ONE (17:00)
[2021-01-20] MEDS ORDERED: INFLUENZA VACCINE (for 6+ mo) 0.5 ML DOSE IMVAC ONE (17:00)
[2021-01-20] MEDS ORDERED: ATORVASTATIN 40 MG TAB PO SCH (21:00)
[2021-01-21] MEDS: NA CHLORIDE 0.9% 1,000 ML IV SCH (02:20)
[2021-01-21 06:16] LABS: Protime INR 1.15
[2021-01-21 06:36] LABS: Albumin 2.7 g/dL (3.4-5.0); Bilirubin Total 0.7 mg/dL (0.2-1.0); Magnesium 2.1 mg/dL (1.8-2.4); Phosphorus 2.5 mg/dL (2.5-4.9); Protein, Total 6.8 g/dL (6.4-8.2); T4,Total 7.4 ug/dL (4.8-13.9); Thyroid Stimulating Hormone 1.44 uIU/mL (0.360-3.740)
[2021-01-21 08:36] VITALS: BP 128/65; TEMP 97.7
[2021-01-21] MEDS ORDERED: CLOPIDOGREL 75 MG TABLET PO SCH (09:00)
[2021-01-21] MEDS ORDERED: ASPIRIN EC 81 MG TAB PO SCH (09:00)
[2021-01-21] MEDS ORDERED: ENOXAPARIN 40 MG/0.4 ML SQ SCH (09:00)
--- NOTE | 2021-01-21 10:36 | P.HP ---
Certification for Inpatient Patient admitted to: Observation With expected LOS: <2 Midnights Patient will require the following post-hospital care: None Practitioner: I am a practitioner with admitting privileges, knowledge of patient current condition, hospital course, and medical plan of care. Services: Services provided to patient in accordance with Admission requirements found in Title 42 Section 412.3 of the Code of Federal Regulations Patient History Date of Service: 01/20/21 Reason for admission: ACUTE CVA History of Present Illness: PATIENT IS AN 85-YEAR-OLD FEMALE WHO PRESENTS TO THE HOSPITAL WITH WEAKNESS AND RESTING TREMOR. PATIENT HAS SOME APHASIA WELL. PATIENT WAS BROUGHT IN A COUPLE OF DAYS AGO BUT AT THAT TIME HER WORKUP WAS UNREMARKABLE AND SHE WAS DISCHARGED HOME. CT SCAN TODAY REVEALS A PARIETAL INFARCT. THIS LOOKS TO BE ACUTE. THIS PROBABLY OCCURRED A COUPLE DAYS AGO WHEN HER SYMPTOMS 1ST STARTED. SHE CLINICALLY IS DOING PRETTY WELL. SHE WAS GIVEN SOME IV HYDRATION. HER NEUROLOGIC STATUS IS BACK TO BASELINE. SHE IS FUNCTIONING NORMALLY AND SHE IS INTERACTING APPROPRIATELY. SHE WILL BE ADMITTED FOR OBSERVATION AND SHE DOES NOT NEED MORE THAN 24 HR OF HOSPITALIZATION UNLESS HER SYMPTOMS CHANGE. Allergies codeine Allergy (Verified 10/21/20 14:16) Unknown Home Medications: Atorvastatin Calcium 1 tab PO BREAKFAST 09/26/20 Rivaroxaban [Xarelto] 15 mg PO BREAKFAST 09/26/20 Losartan Potassium [Cozaar] 25 mg PO DAILY 10/21/20 carvediloL [Coreg*] 6.25 mg PO BID #60 tab 12/01/20 Furosemide [Lasix] 40 mg PO DAILY 01/20/21 Sacubitril/Valsartan [Entresto 24 mg-26 mg Tablet] 26 mg PO BID 01/20/21 Aspirin [Aspirin EC 81 MG] 162 mg PO DAILY #60 tablet. 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 -: s/p Mitral valve replacement (~>20yrs ago) -: multiple TIAs -: CHF with cardiomyopathy-EF=30% -: Mitral valve replacement Psychosocial/ Personal History: lives at home by herself - Family History Father Medical History: Heart disease Mother Medical History: Heart disease - Social History Smoking Status: Never smoker Alcohol use: No CD- Drugs: No Caffeine use: No Review of Systems 10-point ROS is otherwise unremarkable Physical Examination - Vital Signs Temperature: 97.7 F Blood Pressure: 128/65 Pulse: 60 Respirations: 20 Pulse Ox (%): 98 - Physical Exam General: Alert, In no apparent distress, Oriented x3 HEENT: Atraumatic, PERRLA, Mucous membr. moist/pink, EOMI, Sclerae nonicteric Neck: Supple, 2+ carotid pulse no bruit, No LAD, Without JVD or thyroid abnormality Respiratory: Clear to auscultation bilaterally, Normal air movement Cardiovascular: Regular rate/rhythm, Normal S1 S2, Systolic murmur Gastrointestinal: Normal bowel sounds, Soft and benign, Non-distended, No tenderness Musculoskeletal: No clubbing, No swelling, No tenderness Integumentary: No rashes Neurological: Normal gait, Normal speech, Normal strength at 5/5 x4 extr, Normal tone, Sensation intact, Cranial nerves 3-12 intact, Normal affect Lymphatics: No axilla or inguinal lymphadenopathy - Studies Laboratory Data (last 24 hrs) 01/20/21 10:09: PT 14.9 H, INR 1.29 01/20/21 10:09: WBC 6.30, Hgb 11.9 L, Hct 36.9, Plt Count 154 01/20/21 10:09: Sodium 142, Potassium 2.8 L*, BUN 16, Creatinine 0.86, Glucose 166 H, Magnesium 1.7 L, Total Bilirubin 0.6, AST 27, ALT 30, Alkaline Phosphatase 83 Assessment & Plan - Problems (Diagnosis) (1) Acute CVA (cerebrovascular accident) Current Visit: Yes Status: Acute (2) Cardiomyopathy Current Visit: No Status: Acute - Plan PLAN: 1. ANTI-PLATELET THERAPY 2. STATIN THERAPY 3. LIPID PROFILE 4. MRI OF THE BRAIN 5. DVT PROPHYLAXIS 6. PT EVALUATION 7. SPEECH IS NOT NEEDED SHE IS SWALLOWING PERFECTLY 8. GI AND DVT PROPHYLAXIS Discharge Plan: Home Plan to discharge in: Greater than 2 days - Advance Directives Does patient have a Living Will: No Does patient have a Durable POA for Healthcare: No - Code Status/Comfort Care Code Status Assessed: Yes Code Status: Full Code Critical Care: No Time Spent Managing PTS Care (In Minutes): 45
--- NOTE | 2021-01-21 10:36 | P.DS ---
Discharge Date: 01/21/21 Disposition: ROUTINE DISCHARGE Discharge Condition: GOOD Reason for Admission: ACUTE CVA - Problems (1) Acute CVA (cerebrovascular accident) Status: Acute (2) Cardiomyopathy Status: Acute Brief History of Present Illness: PATIENT IS AN 85-YEAR-OLD FEMALE WHO PRESENTS TO THE HOSPITAL WITH WEAKNESS AND RESTING TREMOR. PATIENT HAS SOME APHASIA WELL. PATIENT WAS BROUGHT IN A COUPLE OF DAYS AGO BUT AT THAT TIME HER WORKUP WAS UNREMARKABLE AND SHE WAS DISCHARGED HOME. CT SCAN TODAY REVEALS A PARIETAL INFARCT. THIS LOOKS TO BE ACUTE. THIS PROBABLY OCCURRED A COUPLE DAYS AGO WHEN HER SYMPTOMS 1ST STARTED. SHE CLINICALLY IS DOING PRETTY WELL. SHE WAS GIVEN SOME IV HYDRATION. HER NEUROLOGIC STATUS IS BACK TO BASELINE. SHE IS FUNCTIONING NORMALLY AND SHE IS INTERACTING APPROPRIATELY. SHE WILL BE ADMITTED FOR OBSERVATION AND SHE DOES NOT NEED MORE THAN 24 HR OF HOSPITALIZATION UNLESS HER SYMPTOMS CHANGE. Hospital Course: Patient has done well during her hospital stay. At this time, patient is back to baseline and is stable for discharge home. Vital Signs/Physical Exam: Temp Pulse Resp BP Pulse Ox 97.7 F 60 20 128/65 98 01/21/21 10:35 01/21/21 10:35 01/21/21 10:35 01/21/21 10:35 01/21/21 10:35 General: Alert, In no apparent distress, Oriented x3 Laboratory Data at Discharge: WBC 6.30 K/uL (4.3-10.9) 01/20/21 10:09 Hgb 11.9 g/dL (12.0-15.0) L 01/20/21 10:09 Hct 36.9 % (36.0-45.0) 01/20/21 10:09 Plt Count 154 K/uL (152-406) 01/20/21 10:09 PT 13.2 SECONDS (9.5-12.5) H 01/21/21 05:50 INR 1.15 01/21/21 05:50 APTT 27.1 SECONDS (24.3-36.9) 01/21/21 05:50 Sodium 143 mmol/L (136-145) 01/21/21 05:50 Potassium 4.0 mmol/L (3.5-5.1) 01/21/21 05:50 BUN 17 mg/dL (7-18) 01/21/21 05:50 Creatinine 0.89 mg/dL (0.55-1.3) 01/21/21 05:50 Glucose 153 mg/dL (74-106) H 01/21/21 05:50 Phosphorus 2.5 mg/dL (2.5-4.9) 01/21/21 05:50 Magnesium 2.1 mg/dL (1.8-2.4) 01/21/21 05:50 Total Bilirubin 0.7 mg/dL (0.2-1.0) 01/21/21 05:50 AST 65 U/L (15-37) H 01/21/21 05:50 ALT 56 U/L (12-78) 01/21/21 05:50 Alkaline Phosphatase 111 U/L (45-117) 01/21/21 05:50 Triglycerides 90 mg/dL (<150) 01/21/21 05:50 Cholesterol 108 mg/dL (<200) 01/21/21 05:50 HDL Cholesterol 41 mg/dL (40-60) 01/21/21 05:50 Cholesterol/HDL Ratio 2.63 01/21/21 05:50 Home Medications: Atorvastatin Calcium 1 tab PO BREAKFAST 09/26/20 Rivaroxaban [Xarelto] 15 mg PO BREAKFAST 09/26/20 Losartan Potassium [Cozaar] 25 mg PO DAILY 10/21/20 carvediloL [Coreg*] 6.25 mg PO BID #60 tab 12/01/20 Furosemide [Lasix] 40 mg PO DAILY 01/20/21 Sacubitril/Valsartan [Entresto 24 mg-26 mg Tablet] 26 mg PO BID 01/20/21 Aspirin [Aspirin EC 81 MG] 162 mg PO DAILY #60 tablet. 01/21/21 New Medications: Aspirin [Aspirin EC 81 MG] 162 mg PO DAILY #60 tablet. Physician Discharge Instructions: OK TO DC IV AND DC HOME FOLLOW-UP WITH PRIMARY CARE PROVIDER IN 1-2 WEEKS FOLLOW-UP WITH Neuro[facility] IN 1-2 WEEKS RETURN TO THE ER IF SYMPTOMS WORSENS CALL or TEXT DR. LEDEZMA AT [phone] IF ANY QUESTIONS REGARDING HOSPITAL STAY. PLEASE CALL THE FLOOR AT [phone] IF ANY MEDICATION OR NURSING QUESTIONS. Diet: AHA Activity: Fall precautions Followup: Rashaad Polk MD [ASSOCIATE-ACTIVE - CAN ADMIT] - 1-2 Weeks (neurologist- call to schedule an appointment ) TWYLA WAKEFIELD [Primary Care Provider] - Time spent managing pt's care (in minutes): 35
[2021-01-21 10:42] VITALS: O2SAT 98
== END 2021-01-21 11:25 | disposition home or self-care (01) ==
LOC: ER 09:31 → ERHOLD 12:13 → 4TH 15:10
PROVIDERS: ADMIT Hospitalist; ATTEND Hospitalist
DX: I63.89 Other cerebral infarction (principal); R47.01 Aphasia; R29.702 NIHSS score 2; I42.9 Cardiomyopathy, unspecified; E87.6 Hypokalemia; I48.91 Unspecified atrial fibrillation; H54.40 Blindness, one eye, unspecified eye; Z86.73 Personal history of transient ischemic attack (TIA), and cerebral infarction without residual deficits; Z95.2 Presence of prosthetic heart valve; Z85.820 Personal history of malignant melanoma of skin; Z79.01 Long term (current) use of anticoagulants; Z79.82 Long term (current) use of aspirin; Z88.6 Allergy status to analgesic agent; Z20.822 Contact with and (suspected) exposure to COVID-19; Z82.49 Family history of ischemic heart disease and other diseases of the circulatory system
CPT/HCPCS: 93005; 85025; 80048; 36415; 83735 ×2; 84100; 84132; 85610 ×2; 80061; 80076; 85730; 84436; 84443; 84484; 80053; 83880; 70450; 71045; 97116 ×2; 97161; 96375; 99285; 96366; U0003; J3480; J1650; J3475; J7030; G0378 ×3; 81003; 81015

== ENCOUNTER 2021-02-05 03:41 | Emergency (ER) | payer OTHER ==
[2021-02-05 04:31] LABS: Basophils % 0.6 % (0-1.3); Hematocrit 38.4 % (36.0-45.0); MPV 9.2 fL (7.6-11.3); RBC Red Blood Cell Count 4.35 M/uL (3.86-4.86)
[2021-02-05 04:56] LABS: Albumin 2.6 g/dL (3.4-5.0); Bilirubin Direct 2.1 mg/dL (0-0.2); Bilirubin Total 2.6 mg/dL (0.2-1.0); Potassium 3.2 mmol/L (3.5-5.1); Protein, Total 7.4 g/dL (6.4-8.2)
[2021-02-05] MEDS ORDERED: NA CHLORIDE 0.9% 250 ML ONE ×2 (05:27→07:13)
[2021-02-05] MEDS ORDERED: CEFTRIAXONE 1000 MG/VIAL ONE (06:53)
[2021-02-05] MEDS ORDERED: METRONIDAZOLE 500mg IVPB 500 MG/100 ML BAG IV ONE (06:54)
[2021-02-05] MEDS ORDERED: WATER FOR INJ,STERILE 10 ML ONE (07:13)
[2021-02-05 07:45] LABS: Urine Blood Negative (Negative); Urine Glucose 3+ (Negative); Urine Protein Negative (Negative); Urine pH 6.5 (5.0-7.0)
--- NOTE | 2021-02-05 08:25 | EDPHYS ---
Physician Documentation [facility] Name: Shima Walters Age: 85 yrs Sex: Female : 1935 Arrival Date: 02/05/2021 Time: 03:45 Bed 16 Private MD: ED Physician Louis López HPI: 02/05 03:56 This 85 yrs old Female presents to ER via Unassigned with complaints of mh7 Abdominal pain. 03:56 The patient presents with abdominal pain in the upper abdomen. Onset: The mh7 symptoms/episode began/occurred 1 week(s) ago. The symptoms do not radiate. Associated signs and symptoms: Pertinent negatives: nausea and vomiting, anorexia, blood in stools, chest pain, constipation, diarrhea, dysuria, fever, headache, hematuria, nausea, palpitations, shortness of breath, vaginal discharge, vomiting, vomiting blood. The symptoms are described as intermittent, vague, waxing/waning. Modifying factors: The symptoms are alleviated by nothing, the symptoms are aggravated by touching the area. Severity of pain: At its worst the pain was moderate 5 day(s) ago, in the emergency department the pain has improved moderately. Historical: - Allergies: 04:00 Codeine; dc2 - Home Meds: 04:12 atorvastatin 40 mg oral tab 1 tab once daily [Active]; xeralto 15mg po daily [Active]; df1 aspirin 81 mg Oral tab 81 mg daily [Active]; Lasix 40 mg Oral tab 1 tab once daily [Active]; Entresto 24-26 mg oral tab 1 tab 2 times per day [Active]; Coreg 6.25 mg Oral tab 1 tab 2 times per day [Active]; losartan 25 mg oral tab 1 tab once daily [Active]; - PMHx: 04:00 Cerebrovascular accident; dc2 04:12 CHF; df1 - PSHx: 04:12 mitral valve repair; pacemaker; Cholecystectomy; df1 - Immunization history:: Adult Immunizations up to date, Client reports receiving the 2nd dose of the Covid vaccine. - Social history:: Smoking status: Patient denies any tobacco usage or history of. Patient/guardian denies using alcohol, street drugs, IV drugs. ROS: 03:56 Constitutional: Negative for fever, chills, and weight loss, Eyes: Negative for injury, mh7 pain, redness, and discharge, ENT: Negative for injury, pain, and discharge, Neck: Negative for injury, pain, and swelling, Cardiovascular: Negative for chest pain, palpitations, and edema, Respiratory: Negative for shortness of breath, cough, wheezing, and pleuritic chest pain, Back: Negative for injury and pain, : Negative for injury, bleeding, discharge, and swelling, MS/Extremity: Negative for injury and deformity, Skin: Negative for injury, rash, and discoloration, Neuro: Negative for headache, weakness, numbness, tingling, and seizure, Psych: Negative for depression, anxiety, suicide ideation, homicidal ideation, and hallucinations, Allergy/Immunology: Negative for hives, rash, and allergies, Endocrine: Negative for neck swelling, polydipsia, polyuria, polyphagia, and marked weight changes, Hematologic/Lymphatic: Negative for swollen nodes, abnormal bleeding, and unusual bruising. Exam: 03:56 Constitutional: This is a well developed, well nourished patient who is awake, alert, mh7 and in no acute distress. Head/Face: Normocephalic, atraumatic. Eyes: Pupils equal round and reactive to light, extra-ocular motions intact. Lids and lashes normal. Conjunctiva and sclera are non-icteric and not injected. Cornea within normal limits. Periorbital areas with no swelling, redness, or edema. Neck: Trachea midline, no thyromegaly or masses palpated, and no cervical lymphadenopathy. Supple, full range of motion without nuchal rigidity, or vertebral point tenderness. No Meningismus. Chest/axilla: Normal chest wall appearance and motion. Nontender with no deformity. No lesions are appreciated. Cardiovascular: Regular rate and rhythm with a normal S1 and S2. No gallops, murmurs, or rubs. Normal PMI, no JVD. No pulse deficits. Respiratory: Lungs have equal breath sounds bilaterally, clear to auscultation and percussion. No rales, rhonchi or wheezes noted. No increased work of breathing, no retractions or nasal flaring. Back: No spinal tenderness. No costovertebral tenderness. Full range of motion. Skin: Warm, dry with normal turgor. Normal color with no rashes, no lesions, and no evidence of cellulitis. MS/ Extremity: Pulses equal, no cyanosis. Neurovascular intact. Full, normal range of motion. Neuro: Awake and alert, GCS 15, oriented to person, place, time, and situation. Cranial nerves II-XII grossly intact. Motor strength 5/5 in all extremities. Sensory grossly intact. Cerebellar exam normal. Normal gait. Psych: Awake, alert, with orientation to person, place and time. Behavior, mood, and affect are within normal limits. 03:56 Abdomen/GI: Inspection: scar(s), are noted in the right upper quadrant, Bowel sounds: mh7 normal, in all quadrants, Palpation: moderate abdominal tenderness, in the epigastric area and right upper quadrant, mass, is not appreciated, rebound tenderness, is not appreciated, voluntary guarding, is not appreciated, involuntary guarding, is not appreciated, no appreciated organomegaly, Rectal exam: the exam is deferred, because of patient request, Indicators: McBurney's point is not tender, Alvarado's sign is negative, Rovsing's sign is negative, Obturator sign is negative, Psoas sign is negative, Liver: tenderness, that is mild, Hernia: not appreciated. Vital Signs: 04:00 BP 115 / 87; Pulse 73; Resp 17; Pulse Ox 99% ; Pain 8/10; dc2 04:00 Temp 98.0; dc2 05:00 BP 103 / 67; Pulse 69; Resp 17; Pulse Ox 100% ; Pain 8/10; dc2 07:48 BP 107 / 69; Pulse 95; Resp 16; Pulse Ox 95% on R/A; jt3 08:03 Weight 49.9 kg; Height 5 ft. 2 in. (157.48 cm); jt3 09:39 BP 100 / 64; Pulse 94; Resp 17; Pulse Ox 96% on R/A; jt3 08:03 Body Mass Index 20.12 (49.90 kg, 157.48 cm) jt3 MDM: 07:28 Data reviewed: vital signs, nurses notes, EMS record, old medical records, lab test [facility] result(s), amylase and lipase, cardiac enzymes, electrolytes, EKG, radiologic studies, CT scan, ultrasound. Physician consultation: Al Berg MD was contacted at 07:15, regarding patient's condition, after a discussion of the case, a recommendation for transfer for higher level of care is made, Dr. Berg recommend [facility] because she will likely has pancreatic cancer and will need a stent placed which cannot be done here.. Transition of care: After a detail discussion of the patient's case, care is transferred to Louis López MD. 07:36 Patient medically screened. rn 08:22 Differential diagnosis: bowel obstruction, diverticulitis, gastritis, gastroesophageal rn reflux disease, Hepatitis, non-specific abd pain, pancreatitis, Peptic Ulcer Disease, pancreatic mass, choledocholithiasis. Counseling: I had a detailed discussion with the patient and/or guardian regarding: the historical points, exam findings, and any diagnostic results supporting the discharge/admit diagnosis, lab results, radiology results, the need to transfer to another facility, for higher level of care. ED course: Dr. Paz consulted with Dr. Berg this a.m., Dr. Berg recommended transfer for possible pancreatic mass and possible need for stenting which he does not do. Patient accepted to [facility] after [facility] was at capacity and could not accommodate patient.. 02/05 03:56 Order name: Basic Metabolic Panel; Complete Time: 05:06 [facility] 02/05 03:56 Order name: CBC with Diff; Complete Time: 04:48 [facility] 02/05 03:56 Order name: Hepatic Function; Complete Time: 05:06 [facility] 02/05 03:56 Order name: Lipase; Complete Time: 05:06 [facility] 02/05 07:26 Order name: COVID-19 SARS RT PCR (Document "Date of Onset" if Symptomatic); Complete bd Time: 08:47 02/05 07:44 Order name: Urine Dipstick-Ancillary; Complete Time: 08:08 [facility] 02/05 04:49 Order name: CT Abd/Pelvis - IV Contrast Only [facility] 02/05 05:15 Order name: US Abdomen Limited [facility] 02/05 03:56 Order name: IV Saline Lock; Complete Time: 03:57 [facility] 02/05 03:56 Order name: Labs collected and sent; Complete Time: 03:58 [facility] 02/05 03:56 Order name: Urine Dipstick-Ancillary (obtain specimen); Complete Time: 07:51 [facility] 02/05 03:56 Order name: EKG; Complete Time: 03:57 [facility] 02/05 03:56 Order name: EKG - Nurse/Tech; Complete Time: 04:13 mh7 Administered Medications: 05:31 Drug: NS 0.9% 250 ml Route: IV; Rate: bolus; Infused Over: 1 hrs; Site: left dc2 antecubital; Delivery: Primary tubing; 06:30 Follow up: IV Status: Completed infusion; IV Intake: 250ml dc2 06:32 Not Given (Patient Refused): morphine 2 mg IVP once; (PAIN>8) RASS on ADMN: Combtv4, dc2 Very Agttd3, Agttd2, Rstlss1, AlertClm0, Drwsy-1, LtSdtn-2, ModSdtn-3, DpSdtn-4, UnArsble-5 x2 06:33 Not Given (Patient Refused): Zofran (Ondansetron) 4 mg IVP once; over 2 minutes dc2 07:30 Drug: Rocephin (cefTRIAXone) 1 grams Route: IV; Rate: per protocol; Site: left jt3 antecubital; 10:04 Follow up: Response: No adverse reaction jt3 07:30 Drug: Flagyl (metroNIDAZOLE) 500 mg Volume: 100 ml; Route: IVPB; Rate: 200 ml/hr; jt3 Infused Over: 30 mins; Site: left antecubital; 10:04 Follow up: IV Status: Completed infusion; IV Intake: 100ml jt3 07:31 Drug: NS 0.9% 250 ml Route: IV; Rate: bolus; Site: left antecubital; jt3 Disposition Summary: 02/05/21 08:24 Transfer Ordered Transfer Location: [facility] rn Reason: Higher level of care rn Condition: Stable rn Problem: new rn Symptoms: have improved rn Accepting Physician: (02/05/21 10:03) jt3 Diagnosis - Epigastric pain rn - Disorders of gallbladder, biliary tract and pancreas in diseases classified rn elsewhere - Possible pancreatic mass - Abnormal results of liver function studies rn Forms: - Medication Reconciliation Form rn - SBAR form rn Signatures: Dispatcher [employer] Louis Rodriguez MD MD rn Holmes, Maurice, MD MD mh7 Stacey Chen df1 Emily Samano RN RN dc2 Robert Ruth RN RN jt3 Corrections: (The following items were deleted from the chart) 04:16 04:12 PMHx: xarelto 15mg PO daily; df1 df1 10:03 08:24 Dr. barrera jt3
--- NOTE | 2021-02-05 08:25 | ER ---
Nurse's Notes [facility] Name: Shima Walters Age: 85 yrs Sex: Female : 1935 Arrival Date: 02/05/2021 Time: 03:45 Bed 16 Private MD: Diagnosis: Epigastric pain;Disorders of gallbladder, biliary tract and pancreas in diseases classified elsewhere-Possible pancreatic mass;Abnormal results of liver function studies Presentation: 02/05 03:45 Chief complaint: Patient states: " I had a stroke about a week ago and since then my dc2 stomach hurts" States the pain is across the top of her stomach. 03:45 Coronavirus screen: Vaccine status: Patient reports receiving the 2nd dose of the covid dc2 vaccine. Client denies travel out of the [place] in the last 14 days. Ebola Screen: Patient negative for fever greater than or equal to 101.5 degrees Fahrenheit, and additional compatible Ebola Virus Disease symptoms Patient denies exposure to infectious person. Patient denies travel to an Ebola-affected area in the 21 days before illness onset. No symptoms or risks identified at this time. Initial Sepsis Screen: Does the patient meet any 2 criteria? No. Patient's initial sepsis screen is negative. Onset of symptoms was January 30, 2021. 03:45 Method Of Arrival: EMS: [facility] dc2 03:45 Acuity: KERRY 3 dc2 03:56 Risk Assessment: Do you want to hurt yourself or someone else? Patient reports no dc2 desire to harm self or others. 04:12 Initial Sepsis Screen: Does the patient have a suspected source of infection? No. dc2 Patient's initial sepsis screen is negative. Historical: - Allergies: 04:00 Codeine; dc2 - Home Meds: 04:12 atorvastatin 40 mg oral tab 1 tab once daily [Active]; xeralto 15mg po daily [Active]; df1 aspirin 81 mg Oral tab 81 mg daily [Active]; Lasix 40 mg Oral tab 1 tab once daily [Active]; Entresto 24-26 mg oral tab 1 tab 2 times per day [Active]; Coreg 6.25 mg Oral tab 1 tab 2 times per day [Active]; losartan 25 mg oral tab 1 tab once daily [Active]; - PMHx: 04:00 Cerebrovascular accident; dc2 04:12 CHF; df1 - PSHx: 04:12 mitral valve repair; pacemaker; Cholecystectomy; df1 - Immunization history:: Adult Immunizations up to date, Client reports receiving the 2nd dose of the Covid vaccine. - Social history:: Smoking status: Patient denies any tobacco usage or history of. Patient/guardian denies using alcohol, street drugs, IV drugs. Screenin:45 Abuse screen: Denies threats or abuse. Denies injuries from another. Nutritional dc2 screening: No deficits noted. Tuberculosis screening: No symptoms or risk factors identified. Never had TB. Fall Risk None identified. No fall in past 12 months (0 pts). Secondary diagnosis (15 points) No IV (0 pts). Ambulatory Aid- None/Bed Rest/Nurse Assist (0 pts). Gait- Normal/Bed Rest/Wheelchair (0 pts) Mental Status- Oriented to own ability (0 pts). Total Thompson Fall Scale indicates No Risk (0-24 pts). Assessment: 03:45 General: Appears in no apparent distress. Behavior is calm, cooperative. Pain: dc2 Complains of pain in across the top of abdomen x about a week with diarrhea that started yesterday. 03:45 Neuro: No deficits noted. Level of Consciousness is awake, alert, obeys commands, dc2 confused, Oriented to person, place, time, situation. Respiratory: No deficits noted. Airway is patent Breath sounds are clear bilaterally. GI: No deficits noted. Abdomen is flat, non-distended, Last BM at 00:00. now has diarrhea Bowel sounds present X 4 quads. : No signs and/or symptoms were reported regarding the genitourinary system. Derm: No deficits noted. Skin is intact, is fragile, is thin. Musculoskeletal: No deficits noted. No signs and/or symptoms reported regarding the musculoskeletal system. 04:30 Reassessment: Pt co pain and requesting pain meds, pt doesn't know what usually works dc2 for her pain, ED Provider made aware. 05:30 Reassessment: Pt offered morphine for pain, pt ask what will it do to me?" I informed dc2 pt that everyone reacts differently to medications, but usually will make you drowsy if not sleep." Pt replies " Huh you just want to put me to sleep " I don't think I want any morphine, I'll let you know if I decide to take it." Ultrasound at bedside at this time. 07:51 Reassessment: RN of this note coming on shift. Pt. is alert and oriented x4, however, jt3 is very forgetful. Recent stroke on the 18th. Denies pain at this time, but stated she had a lot of pain last night. MD at bedside updating patient on need to transfer. Pt. assisted to bedside commode with stand by assistance. VSS at this time. . 09:02 Reassessment: RN to RN report given to PINEDA Underwood at [facility]. . jt3 Vital Signs: 04:00 BP 115 / 87; Pulse 73; Resp 17; Pulse Ox 99% ; Pain 8/10; dc2 04:00 Temp 98.0; dc2 05:00 BP 103 / 67; Pulse 69; Resp 17; Pulse Ox 100% ; Pain 8/10; dc2 07:48 BP 107 / 69; Pulse 95; Resp 16; Pulse Ox 95% on R/A; jt3 08:03 Weight 49.9 kg; Height 5 ft. 2 in. (157.48 cm); jt3 09:39 BP 100 / 64; Pulse 94; Resp 17; Pulse Ox 96% on R/A; jt3 08:03 Body Mass Index 20.12 (49.90 kg, 157.48 cm) jt3 ED Course: 03:45 Patient arrived in ED. mw2 03:45 Inserted saline lock: 20 gauge in left antecubital area, using aseptic technique. Blood dc2 collected. 03:45 Arm band placed on left wrist. dc2 03:47 Erick Paz MD is Attending Physician. 7 03:50 Patient has correct armband on for positive identification. Allergy band placed. Bed in dc2 low position. Call light in reach. Side rails up X 1. environmental monitoring technician on. Pulse ox on. NIBP on. 03:52 Emily Samano RN is Primary Nurse. dc2 03:58 Basic Metabolic Panel Sent. dc2 03:58 CBC with Diff Sent. dc2 03:58 Hepatic Function Sent. dc2 03:58 Lipase Sent. dc2 04:12 Triage completed. dc2 04:12 No provider procedures requiring assistance completed. dc2 05:[address] via stretcher. dc2 05:30 Patient moved back from [place]. dc2 05:37 US Abdomen Limited Sent. dc2 05:37 Ultrasound at bedside. dc2 05:56 CT Abd/Pelvis - IV Contrast Only In Process Unspecified. EDMS 05:57 US Abdomen Limited In Process Unspecified. EDMS 07:08 Report given to PINEDA Jones. dc2 07:28 initiated transfer to [facility]. bd 07:35 Attending Physician role handed off by Erick Paz MD rn 07:35 Louis López MD is Attending Physician. rn 07:55 pt denied at [facility] due to no beds at this time,per Sangeetha. bd 08:12 initiated transfer to [facility]. bd 08:29 pt accepted in transfer to [facility] by Dr Kern, admin approval given by Elisa Jackman. 09:23 Primary Nurse role handed off by Emily Samano RN jt3 09:23 Robert Ruth RN is Primary Nurse. jt3 Administered Medications: 05:31 Drug: NS 0.9% 250 ml Route: IV; Rate: bolus; Infused Over: 1 hrs; Site: left dc2 antecubital; Delivery: Primary tubing; 06:30 Follow up: IV Status: Completed infusion; IV Intake: 250ml dc2 06:32 Not Given (Patient Refused): morphine 2 mg IVP once; (PAIN>8) RASS on ADMN: Combtv4, dc2 Very Agttd3, Agttd2, Rstlss1, AlertClm0, Drwsy-1, LtSdtn-2, ModSdtn-3, DpSdtn-4, UnArsble-5 x2 06:33 Not Given (Patient Refused): Zofran (Ondansetron) 4 mg IVP once; over 2 minutes dc2 07:30 Drug: Rocephin (cefTRIAXone) 1 grams Route: IV; Rate: per protocol; Site: left jt3 antecubital; 10:04 Follow up: Response: No adverse reaction jt3 07:30 Drug: Flagyl (metroNIDAZOLE) 500 mg Volume: 100 ml; Route: IVPB; Rate: 200 ml/hr; jt3 Infused Over: 30 mins; Site: left antecubital; 10:04 Follow up: IV Status: Completed infusion; IV Intake: 100ml jt3 07:31 Drug: NS 0.9% 250 ml Route: IV; Rate: bolus; Site: left antecubital; jt3 Intake: 06:30 IV: 250ml; Total: 250ml. dc2 10:04 IV: 100ml; Total: 350ml. jt3 Outcome: 08:24 ER care complete, transfer ordered by . rn 09:50 Transferred by ground EMS to [facility]. jt3 09:50 Condition: stable 09:50 Instructed on the need for transfer. 10:03 Patient left the ED. jt3 Signatures: Dispatcher [employer] EDMS Venecia Ramos Roman, MD MD rn [place], Yeni 2 Erick Paz MD MD [facility] Stacey Chen df1 Emily Samano RN RN dc2 Robert Ruth RN RN jt3 Corrections: (The following items were deleted from the chart) 04:16 04:12 PMHx: xarelto 15mg PO daily; df1 df1
--- NOTE | 2021-02-05 10:02 | RAD REPORT ---
EXAM DESCRIPTION: US - Abdomen Exam Limited - 02/05/2021 6:29 am CLINICAL HISTORY: The patient is 85 years old and is Female; /Epigastric RUQ Pain;Abd pain patient s tates cholecystectomy TECHNIQUE: Real-time ultrasound of the right upper quadrant with image documentation. COMPARISON: February 05, 2021 CT abdomen and pelvis. FINDINGS: Liver: Marked intrahepatic and extrahepatic biliary dilatation. Gallbladder: Gallbladder not identified with certainty. Common bile duct: Common bile duct measures greater than 3 cm. IMPRESSION: Marked intrahepatic and extrahepatic biliary dilatation. Common bile duct measures great er than 3 cm. Gallbladder not identified with certainty. Electronically signed by: Veda Florence MD 02/05/2021 6:15 AM CDT Due to temporary technical issues with the PACS/Fluency reporting system, reports are being signed by the in house radiologist without review as a courtesy to ensure prompt reporting. The interpreting r adiologist is fully responsible for the content of the report.
--- NOTE | 2021-02-05 10:06 | RAD REPORT ---
EXAM DESCRIPTION: CT - Abdomen Pelvis W Contrast - 02/05/2021 6:46 am CLINICAL HISTORY: The patient is 85 years old and is Female; ABD PAIN TECHNIQUE: Axial computed tomography images of the abdomen and pelvis with intravenous contrast. S agittal and coronal reformatted images were created and reviewed. This CT exam was performed using one or more of the following dose reduction techniques: automated exposure control, adjustment of t he mA and/or kV according to patient size, and/or use of iterative reconstruction technique. COMPARISON: No relevant prior studies available. FINDINGS: Lung bases: Bronchial thickening and bronchiectasis in the lung bases bilaterally. Scattered reticulonodular opacities in the right lung base. ABDOMEN: Liver: 1.4 cm nonspecific hypoattenuating focus in the right posterior liver. Gallbladder and bile ducts: Severe intrahepatic and extrahepatic biliary dilatation. Common bile duct is dilated to 28 mm. No calcified stones. Pancreas: The pancreatic ducts are dilated. Enlarged and cystic/heterogeneous appearance to the pancreatic head concerning for a mass. Spleen: Unremarkable. No splenomegaly. Adrenals: Unremarkable. No mass. Kidneys and ureters: Simple renal sinus cyst in the left kidney. No hydronephrosis. Stomach and bowel: Scattered colonic diverticula. Suggestion of possible bowel wall thickening involving the proximal/transverse colon, but ev aluation is limited due to nondistention. PELVIS: Appendix: No findings to suggest acute appendicitis. Bladder: Unremarkable. No mass. Reproductive: Opacified/dilated ovarian and pelvic veins which can be seen with pelvic congestio n syndrome. ABDOMEN and PELVIS: Intraperitoneal space: Unremarkable. No free air. No significant fluid collection. Bones/joints: Nonspecific sclerotic lesion in the proximal left femur. Disc space narrowing with degenerative endplate changes most prominent at L3-4 and L5-S1. No acute fracture. No dislocation. Soft tissues: Unremarkable. Vasculature: Scattered atherosclerotic vascular calcifications. Lymph nodes: Unremarkable. No enlarged lymph nodes. Tubes, lines and devices: The heart appears enlarged with a pacer device present. IMPRESSION: 1. Severe intrahepatic and extrahepatic biliary dilatation. Common bile duct is dilate d to 28 mm. 2. The pancreatic ducts are dilated. 3. Enlarged and cystic/heterogeneous appearance to the pancreatic head concerning for a mass. 4. 1.4 cm nonspecific hypoattenuating focus in the right posterior liver. 5. Opacified/dilated ovarian and pelvic veins which can be seen with pelvic congestion syndrome. 6. Scattered colonic diverticula. 7. Suggestion of possible bowel wall thickening involving the proximal/transverse colon, but evalua tion is limited due to nondistention. Correlate with any concern for colitis. 8. Bronchial thickening and bronchiectasis in the lung bases bilaterally. 9. Scattered reticulonodular opacities in the right lung base. Electronically signed by: Reg Sargent MD 02/05/2021 6:29 AM CDT Due to temporary technical issues with the PACS/Fluency reporting system, reports are being signed by the in house radiologist without review as a courtesy to ensure prompt reporting. The interpreting r adiologist is fully responsible for the content of the report.
[2021-02-05 10:27] VITALS: TEMP 98
[2021-02-05 10:31] VITALS: BP 100/64; O2SAT 96
--- NOTE | 2021-02-05 13:11 | EKG ---
Test Date: 2021-02-05 Test Time: 04:05:00 Medical Director Occupational Health: ALEXANDR MEASUREMENT RESULTS: Intervals: Rate: 95 IL: 146 QRSD: 102 QT: 388 QTc: 487 [place]: P: 69 IL: 146 QRS: 24 T: 101 INTERPRETIVE STATEMENTS: Sinus rhythm with occasional premature ventricular complexes Possible Anterior infarct, age undetermined Abnormal ECG Compared to ECG 01/20/2021 10:24:24 Ventricular premature complex(es) now present Myocardial infarct finding now present Intraventricular conduction delay no longer present ST (T wave) deviation no longer present Electronically Signed On 02-05-21 13:10:19 CDT by Drew Sherman
== END 2021-02-05 10:03 | disposition short-term general hospital (02) ==
LOC: ER 03:41
DX: R94.5 Abnormal results of liver function studies (principal); K87 Disorders of gallbladder, biliary tract and pancreas in diseases classified elsewhere; I50.9 Heart failure, unspecified; Z20.822 Contact with and (suspected) exposure to COVID-19; Z95.0 Presence of cardiac pacemaker; Z86.73 Personal history of transient ischemic attack (TIA), and cerebral infarction without residual deficits; Z79.82 Long term (current) use of aspirin; Z88.5 Allergy status to narcotic agent
CPT/HCPCS: 96365; 96367; 93005; 85025; 80048; 36415; 80076; 81003; 83690; 74177; 76705; 96375; 99285; 96366; U0003; Q9967; J7050 ×2

== ENCOUNTER 2021-02-24 04:49 | Emergency (ER) | payer OTHER ==
--- OUTSIDE RECORDS SUMMARY | 2021-02-24 04:52 | XMS REPORT | Clinical Summary ---
:1935 Author Organization [facility] MD [facility] Address [address] [place] [address] Care Team Providers Name Role Phone MD Michelle Primary Care Provider Tameka De Leon DO Unavailable Allergies Not on File Medications Not on file Active Problems Not on file Encounters Date Type Specialty Care Team Description 02/12/2021 Travel after 02/25/2020 Social History Tobacco Use Types Packs/Day Years Used Date Never Assessed Sex Assigned at Date Recorded Not on file Job Start Date Occupation Industry Not on file Not on file Not on file COVID-19 Exposure Response Date Recorded In the last month, have you been in contact with No / Unsure 02/12/2021 1:44 PM [employer] someone who was confirmed or suspected to have Coronavirus / COVID-19? Last Filed Vital Signs Not on file Plan of Treatment Not on file Results Not on fileafter 02/25/2020 Insurance Payer Benefit Plan / Subscriber ID Effective Dates Phone Addre ss Type Group AARP MEDICARE AARP MEDICARE [id number] 2020-Elza [address] [address] [place] [address] Care Teams [employer] Watch [employer] Mounter Relationship Specialty Start Date End Date Vahid Martinez MD PCP - General Ophthalmology 10/02/20 [address] [place], [place] [id number] Stephy De Leon DO PCP - External Primary Family Practice 10/28/20 [address] Juan Rawls Care Provider [address] [place] [address]
--- OUTSIDE RECORDS SUMMARY | 2021-02-24 04:54 | XMS REPORT | Continuity of Care Document ---
:1935 Author Organization [facility] t Address [address] [place] [address] Care Team Providers Name Role Phone [phone] Primary Care Physician Unavailable Otto-Cadeno_A_AH Attending Clinician Unavailable SYSTEM, NOT IN Attending Clinician Unavailable ONLAURA BOWIE Attending Clinician Unavailable JUSTIN ALVAREZ Attending Clinician Unavailable Otto-Anderayo_A_AH Admitting Clinician Unavailable ONYELAURA MELGAR Admitting Clinician Unavailable JUSTIN ALVAREZ Admitting Clinician Unavailable Payers Payer Name Policy Type Policy Number Effective Date Expiration Date S [facility] [place] - [id number] 2019 [facility] 00:00:00 (MEDICARE REPLACEMENT/ADVANT AGE - HMO) [facility] MEDICAREAARP [id number] 2020 MD Meyers rson MEDICARE 00:00:00 [id number] 2020-[address] [address], [place] [address]Medicare Problems Condition Condition Condition Status Onset Resolution Last Treating Co mments Source Name Details Category Date Date Treatment Clinician Date I48.0 Diagnosis Active 2018-10-15 Mem oria 30 15:31:00 l I48.0 00:00: Frandy 00 Active 09/01/2018 [facility] CCL / EPS Diagnosis Active 2018-09-14 Memoria PVI 5-30 08:17:00 l ABLATION CCL / 00:00: Frandy W/ CARTO / EPS PVI 00 DUAL P ABLATION W/ CARTO / DUAL P Active 09/01/2018 [facility] Acute Acute Disease Active [facility] encephal[facility] encephalop 3-03 [facility] - athy athy 00:00: [facility] 00 Center Acute Acute Disease Active [facility] ischemic ischemic [facility]-02 [facility] stroke [facility] Center Received Received Disease [facility] plasminoge 00:00: Me dical n n 00 Center activator activator (t-PA) (t-PA) less than less than 24 hours 24 hours prior to prior to arrival arrival Cardiac Problem Active 2020-11-17 Mukul armando 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:28:06 l in situ Cardiac Manuel n (finding) pacemaker in situ (finding) Active Problem 11/17/2020 [facility] Congestive Problem Active 2020-11-17 M emoria heart 21:28:06 l failure [place]ison (disorder) Congestive heart failure (disorder) Active Problem 11/17/2020 [facility] Dizziness Problem Active 2020-11-17 Me moria (finding) 21:28:06 l Frandy Dizziness (finding) Active Problem 11/17/2020 [facility] Hyperlipid Problem Active 2020-11-17 M emoria emia 21:28:06 l (disorder) Manuel n Hyperlipid emia (disorder) Active Problem 11/17/2020 [facility] Lumbar Problem Active 2020-11-17 Memor ia radiculopa 21:28:06 l thy Lumbar Bison (disorder) radiculopa thy (disorder) Active Problem 11/17/2020 [facility] 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 11/17/2020 [facility] 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) Active Problem 11/17/2020 [facility] Syncope Problem Active 2020-11-17 Mukul armando (disorder) 21:28:06 l Syncope Bison (disorder) Active Problem 11/17/2020 [facility] Allergies, Adverse Reactions, Alerts Allergy Allergy Status Severity Reaction(s) Onset Inactive Treating Comm ents Source Name Type Date Date Clinician Codeine Drug Active Other (See Chest [facility]-03 [facility] Center codeine Adverse Active Info Not [facility] Reaction Available [facility] codeine codeine Active Memoria l [place] Vicodin Vicodin Active Memoria l [place] CODEINE Allergy Active [facility] Family History Family Member Diagnosis Comments Start Date Stop Date Source Natural daughter Diabetes [facility] Natural mother Heart disease [facility] Natural brother Diabetes [facility] Natural brother Heart disease [facility] Social History Social Habit Start Date Stop Date Quantity Comments Source History SDOH [facility] Alcohol Std Drinks [facility] - Alcohol Binge Medical Dianna ter Exposure to Not sure MD Issa SARS-CoV-2 (event) Tobacco use and 2018-06-03 2018-06-[address] [facility] Audrey kes - exposure 00:00:00 00:00:00 [facility] Alcohol intake 2018-06-03 2018-06-[address] [facility] [address] Al[facility] es - 00:00:00 00:00:00 non-drinker of Medical Ce nter alcohol (finding) History SDOH 2018-06-03 2018-06-[address] [facility] - Alcohol Frequency 00:00:00 00:00:00 [facility] Sex Assigned At [birth year] MD Lugo on 00:00:00 00:00:00 Smoking Status Start Date Stop Date Source Social History [facility] Medications Ordered Filled Start Stop Current Ordering Indication Dosage Frequency Signature Comments Components Source Medication Medication Date Date Medication? Clinician (SIG) Name Name Cetirizine Cetirizine Yes Na De Leon [address] [facility] HCl HCl 12-07 [facility] 00:[facility]: [facility] 00 l Outpati ent Clinics 24 HR Yes 0 Memoria mirabegron 3-24 Refill(s) l 50 MG 20:51: Frandy Extended 00 Release Tablet [Myrbetriq] atorvastati 2020-0 Yes 40 mg = 1 M emoria n 40 mg 3-24 tab, PO, l oral tablet 20:45: Bedtime, # Frandy 00 30 tab, 0 Refill(s) Hemocyte 2019-0 Yes 1 cap, PO, Mem oria Plus 3-24 Daily, 0 l 20:45: Refill(s) [place] 00 Loratadine 0 Yes 10 mg = 1 Me moria 10 MG Oral 3-24 tab, PO, l Tablet 20:45: Daily, 0 B[place] 00 Refill(s) meclizine 0 Yes 25 mg = 1 Mem oria 25 mg oral 3-24 tab, PO, l tablet 20:45: BID, 0 Frandy 00 Refill(s) montelukast 0 Yes 10 mg = 1 M emoria [...] 00:00: Memoria 00 l Outpati ent Clinics montelukast No Notes: Mukul armando 6-13 (Same l 14:00: as:Singula [place]ison 00 ir) Losartan No Notes: Memoria 6-13 (Same as: l 14:00: Cozaar) Frandy 00 pantoprazol No Notes: Mukul armando e 6-13 Tablet l 12:30: should not be chewed or crushed. (Same as: Protonix) pantoprazol Yes 40 mg, PO, Memoria e 40 mg 6-13 Daily, # l oral 12:09: 30 tab, 0 Bison enteric 00 Refill(s) coated tablet rivaroxaban Yes [...] As: Coreg) Amiodarone No Notes: Memor ia 6-13 (Same as: l 02:00: Cordarone) Hydromorpho No Notes: Mukul armando ne 6-12 Same as l 22:23: Dilaudid Tramadol No Notes: Not Mem oria 6-12 to exceed l 22:23: 400mg/day. (Same As: Ultram) oxybutynin No Notes: Memor ia 6-12 (Same as: l 22:00: Ditropan XL) "Do Not Crush" Sucralfate No Notes: May M emoria 09-14 interfere l 22:00: w/enteral feeds - Take [...] CDT neostigmine No Route: IV, Memoria (ANES) 09-14 Drug form: l 21:20: INJ, [...] CDT, Stop date: 09/14/18 15:04:00 CDT vancomycin 2019-0 No Route: IV, M emoria (ANES) 1000 - Drug form: l mg 18:47: INJ, Start date: 09/14/18 13:47:00 CDT, Stop date: 09/14/18 14:47:00 CDT dexamethaso 2019-0 No Route: IV, Memoria ne (ANES) 09-14 Drug form: l 18:33: INJ, ONCE, Stop date: 09/14/18 13:33:00 CDT norepinephr 2018-0 No Route: IV, Memoria ine (ANES) 09-14 Drug form: l 18:18: INJ, ONCE, Stop date: 09/14/18 13:18:00 CDT heparin 2019-0 No Route: IV, Mukul armando (ANES) 09-14 Drug form: l 17:57: INJ, ONCE, Stop date: 09/14/18 12:57:00 CDT fentaNYL 2019-0 No Route: IV, Mem oria (ANES) 09-14 Drug form: l 17:06: INJ, ONCE, Stop date: 09/14/18 12:06:00 CDT rocuronium 2018-0 No Route: IV, M emoria (ANES) 09-14 Drug form: l 17:06: INJ, ONCE, Stop date: 09/14/18 12:06:00 CDT propofol 2019-0 No Route: IV, Mem oria (ANES) 09-14 Drug form: l 17:06: INJ, ONCE, Stop date: 09/14/18 12:06:00 CDT lidocaine 2019-0 No Route: IV, Me moria (ANES) 09-14 Drug form: l 17:06: INJ, ONCE, Stop date: 09/14/18 12:06:00 CDT Flumazenil 2018-0 No Notes: Memor ia 6-12 (Same as: l 16:53: Romazicon) Naloxone 2018-0 No Notes: Memoria 6-12 Same as l 16:53: Narcan Ondansetron 2018-0 No Notes: Mukul armando -12 (Same as: l 16:53: Zofran) MEDICATION WASTE Product Size: 4 mg Product Wasted: ___ mg Morphine 2018- No Notes: Memoria 6-12 (Same l 16:53: as:MORPhin e Sulfate) Hydralazine No Notes: Mukul armando 6-12 (Same as: l 16:53: Apresoline ) Push over 5 minutes esmolol No Notes: Memoria 6-12 (Same as: l 16:53: Brevibloc) Labetalol 2018-0 No 10 mg, 2 Mukul armando 6-12 mL, Route: l 16:53: IVP, Drug form: INJ, Q5Min, Dosing Weight 55.909, kg, PRN Elevated BP, Start date: 09/14/18 11:53:00 CDT, Duration: 5 doses or times, Stop date: 09/15/18 12:08:00 CDT Sodium No Route: IV, Memor ia Chloride 6-12 Total l 0.9% IV 16:20: Volume: Frandy (ANES) 1000 00 1,000, mL Start date: 09/14/18 11:20:00 CDT, Stop date: 09/14/18 12:20:00 CDT Fentanyl 2018-0 No 25 Memoria 6-12 microgram, l 14:45: Route: IV, ONCE, Dosing Weight 55.909, kg, Start date: 09/14/18 9:45:00 CDT, Stop date: 09/14/18 9:45:00 CDT Versed 0 No 3 mg, Memoria 6-12 Route: IV, [...] = 1 M emoria 15 MG Oral 612 tab, PO, l Tablet 13:44: QPM, 0 [Xarelto] Refill(s) oxybutynin Yes 5 mg, PO, Me moria 6-12 BID, 0 l 13:44: Refill(s) carvedilol Yes 12.5 mg, Mem oria 6-12 PO, BID, 0 l 13:44: Refill(s) pantoprazol No 40 mg, PO, Memoria e 6-12 Daily, 0 l 13:44: Refill(s) NS 1,000 mL No 1,000 mL, M emoria 09-14 Rate: 100 l 13:26: ml/hr, Infuse over: 10 hr, Route: IV, Dosing Weight 55.909 kg, Total Volume: 1,000, Start date: 09/14/18 8:26:00 CDT, Duration: 30 day, Stop date: 10/14/18 8:25:00 CDT, 1.56, m2 Pantoprazol Pantoprazol Yes Na De Leon [address] [facility] Sodium e Sodium [facility] ent Clinics Loratadine Loratadine Yes Na De Leon [address] [facility]ics Atorvastati Atorvastati Yes Na De Leon [address] [facility] [facility] n Calcium n Calcium [facility] Clinics Meclizine Meclizine Yes Na De Leon [address] [facility] HCl HCl as needed [facility] Losartan Losartan Yes Na De Leon [address] [facility] [facility] Potassium Potassium [facility]ics Estradiol Estradiol Yes Na De Leon 1/[address] [facility]ics Myrbetriq Myrbetriq Yes Na De Leon [address] [facility] Ferrous Ferrous Yes Na De Leon [address] Sulfate Sulfate [facility]ics Singulair Singulair Yes Na De Leon [address] [facility] - evening [facility]oria l [facility] ent Clinics Amiodarone Amiodarone Yes Na De Leon [address] [facility] [facility] HCl HCl [facility] Coreg Coreg Yes Na De Leon 1 tablets [facility] Trelegy Trelegy Yes Na De [...] MOUTH Memoria TWICE A l DAY ON Outpati EMPTY ent STOMACH Clinics Myrbetriq Myrbetriq Yes Na De Leon [address] [facility] Flonase Flonase Yes Na De Leon [address] [facility] each [facility] nostril Memoria l Outpati ent Clinics Vital Signs Vital Name Observation Time Observation Value Comments Source Systolic (mm Hg) 2019-11-16 14:27:00 Mukul rial Frandy Diastolic (mm Hg) 2019-11-16 14:27:00 Mem orial Frandy Heart Rate 2019-11-16 14:27:00 Memorial [place] Respitory Rate 2019-11-16 14:27:00 Memori al [place] Height 2019-11-16 14:27:00 152.4 cm Memorial [place] Weight 2019-11-16 14:27:00 [facility] Frandy BMI Calculated 2019-11-16 14:27:00 Memori al Frandy Systolic (mm Hg) 2019-09-12 20:01:00 Mukul rial [place] Diastolic (mm Hg) 2019-09-12 20:01:00 Mem orial [place] Heart Rate 2019-09-12 20:01:00 Memorial Frandy Respitory Rate 2019-09-12 20:01:00 Memori al Frandy Height 2019-09-12 20:01:00 152.4 cm Memorial [place] Weight 2019-09-12 20:01:00 Memorial Frandy BMI Calculated 2019-09-12 20:01:00 Memori al Frandy Systolic (mm Hg) 2019-06-27 20:30:00 Mukul rial Frandy Diastolic (mm Hg) 2019-06-27 20:30:00 Mem orial [place]ison Heart Rate 2019-06-27 20:30:00 Memorial Frandy Respitory Rate 2019-06-27 20:30:00 Memori al Frandy Height 2019-06-27 20:30:00 149.86 cm Memorial Frandy Weight 2019-06-27 20:30:00 Memorial Frandy BMI Calculated 2019-06-27 20:30:00 Memori al Frandy Respitory Rate 2018-09-15 13:00:00 Memori al [place]ison Respitory Rate 2018-09-15 11:30:00 Memori al Frandy Systolic (mm Hg) 2018-09-15 11:30:00 Mkuul rial Frandy Diastolic (mm Hg) 2018-09-15 11:30:00 Mem orial Frandy Temperature Oral (F) 2018-09-15 11:30:00 97.2 F Memorial Frandy Respitory Rate 2018-09-15 09:43:00 Memori al [place] Systolic (mm Hg) 2018-09-15 09:15:00 Mukul rial Frandy Diastolic (mm Hg) 2018-09-15 09:15:00 Mem orial [place] Systolic (mm Hg) 2018-09-15 06:30:00 Mukul rial Bison Diastolic (mm Hg) 2018-09-15 06:30:00 Mem orial Frandy Temperature Oral (F) 2018-09-15 01:45:00 98.7 F Memorial B[place] Temperature Oral (F) 2018-09-14 14:00:00 97.2 F Memorial [place] BMI Calculated 2018-09-14 13:25:00 Memori al Frandy Weight 2018-09-14 13:25:00 Memorial [place] Height 2018-09-14 13:25:00 152.4 cm [facility] Frandy Procedures Procedure Date / Time Performed Performing Clinician Sourc e Mitral valvoplasty [facility] geo Plan of Care Planned Activity Planned Date Details Comments Source Future Scheduled 2020-12-[address] [facility] Test 00:00:00 (Season Ended) [code = [facility] al Center INFLUENZA VACCINE (Season Ended)] Future [...] 00:00:00 (1 of 1 - Medical Center [id number] PCV13) [code = PNEUMOCOCCAL 65+ YRS (1 of 1 - KJVP51_Aszynis PCV13)] Future Scheduled 1985-06-23 SHINGLES VACCINES (1 [...] Date/Time Type Type Clinicians Facility Department ID 2021-02-14 Outpatient Otto-Mbayo [facility] [id number] [facility] 23:27:31 _A_AH [id number] Family Practic e 2021-02-14 Outpatient Otto-Mbayo [facility] [id number] - [facility] 19:29:43 _A_AH [id number] Family Practic e 2021-01-29 Outpatient SYSTEM, SARAH SMITH [id number] 14:27:23 PROVIDER [place] [facility] [place] 2020-10-16 Outpatient SYSTEM, SARAH SMITH [id number] 14:10:15 PROVIDER [facility] [place] 2021-02-12 2021-02-12 ambulatory [facility] [id number] [facility] 2021-02-12 2021-02-12 ambulatory [facility] [id number] [facility] 2021-02-11 2021-02-11 ambulatory [facility] [id number] [facility] 2021-02-10 2021-02-10 ambulatory [facility] [id number] [facility] 2021-02-05 2021-02-07 Inpatient U VIVIAN, [facility] [id number] [facility] 11:12:00 18:30:00 ROSITA 2021-01-23 2021-01-23 ambulatory [facility] [id number] [facility] 2021-01-22 2021-01-22 Outpatient [facility] [id number] [facility] 2020-12-13 2020-12-13 Outpatient [facility] [id number] [facility] 2020-11-22 2020-11-22 Outpatient [facility] [id number] [facility] 2020-11-20 2020-11-20 Outpatient [facility] [id number] [facility] 2020-11-20 2020-11-20 Outpatient [facility] [id number] [facility] 2020-11-15 2020-11-15 Ambulatory nullFlavo MNA [id number] Memoria 14:45:00 14:45:00 Pre-Reg r Neurology 08 l [place] 2020-10-29 2020-10-29 Outpatient [facility] [id number] [facility] 2020-10-29 2020-10-29 Outpatient [facility] [id number] [facility] 2020-10-28 2020-10-28 Outpatient [facility] [id number] [facility] 2020-10-23 2020-10-23 Outpatient [facility] [id number] [facility] 2020-10-11 2020-10-11 Outpatient [facility] [id number] [facility] 2020-09-30 2020-10-02 Outside nullFlavo MNA [id number] Memoria 22:31:13 04:59:59 [facility] 2020-10-02 2020-10-02 Outpatient [facility] [id number] [facility] 2020-09-23 2020-09-23 Outpatient [facility] [id number] [facility] 2020-09-18 2020-09-18 Outpatient [facility] [id number] [facility] 2020-07-30 2020-07-30 Outpatient [facility] [id number] [facility] 2020-04-30 2020-04-30 Outpatient [facility] [id number] [facility] 2020-04-12 2020-04-12 Outpatient [facility] [id number] [facility] 2020-01-29 2020-01-29 Outpatient [facility] [id number] [facility] 2020-01-01 2020-01-01 Outpatient [facility] [id number] [facility] 2019-12-28 2019-12-28 Ambulatory nullFlavo MNA [id number] Memoria 14:15:00 14:15:00 Pre-Reg r Neurology 06 l [place] Borjasann 2019-12-08 2019-12-08 [facility] [id number] 10:40:00 10:40:00 t [employer] [facility] Medicine Outpati ent Clinics 2019-12-07 2019-12-07 [facility] [id number] 17:09:00 17:09:00 t [employer] [facility] Outpati ent Clinics 2019-11-24 2019-11-25 Outpatient nullFlavo MNA [id number] Memoria 18:00:00 04:59:59 r Neurology 07 l [place] Frandy 2019-11-16 2019-11-17 Outpatient nullFlavo MNA [id number] Memoria 14:15:00 04:59:59 r Neurology 05 l [place] Frandy 2019-11-09 2019-11-11 Outside nullFlavo MNA [id number] Memoria 19:37:54 04:59:59 Medical r Neurology 00 l Records [place] Frandy 2019-11-03 2019-11-03 [facility] [id number] [facility] 11:20:00 11:20:00 [employer] [facility] Outpati ent Clinics 2019-10-24 2019-10-24 Ambulatory nullFlavo MNA [id number] Memoria 19:30:00 19:30:00 Pre-Reg r Neurology 03 l [place] Borjasann 2019-10-24 2019-10-24 Ambulatory nullFlavo MNA [id number] Memoria 19:30:00 19:30:00 Pre-Reg r Neurology 04 l [place] Frandy 2019-10-03 2019-10-03 [facility] [id number] 08:13:00 08:13:00 t [employer] [facility] Outpati ent Clinics 2019-09-24 2019-09-24 [facility] [id number] 01:13:00 01:13:00 t [employer] [facility] Medicine Outpati ent Clinics 2019-09-12 2019-09-13 Outpatient nullFlavo MNA [id number] Memoria 19:45:00 04:59:59 r Neurology 02 l Lui Wise 2019-09-07 2019-09-07 [facility] [id number] 13:30:00 13:30:00 t Specialty/U Audrey kes - Specialty rology Memori a /Urology Clinic l Clinic Outpati ent Clinics 2019-09-07 2019-09-07 [facility] [id number] 10:20:00 10:20:00 t [employer] [facility] Outpati ent Clinics 2019-08-08 2019-08-08 Ambulatory nullFlavo MNA [id number] Memoria 20:00:00 20:00:00 Pre-Reg r Neurology 01 l Lui Wise 2019-07-07 2019-07-07 [facility] [id number] 14:00:00 14:00:00 t Specialty/U Audrey kes - Specialty rology Memori a /Urology Clinic l Clinic Outpati ent Clinics 2019-06-27 2019-06-28 Outpatient nullFlavo MNA [id number] Memoria 20:00:00 04:59:59 r Neurology 00 l Lui Wise 2019-06-02 2019-06-02 [facility] [id number] [facility] 09:00:00 09:00:00 t Specialty/U Audrey kes - Specialty rology Memori a /Urology Clinic l Clinic Outpati ent Clinics 2019-05-29 2019-05-29 [facility] [id number] 09:00:00 09:00:00 t [employer] [facility] Medicine Outpati ent Clinics 2019-05-19 2019-05-19 [facility] [id number] [facility] 03:30:00 03:30:00 t [employer] [facility] Outpati ent Clinics 2019-05-15 2019-05-15 [facility] [id number] 10:48:00 10:48:00 t [place] [employer]Current s - Meteo Protect [facility] Medicine l Medicine Outpati ent Clinics 2019-05-15 2019-05-15 [facility] [id number] [facility] 10:20:00 10:20:00 t [place] [employer] s - Meteo Protect [facility] l Medicine Outpati ent Clinics 2019-05-15 2019-05-15 [facility] [id number] [facility] 09:05:00 09:05:00 t [place] [employer] - Meteo Protect [facility] Medicine l Medicine Outpati ent Clinics 2019-05-04 2019-05-04 [facility] [id number] 13:03:00 13:03:00 t [place] [employer] [facility]bit[facility] l Medicine Outpati ent Clinics 2019-05-02 2019-05-02 [facility] [id number] 14:40:00 14:40:00 t [place] [employer] [facility] Medicine Outpati ent Clinics 2019-03-21 2019-03-21 [facility] [id number] 09:40:00 09:40:00 t [place] [employer] - Meteo Protect [facility] l Medicine Outpati ent Clinics 2019-02-08 2019-02-08 [facility] [id number] 16:31:00 16:31:00 t [employer] [facility] Medicine Outpati ent Clinics 2019-02-07 2019-02-07 [facility] [id number] 15:00:00 15:00:00 t [place] [employer] [facility] Medicine Medicine Outpati ent Clinics 2018-10-17 2018-10-17 [facility] [id number] 17:09:00 17:09:00 t [place] [employer] [facility]bit[facility] l Medicine Outpati ent Clinics 2018-10-12 2018-10-12 [facility] [id number] 09:00:00 09:00:00 t [place] [employer] - Met[employer] Protect [facility] Medicine Outpati ent Clinics 2018-09-21 2018-09-21 [facility] [id number] 08:40:00 08:40:00 t [place] Met[employer] Protect Luke s - Drive [facility] Medicine Medicine Outpati ent Clinics 2018-09-14 2018-09-15 Bedded [facility] [id number] [facility] 13:05:00 14:20:[address] 2018-09-14 2018-09-14 Outpatient [facility] CAR [id number] [facility] 08:05:00 08:05:00 2018-06-22 2018-06-22 [facility] [id number] [facility] 11:00:00 11:00:00 t [place] [employer] Protect Luke s - Drive [facility] Medicine Outpati ent Clinics 2018-06-02 2018-06-02 [facility] [id number] [facility] 15:15:00 15:15:00 t [place] iCurrent s - Drive [facility] Medicine Outpati ent Clinics 2018-04-27 2018-04-27 [facility] [id number] [facility] 16:21:00 16:21:00 t [place] [employer] Protect Luke s - Drive [facility] Medicine Outpati ent Clinics 2018-03-24 2018-03-24 [facility] [id number] [facility] 14:45:00 14:45:00 t [place] [employer] Protect Luke s - Drive [facility] l Medicine Outpati ent Clinics 2017-12-30 2017-12-30 [facility] [id number] 15:15:00 15:15:00 t [place] [employer] Protect Luke s - Drive [facility] l Medicine Outpati ent Clinics 2017-12-16 2017-12-16 [facility] [id number] 08:22:00 08:22:00 t [place] Met[employer] Protect Luke s - Drive [facility] l Medicine Outpati ent Clinics 2017-09-21 2017-09-21 [facility] [id number] 14:45:00 14:45:00 [place] [facility] [address] [facility] l Medicine Outpati ent Clinics 2017-08-10 2017-08-10 [facility] [id number] 15:46:00 15:46:00 [facility] 2017-07-05 2017-07-05 [facility] [id number] 15:30:00 15:30:00 [facility] Results Test Description Test Time Test Comments Results Result Comments Source HEMATOLOGY 2018-09-14 19:49:00 Test Item Value Reference Range Interpretation Comme nts POC Activated Clotting Time (test code = POC Activated Clotting Eliseo e) 179 s [id number] 18:16:00 Test Item Value Reference Range Interpretation Comments POC Activated Clotting Time (test code 363 s = POC Activated Clotting Time) [facility]HcunghzBGLRLIWRNC5667-67-04 17:52:00 Test Item Value Reference Range Interpretation Comments POC Activated Clotting Time (test code 291 s = POC Activated Clotting Time) [facility]OlwyrlsUUPXZZHHJT1787-78-27 13:30:00 Test Item Value Reference Range Interpretation Comments PTT (test code = PTT) 45.1 s 22.9-35.8 [facility]LwvobfqQTQOSPEMHT2793-15-02 13:30:00 Test Item Value Reference Range Interpretation Comments PT (test code = PT) 14.4 s 12.0-14.7 [facility] SouthAtwujtbEKXSHCKYZN6300-62-00 13:30:00 Test Item Value Reference Range Interpretation Comments INR (test code = INR) 1.14 1 0.85-1.17 [facility] SouthQjggvhkPFKHPJJNLJ8223-68-55 13:30:[facility] 2018-09-14 13:30:004.05[facility] QnmncbcUBWAFSUJJI5913-19-46 13:30:0012.4[facility] OlgojvbCKMWZJSTYB4585-14-73 13:30:0033.0[facility] SemmrsjCOGPQHOKWU7640-46-01 13:30:0014.3[facility] SqcqkldTRWPQBZAKD5105-84-38 13:30:72454Htxleoah Bison CNEQEJQRQG9498-13-88 13:30:007.1[facility] OoazhuxNVCLNYXJZY5655-23-07 13:30:00 Test Item Value Reference Range Interpretation Comments MCH (test code = MCH) 30.6 pg 27.0-31.0 [facility] SouthWjnenymWNBWDGNVZE6332-88-58 13:30:0037.5[facility] 2018-09-14 13:30:0092.7[facility] NdfgqwtGACSFLCGVF3396-18-88 13:30:006.1[facility] JnyxmbnYMOUOUBNRZ4407-10-39 13:30:000.5[facility] HydscztADVMGNJAJR8868-59-52 13:30:001.6[facility] QgiflkoTZWGGWPHKJ8032-38-31 13:30:000.6[facility] VUQSEBTKSE3678-39-68 13:30:000.2[facility] YzdgxxaLQTDIDYFHY3707-20-73 13:30:002.3 [facility] CkyfplpZGQTTYPBDK4502-02-87 13:30:007.5[facility] 2018-09-14 13:30:0071.3[facility] JubqhymCMHLIDCOYY8216-30-29 13:30:0018.4[facility]annBL[facility] B[facility] MSQKCGP2115-69-64 13:30:00Negative (09/14/18 8:30 AM)[facility]annCHEM QIZGB8287-30-65 13:30:002.9[facility]annCHEM YVYNL2579-73-69 13:30:002.1[facility] DwlgmihOBJSITAAVNAN2469-37-41 13:30:0010.6[facility] EXGRMPDXQMSN9109-23-37 13:30:0049[facility] PhtbksaTCDYNAIIMZMR0365-31-49 13:30:00 105[facility] VulkenyFMQYVQLXUTKR0854-12-86 13:30:001.05[facility] MRBOZDCCULRN6067-35-58 13:30:0013[facility] BwwtcofXQISOEBZARBC9919-98-64 13:30:00 3.6[facility] StdfgduJQIFAKEIKGBH6298-56-16 13:30:28104Rhbzflft Frandy KHMOQJQTUPSV5403-56-20 13:30:0029[facility] CdkheqkTVPPZTHMUSDX5535-04-30 13:30:00 107[facility] TsyymhwBEUHKHMBMZLV8228-39-81 13:30:0010.3[facility] HermannBASIC METABOLIC XTJWR1761-31-23 04:45:00 Test Item Value Reference Range Interpretation [...] PATIEN TS. CBC W/PLT COUNT & AUTO [id number] 04:20:00 Test Item Value Reference Range Interpretation [...] (BEAKER) (test code = 2801) BASIC METABOLIC [id number] 04:22:00 Test Item Value Reference Range Interpretation [...] PATIEN TS. CBC W/PLT COUNT & AUTO [id number] 04:04:00 Test Item Value Reference Range Interpretation [...] (BEAKER) (test code = 2801) BASIC METABOLIC [id number] 05:13:00 Test Item Value Reference Range Interpretation [...] PATIEN TS. CBC W/PLT COUNT & AUTO [id number] 04:51:00 Test Item Value Reference Range Interpretation [...] (test code = 2801) CT, BRAIN, WITHOUT [id number] 20:44:00FINAL REPORT CT, BRAIN, WITHOUT CONTRAST CLINICAL [...] better suited for this evaluation). Signed: Roney Flannery MDReport Verified Date/Time: 06/04/2018 20:44:09 Reading Location: [address] Neuro Reading Room RAD, CHEST, 1 VIEW, NON [id number] 17:27:00Reason for exam:->pre-MRIShould this be performed at [...] Bibasilar atelectasis or consolidation. Signed: Lester Santizo MDRradhaort Verified Date/Time: 06/04/2018 17:27:33 Reading Location: [place] [address] CT Body Reading Room HEMOGLOBIN [id number] 10:53:00 Test Item Value Reference Range Interpretation Comments HEMOGLOBIN A1C (BEAKER) (test code = 6.0 % 4.3-6.1 368) VITAMIN B12 AND [id number] 07:40:00 Test Item Value Reference Range Interpretation Comments VITAMIN B12 (BEAKER) (test code = 813 pg/mL 213-816 774) FOLATE (BEAKER) (test code = 362) 9.9 ng/mL >=7.0 [id number] 03:01:00 Test Item Value Reference Range Interpretation Comments POTASSIUM (BEAKER) (test code = 3.5 meq/L 3.5-5.1 379) Check Serum Potassium level 2 hours after oral potassium replacement completed or 30 min after intravenous potassium replacement.LIPID [id number] 03:01:00 Test Item Value Reference Range Interpretation [...] completed or 30 min after intravenous potassium replacement.[id number] 03:01:00 Test Item Value Reference Range Interpretation [...] = 772) CBC W/PLT COUNT & AUTO [id number] 00:10:00 Test Item Value Reference Range Interpretation [...] % 0-1 PERCENT (BEAKER) (test code = 1801)
[2021-02-24 05:33] LABS: Urine Blood Trace-intact (Negative); Urine Glucose Negative (Negative); Urine Protein Negative (Negative); Urine Specific Gravity 1.015 (1.005-1.030)
[2021-02-24 05:40] LABS: Absolute Lymphocytes (CBC) 0.8 K/uL (0.7-4.9); Basophils % 0.9 % (0-1.3); Hematocrit 35.9 % (36.0-45.0); Lymphocytes % 12.7 % (15.3-44.8); MPV 7.9 fL (7.6-11.3); RBC Red Blood Cell Count 4.01 M/uL (3.86-4.86)
[2021-02-24 05:53] LABS: Protime INR 1.37
[2021-02-24 06:08] LABS: Barbiturates NEGATIVE (NEGATIVE); Benzodiazepines NEGATIVE (NEGATIVE); Cocaine NEGATIVE (NEGATIVE); METHAMPHETAM NEGATIVE (NEGATIVE); Methadone NEGATIVE (NEGATIVE); Opiates NEGATIVE (NEGATIVE); Phencyclidine NEGATIVE (NEGATIVE); THC Cannibis NEGATIVE (NEGATIVE)
[2021-02-24 06:09] LABS: ALT/SGPT 31 U/L (12-78); AST/SGOT 32 U/L (15-37); Albumin 2.5 g/dL (3.4-5.0); Alkaline Phosphatase 207 U/L (45-117); BUN Blood Urea Nitrogen 8 mg/dL (7-18); Bicarbonate 26 mmol/L (21-32); Bilirubin Direct 0.4 mg/dL (0-0.2); Bilirubin Total 0.7 mg/dL (0.2-1.0); Glucose Level 142 mg/dL (74-106); Magnesium 1.8 mg/dL (1.8-2.4); NT PRO-BNP 2146 pg/mL (<450); Potassium 3.1 mmol/L (3.5-5.1); Protein, Total 7.1 g/dL (6.4-8.2); Sodium Level 141 mmol/L (136-145); Troponin (Emerg Dept Use Only) 0.04 ng/mL (0.0-0.045)
[2021-02-24 06:24] LABS: Urine Bacteria <20 /HPF (<20); Urine RBC NONE SEEN /HPF (NONE SEEN)
[2021-02-24 06:46] LABS: SARS-COV-2 RT PCR NEGATIVE (NEGATIVE)
--- NOTE | 2021-02-24 08:41 | RAD REPORT ---
EXAM DESCRIPTION: RAD - Chest Single View - 02/24/2021 5:16 am CLINICAL HISTORY: CONGESTION Chest pain. COMPARISON: Chest Single View dated 01/20/2021; Chest Single View dated 01/17/2021; Chest Single Vie w dated 12/01/2020; Chest Single View dated 10/21/2020 FINDINGS: Portable technique limits examination quality. Mild to moderate pulmonary edema is seen. The heart is mildly enlarged in size. Dual lead pacer devic e is noted. IMPRESSION: Mild to moderate CHF suspected.
--- NOTE | 2021-02-24 11:06 | RAD REPORT ---
EXAM DESCRIPTION: CT Head Without Intravenous Contrast CLINICAL HISTORY: The patient is 85 years old and is Female; CONFUSED TECHNIQUE: Axial computed tomography images of the head/brain without intravenous contrast. Sagitt al and coronal reformatted images were created and reviewed. This CT exam was performed using one o r more of the following dose reduction techniques: automated exposure control, adjustment of the mA and/or kV according to patient size, and/or use of iterative reconstruction technique. COMPARISON: CT head January 17, 2021 FINDINGS: Brain: Remote left parietal infarct. Remote lacunar infarct in the left basal ganglia. Possible small remote infarct in the right cerebellum. Mild to moderate nonspecific white matter changes likely related to chronic microvascular is chemic disease. Mild cerebral atrophy. No hemorrhage. Ventricles: Mild ventricular prominence. Bones/joints: Unremarkable. No acute fracture. Soft tissues: Unremarkable. Sinuses: Unremarkable as visualized. Mastoid air cells: Unremarkable as visualized. No mastoid effusion. Orbits: Postsurgical changes in the left orbit. IMPRESSION: No acute intracranial abnormality. Electronically signed by: Reg Sargent MD 02/24/2021 6:26 AM [employer] Due to temporary technical issues with the PACS/Fluency reporting system, reports are being signed by the in house radiologist without review as a courtesy to ensure prompt reporting. The interpreting r adiologist is fully responsible for the content of the report.
--- NOTE | 2021-02-24 11:37 | ER ---
Nurse's Notes [facility] Name: Shima Walters Age: 85 yrs Sex: Female : 1935 Arrival Date: 02/24/2021 Time: 04:53 Bed 3 Private MD: Diagnosis: Altered mental status, unspecified-Secondary to benzo administration;Restlessness and agitation Presentation: 02/24 05:27 Chief complaint: EMS states: EMS called out to [facility] (assisted living) for df1 "restlessness and unable to sit down". Upon arrival pt was pacing and stating "I can't sit down." EMS states pt became agitated and screaming and swinging arms. IV started and given 2mg Ativan IV. Coronavirus screen: Vaccine status: At this time, unable to obtain information related to travel outside the [place] At this time, the client does not indicate any symptoms associated with coronavirus-19. Ebola Screen: Patient negative for fever greater than or equal to 101.5 degrees Fahrenheit, and additional compatible Ebola Virus Disease symptoms Patient denies exposure to infectious person. Initial Sepsis Screen: Does the patient meet any 2 criteria? No. Patient's initial sepsis screen is negative. Does the patient have a suspected source of infection? No. Patient's initial sepsis screen is negative. Onset of symptoms was February 24, 2021 at 03:30. 05:27 Method Of Arrival: EMS: [facility] df1 05:27 Acuity: KERRY 3 df1 05:42 Care prior to arrival: Medication(s) given: 2 MG Ativan IV. df1 09:31 Risk Assessment: Do you want to hurt yourself or someone else? Patient reports no tw2 desire to harm self or others. Triage Assessment: 05:32 General: Appears in no apparent distress. Behavior is calm, quiet. Pain: Denies pain. df1 Historical: - Allergies: 05:32 Codeine; df1 - Home Meds: 05:32 Lasix 40 mg Oral tab 1 tab once daily [Active]; Entresto 24-26 mg Oral tab 1 tab 2 df1 times per day [Active]; Coreg 6.25 mg Oral tab 1 tab 2 times per day [Active]; 08:06 atorvastatin 40 mg oral tab 1 tab once daily [Active]; Xarelto 15 mg oral tab once aa5 daily [Active]; losartan 25 mg oral tab once daily [Active]; - PMHx: 05:32 Cerebrovascular accident; CHF; afib; Blind left eye; df1 08:58 Diabetes mellitus; Pancreatic Cancer; aa5 - PSHx: 05:32 Cholecystectomy; mitral valve repair; pacemaker; df1 - Immunization history:: Adult Immunizations unknown. - Social history:: Smoking status: unknown. Screenin:34 Abuse screen: Denies threats or abuse. Nutritional screening: No deficits noted. df1 Tuberculosis screening: No symptoms or risk factors identified. Fall Risk Fall in past 12 months (25 points). Secondary diagnosis (15 points) CVA, IV access (20 points). Ambulatory Aid- None/Bed Rest/Nurse Assist (0 pts). Gait- Impaired (20 pts.). Mental Status- Overestimates/Forgets Limitations (15 pts.). Assessment: 05:45 General: Appears in no apparent distress. Behavior is calm, drowsy. Pain: Denies pain. df1 Neuro: Level of Consciousness is obeys commands, Oriented to Unable to assess at this time. Pt very drowsy from 2mg Ativan given by EMS.. Seizure activity noted at this time. Neuro: Pt not able to follow commands at this time due to Medication given. Pt moving all extremities at will. Pt drowsy, resting with eyes closed, snoring. Pt alert to voice and touch.. Cardiovascular: Capillary refill < 3 seconds Rhythm is atrial fibrillation. Respiratory: Airway is patent Trachea midline Respiratory effort is even, unlabored, Respiratory pattern is regular, symmetrical. GI: No signs and/or symptoms were reported involving the gastrointestinal system. : Adorno in place. EENT: Eyes Blind in left eye. Derm:. Musculoskeletal: No deficits noted. 07:10 General: Appears comfortable, Behavior is calm, drowsy. Pain: Unable to use pain scale. aa5 Does not appear to understand pain scale. Neuro: Level of Consciousness is drowsy, pt opens eyes to verbal and tactile stimuli. Unable to follow commands.. Oriented to none. Cardiovascular: Heart tones S1 S2 present Rhythm is paced. Respiratory: Airway is patent Respiratory effort is even, unlabored, relaxed, Respiratory pattern is regular, symmetrical. GI: Abdomen is flat, non-distended, Abd is soft and non tender X 4 quads. : Adorno in place to gravity drainage. EENT: No deficits noted. Derm: Skin is pink, warm \\T\\ dry. Musculoskeletal: Range of motion: intact in all extremities, Noted to be able to move all 4 extremities. 07:38 Reassessment: ammonia and TSH drawn and sent to lab . aa5 08:10 Reassessment: Pt resting in bed with eyes closed, respirations even and unlabored, skin aa5 is pink/warm/dry. . Cardiovascular: Rhythm is Paced. 08:10 Reassessment: No changes from previously documented assessment. aa5 09:27 Reassessment: provider at bedside talking with pt at this time. pt more alert and tw2 answering questions. 10:30 Reassessment: pt given breakfast tray. tw2 13:10 Reassessment: No changes from previously documented assessment. tw2 Vital Signs: 05:27 Weight 61.23 kg; Pain 0/10; df1 05:40 BP 116 / 65; Pulse 65; Resp 18; Temp 97.7; Pulse Ox 100% on 2 lpm NC; Pain 0/10; df1 05:50 BP 103 / 64; Pulse 63; Resp 18; Pulse Ox 100% on 2 lpm NC; df1 07:15 BP 104 / 61; Pulse 65; Resp 18 S; Pulse Ox 98% on 2 lpm NC; aa5 08:00 BP 119 / 65; Pulse 61; Resp 18 S; Pulse Ox 100% on 2 lpm NC; aa5 08:45 BP 118 / 66; Pulse 60; Resp 16 S; Pulse Ox 98% on 2 lpm NC; aa5 09:45 BP 123 / 70; Pulse 81; Resp 17; Pulse Ox 99% on R/A; tw2 11:00 BP 121 / 74; Pulse 61; Resp 17; Pulse Ox 99% ; tw2 12:00 BP 129 / 97; Pulse 83; Resp 17; Pulse Ox 99% on R/A; tw2 13:09 BP 128 / 72; Pulse 85; Resp 17; Pulse Ox 100% on R/A; tw2 ED Course: 04:53 Patient arrived in ED. mw2 04:59 Erick Paz MD is Attending Physician. mh7 05:16 XRAY Chest (1 view) In Process Unspecified. EDMS 05:26 Stacey Chen is Primary Nurse. df1 05:32 Triage completed. df1 05:32 Arm band placed on right wrist. df1 05:34 Patient has correct armband on for positive identification. Placed in gown. Bed in low df1 position. Call light in reach. Side rails up X 1. monitoring specialist on. Pulse ox on. NIBP on. 05:34 No provider procedures requiring assistance completed. Maintain EMS IV. Dressing df1 intact. Good blood return noted. Site clean \\T\\ dry. Gauge \\T\\ site: 18G right AC. Oxygen administration via nasal cannula \\T\\ 2L/min. 05:38 Urine Microscopic Only Sent. df1 05:38 COVID-19/FLU A+B (Document "Date of Onset" if Symptomatic) Sent. df1 05:38 Liver (Hepatic) Function Sent. df1 05:39 CT Head Brain wo Cont Sent. df1 05:39 Basic Metabolic Panel Sent. df1 05:39 CBC with Automated Diff Sent. df1 05:39 Salicylate Sent. df1 05:39 Acetaminophen Sent. df1 05:39 UDS Sent. df1 05:39 ETOH Level Sent. df1 05:39 Basic Metabolic Panel Sent. df1 05:39 CBC with Diff Sent. df1 05:39 LFT's Sent. df1 05:39 Magnesium Sent. df1 05:39 NT PRO-BNP Sent. df1 05:39 PT-INR Sent. df1 05:39 Troponin (emerg Dept Use Only) Sent. df1 05:43 CT Head Brain wo Cont In Process Unspecified. EDMS 05:44 Adorno cath inserted, using sterile technique, 16 Fr., by ak, balloon inflated, to df1 gravity drainage, urine specimen collected. 07:00 Attending Physician role handed off by Erick Paz MD kdr 07:00 Milan Smith MD is Attending Physician. kdr 07:00 Report received from PINEDA Ibarra. aa5 09:00 Report given to PINEDA Holt. aa5 09:02 Primary Nurse role handed off by Stacey Chen tw2 09:02 Yanet Joiner RN is Primary Nurse. tw2 13:10 Adorno cath removed intact, balloon deflated. Patient did not have IV access during this tw2 emergency room visit. Administered Medications: No medications were administered Outcome: 11:36 Discharge ordered by . kdr 13:10 Discharged to home via ambulance, by EMS transportation tw2 13:10 Condition: stable 13:10 Discharge instructions given to patient, Instructed on discharge instructions, follow up and referral plans. Demonstrated understanding of instructions, follow-up care. 13:12 Patient left the ED. tw2 Signatures: Dispatcher [employer] EDMS Milan Smith MD MD kdr Calderon, Audri RN RN aa5 Yanet Joiner RN RN tw2 Yeni Cook 2 Erick Paz MD MD 7 Stacey Chen df1 Corrections: (The following items were deleted from the chart) 08:08 05:32 Home Meds: xeralto 15mg po daily; df1 aa5 08:08 05:32 Home Meds: losartan 25 mg Oral tab 1 tab once daily; df1 aa5 08:08 05:32 Home Meds: atorvastatin 40 mg Oral tab 1 tab once daily; df1 aa5 08:08 05:32 Home Meds: aspirin 81 mg Oral tab 81 mg daily; df1 aa5 08:10 07:10 Neuro: Level of Consciousness is drowsy, pt opens eyes to verbal and tactile aa5 stimuli. . Oriented to none aa5 08:10 07:10 Musculoskeletal: Range of motion: intact in all extremities, aa5 aa5
--- NOTE | 2021-02-24 11:37 | EDPHYS ---
Physician Documentation [facility] Name: Shima Walters Age: 85 yrs Sex: Female : 1935 Arrival Date: 02/24/2021 Time: 04:53 Bed 3 Private MD: ED Physician Milan Smith HPI: 02/24 05:25 This 85 yrs old Female presents to ER via Unassigned with complaints of Restlessness. 7 05:25 Patient brought to ED via EMS due to report of restlessness.. Onset: The [facility] symptoms/episode began/occurred today. Severity of symptoms: At their worst the symptoms were moderate today, in the emergency department the symptoms have improved markedly. Patient was brought in by EMS after a call was placed for restlessness. According to EMS patient was in complaining of feeling restless and unable to be still at assisted living. In route to the ED EMS gave Ativan 2 mg. At time of evaluation in the ED patient is somnolent but arousable.. Historical: - Allergies: 05:32 Codeine; df1 - Home Meds: 05:32 Lasix 40 mg Oral tab 1 tab once daily [Active]; Entresto 24-26 mg Oral tab 1 tab 2 df1 times per day [Active]; Coreg 6.25 mg Oral tab 1 tab 2 times per day [Active]; 08:06 atorvastatin 40 mg oral tab 1 tab once daily [Active]; Xarelto 15 mg oral tab once aa5 daily [Active]; losartan 25 mg oral tab once daily [Active]; - PMHx: 05:32 Cerebrovascular accident; CHF; afib; Blind left eye; df1 08:58 Diabetes mellitus; Pancreatic Cancer; aa5 - PSHx: 05:32 Cholecystectomy; mitral valve repair; pacemaker; df1 - Immunization history:: Adult Immunizations unknown. - Social history:: Smoking status: unknown. ROS: 05:25 Unable to obtain ROS due to Somnolent but arousable after receiving Ativan by EMS. 7 13:36 Constitutional: Negative for fever, chills, and weight loss, Eyes: Negative for injury, kdr pain, redness, and discharge, Neck: Negative for injury, pain, and swelling, Cardiovascular: Negative for chest pain, palpitations, and edema, Respiratory: Negative for shortness of breath, cough, wheezing, and pleuritic chest pain, Abdomen/GI: Negative for abdominal pain, nausea, vomiting, diarrhea, and constipation, Back: Negative for injury and pain, : Negative for injury, bleeding, discharge, and swelling, MS/Extremity: Negative for injury and deformity, Skin: Negative for injury, rash, and discoloration, Psych: Negative for depression, anxiety, suicide ideation, homicidal ideation, and hallucinations, Allergy/Immunology: Negative for hives, rash, and allergies, Endocrine: Negative for neck swelling, polydipsia, polyuria, polyphagia, and marked weight changes. 13:36 Neuro: Positive for altered mental status. Exam: 05:25 Head/Face: Normocephalic, atraumatic. Neck: Trachea midline, no thyromegaly or masses mh7 palpated, and no cervical lymphadenopathy. Supple, full range of motion without nuchal rigidity, or vertebral point tenderness. No Meningismus. Chest/axilla: Normal chest wall appearance and motion. Nontender with no deformity. No lesions are appreciated. Cardiovascular: Regular rate and rhythm with a normal S1 and S2. No gallops, murmurs, or rubs. Normal PMI, no JVD. No pulse deficits. Respiratory: Lungs have equal breath sounds bilaterally, clear to auscultation and percussion. No rales, rhonchi or wheezes noted. No increased work of breathing, no retractions or nasal flaring. Abdomen/GI: Soft, non-tender, with normal bowel sounds. No distension or tympany. No guarding or rebound. No evidence of tenderness throughout. Back: No spinal tenderness. No costovertebral tenderness. Full range of motion. Skin: Warm, dry with normal turgor. Normal color with no rashes, no lesions, and no evidence of cellulitis. MS/ Extremity: Pulses equal, no cyanosis. Neurovascular intact. Full, normal range of motion. 05:25 Constitutional: The patient appears in no acute distress, Somnolent but arousable 05:25 Neuro: Orientation: unable to test, the patient is medicated, Mentation: unable to test, the patient is medicated, Memory: unable to test, the patient is medicated, Cranial nerves: unable to test, the patient is medicated, Cerebellar function: unable to test, the patient is medicated, Motor: moves all fours, Sensation: unable to test, the patient is medicated, Gait: not tested. seizure activity, is not displayed by the patient, Abnormal movements: there are no abnormal movements. Vital Signs: 05:27 Weight 61.23 kg; Pain 0/10; df1 05:40 BP 116 / 65; Pulse 65; Resp 18; Temp 97.7; Pulse Ox 100% on 2 lpm NC; Pain 0/10; df1 05:50 BP 103 / 64; Pulse 63; Resp 18; Pulse Ox 100% on 2 lpm NC; df1 07:15 BP 104 / 61; Pulse 65; Resp 18 S; Pulse Ox 98% on 2 lpm NC; aa5 08:00 BP 119 / 65; Pulse 61; Resp 18 S; Pulse Ox 100% on 2 lpm NC; aa5 08:45 BP 118 / 66; Pulse 60; Resp 16 S; Pulse Ox 98% on 2 lpm NC; aa5 09:45 BP 123 / 70; Pulse 81; Resp 17; Pulse Ox 99% on R/A; tw2 11:00 BP 121 / 74; Pulse 61; Resp 17; Pulse Ox 99% ; tw2 12:00 BP 129 / 97; Pulse 83; Resp 17; Pulse Ox 99% on R/A; tw2 13:09 BP 128 / 72; Pulse 85; Resp 17; Pulse Ox 100% on R/A; tw2 MDM: 06:55 Transition of care: After a detail discussion of the patient's case, care is mh7 transferred to Milan Smith MD. 07:46 Data reviewed: vital signs, nurses notes. ED course: Patient is resting comfortably in kdr bed at this time. She is not requiring any intervention at this time.. 11:00 ED course: Patient is now awake and alert and responding appropriately. She recalls kdr being very restless yesterday and creating a difficult situation at the assisted living facility. She continues to be somewhat restless in bed but seems to be back to her baseline or nearly there. She has no focal complaints at this time. Will ambulate and make sure the patient is able to care for herself prior to discharge. 11:36 Patient medically screened. kdr 02/24 05:06 Order name: Basic Metabolic Panel mh7 02/24 05:06 Order name: CBC with Diff [facility] 02/24 05:06 Order name: LFT's [facility] 02/24 05:06 Order name: Magnesium; Complete Time: 06:23 7 02/24 05:06 Order name: NT PRO-BNP; Complete Time: 06:23 02/24 05:06 Order name: PT-INR; Complete Time: 06:12 02/24 05:06 Order name: Troponin (emerg Dept Use Only); Complete Time: 06:23 [facility] 02/24 05:06 Order name: UDS; Complete Time: 06:12 02/24 05:06 Order name: ETOH Level; Complete Time: 06:12 7 02/24 05:06 Order name: Acetaminophen; Complete Time: 06:23 7 02/24 05:06 Order name: Salicylate; Complete Time: 06:12 02/24 05:06 Order name: Basic Metabolic Panel; Complete Time: 06:23 EDMS 02/24 05:06 Order name: CBC with Automated Diff; Complete Time: 05:50 EDMS 02/24 05:06 Order name: Liver (Hepatic) Function; Complete Time: 06:23 EDMS 02/24 05:06 Order name: XRAY Chest (1 view); Complete Time: 09:18 02/24 05:06 Order name: EKG; Complete Time: 05:06 02/24 05:06 Order name: Cardiac monitoring; Complete Time: 05:39 02/24 05:06 Order name: EKG - Nurse/Tech; Complete Time: 05:39 02/24 05:06 Order name: IV Saline Lock; Complete Time: 05:39 02/24 05:06 Order name: Labs collected and sent; Complete Time: 05:39 02/24 05:06 Order name: O2 Per Protocol; Complete Time: 05:39 02/24 05:06 Order name: O2 Sat Monitoring; Complete Time: 05:39 02/24 05:06 Order name: CT Head Brain wo Cont; Complete Time: 02:26 02/24 05:12 Order name: COVID-19/FLU A+B (Document "Date of Onset" if Symptomatic); Complete Time: [facility] 09:18 02/24 05:26 Order name: Urine Microscopic Only; Complete Time: 06:25 df1 02/24 05:33 Order name: Urine Dipstick-Ancillary; Complete Time: 05:50 EDMS 02/24 06:50 Order name: AMMONIA 7 02/24 06:50 Order name: TSH; Complete Time: 09:18 mh7 02/24 06:51 Order name: Ammonia; Complete Time: 09:18 EDMS 02/24 09:30 Order name: Diet Ada 1800 Nathan; Complete Time: 09:31 tw2 02/24 05:06 Order name: Urine Dipstick-Ancillary (obtain specimen); Complete Time: 05:39 mh7 Administered Medications: No medications were administered Disposition Summary: 02/24/21 11:36 Discharge Ordered Location: Home kdr Problem: new kdr Symptoms: have improved kdr Condition: Stable kdr Diagnosis - Altered mental status, unspecified - Secondary to benzo administration kdr - Restlessness and agitation kdr Followup: kdr - With: Private Physician - When: 2 - 3 days - Reason: If symptoms return, Further diagnostic work-up, Recheck today's complaints, Continuance of care, Re-evaluation by your physician Discharge Instructions: - Discharge Summary Sheet kdr Forms: - Blank Diagnosis Outline kdr - Medication Reconciliation Form kdr - Thank You Letter kdr Signatures: Dispatcher [employer] Milan Wray MD MD kdr Krissy Howell RN RN aa5 Erick Paz MD MD 7 Stacey Chen df1 Corrections: (The following items were deleted from the chart) 08:08 05:32 Home Meds: xeralto 15mg po daily; df1 aa5 08:08 05:32 Home Meds: losartan 25 mg Oral tab 1 tab once daily; df1 aa5 08:08 05:32 Home Meds: atorvastatin 40 mg Oral tab 1 tab once daily; df1 aa5 08:08 05:32 Home Meds: aspirin 81 mg Oral tab 81 mg daily; df1 aa5
[2021-02-24 13:20] VITALS: TEMP 97.7
[2021-02-24 13:32] VITALS: BP 128/72; O2SAT 100
--- NOTE | 2021-02-26 08:10 | EKG ---
Test Date: 2021-02-24 Test Time: 04:57:12 Program Aide: MEASUREMENT RESULTS: Intervals: Rate: 72 WI: QRSD: 114 QT: 430 QTc: 470 Cooper: P: WI: QRS: 58 T: 50 INTERPRETIVE STATEMENTS: Atrial fibrillation with premature ventricular or aberrantly conducted complexes Possible Anterior infarct, age undetermined Abnormal ECG Compared to ECG 02/05/2021 04:05:00 Sinus rhythm no longer present Myocardial infarct finding still present Electronically Signed On 02-26-21 08:03:58 [employer] by Drew Sherman
== END 2021-02-24 13:12 | disposition home or self-care (01) ==
LOC: ER 04:49
DX: R41.82 Altered mental status, unspecified (principal); I50.9 Heart failure, unspecified; I48.91 Unspecified atrial fibrillation; Z20.822 Contact with and (suspected) exposure to COVID-19; Z88.5 Allergy status to narcotic agent; Z95.0 Presence of cardiac pacemaker
CPT/HCPCS: 93005; 85025; 80048; 36415; 80320; 82140; 83735; 80329 ×2; 85610; 80076; 84443; 84484; 83880; 0240U; 80307; 70450; 71045; 51702; 99285; 81003; 81015

== ENCOUNTER 2021-05-07 20:09 | Emergency (ER) | payer OTHER ==
[~2021-05-07 20:09] MED LIST: NOREPINEPHRINE 4mg/D5W 250mL 4 MG/250 ML BAG IV ONE
[2021-05-07] MEDS ORDERED: NA CHLORIDE 0.9% 1,000 ML ONE (20:11)
--- OUTSIDE RECORDS SUMMARY | 2021-05-07 20:12 | XMS REPORT | Clinical Summary ---
:1935 Author Organization [facility] Address [address] [place] [id number] Care Team Providers Name Role Phone MD Michelle Primary Care Provider Tameka De Leon DO Unavailable Allergies Not on File Medications Not on file Active Problems Not on file Encounters Date Type Specialty Care Team Description 02/12/2021 Travel after 05/07/2020 Social History Tobacco Use Types Packs/Day Years Used Date Never Assessed Sex Assigned at Date Recorded Not on file Job Start Date Occupation Industry Not on file Not on file Not on file Last Filed Vital Signs Not on file Plan of Treatment Not on file Results Not on fileafter 05/07/2020 Insurance Payer Benefit Plan / Subscriber ID Effective Phone Address T ype Group Dates [employer] MEDICARE [id number] 2020-Prese [address] [phone] Medicare HEALTHCARE ADVANTAGE [place] [id number] Care Teams [employer] Relationship Specialty Start Date End Date Vahid Martinez MD PCP - General Ophthalmology 10/02/[address] [place] [id number] Stephy De Leon, DO PCP - External Primary Family Practice 10/28/20 [address] Care Provider [address] [place] [address]
--- OUTSIDE RECORDS SUMMARY | 2021-05-07 20:13 | XMS REPORT | Continuity of Care Document ---
:1935 Author Organization [facility] t Address [address] [place] [address] Care Team Providers Name Role Phone [phone] Primary Care Physician Unavailable Prasad De Leon Attending Clinician Unavailable SYSTEM, NOT IN Attending Clinician Unavailable VIJAYA Attending Clinician Unavailable ONLAURA BOWIE Attending Clinician Unavailable Trinity_Chacha_NIRAJ Attending Clinician Unavailable JUSTIN ALVAREZ Attending Clinician Unavailable ONLAURA BOWIE Admitting Clinician Unavailable Trinity_Chacha_AH Admitting Clinician Unavailable JUSTIN ALVAREZ Admitting Clinician Unavailable Payers Payer Name Policy Type Policy Number Effective Date Expiration Date [facility] [id number] 2020 MD Meyers rsandriy MEDICARE 00:00:00 [facility] MEDICARE [id number] 2020-[address] [address] [place], [place] [address]MedicareMedicare [employer]ARE OF [place] - [id number] 2019 [employer] 00:00:00 (MEDICARE REPLACEMENT/ADVANT AGE - HMO) Problems Condition Condition Condition Status Onset Resolution Last Treating Co mments Source Name Details Category Date Date Treatment Clinician Date I48.0 Diagnosis Active 2018-10-15 Mem oria 09-01 15:31:00 l I48.0 00:00: Frandy 00 Active 09/01/2018 [facility] CCL / EPS Diagnosis Active 2018-09-14 Memoria PVI 5-30 08:17:00 l ABLATION CCL / 00:00: Frandy W/ CARTO / EPS PVI 00 DUAL P ABLATION W/ CARTO / DUAL P Active 09/01/2018 [facility] Acute Acute Disease Active [facility] encephal[facility] encephalop 3-03 Audrey kes - athy athy 00:00: Medical 00 Center Acute Acute Disease Active [facility] ischemic ischemic 3-02 [facility] stroke stroke 00:00: Medical 00 [place] Received Received Disease Active [facility] [...] 2020-11-17 M emoria heart 21:28:06 l failure [place] (disorder) Congestive heart failure (disorder) Active Problem 11/17/2020 [facility] Dizziness Problem Active 2020-11-17 Me moria (finding) 21:28:06 l [place] Dizziness (finding) Active Problem 11/17/2020 [facility] Hyperlipid Problem Active 2020-11-17 M emoria emia 21:28:06 l (disorder) Manuel n Hyperlipid emia (disorder) Active Problem 11/17/2020 [facility] Lumbar Problem Active 2020-11-17 Memor ia radiculopa 21:28:06 l thy Lumbar [place] (disorder) radiculopa thy (disorder) Active Problem 11/17/2020 [...] 2020-11-17 Mukul armando (disorder) 21:28:06 l Syncope [place] (disorder) Active Problem 11/17/2020 [facility] Allergies, Adverse Reactions, Alerts Allergy Allergy Status Severity Reaction(s) Onset Inactive Treating Comm ents Source Name Type Date Date Clinician Codeine Drug Active Other (See Chest [facility] All[facility] Comments) 06-03 pain [facility] Center codeine Adverse Active Info Not [facility] Reaction Available [facility] codeine codeine [facility] [place] Vicodin Vicodin Active [facility] [place] CODEINE Allergy Active [facility] Family History Family Member Diagnosis Comments Start Date Stop Date Source Natural brother Heart disease [facility] Natural brother Diabetes [facility] Natural daughter Diabetes [facility] Natural mother Heart disease [facility] Social History Social Habit Start Date Stop Date Quantity Comments Source History SDDC [facility] Std Drinks Medica l Center History [facility] - Alcohol Binge Medical Dianna ter Tobacco use and 2018-06-03 2018-06-[address] [facility] Audrey kes - exposure 00:00:00 00:00:00 [facility] Alcohol intake 2018-06-03 2018-06-03 Current [facility] St Alessia es - 00:00:00 00:00:00 non-drinker of Medical nter alcohol (finding) History SDOH 2018-06-03 2018-06-[address] [facility] - Alcohol Frequency 00:00:00 00:00:00 [facility] Sex Assigned At [birth year] MD Lugo on 00:00:00 00:00:00 Smoking Status Start Date Stop Date Source Social History [facility] Medications Ordered Filled Start Stop Current Ordering Indication Dosage Frequency Signature Comments Components Source Medication Medication Date Date Medication? Clinician (SIG) Name Name Cetirizine Cetirizine Yes Na De Leon [address] [facility] HCl HCl 904 [facility] - 00:00: Memoria 00 l Outpati [...] Plus 3-24 Daily, 0 l 20:45: Refill(s) [place] 00 Loratadine 0 Yes 10 mg = 1 Me moria 10 MG Oral 3-24 tab, PO, l Tablet 20:45: Daily, 0 Frandy 00 Refill(s) meclizine 0 Yes 25 mg [...] PO, l 25 MG 20:45: Daily, # [place] Extended 00 30 tab, 5 Release Refill(s) [...] [facility] - 00:00: Memoria [address] [facility] [facility] Clinics montelukast No Notes: Mukul armando 6-13 (Same l 14:00: as:Singula [place] 00 ir) Losartan No Notes: Memoria 6-13 [...] "Do Not Crush" Sucralfate No Notes: August M emoria 09-14 interfere l 22:00: w/enteral [...] Sodium e Sodium [facility] Loratadine Loratadine Yes Na De Leon [address] [facility] Atorvastati Atorvastati Yes Na De Leon [address] [facility] n Calcium n Calcium [facility] Meclizine Meclizine Yes Na De Leon [address] [facility] HCl HCl as needed [facility] Losartan Losartan Yes Na De Leon [address] [facility] Potassium Potassium [facility] Estradiol Estradiol Yes Na De Leon 1/[address] Myrbetriq Myrbetriq Yes Na De Leon [address] [facility] Ferrous Ferrous Yes Na De Leon [address] [facility] Sulfate Sulfate [facility] Singulair Singulair Yes Na De Leon [address] [facility] Amiodarone Amiodarone Yes [...] Systolic (mm Hg) 2019-11-16 14:27:00 Mukul rial [place] Diastolic (mm Hg) 2019-11-16 14:27:00 Mem orial [place] Heart Rate 2019-11-16 14:27:00 [facility] [place] Respitory Rate 2019-11-16 14:27:00 Memori al [place] Height 2019-11-16 14:27:00 152.4 cm [facility] [place] Weight 2019-11-16 14:27:00 [facility] [place] BMI Calculated 2019-11-16 14:27:00 Memori al [place] Systolic (mm Hg) 2019-09-12 20:01:00 Mukul rial [place] Diastolic (mm Hg) 2019-09-12 20:01:00 Mem orial [place] Heart Rate 2019-09-12 20:01:00 [facility] [place] Respitory Rate 2019-09-12 20:01:00 Memori al [place] Height 2019-09-12 20:01:00 152.4 cm [facility] [place] Weight 2019-09-12 20:01:00 [facility] [place] BMI Calculated 2019-09-12 20:01:00 Memori al [place] Systolic (mm Hg) 2019-06-27 20:30:00 Mukul rial [place] Diastolic (mm Hg) 2019-06-27 20:30:00 Mem orial [place] Heart Rate 2019-06-27 20:30:00 [facility] [place] Respitory Rate 2019-06-27 20:30:00 Memori al [place] Height 2019-06-27 20:30:00 149.86 cm [facility] [place] Weight 2019-06-27 20:30:00 [facility] [place] BMI Calculated 2019-06-27 20:30:00 Memori al [place] Respitory Rate 2018-09-15 13:00:00 Memori al [place] Respitory Rate 2018-09-15 11:30:00 Memori al [place] Systolic (mm Hg) 2018-09-15 11:30:00 Mukul rial [place] Diastolic (mm Hg) 2018-09-15 11:30:00 Mem orial [place] Temperature Oral (F) 2018-09-15 11:30:00 97.2 F [facility] [place] Respitory Rate 2018-09-15 09:43:00 Memori al [place] Systolic (mm Hg) 2018-09-15 09:15:00 Mukul rial Frandy Diastolic (mm Hg) 2018-09-15 09:15:00 Mem orial [place] Systolic (mm Hg) 2018-09-15 06:30:00 Mukul rial Frandy Diastolic (mm Hg) 2018-09-15 06:30:00 Mem orial [place] Temperature Oral (F) 2018-09-15 01:45:00 98.7 F [facility] [place] Temperature Oral (F) 2018-09-14 14:00:00 97.2 F [facility] [place] BMI Calculated 2018-09-14 13:25:00 Memori al [place] Weight 2018-09-14 13:25:00 [facility] [place] Height 2018-09-14 13:25:00 152.4 cm [facility] [place] Procedures Procedure Date / Time Performed Performing Clinician Sourc e Mitral valvoplasty [facility] geo Plan of Care Planned Activity Planned Date Details Comments Source Future Scheduled 2020-12-[address] [facility] Test 00:00:00 (Season Ended) [code = [facility] al Center INFLUENZA VACCINE (Season Ended)] Future [...] 00:00:00 (1 of 1 - Medical Center [id number] PCV13) [code = PNEUMOCOCCAL 65+ YRS (1 of 1 - QASF75_Krblkqw PCV13)] Future Scheduled 1985-06-23 SHINGLES VACCINES (1 [...] Date/Time Type Type Clinicians Facility Department ID 2021-04-30 Outpatient De Leon, Na STLMLC STLMLC [id number] [facility] 14:37[facility]00 [facility] 2021-04-30 Outpatient De Leon, Na STLMLC STLMLC [id number] [facility] 14:36:18 [facility] 2021-04-30 Outpatient De Leon, Na STLMLC STLMLC [id number] [facility] 14:35:33 [facility] 2021-04-30 Outpatient De Leon, Na STLMLC STLMLC [id number] [facility] 14:12:10 [facility] 2021-04-30 Outpatient De Leon, Na STLMLC STLMLC [id number] [facility] 14:11:12 [facility] 2021-04-30 Outpatient De Leon, Na STLMLC STLMLC [id number] [facility] 13:47:43 [id number] [facility] 2021-04-30 Outpatient De Leon, Na STLMLC STLMLC [id number] [facility] 13:39:56 [id number] [facility] 2021-04-30 Outpatient De Leon, Na STLMLC STLMLC [id number] [facility] 13:36:03 [id number] [facility] 2021-04-30 Outpatient De Leon, Na STLMLC STLMLC [id number] [facility] 13:35:25 [id number] [facility] 2021-04-30 Outpatient De Leon, Na STLMLC STLMLC [id number] [facility] [address] 13:30:59 [id number] [facility] 2021-04-30 Outpatient De Leon, Na STLMLC STLMLC [id number] [facility] 13:29:40 [id number] [facility] 2021-04-30 Outpatient De Leon, Na STLMLC STLMLC [id number] [facility] [address] 12:56:02 [id number] [facility] 2021-04-30 Outpatient De Leon, Na STLMLC STLMLC [id number] [facility] 12:54:19 [id number] [facility] 2021-04-30 Outpatient De Leon, Na STLMLC STLMLC [id number] [facility] 12:25:10 [id number] [facility] 2021-04-30 Outpatient De Leon, Na STLMLC STLMLC [id number] [facility] [address] 11:49:38 [id number] [facility] 2021-04-30 Outpatient De Leon, Na STLMLC STLMLC [id number] [facility] 11:33:36 [id number] [facility] 2021-04-30 Outpatient De Leon, Na STLMLC STLMLC [id number] [facility] 11:19:52 [id number] [facility] 2021-04-30 Outpatient De Leon, Na STLMLC STLMLC [id number] [facility] 11:18:10 [id number] [facility] 2021-04-30 Outpatient De Leon, Na STLMLC STLMLC [id number] [facility] 11:10:18 [id number] [facility] 2021-04-30 Outpatient De Leon, Na STLMLC STLMLC [id number] 11:09:57 [id number] [facility] 2021-04-30 Outpatient De Leon, Na STLMLC STLMLC [id number] 11:08:02 [id number] [facility] 2021-04-30 Outpatient De Leon, Na STLMLC STLMLC [id number] [facility] 11:03:50 [id number] [facility] 2021-03-06 Outpatient SYSTEM, [facility] SARAH [id number] 14:40:33 [facility] [place] 2021-01-29 Outpatient SYSTEM, [facility] SARAH [id number] 14:27:23 [facility] [place] 2020-10-16 Outpatient SYSTEM, [facility] SARAH [id number] 14:10:15 [facility]ER [place] 2021-05-01 2021-05-01 Outpatient [facility] [id number] [place] 00:00:00 00:00:00 ERNIE [address] 2021-05-01 2021-05-01 [facility] [id number] [place] 00:00:00 00:00:00 ERNIE [address] 2021-05-01 2021-05-01 Outpatient [facility] [id number] [place] 00:00:00 00:00:00 ERNIE [address] 2021-04-22 2021-04-22 ambulatory [facility]LMLC [facility] [id number] [facility] 2021-04-07 2021-04-07 ambulatory [facility]LMLC [facility] [id number] [facility] 2021-03-11 2021-03-11 ambulatory [facility]LMLC [facility] [id number] [facility] 2021-03-03 2021-03-03 ambulatory [facility]LMLC [facility] [id number] [facility] 2021-02-26 2021-02-26 ambulatory [facility]LMLC [facility] [id number] [facility] 2021-02-21 2021-02-21 ambulatory [facility]LMLC [facility] [id number] [facility] 2021-02-12 2021-02-12 ambulatory [facility]LMLC [facility] [id number] [facility] 2021-02-12 2021-02-12 ambulatory [facility]LMLC [facility] [id number] [facility] 2021-02-11 2021-02-11 ambulatory [facility]LMLC [facility] [id number] [facility] 2021-02-10 2021-02-10 ambulatory STLMLC [facility] [id number] [facility] 2021-02-05 2021-02-07 Inpatient U [facility] [id number] [facility] 11:12:00 18:30:00 EZENWA 2021-01-23 2021-01-23 ambulatory [facility]LMLC [facility] [id number] [facility] 2021-01-22 2021-01-22 Outpatient [facility]MLC [facility] [id number] [facility] 2020-12-13 2020-12-13 Outpatient [facility]LMLC [facility] [id number] [facility] 2020-11-22 2020-11-22 Outpatient [facility]LMLC [facility] [id number] [facility] 2020-11-20 2020-11-20 Outpatient [facility]LMLC [facility] [id number] [facility] 2020-11-20 2020-11-20 Outpatient [facility]LMLC [facility] [id number] [facility] 2020-11-15 2020-11-15 Ambulatory nullFlavo MNA [id number] [facility] 14:45:00 14:45:00 Pre-Reg r Neurology 08 l Sanbornbrian Wise 2020-10-29 2020-10-29 Outpatient [facility]LMLC [facility] [id number] [facility] 2020-10-29 2020-10-29 Outpatient [facility]LMLC [facility] [id number] [facility] 2020-10-28 2020-10-28 Outpatient [facility]LMLC [facility] [id number] [facility] 2020-10-23 2020-10-23 Outpatient [facility]LMLC [facility] [id number] [facility] 2020-10-11 2020-10-11 Outpatient [facility]LMLC [facility] [id number] [facility] 2020-09-30 2020-10-02 Outside nullFlavo MNA [id number] [facility] 22:31:13 04:59:59 Medical r Neurology 01 l Records Lui Wise 2020-10-02 2020-10-02 Outpatient STLMLC [facility] [id number] [facility] 2020-09-23 2020-09-23 Outpatient [facility] [id number] [facility] 2020-09-18 2020-09-18 Out[facility] [id number] 2020-07-30 2020-07-30 Out[facility] [id number] [facility] 2020-04-30 2020-04-30 Out[facility] [id number] [facility] 2020-04-12 2020-04-12 [id number] [facility] 2020-01-29 2020-01-29 Outpatient [facility] [id number] [facility] 2020-01-01 2020[facility]01-01 [facility] [id number] [facility] 2019-12-28 2019-12-28 Ambulatory nullFlavo MNA [id number] [facility] 14:15:00 14:15:00 Pre-Reg r Neurology 06 l [place] 2019-12-08 2019-12-08 [facility] [id number] [facility] 10:40:00 10:40:00 t [employer] [facility] Medicine Outpati ent Clinics 2019-12-07 2019-12-07 [facility] [id number] [facility] 17:09:00 17:09:00 t [employer] [facility] Outpati ent Clinics 2019-11-24 2019-11-25 Outpatient nullFlavo MNA [id number] [facility] 18:00:00 04:59:59 r Neurology 07 l Sanborn [place] 2019-11-16 2019-11-17 Outpatient nullFlavo MNA [id number] [facility] 14:15:00 04:59:59 r Neurology 05 l Sanborn [place] 2019-11-09 2019-11-11 Outside nullFlavo MNA [id number] [facility] 19:37:54 04:59:59 Medical r Neurology 00 l Records Lui Wise 2019-11-03 2019-11-03 [facility] [id number] [facility] 11:20:00 11:20:00 t [employer] [facility] 2019-10-24 2019-10-24 Ambulatory nullFlavo MNA [id number] [facility] 19:30:00 19:30:00 Pre-Reg r Neurology 03 l Lui Wise 2019-10-24 2019-10-24 Ambulatory nullFlavo MNA [id number] [facility] 19:30:00 19:30:00 Pre-Reg r Neurology 04 l Sanbornbrian Borjasann 2019-10-03 2019-10-03 [facility] [id number] [facility] 08:13:00 08:13:00 t [employer] [facility] 2019-09-24 2019-09-24 [facility] [id number] 01:13:00 01:13:00 t [employer] [facility] 2019-09-12 2019-09-13 Outpatient nullFlavo MNA [id number] [facility] 19:45:00 04:59:59 r Neurology 02 l Lui Borjasann 2019-09-07 2019-09-07 [facility] [id number] [facility] 13:30:00 13:30:00 t Specialty/U Audrey kes - Specialty rology [facility] a /Urology Clinic l Clinic Outpati ent Clinics 2019-09-07 2019-09-07 [facility] [id number] 10:20:00 10:20:00 t [employer] [facility] 2019-08-08 2019-08-08 Ambulatory nullFlavo MNA [id number] [facility] 20:00:00 20:00:00 Pre-Reg r Neurology 01 l Sanbornbrian Borjasann 2019-07-07 2019-07-07 [facility] [id number] 14:00:00 14:00:00 t Specialty/U Audrey kes - Specialty rology Memori a /Urology Clinic l Clinic Outpati ent Clinics 2019-06-27 2019-06-28 Outpatient Janie RENNER [id number] [facility] 20:00:00 04:59:59 r Neurology 00 l Sanbornbrian Borjasann 2019-06-21 2019-06-21 Outpatient Otto-Mbayo VFP VFP [id number] [facility] 02:35:00 02:35:00 _A_AH [id number] Family Practic e 2019-06-21 2019-06-21 Outpatient Otto-Mbayo VFP VFP [id number] [facility] 02:35:00 02:35:00 _A_AH [id number] Family Practic e 2019-06-02 2019-06-02 [facility] [id number] 09:00:00 09:00:00 t Specialty/U Audrey kes - Specialty rology Memori a /Urology Clinic l Clinic Outpati ent Clinics 2019-05-29 2019-05-29 [facility] [id number] 09:00:00 09:00:00 t [employer] [facility] Family Medicine l Medicine Outpati ent Clinics 2019-05-19 2019-05-19 [facility] [id number] [facility] 03:30:00 03:30:00 t [employer] [facility] Family [facility] l Medicine Outpati ent Clinics 2019-05-15 2019-05-15 [facility] [id number] [facility] 10:48:00 10:48:00 t [employer] [facility] l Medicine Outpati ent Clinics 2019-05-15 2019-05-15 [facility] [id number] [facility] 10:20:00 10:20:00 t [employer] [facility] Family [facility] l Medicine Outpati ent Clinics 2019-05-15 2019-05-15 [facility] [id number] [facility] 09:05:00 09:05:00 t [employer] [facility] Medicine l Medicine Outpati ent Clinics 2019-05-04 2019-05-04 [facility] [id number] 13:03:00 13:03:[address] [place] [address] Luke s - Drive [facility] Medicine Medicine Outpati ent Clinics 2019-05-02 2019-05-02 [facility] [id number] 14:40:00 14:40:00 [address] [place] [address] Luke s - Drive [facility] l Medicine Outpati ent Clinics 2019-03-21 2019-03-21 [facility] [id number] 09:40:00 09:40:00 [address] [place] [address] [place] [address] Luke s - Drive [facility] Medicine l Medicine Outpati ent Clinics 2019-02-08 2019-02-08 [facility] [id number] 16:31:00 16:31:00 [address] [place] [address] Luke s - Drive [facility] Medicine Outpati ent Clinics 2019-02-07 2019-02-07 [facility] [id number] 15:00:00 15:00:00 [place] [employer] Luke s - Drive [facility] Medicine Outpati ent Clinics 2018-10-17 2018-10-17 [facility] [id number] 17:09:00 17:09:00 t [place] [employer] s - Drive [facility] Medicine Outpati ent Clinics 2018-10-12 2018-10-12 [facility] [id number] 09:00:00 09:00:00 t [place] [employer] s - Drive [facility] Medicine Outpati ent Clinics 2018-09-21 2018-09-21 [facility] [id number] 08:40:00 08:40:00 [place] [employer] s - Drive [facility] Medicine Medicine Outpati ent Clinics 2018-09-14 2018-09-15 Bedded [facility] [id number] [facility] 13:05:00 14:20:[address] 2018-09-14 2018-09-14 Outpatient [facility] [id number] [facility] 08:05:00 08:05:00 2018-06-22 2018-06-22 [facility] [id number] [facility] 11:00:00 11:00:00 [place] [employer] - [employer] [facility] Outpati ent Clinics 2018-06-02 2018-06-02 [facility] [id number] 15:15:00 15:15:00 t [place] Seriously s - [employer] [facility] Medicine Outpati ent Clinics 2018-04-27 2018-04-27 [facility] [id number] 16:21:00 16:21:00 t [place] Seriously s - [employer] [facility] Medicine Outpati ent Clinics 2018-03-24 2018-03-24 [facility] [id number] 14:45:00 14:45:00 t [place] [employer] [facility] Outpati ent Clinics 2017-12-30 2017-12-30 [facility] [id number] [facility] 15:15:00 15:15:00 t [employer] [facility] Medicine Outpati ent Clinics 2017-12-16 2017-12-16 [facility] [id number] 08:22:00 08:22:00 t [employer] [facility] Medicine Outpati ent Clinics 2017-09-21 2017-09-21 [facility] [id number] [facility] 14:45:00 14:45:00 t [employer] [facility] Outpati ent Clinics 2017-08-10 2017-08-10 [facility] [id number] [facility] 15:46:00 15:46:00 t [employer] [facility] Outpati ent Clinics 2017-07-05 2017-07-05 [facility] [id number] [facility] 15:30:00 15:30:00 t [employer] [facility] Outpati ent Clinics Results Test Description Test Time Test Comments Results Result Comments Source HEMATOLOGY 2018-09-14 19:49:00 Test Item Value Reference Range Interpretation Comme nts POC Activated Clotting Time (test code = POC Activated Clotting Eliseo e) [address] [place] [id number] 18:16:00 Test Item Value Reference Range Interpretation Comments POC Activated Clotting Time (test code 363 s = POC Activated [facility] Time) [id number] 17:52:00 Test Item Value Reference Range Interpretation Comments POC Activated Clotting Time (test code 291 s = POC Activated Clotting Time) [id number] 13:30:00 Test Item Value Reference Range Interpretation Comments PTT (test code = PTT) 45.1 s 22.9-35.8 [facility]db[facility]dczUWYYDNPWNL0754-34-41 13:30:00 Test Item Value Reference Range Interpretation Comments PT (test code = PT) 14.4 s 12.0-14.7 [facility] CenterMvhegeeXKTQBMHOTI9023-62-33 13:30:00 Test Item Value Reference Range Interpretation Comments INR (test code = INR) 1.14 1 0.85-1.17 [facility] CenterDqqcuspQHYGTASYDM8653-84-82 13:30:008.5[facility] 2018-09-14 13:30:004.05[facility] SlbvjukNOUBWHHEHI0883-61-32 13:30:0012.4[facility] LgepgvnONNAGJKWFR9622-04-82 13:30:0033.0[facility] KiwzjweZFVEWVLJVJ9949-84-81 13:30:0014.3[facility] IbfzwnrSYJRIWOFRU0243-54-45 13:30:78741Vvjjahiw Frandy SJDAZGILTP0571-24-84 13:30:007.1[facility] FmmbgwwTCXSOERJJV0053-24-27 13:30:00 Test Item Value Reference Range Interpretation Comments MCH (test code = MCH) 30.6 pg 27.0-31.0 [facility] PtzyglmWGRMBOXWFC4561-80-44 13:30:0037.5[facility] 2018-09-14 13:30:0092.7[facility] FvniqghACSRTQMNLP7051-45-19 13:30:006.1[facility] NdhdfybPFKGLCAFUG9326-53-19 13:30:000.5[facility] QwtupldPCLCUFUIBW1388-79-67 13:30:001.6[facility] JytwugyVOVJVCBJEJ5253-75-89 13:30:000.6[facility] OAHUYCXJRS7571-39-85 13:30:000.2[facility] SwsttyqKBEMPZXYDA4041-28-35 13:30:002.3 [facility] ZtbpixhWNQMYUEKMY1841-55-46 13:30:007.5[facility]ann[facility]OLOGY 2018-09-14 13:30:0071.3[facility] XharwyvGOELYCSJAQ1403-11-16 13:30:0018.4[facility]annBLOOD BANK ILJKNIY8432-50-23 13:30:00Negative (09/14/18 8:30 AM)[facility]annCHEM CWOLN5256-69-74 13:30:002.9[facility]annCHEM QDCDT3009-15-14 13:30:002.1[facility] HtnvfliKCQCIRPNPJYQ0330-64-89 13:30:0010.6[facility] ONPRFLOSNGRH9914-97-74 13:30:0049[facility] IswncanNSVYPHPKYGSY1985-46-10 13:30:00 105[facility] GmvecgdTZJSWVHCOYZP8603-28-70 13:30:001.05[facility] SFNLSEVYTAAB9332-78-41 13:30:0013[facility] AauksfdNDRWSZTWTMUR3233-97-11 13:30:00 3.6[facility] EsseimyWPQETWQHHAFE9357-61-21 13:30:07674[facility]xeuogxh [facility] WZOQFRDLRKPN7055-91-91 13:30:0029[facility] AeauxbtDZKCXHKXNCXX5691-57-59 13:30:00 107[facility] DajtgkcRZIWKMFECPNZ9467-90-51 13:30:0010.3[facility] HermannBASIC METABOLIC [id number] 04:45:00 Test Item Value Reference Range Interpretation [...] PATIEN TS. CBC W/PLT COUNT & AUTO [id number] 04:20:00 Test Item Value Reference Range Interpretation [...] (BEAKER) (test code = 2801) BASIC METABOLIC [id number] 04:22:00 Test Item Value Reference Range Interpretation [...] PATIEN TS. CBC W/PLT COUNT & AUTO [id number] 04:04:00 Test Item Value Reference Range Interpretation [...] (BEAKER) (test code = 2801) BASIC METABOLIC [id number] 05:13:00 Test Item Value Reference Range Interpretation [...] PATIEN TS. CBC W/PLT COUNT & AUTO [id number] 04:51:00 Test Item Value Reference Range Interpretation [...] (test code = 2801) CT, BRAIN, WITHOUT [id number] 20:44:00FINAL REPORT CT, BRAIN, WITHOUT CONTRAST CLINICAL [...] MDReport Verified Date/Time: 06/04/2018 20:44:09 Reading Location: [address] Neuro Reading Room RAD, CHEST, 1 VIEW, NON [id number] 17:27:00Reason for exam:->pre-MRIShould this be performed at [...] MDReport Verified Date/Time: 06/04/2018 17:27:33 Reading Location: [address] Body Reading Room HEMOGLOBIN [id number] 10:53:00 Test Item Value Reference Range Interpretation Comments HEMOGLOBIN A1C (BEAKER) (test code = 6.0 % 4.3-6.1 368) VITAMIN B12 AND [id number] 07:40:00 Test Item Value Reference Range Interpretation Comments VITAMIN B12 (BEAKER) (test code = 813 pg/mL 213-816 774) FOLATE (BEAKER) (test code = 362) 9.9 ng/mL >=7.0 [id number] 03:01:00 Test Item Value Reference Range Interpretation Comments POTASSIUM (BEAKER) (test code = 3.5 meq/L 3.5-5.1 379) Check Serum Potassium level 2 hours after oral potassium replacement completed or 30 min after intravenous potassium replacement.LIPID [id number] 03:01:00 Test Item Value Reference Range Interpretation [...] completed or 30 min after intravenous potassium replacement.[id number] 03:01:00 Test Item Value Reference Range Interpretation [...] = 772) CBC W/PLT COUNT & AUTO [id number] 00:10:00 Test Item Value Reference Range Interpretation [...]
[2021-05-07] MEDS ORDERED: D50W 25 GM/50 ML SYRINGE IV ONE (20:18)
[2021-05-07 20:35] LABS: Hematocrit 13.9 % (36.0-45.0); Lymphocytes % 7.4 % (15.3-44.8); MPV 11.1 fL (7.6-11.3); RBC Red Blood Cell Count 1.47 M/uL (3.86-4.86)
--- NOTE | 2021-05-07 21:17 | RAD REPORT ---
EXAM DESCRIPTION: CT - CTHCSPWOC - 05/07/2021 8:54 pm CLINICAL HISTORY: AMS, intubation COMPARISON: Neck Angio dated 06/03/2018; Head Brain Wo Cont dated 02/24/2021 TECHNIQUE: Axial 5 mm thick images of the head were obtained. Axial 2 mm thick images of the cervic al spine were obtained with sagittal and coronal reconstruction images generated and reviewed. All CT scans are performed using dose optimization technique as appropriate and may include automated exposure control or mA/KV adjustment according to patient size. FINDINGS: No intracranial hemorrhage, mass, edema or acute intracranial finding. No acute cortical b ased infarction is identified. There is an old left parietal CVA approximately 3.5 cm in size. Mild t o moderate underlying atrophy changes are present ventricles in proportion. Mild for age chronic isch emic changes present in the cerebral white matter. No extra-axial fluid collections. Mastoid air cell s are clear. Chronic sphenoid sinusitis present. No globe or orbit abnormality seen. Endotracheal tube is in place. Tip falls outside of the field of view. Cervical bodies are normal in height. Slight anterior subluxation of C2 on C3 noted from facet degene rative change. There is slight retrolisthesis of C3 on C4 and C4 on C5. This alignment matches the comparison study. All disc levels show some degree of height loss. This is least pronounced at C2- 3 and most pronounced at C3-4. Endplate spurring and uncovertebral joint hypertrophy seen at multiple levels. Bony foraminal encroachment changes are present at C3-4, C4-5 and C5-6. C6-7 foraminal steno sis is less prominent. Borderline to mild central spinal stenosis present at C3-4 and C4-5. No fractu re or acute bony abnormality. Central canal detail is inherently limited. No paraspinal mass or hematoma. IMPRESSION: No cerebral edema, mass or other acute intracranial finding. Old left parietal CVA changes are present along with atrophy and chronic ischemic change. Prominent cervical spine degenerative change without acute finding. Degenerative changes similar to 2018 study.
[2021-05-07] MEDS ORDERED: NA CHLORIDE 0.9% 250 ML ONE ×2 (21:20→23:33)
[2021-05-07] MEDS ORDERED: NOREPINEPHRINE 4 MG/4 ML VIAL ONE ×2 (21:20→23:33)
--- NOTE | 2021-05-07 21:22 | RAD REPORT ---
EXAM DESCRIPTION: RAD - Chest Single View - 05/07/2021 8:29 pm CLINICAL HISTORY: CHEST PAIN COMPARISON: Portable chest February 24, 2021 TECHNIQUE: AP portable chest image was obtained 05/07/2021 8:29 pm . FINDINGS: Endotracheal tube has been placed. Tip is 1 centimeter above the reid near the origin of the left mainstem bronchus. Retraction of approximately 2.5 cm with the more optimal positioning. Chronic interstitial lung disease is present without peripheral mass or consolidation. Cardiac silhou ette is enlarged but not clearly different. Upper lobe vasculature within normal limits. Right costop hrenic angle blunting could reflect mild pleural effusion. Pacemaker is in place. No acute bony abnor mality seen. No acute aortic findings suspected. IMPRESSION: Chronic interstitial lung disease without peripheral mass or consolidation. Cardiomegaly without other findings of significant failure or volume overload. Endotracheal tube tip is 1 cm above the near the mainstem bronchus on the left. Retraction of the ET tube 2.5 cm would be more optimal positioning.
[2021-05-07] MEDS ORDERED: propofoL 1,000 MG/100 ML VIAL IV ONE (21:37)
[2021-05-07 21:44] LABS: Albumin 1.2 g/dL (3.4-5.0); Bilirubin Direct 0.4 mg/dL (0-0.2); Bilirubin Total 0.8 mg/dL (0.2-1.0); Protein, Total 4.1 g/dL (6.4-8.2)
[2021-05-07 21:45] LABS: Potassium 6.1 mmol/L (3.5-5.1)
[2021-05-07 21:46] LABS: Troponin High Sensitivity 341.8 pg/mL (<58.9)
[2021-05-07] MEDS ORDERED: Phenylephrine HCl 10 MG/ML 1 ML VIAL ONE (21:51)
[2021-05-07] MEDS ORDERED: D5W 250 ML IV ONE (21:51)
[2021-05-07 22:17] LABS: SARS-COV-2 RT PCR NEGATIVE (NEGATIVE)
[2021-05-07 23:19] LABS: Blood Morphology Comment NOTED (NOT SEEN); Burr Cells 3+; Ovalocytes 1+; Platelet Estimate DECR
--- NOTE | 2021-05-08 03:20 | EDPHYS ---
Physician Documentation [facility] Name: Shima Walters Age: 85 yrs Sex: Female : 1935 Arrival Date: 05/07/2021 Time: 20:10 Bed 3 Private MD: ED Physician Naman Chou HPI: 05/07 22:44 This 85 yrs old Female presents to ER via EMS with complaints of Cardiac Arrest. pkl 22:44 The patient presents with decreased mental status. Onset: The symptoms/episode pkl began/occurred just prior to arrival. EMS noted patient unresponsive at the scene. Patient became apneic and was coded. Patient's son said had previous H/O of strokes. About a month ago patient was diagnosed with pancreatic cancer and was awaiting further tests to be done to determine treatment plan. Patient's son said her health deteriorated rapidly and was difficult to do the testings. Historical: - Allergies: 20:32 Codeine; bb - PMHx: 20:32 AFIB; blind left eye; Cerebrovascular accident; CHF; diabetes mellitus; pancreatic bb cancer; - PSHx: 20:32 Cholecystectomy; mitral valve repair; pacemaker; bb - Immunization history:: Adult Immunizations unknown, unknown. - Social history:: Smoking status: unknown. ROS: 22:44 Eyes: Negative for injury, pain, redness, and discharge, ENT: Negative for injury, pkl pain, and discharge, Neck: Negative for injury, pain, and swelling, Cardiovascular: Negative for chest pain, palpitations, and edema, Respiratory: Negative for shortness of breath, cough, wheezing, and pleuritic chest pain, Abdomen/GI: Negative for abdominal pain, nausea, vomiting, diarrhea, and constipation, Back: Negative for injury and pain, : Negative for injury, bleeding, discharge, and swelling, MS/Extremity: Negative for injury and deformity, Skin: Negative for injury, rash, and discoloration. 22:44 Neuro: Positive for altered mental status. Exam: 22:44 Head/Face: Normocephalic, atraumatic. Eyes: Pupils equal round and reactive to light, pkl extra-ocular motions intact. Lids and lashes normal. Conjunctiva and sclera are non-icteric and not injected. Cornea within normal limits. Periorbital areas with no swelling, redness, or edema. ENT: Nares patent. No nasal discharge, no septal abnormalities noted. Tympanic membranes are normal and external auditory canals are clear. Oropharynx with no redness, swelling, or masses, exudates, or evidence of obstruction, uvula midline. Mucous membranes moist. Neck: Trachea midline, no thyromegaly or masses palpated, and no cervical lymphadenopathy. Supple, full range of motion without nuchal rigidity, or vertebral point tenderness. No Meningismus. Chest/axilla: Normal chest wall appearance and motion. Nontender with no deformity. No lesions are appreciated. Cardiovascular: Regular rate and rhythm with a normal S1 and S2. No gallops, murmurs, or rubs. Normal PMI, no JVD. No pulse deficits. Respiratory: Lungs have equal breath sounds bilaterally, clear to auscultation and percussion. No rales, rhonchi or wheezes noted. No increased work of breathing, no retractions or nasal flaring. 22:44 Abdomen/GI: Rectal exam: Stool: guaiac positive. 22:44 Back: Exam negative for acute changes. 22:44 : Exam negative for acute changes. 22:44 Musculoskeletal/extremity: Exam is negative for acute changes. 22:44 Skin: Exam negative for rash. 22:44 Neuro: Orientation: unable to test, the patient is comatose, Cranial nerves: unable to test, the patient is comatose, Motor: unable to test, the patient is comatose. Vital Signs: 20:00 BP 68 / 27; Pulse 67; Resp 20 A; Temp 92.1(A); Pulse Ox 97% on 20 lpm ETT ambu; Weight mk 68.04 kg (R); 20:10 BP 68 / 27; Pulse 112; Resp 16 A; Temp 92(A); bb 20:20 BP 121 / 104; Pulse 90; Resp 20; Pulse Ox 97% on 60% FiO2 ETT vent; mk 20:30 BP 100 / 85; Pulse 89; Resp 20; Pulse Ox 98% on 60% FiO2 ETT vent; mk 20:45 BP 122 / 97; Pulse 107; Resp 20; Pulse Ox 100% on 60% FiO2 ETT vent; mk 21:00 BP 94 / 66; Pulse 84; Resp 22; Pulse Ox 100% on 60% FiO2 ETT vent; mk 21:15 BP 93 / 60; Pulse 77; Resp 22; Pulse Ox 100% on 60% FiO2 ETT vent; mk 21:30 BP 101 / 67; Pulse 113; Resp 20; Pulse Ox 100% on 60% FiO2 ETT vent; mk 21:45 BP 70 / 61 (/pedi); Pulse 83; Resp 20; Pulse Ox 100% on 60% FiO2 ETT vent; mk 21:57 BP 60 / 40; Pulse 82; Resp 22; Pulse Ox 92% on 60% FiO2 ETT vent; mk 22:00 BP 96 / 79; Pulse 82; Resp 18; Pulse Ox 100% on 60% FiO2 ETT vent; mk 22:15 BP 110 / 81; Pulse 82; Resp 22; Pulse Ox 98% on 60% FiO2 ETT vent; 22:30 BP 93 / 64; Pulse 81; Resp 22; Pulse Ox 97% on 60% FiO2 ETT vent; 22:45 BP 85 / 47; Pulse 97; Resp 22; Pulse Ox 97% on 60% FiO2 ETT vent; 22:48 BP 31 / 15; Pulse 80; Resp 22; Pulse Ox 100% on 60% FiO2 ETT vent; 23:00 BP 85 / 47; Pulse 80; Resp 20; Pulse Ox 97% on 60% FiO2 ETT vent; 23:15 BP 83 / 71; Pulse 80; Resp 20; Pulse Ox 97% on 60% FiO2 ETT vent; 23:30 BP 45 / 30; Pulse 80; Resp 20; Pulse Ox 97% on 60% FiO2 ETT vent; 23:45 BP 48 / 18; Pulse 81; Resp 20; Pulse Ox 97% on 60% FiO2 ETT vent; 05/08 00:00 BP 69 / 31; Pulse 100; Resp 24; Pulse Ox 100% on 60% FiO2 ETT vent; 00:15 BP 66 / 42; Pulse 106; Resp 21; Pulse Ox 92% on 60% FiO2 ETT vent; 00:30 BP 43 / 20; Pulse 107; Resp 22; Pulse Ox 94% on 60% FiO2 ETT vent; 00:45 BP 49 / 22; Pulse 108; Resp 20; Pulse Ox 100% on 60% FiO2 ETT vent; 01:00 BP 70 / 57; Pulse 86; Resp 21; Pulse Ox 97% on 60% FiO2 ETT vent; 01:15 BP 39 / 18; Pulse 122; Resp 20; Pulse Ox 60% FiO2 ETT vent; mk 01:30 BP 126 / 107; Pulse 99; Resp 20; Pulse Ox 60% FiO2 ETT vent; mk 01:45 BP 65 / 32; Pulse 85; Resp 20; Temp 91.2(C); Pulse Ox 60% FiO2 ETT vent; mk 02:00 BP 34 / 19; Pulse 52; Resp 20; Pulse Ox 60% FiO2 ETT vent; mk 02:30 BP 45 / 13; Pulse 82; Resp 20; Temp 92(C); Pulse Ox 60% FiO2 ETT vent; mk 03:10 BP 0 / 0; Pulse 0; Resp 0; Temp 92(C); Pulse Ox 0% ; mk 01:15 pulse ox undetectable at this time on forehead, unable to get reading on ear/fingers [place] Coma Score: 05/07 20:00 Eye Response: none(1). Verbal Response: none(1). Motor Response: none(1). Total: 3. mk 20:15 Eye Response: none(1). Verbal Response: none(1). Motor Response: none(1). Total: 3. bb 20:20 Eye Response: none(1). Verbal Response: none(1). Motor Response: none(1). Total: 3. mk 20:30 Eye Response: none(1). Verbal Response: none(1). Motor Response: none(1). Total: 3. mk 20:45 Eye Response: to pain(2). Verbal Response: none(1). Motor Response: none(1). Total: 4. mk 21:00 Eye Response: to pain(2). Verbal Response: none(1). Motor Response: none(1). Total: 4. mk 21:15 Eye Response: to pain(2). Verbal Response: none(1). Motor Response: none(1). Total: 4. mk 21:30 Eye Response: to pain(2). Verbal Response: none(1). Motor Response: none(1). Total: 4. mk 21:45 Eye Response: to pain(2). Verbal Response: none(1). Motor Response: none(1). Total: 4. mk 22:00 Eye Response: to pain(2). Verbal Response: none(1). Motor Response: none(1). Total: 4. mk 22:15 Eye Response: to pain(2). Verbal Response: none(1). Motor Response: none(1). Total: 4. mk 22:30 Eye Response: to pain(2). Verbal Response: none(1). Motor Response: none(1). Total: 4. mk 22:45 Eye Response: to pain(2). Verbal Response: none(1). Motor Response: none(1). Total: 4. mk 23:15 Eye Response: to pain(2). Verbal Response: none(1). Motor Response: none(1). Total: 4. mk 23:30 Eye Response: to pain(2). Verbal Response: none(1). Motor Response: none(1). Total: 4. mk 23:45 Eye Response: to pain(2). Verbal Response: none(1). Motor Response: none(1). Total: 4. mk 02/03 00:00 Eye Response: none(1). Verbal Response: none(1). Motor Response: none(1). Total: 3. mk 00:15 Eye Response: none(1). Verbal Response: none(1). Motor Response: none(1). Total: 3. mk 00:30 Eye Response: none(1). Verbal Response: none(1). Motor Response: none(1). Total: 3. mk 00:45 Eye Response: none(1). Verbal Response: none(1). Motor Response: none(1). Total: 3. mk 01:00 Eye Response: none(1). Verbal Response: none(1). Motor Response: none(1). Total: 3. mk 01:15 Eye Response: none(1). Verbal Response: none(1). Motor Response: none(1). Total: 3. mk 01:30 Eye Response: none(1). Verbal Response: none(1). Motor Response: none(1). Total: 3. mk 01:45 Eye Response: none(1). Verbal Response: none(1). Motor Response: none(1). Total: 3. mk 02:00 Eye Response: none(1). Verbal Response: none(1). Motor Response: none(1). Total: 3. mk 03:10 Eye Response: none(1). Verbal Response: none(1). Motor Response: none(1). Total: 3. Procedures: 05/07 21:24 Central Line: the site was prepped with Betadine, in sterile fashion, a triple lumen jmm catheter was inserted, in the right femoral vein, in 1 attempts. placement was verified, by blood return, the site was dressed with using sterile technique, the patient tolerated the procedure, well. MDM: 20:45 Patient medically screened. pkl 23:18 Data reviewed: vital signs, nurses notes, lab test result(s), EKG, radiologic studies, pkl CT scan, plain films. ED course: I did have a long and detail discussion with patient son regarding prognosis of patient. Patient son agreed DNR for his mother.. 05/08 03:09 ED course: No vital signs noted. Patient pronounced at 0300. pk 05/07 20:17 Order name: Basic Metabolic Panel 05/07 20:17 Order name: CBC with Diff; Complete Time: 00:10 05/07 20:17 Order name: LFT's 05/07 20:17 Order name: Magnesium 05/07 20:17 Order name: NT PRO-BNP 05/07 20:17 Order name: Troponin HS 05/07 20:25 Order name: Glucose, Ancillary Testing; Complete Time: 20:48 [facility] [place] 05/07 20:45 Order name: Type And Screen 05/07 20:54 Order name: Glucose, Ancillary Testing; Complete Time: 21:01 EDNV 05/07 20:55 Order name: Glucose, Ancillary Testing [facility] [place] 05/07 20:55 Order name: Packed RBC Leukored [facility] [place] 05/07 20:55 Order name: RBC Leukored Pheresis [facility] [place] 05/07 20:17 Order name: XRAY Chest (1 view); Complete Time: 21:33 05/07 20:17 Order name: EKG; Complete Time: 20:17 05/07 20:17 Order name: Cardiac monitoring; Complete Time: 20:35 05/07 20:17 Order name: EKG - Nurse/Tech; Complete Time: 20:35 05/07 20:17 Order name: IV Saline Lock; Complete Time: 20:35 05/07 20:17 Order name: Labs collected and sent; Complete Time: 20:36 05/07 20:17 Order name: O2 Per Protocol; Complete Time: 20:35 bb 05/07 20:17 Order name: O2 Sat Monitoring; Complete Time: 20:35 05/07 20:27 Order name: CT Head C Spine; Complete Time: 21:33 st1 05/07 21:20 Order name: COVID-19/FLU A+B; Complete Time: 22:42 EDMS 05/07 22:19 Order name: XRAY CXR (1 view) 05/07 23:16 Order name: Manual Differential; Complete Time: 00:10 EDMS Administered Medications: 05/07 20:11 Drug: Levophed (norepinephrine) (4 mg/250 mL D5W 4 mcg/min Route: IV; Rate: 5 mcg/min; Site: left antecubital; 20:15 Follow up: Rate change 50 mcg/min; IV Status: Infusion continued; increased to mk 50mcg/min everbal with readback per ED 05/08 01:06 Follow up: Response: No adverse reaction; IV Status: Order to discontinue infusion 05/07 21:34 Drug: Propofol 5 mcg/kg/min Route: IV; Rate: calculated rate; Site: left antecubital; 21:44 Follow up: Rate change 10 mcg/kg/min; IV Status: Infusion continued 21:48 Drug: Phenylephrine 100 mcg/min Route: IV; Rate: calculated rate; Site: right femoral; 05/08 01:06 Follow up: Response: No adverse reaction; IV Status: Completed infusion Point of Care Testing: Blood Glucose: 05/07 20:15 Blood Glucose: 47 mg/dL; bb Ranges: Critical Glucose Levels:Adult <50 mg/dl or >400 mg/dl <40 mg/dl or >180 mg/dl Disposition: 23:18 Co-signature as Attending Physician, Naman Chou MD. pkl 05/08 03:09 . pkl 05:40 . pkl Disposition Summary: 05/08/21 03:19 Patient Pronouncing Physician: Naman hCou pkblanche Time of : 03:10 05/08/2021 pkl Location: Home pkl Diagnosis - Cardiac arrest. Pancreatic cancer. Severe anemia. G. I. Bleeding pkl Signatures: Dispatcher [employer] EDNV Naman Chou MD MD pkl Mickail, Joel, PA PA jmm Ballard, Brenda RN RN Julia Hernandez RN RN mk Corrections: (The following items were deleted from the chart) 04:07 05/07 20:17 PROTIME (+INR)+COAG.LAB.BRZ ordered. EDMS EDMS
--- NOTE | 2021-05-08 03:20 | ER ---
Nurse's Notes [facility] Name: Shima Walters Age: 85 yrs Sex: Female : 1935 Arrival Date: 05/07/2021 Time: 20:10 Bed 3 Private MD: Diagnosis: Cardiac arrest. Pancreatic cancer. Severe anemia. G. I. Bleeding Presentation: 05/07 20:10 Chief complaint: EMS states: they were toned out for report of pt with AMS on arrival bb pt was hypoglycemic, was able to communicate but speech was slurred, on transfer to EMS stretcher pt became apneic and coded they gave her epi and had ROSC pt was Afib RVR on their arrival and after ROSC pt intubated with 7.5 ET tube, 26 cm at the lip and bagged on arrival. Care prior to arrival: Oral intubation, CPR performed by EMS Medication(s) given: Normal saline infusion, 1000 mL, D 10 200 mLs, epi x 1 Oxygen administered. via AMBU bag IO to left lower extremity. Compressions began prior to arrival. 20:10 Method Of Arrival: EMS: [facility] bb 20:10 Acuity: KERRY 1 bb 20:31 Coronavirus screen: At this time, the client does not indicate any symptoms associated bb with coronavirus-19. Ebola Screen: No symptoms or risks identified at this time. Initial Sepsis Screen: Does the patient meet any 2 criteria? Systolic BP < 90 mmHg. Mean Arterial Pressure (MAP) < 65. Altered Mental Status. Yes Does the patient have a suspected source of infection? No. Patient's initial sepsis screen is negative. Risk Assessment: Do you want to hurt yourself or someone else? Patient reports no desire to harm self or others. Onset of symptoms. Triage Assessment: 20:11 General: Behavior is unresponsive. General: Appears ill. Neuro: Level of Consciousness mk is unresponsive. Cardiovascular: Heart tones S1 S2 Capillary refill is > 3 seconds in bilateral fingers toes. Historical: - Allergies: 20:32 Codeine; bb - PMHx: 20:32 AFIB; blind left eye; Cerebrovascular accident; CHF; diabetes mellitus; pancreatic bb cancer; - PSHx: 20:32 Cholecystectomy; mitral valve repair; pacemaker; bb - Immunization history:: Adult Immunizations unknown, unknown. - Social history:: Smoking status: unknown. Screenin:15 Fall Risk Fall in past 12 months (25 points). Secondary diagnosis (15 points) impaired mk mobility, IV access (20 points). Ambulatory Aid- None/Bed Rest/Nurse Assist (0 pts). Gait- Weak (10 pts.). Mental Status- Overestimates/Forgets Limitations (15 pts.). Total Thompson Fall Scale indicates No Risk (0-24 pts). 05/08 06:12 Abuse screen: Denies threats or abuse. Nutritional screening: No deficits noted. mk Tuberculosis screening: No symptoms or risk factors identified. Assessment: 05/07 20:10 CPR assessment: unresponsive. bb 20:12 General: Appears ill. Pain: Unable to use pain scale. Patient is intubated. Patient is mk unresponsive. Neuro: Level of Consciousness is obtunded, unresponsive, Weakness Facial symmetry appears normal, Pupils are fixed, non-reactive, gazing toward the left. Cardiovascular: Heart tones S1 S2 present Capillary refill is > 3 seconds in bilateral fingers toes Clubbing of nail beds is absent JVD is absent Pulses are 1+ in right brachial artery, right femoral artery, left brachial artery, left femoral artery, left carotid pulse and right carotid pulse Edema is 2+ to right forearm, left midcalf, left ankle, left foot, left forearm, right midcalf, right ankle and right foot Rhythm is ventricular pacer. Respiratory: Airway via oral intubation Trachea midline Respiratory effort is mechanical Respiratory pattern is mechanical Breath sounds are diminished bilaterally. GI: Abdomen is non-distended, Stools are reported to be Bowel sounds present X 4 quads. Abd is soft black stools. : No signs and/or symptoms were reported regarding the genitourinary system. Derm: Skin is fragile, is thin, has lesions on scattered petechiae bilateral UE. 20:34 Cardiac rhythm is paced. bb 21:15 Reassessment: No changes from previously documented assessment. Patient and/or family mk updated on plan of care and expected duration. Pain level reassessed. 22:15 Reassessment: No changes from previously documented assessment. Patient and/or family mk updated on plan of care and expected duration. Pain level reassessed. 23:15 Reassessment: No changes from previously documented assessment. Patient and/or family mk updated on plan of care and expected duration. Pain level reassessed. 05/08 00:15 Reassessment: No changes from previously documented assessment. Patient and/or family mk updated on plan of care and expected duration. Pain level reassessed. Cardiovascular: Capillary refill is > 3 seconds in bilateral fingers toes skin in bilateral hands turning blue. 01:15 Reassessment: No changes from previously documented assessment. Patient and/or family mk updated on plan of care and expected duration. Pain level reassessed. 02:15 Reassessment: No changes from previously documented assessment. Patient and/or family mk updated on plan of care and expected duration. Pain level reassessed. Cardiovascular: Rhythm is ventricular pacer with capture with failure to capture. Vital Signs: 05/07 20:00 BP 68 / 27; Pulse 67; Resp 20 A; Temp 92.1(A); Pulse Ox 97% on 20 lpm ETT ambu; Weight mk 68.04 kg (R); 20:10 BP 68 / 27; Pulse 112; Resp 16 A; Temp 92(A); bb 20:20 BP 121 / 104; Pulse 90; Resp 20; Pulse Ox 97% on 60% FiO2 ETT vent; mk 20:30 BP 100 / 85; Pulse 89; Resp 20; Pulse Ox 98% on 60% FiO2 ETT vent; mk 20:45 BP 122 / 97; Pulse 107; Resp 20; Pulse Ox 100% on 60% FiO2 ETT vent; mk 21:00 BP 94 / 66; Pulse 84; Resp 22; Pulse Ox 100% on 60% FiO2 ETT vent; mk 21:15 BP 93 / 60; Pulse 77; Resp 22; Pulse Ox 100% on 60% FiO2 ETT vent; mk 21:30 BP 101 / 67; Pulse 113; Resp 20; Pulse Ox 100% on 60% FiO2 ETT vent; mk 21:45 BP 70 / 61 (/pedi); Pulse 83; Resp 20; Pulse Ox 100% on 60% FiO2 ETT vent; mk 21:57 BP 60 / 40; Pulse 82; Resp 22; Pulse Ox 92% on 60% FiO2 ETT vent; mk 22:00 BP 96 / 79; Pulse 82; Resp 18; Pulse Ox 100% on 60% FiO2 ETT vent; mk 22:15 BP 110 / 81; Pulse 82; Resp 22; Pulse Ox 98% on 60% FiO2 ETT vent; mk 22:30 BP 93 / 64; Pulse 81; Resp 22; Pulse Ox 97% on 60% FiO2 ETT vent; 22:45 BP 85 / 47; Pulse 97; Resp 22; Pulse Ox 97% on 60% FiO2 ETT vent; 22:48 BP 31 / 15; Pulse 80; Resp 22; Pulse Ox 100% on 60% FiO2 ETT vent; mk 23:00 BP 85 / 47; Pulse 80; Resp 20; Pulse Ox 97% on 60% FiO2 ETT vent; mk 23:15 BP 83 / 71; Pulse 80; Resp 20; Pulse Ox 97% on 60% FiO2 ETT vent; mk 23:30 BP 45 / 30; Pulse 80; Resp 20; Pulse Ox 97% on 60% FiO2 ETT vent; 23:45 BP 48 / 18; Pulse 81; Resp 20; Pulse Ox 97% on 60% FiO2 ETT vent; 05/08 00:00 BP 69 / 31; Pulse 100; Resp 24; Pulse Ox 100% on 60% FiO2 ETT vent; 00:15 BP 66 / 42; Pulse 106; Resp 21; Pulse Ox 92% on 60% FiO2 ETT vent; 00:30 BP 43 / 20; Pulse 107; Resp 22; Pulse Ox 94% on 60% FiO2 ETT vent; 00:45 BP 49 / 22; Pulse 108; Resp 20; Pulse Ox 100% on 60% FiO2 ETT vent; 01:00 BP 70 / 57; Pulse 86; Resp 21; Pulse Ox 97% on 60% FiO2 ETT vent; 01:15 BP 39 / 18; Pulse 122; Resp 20; Pulse Ox 60% FiO2 ETT vent; 01:30 BP 126 / 107; Pulse 99; Resp 20; Pulse Ox 60% FiO2 ETT vent; 01:45 BP 65 / 32; Pulse 85; Resp 20; Temp 91.2(C); Pulse Ox 60% FiO2 ETT vent; 02:00 BP 34 / 19; Pulse 52; Resp 20; Pulse Ox 60% FiO2 ETT vent; 02:30 BP 45 / 13; Pulse 82; Resp 20; Temp 92(C); Pulse Ox 60% FiO2 ETT vent; 03:10 BP 0 / 0; Pulse 0; Resp 0; Temp 92(C); Pulse Ox 0% ; mk 01:15 pulse ox undetectable at this time on forehead, unable to get reading on ear/fingers Vitals: 05/07 20:00 Cardiac Rhythm Assessment Paced. mk 21:00 Cardiac Rhythm Assessment Paced. mk 22:00 Cardiac Rhythm Assessment Cardiac Rhythm Assessment Paced. mk 22:00 Cardiac Rhythm Assessment Paced. mk 22:30 Cardiac Rhythm Assessment Paced. mk 23:30 Cardiac Rhythm Assessment Paced. mk Lalitha Coma Score: 20:00 Eye Response: none(1). Verbal Response: none(1). Motor Response: none(1). Total: 3. mk 20:15 Eye Response: none(1). Verbal Response: none(1). Motor Response: none(1). Total: 3. bb 20:20 Eye Response: none(1). Verbal Response: none(1). Motor Response: none(1). Total: 3. mk 20:30 Eye Response: none(1). Verbal Response: none(1). Motor Response: none(1). Total: 3. mk 20:45 Eye Response: to pain(2). Verbal Response: none(1). Motor Response: none(1). Total: 4. mk 21:00 Eye Response: to pain(2). Verbal Response: none(1). Motor Response: none(1). Total: 4. mk 21:15 Eye Response: to pain(2). Verbal Response: none(1). Motor Response: none(1). Total: 4. mk 21:30 Eye Response: to pain(2). Verbal Response: none(1). Motor Response: none(1). Total: 4. mk 21:45 Eye Response: to pain(2). Verbal Response: none(1). Motor Response: none(1). Total: 4. mk 22:00 Eye Response: to pain(2). Verbal Response: none(1). Motor Response: none(1). Total: 4. mk 22:15 Eye Response: to pain(2). Verbal Response: none(1). Motor Response: none(1). Total: 4. mk 22:30 Eye Response: to pain(2). Verbal Response: none(1). Motor Response: none(1). Total: 4. mk 22:45 Eye Response: to pain(2). Verbal Response: none(1). Motor Response: none(1). Total: 4. mk 23:15 Eye Response: to pain(2). Verbal Response: none(1). Motor Response: none(1). Total: 4. mk 23:30 Eye Response: to pain(2). Verbal Response: none(1). Motor Response: none(1). Total: 4. mk 23:45 Eye Response: to pain(2). Verbal Response: none(1). Motor Response: none(1). Total: 4. 05/08 00:00 Eye Response: none(1). Verbal Response: none(1). Motor Response: none(1). Total: 3. mk 00:15 Eye Response: none(1). Verbal Response: none(1). Motor Response: none(1). Total: 3. mk 00:30 Eye Response: none(1). Verbal Response: none(1). Motor Response: none(1). Total: 3. mk 00:45 Eye Response: none(1). Verbal Response: none(1). Motor Response: none(1). Total: 3. mk 01:00 Eye Response: none(1). Verbal Response: none(1). Motor Response: none(1). Total: 3. mk 01:15 Eye Response: none(1). Verbal Response: none(1). Motor Response: none(1). Total: 3. mk 01:30 Eye Response: none(1). Verbal Response: none(1). Motor Response: none(1). Total: 3. mk 01:45 Eye Response: none(1). Verbal Response: none(1). Motor Response: none(1). Total: 3. mk 02:00 Eye Response: none(1). Verbal Response: none(1). Motor Response: none(1). Total: 3. mk 03:10 Eye Response: none(1). Verbal Response: none(1). Motor Response: none(1). Total: 3. ED Course: 05/07 20:10 Patient arrived in ED. wm 20:10 media monitor on. Pulse ox on. NIBP on. mk 20:15 Patient has correct armband on for positive identification. Bed in low position. Side bb rails up X2. 20:15 Maintain EMS IV. Dressing intact. Site clean \T\ dry. mk 20:15 Maintain EMS IV. Dressing intact. Site clean \T\ dry. mk 20:20 Patient placed in an exam room, on a stretcher, on oxygen, on desk monitor, on pulse bb oximetry, RT at bedside with vent. 20:29 Triage completed. bb 20:29 XRAY Chest (1 view) In Process Unspecified. EDMS 20:33 Julia Ryan, RN is Primary Nurse. mk 20:34 Adorno cath inserted, using sterile technique, 16 Fr., by me, balloon inflated, to mk gravity drainage, clamped. 20:35 Basic Metabolic Panel Sent. mk 20:35 CBC with Diff Sent. mk 20:35 LFT's Sent. mk 20:35 Magnesium Sent. mk 20:35 NT PRO-BNP Sent. mk 20:35 Troponin HS Sent. mk 20:45 Naman Chou MD is Attending Physician. pkl 20:45 Notified ED physician of a critical lab result(s). Hgb of 4.1, Hct of 13.3, Plts 44. Dr brielle Chou notified. 20:54 CT Head C Spine In Process Unspecified. EDMS 21:15 Assisted provider with central line placement. Set up central line tray. Triple lumen mk line placed in right femoral. Line placed by Gildardo DAMON Placement verified by blood return, Dressed with Tape, Tegaderm, Patient tolerated well. Time-out/Briefing performed prior to start of procedure? Yes. Was handwashing/sanitizing done immediately prior to procedure? Yes. Was patient positioned to in a way to prevent air embolism? Yes. Was procedure site sterilized? Yes, with chlorhexidine. Was the site allowed to dry? Yes. Was local anesthetic and/or sedation utilized? Yes. During the procedure, did the Practitioner(s) maintain a sterile field? Yes. Were unused ports clamped during insertion? Yes. Was a 2nd qualified MD obtained after 3 unsuccessful insertion attempts? No. Was blood aspirated from each lumen? Yes. 21:46 1 opal like necklace, 2 white stone like bracelet, 1 dark blue and white stone st1 bracelet, 1 light blue and white stone bracelet. taken off the patients right wrist. the son was given these items. Dr.. Chou was present and was a witness. 22:00 Notified ED physician of a critical lab result(s). Potassium of 6.1, Bicarb 10, ALT bb 641, AST 2123, Trop 341.8. Dr Chou notified. 22:29 XRAY CXR (1 view) In Process Unspecified. EDMS 23:05 Notified ED physician of other pt's BP not taking on several attempts, pulse ox not mk getting wave form, pt likely about to code. MD reported to bedside, family decided no further invassive measures and agreed to switch to comfort care. Per MD, keep pt on pressors but no titrations. 05/08 00:12 RBC Leukored Pheresis Sent. mk 00:12 Packed RBC Leukored Sent. mk 00:12 Glucose, Ancillary Testing Sent. mk 01:06 Notified ED physician of other Notified MD that family is ready to say MD michelle reyes agreed to stop pressors, pressors dc'd. 03:10 the patient was pronounced at [address] Chou. st1 03:16 Naman Chou MD is Pronouncing Provider. pkl 06:05 Patient transferred, IV remains in place. mk Administered Medications: 05/07 20:11 Drug: Levophed (norepinephrine) (4 mg/250 mL D5W 4 mcg/min Route: IV; Rate: 5 mcg/min; Site: left antecubital; 20:15 Follow up: Rate change 50 mcg/min; IV Status: Infusion continued; increased to mk 50mcg/min everbal with readback per ED 05/08 01:06 Follow up: Response: No adverse reaction; IV Status: Order to discontinue infusion 05/07 21:34 Drug: Propofol 5 mcg/kg/min Route: IV; Rate: calculated rate; Site: left antecubital; mk 21:44 Follow up: Rate change 10 mcg/kg/min; IV Status: Infusion continued mk 21:48 Drug: Phenylephrine 100 mcg/min Route: IV; Rate: calculated rate; Site: right femoral; 05/08 01:06 Follow up: Response: No adverse reaction; IV Status: Completed infusion Point of Care Testing: Blood Glucose: 05/07 20:15 Blood Glucose: 47 mg/dL; bb Ranges: Intake: Outcome: 05/08 06:03 Patient left the ED. mk 06:06 Discharge instructions given to family. mk 06:14 Patient : Time of 03:10 Pronounced by Naman Chou MD Body to home. mk 06:14 Condition: Signatures: Dispatcher [employer] EDNaman Shi MD MD pkl Ballard, Brenda, RN RN Niki Lindsey Madeline, RN RN Cheyenne Peralta RN RN st1 Corrections: (The following items were deleted from the chart) 05/07 21:57 21:46 1 opal like necklace, 2 white stone like bracelet, 1 dark blue and white stone st1 bracelet, 1 light blue and white stone bracelet. taken off the patients right wrist. st 05/08 03:22 00:13 General: Appears ill, [facility] 03:22 00:13 Pain: Unable to use pain scale. Patient is intubated. Patient is unresponsive. [facility] 04:07 05/07 20:35 PROTIME (+INR)+COAG.LAB.BRZ drawn and sent. [facility] 05/08 04:07 00:12 PROTIME (+INR)+COAG.LAB.BRZ drawn and sent. [facility] 06:02 06:01 Reassessment: No changes from previously documented assessment. Patient and/or family updated on plan of care and expected duration. Pain level reassessed. : 06:01 Cardiovascular: Rhythm is ventricular pacer [facility]
[2021-05-08 06:45] VITALS: TEMP 92
[2021-05-08 06:46] VITALS: BP 0/0; O2SAT 0
--- NOTE | 2021-05-08 09:45 | RAD REPORT ---
EXAM DESCRIPTION: Alessandro Single View05/07/2021 10:29 pm CLINICAL HISTORY: 85 years Female ET tube adjusted COMPARISON: 05/07/2021 at 8:26 PM. FINDINGS: The endotracheal tube has been retracted. The tip of the tube is approximately 5 cm above the reid. NG tube has been placed with its tip in the stomach. Left cardiac pacemaker device and pacemaker leads are again visualized. There are overlying monitoring leads. The cardiomediastinal delvis houette appears unremarkable. There is mild opacity at the right lung base suggesting a small pleural effusion with mild associated atelectasis/airspace disease. No pneumothorax. IMPRESSION: The endotracheal tube tip is approximately 5 cm above the erid. Electronically signed by: Felipe Grajeda MD 05/07/2021 10:[address] Due to temporary technical issues with the PACS/Fluency reporting system, reports are being signed by the in house radiologists without review as a courtesy to insure prompt reporting. The interpreting radiologist is fully responsible for the content of the report.
[2021-05-08 10:17] LABS: Magnesium 1.7
== END 2021-05-08 06:03 | disposition expired ==
LOC: ER 20:09
PROC: 06HM33Z Insertion of Infusion Device into Right Femoral Vein, Percutaneous Approach (ICD-10-PCS; principal; 2021-05-08)
DX: I46.9 Cardiac arrest, cause unspecified (principal); D64.9 Anemia, unspecified; C25.9 Malignant neoplasm of pancreas, unspecified; K92.2 Gastrointestinal hemorrhage, unspecified; I50.9 Heart failure, unspecified; Z86.73 Personal history of transient ischemic attack (TIA), and cerebral infarction without residual deficits; Z88.5 Allergy status to narcotic agent; Z95.0 Presence of cardiac pacemaker
CPT/HCPCS: 36556; 96365; 93005; 85025; 80048; 36415; 86900; 83735; 86850; 86901; 82947 ×2; 80076; 84484; 83880; 0240U; 70450; 72125; 71045 ×2; 94002; 51702; 96375; 92950; 99291; 99292; 96366; J2370; J2704; P9016 ×2; J7060; J7050 ×2; J7030